=== PATIENT | male | born 1950 | race Caucasian/White ===

== ENCOUNTER → 2017-01-11 | Outpatient (CLI) | payer BC ==
[~2017-01-11] MED LIST: ATOR10TA88 PO; CHOL100040; CLC100 PO; DSY/150 PO; DSY50 PO; OXYC-57 PO; PSYL58.636; WARF2TAB PO; ZNTT/150 PO
== END | disposition home or self-care (01) ==
LOC: C.RDSM 14:44
PROVIDERS: ATTEND Physical Medicine & Rehabilitation Sports Medicine
DX: Z96.652 Presence of left artificial knee joint (principal)

== ENCOUNTER 2017-03-10 08:09 | Inpatient (IN) | payer BC, OTHER ==
[2017-02-08 11:02] VITALS: BMI 29.0
--- NOTE | 2017-02-08 11:44 | PAT Medication Instructions ---
Service Date Feb 08, 2017. Current Home Medication List Atorvastatin (Lipitor), 10 MG PO QAM Cholecalciferol (Vitamin D-1000), QAM Psyllium (Metamucil Fiber), Unknown Dose QAM Ranitidine (Zantac), 150 MG PO QAM Trazodone HCl (Trazodone HCl), 1 TAB PO HS Medication Instructions For Your Scheduled Surgery - Hold the following medications the morning of surgery: Psyllium (Metamucil Fiber), Unknown Dose QAM Cholecalciferol (Vitamin D-1000), QAM - Take the following medications the morning of surgery with a sip of water: Ranitidine (Zantac), 150 MG PO QAM Atorvastatin (Lipitor), 10 MG PO QAM - Take the following medications as scheduled the night before surgery: Trazodone HCl (Trazodone HCl), 1 TAB PO HS If you have any questions please call us at [phone] or [phone] ( [place]) or [phone]
--- NOTE | 2017-02-08 12:13 | DIAGNOSTIC IMAGING REPORT ---
CHEST 2 VIEWS ROUTINE CLINICAL HISTORY: Preoperative chest COMPARISON STUDY: 11/09/2014 FINDINGS: The cardiac and mediastinal contours are normal. There is no evidence of focal pulmonary consolidation. There is no evidence of failure. No pleural effusions are visualized.[ IMPRESSION: No active disease in the chest. Electronically signed by: Laz Low M.D. 02/08/2017 12:11 PM Dictated Date/Time: 02/08/2017 12:11 PM
[2017-02-08 12:26] LABS: BASO % 0.1 %; BASO ABS # 0.01 K/uL (0-0.2); COMPLETE YES; EOS % 1.4 %; HEMATOCRIT 43.4 % (42-52); IG% 0.1 %; LYMPH % 22.9 %; LYMPH ABS # 1.76 K/uL (1.2-3.4); MEAN CELL VOLUME 92.9 fL (80-100); MEAN CORPUSCULAR HGB CONC 33.4 g/dl (32-36); MEAN PLATELET VOLUME 10.3 fL (7.4-10.4); NEUT % 68.5 %; PLATELET COUNT 194 K/uL (130-400); RED BLOOD COUNT 4.67 M/uL (4.7-6.1); WHITE BLOOD COUNT 7.67 K/uL (4.8-10.8)
[2017-02-08 12:39] LABS: URINE APPEARANCE CLEAR (CLEAR); URINE BILIRUBIN NEG (NEG); URINE COLOR DK YELLOW; URINE NITRITE NEG (NEG); URINE SPECIFIC GRAVITY 1.032 (1.000-1.030); UROBILINOGEN NEG (NEG)
[2017-02-08 12:46] LABS: PROTHROMBIN TIME (PATIENT) 10.4 SECONDS (9.0-12.0)
[2017-02-08 12:53] LABS: MANUAL MICROSCOPIC REQUIRED? NO; REVIEW REQ? NO
[2017-02-08 13:47] LABS: BUN/CREATININE RATIO 14.5 (10-20); CREATININE 1.3 mg/dl (0.60-1.40); POTASSIUM 4.2 mmol/L (3.5-5.1)
[2017-02-08 14:02] LABS: CALCIUM 9.4 mg/dl (8.5-10.1)
--- NOTE | 2017-02-08 17:28 | HISTORY & PHYSICAL EXAMINATION ---
DATE OF ADMISSION: 03/10/2017 CHIEF COMPLAINT: Right knee pain. HISTORY OF PRESENT ILLNESS: This 66-year-old white male presents to the office with complaints of right knee pain that has been ongoing for several years. It has become worse over the last 6 months. Pain is affecting his ADLs. He denies any swelling. Pain is worse with weightbearing. He ambulates with an antalgic gait. He has tried activity modification and physical therapy as well as oral anti-inflammatories without lasting relief. X-rays have been obtained. He elects to proceed with right total knee arthroplasty in hopes of alleviating his pain. PAST MEDICAL HISTORY: Significant for anxiety, bipolar disorder, gout, elevated lipids, and osteoarthritis. PAST SURGICAL HISTORY: Knee arthroscopy and rotator cuff repair in 2005 and left knee TKA on 12/05/2014. ALLERGIES: NKDA. CURRENT MEDICATIONS: Mobic 15 mg p.o. daily, atorvastatin unknown mg at bedtime, vitamin D daily, risperidone 2 mg p.o. daily, and trazodone 50 mg p.o. t.i.d. SOCIAL HISTORY: The patient is retired. . Tobacco use of a can every 2 weeks. Occasional ETOH use. No drug use. FAMILY HISTORY: Noncontributory. REVIEW OF SYSTEMS: Significant for above stated conditions, otherwise unremarkable. PHYSICAL EXAMINATION: GENERAL: Well-developed and well-nourished elderly white male in no acute distress. Sitting on a chair. Alert and oriented. SKIN: Warm and dry with good turgor. No rashes or lesions. No ecchymosis or erythema. HEENT: Normocephalic and atraumatic. Eyes PERRLA, EOMI. Nares patent bilaterally without turbinate enlargement. Oropharynx without erythema or exudate. No lesions noted. Uvula midline. Oral mucosa moist. Fair dentition. Dental caps are noted. He does have a difficult airway to visualize. HEART: RRR. No MGR. LUNGS: Clear to auscultation bilaterally. No crackles, rhonchi or wheezing. Good air movement. ABDOMEN: Bowel sounds present x4, soft and nontender. No organomegaly. No masses. MUSCULOSKELETAL: Right knee evaluation reveals no intra-articular effusion. He does have discomfort with palpation over the medial joint line. Stable collateral ligaments. No pain with palpation over the patellar tendon or patella. No defect in the quadriceps tendon. Varus alignment. He lacks approximately 5 degrees of terminal extension. Flexion to greater than 100 degrees. Strength is 5/5 with good quad tone. NEUROLOGIC: Cranial nerves II through XII are intact. Gross sensation is intact across the right leg by soft touch. Peripheral pulses are 2+. DATA: Radiographic imaging previously obtained shows end-stage DJD of the right knee. There is medial compartment joint space collapse with bone on bone. Periarticular osteophytes and subchondral sclerosis were also present. IMPRESSION: Right knee degenerative joint disease. PLAN: Informed written consent was obtained to proceed with right knee total knee arthroplasty. Postoperative prescriptions for Percocet and Coumadin will be provided at discharge from the hospital. Anticipate discharge to home with outpatient PT at our facility. He already has a walker. Preoperative lab work, EKG, and chest x-ray have been ordered. Medical clearance has been requested from Dr. Monet.
[~2017-03-10] VITALS: Ht 172.7 cm; Wt 86.3 kg
[2017-03-10] VITALS (9 sets, daily range): BP systolic 97–131; BP diastolic 61–88; PULSE 60–110; TEMP 34.8–36.9; O2SAT 92–100; Ht 172.7 cm; Wt 86.3 kg
[~2017-03-10 08:09] MED LIST changes: +ATOR10TA82 PO; -ATOR10TA88 PO; +ATROPINE SULFATE 0.1 MG/ML 5ML SYR IV PRN; +CEFAZOLIN 2000 MG/60 ML D5W 60 ML IV SCH; -CLC100 PO; -DSY50 PO; +EpHEDrine SULFATE INJ 50 MG/ML AMP IV PRN; +FENTANYL CITRATE INJ 50 MCG/1 ML 2 ML VIAL IV PRN; +LACTATED RINGER'S 1000ML 1,000 ML IV SCH; +LACTATED RINGER'S 1000ML IV SCH; +ONDANSETRON INJ 2 MG/ML 2 ML VIAL IV PRN; -OXYC-57 PO; +ROPIVACAINE 5MG/ML 30 ML 150 MG, BUPIVACAINE/EPINEPHR 0.5% MPF 30 ML, KETOROLAC TROMETH... INFIL SCH; +TRANEXAMIC ACID INJ 1,000 MG in SODIUM CHLORIDE 0.9% 100ML 100 ML IV SCH; -WARF2TAB PO
--- NOTE | 2017-03-10 08:27 | History & Physical Bridge Note ---
H&P Re-Evaluation Bridge Note: I have examined the patient, reviewed the History & Physical and in the interval since the performance of the History & Physical I have noted the following changes of clinical significance: No changes noted
[2017-03-10] MEDS ORDERED: BUPIVACAINE 0.5 % 5 MG/1 ML PF 10ML VIAL ONE (08:50)
[2017-03-10] MEDS ORDERED: BUPIVACAINE 0.25% 30 ML VIAL ONE (08:50)
[2017-03-10] MEDS ORDERED: MIDAZOLAM HCL 1 MG/ML 2ML VIAL ONE (09:21)
[2017-03-10] MEDS ORDERED: FENTANYL CITRATE INJ 50 MCG/1 ML 2 ML VIAL ONE (09:21)
[2017-03-10] MEDS ORDERED: ORTHO JOINT ANESTHETIC ONE (10:35)
[2017-03-10] MEDS ORDERED: POVIDONE-IODINE OP SOLN 30 ML BTL ONE (10:35)
[2017-03-10] MEDS ORDERED: DEXAMETHASONE SOD INJ 4 MG/ML VIAL ONE (11:12)
[2017-03-10] MEDS ORDERED: PROPOFOL IV EMULSION 10 MG/ML 20 ML VIAL IV ONE (11:12)
[2017-03-10] MEDS ORDERED: LIDOCAINE HCL 2% 2 ML VIAL (20MG/ML) ONE (11:12)
[2017-03-10] MEDS ORDERED: EpHEDrine SULFATE 50MG/5ML SYR ONE (11:12)
[2017-03-10] MEDS ORDERED: ONDANSETRON INJ 2 MG/ML 2 ML VIAL ONE (11:12)
--- NOTE | 2017-03-10 12:18 | [facility] Post Operative Brief Note ---
Immediate Operative Summary Operative Date March 10, 2017. Pre-Operative Diagnosis Right Knee Degenerative Joint Disease Post-Operative Diagnosis Right Knee Degenerative Joint Disease Procedure(s) Performed Right Total Knee Arthroplasty Surgeon Dr. Pastor Social Insurance Analyst Surgeon(s) Dr. Florian Galloway (Fellow) /STEPHANY Patel Estimated Blood Loss 100 ML Findings severe medial djd/contracture Fluids (cc crystalloids) 1500cc Specimens A. Right Knee Bone and Tissue Drains none Anesthesia spinal/lma Complication(s) None Disposition Recovery Room / PACU
[2017-03-10] MEDS ORDERED: ALUMINUM/MAGNESIUM/SIMETH (MAALOX MAX) 30 ML UDC PO PRN (12:30)
[2017-03-10] MEDS ORDERED: ACETAMINOPHEN IV 100 ML IV PRN (12:30)
[2017-03-10] MEDS ORDERED: LORAZEPAM 0.5 MG TAB SL PRN (12:30)
[2017-03-10] MEDS ORDERED: ACETAMINOPHEN 325 MG TAB PO PRN (12:30)
[2017-03-10] MEDS ORDERED: OXYCODONE HCL IR 5 MG TAB (IMMEDIATE RELEASE) PO PRN (12:30)
[2017-03-10] MEDS ORDERED: ONDANSETRON INJ 2 MG/ML 2 ML VIAL IV PRN (12:30)
[2017-03-10] MEDS ORDERED: HYDROmorphone INJ 1 MG/ML SYR IV PRN (12:30)
[2017-03-10] MEDS ORDERED: METOCLOPRAMIDE HCL INJ 5 MG/ML 2 ML VIAL IV PRN (12:30)
[2017-03-10] MEDS ORDERED: DiphenhydrAMINE HCL 50 MG/ML VIAL IV PRN (12:30)
[2017-03-10] MEDS ORDERED: BISACODYL 10 MG SUPP PR PRN (12:30)
[2017-03-10] MEDS ORDERED: MAGNESIUM HYDROXIDE SUSP 30 ML UDC PO PRN (12:30)
[2017-03-10] MEDS ORDERED: TAMSULOSIN HCL 0.4 MG CAP PO PRN (12:30)
--- NOTE | 2017-03-10 12:48 | OPERATIVE REPORT ---
DATE OF OPERATION: 03/10/2017 PREOPERATIVE DIAGNOSIS: Osteoarthritis with varus and flexion deformity of his right knee. POSTOPERATIVE DIAGNOSIS: Same. OPERATION PERFORMED: Cemented right total knee replacement. SURGEON: Dr. Pastor. AERONAUTICAL DRAFTER: Dr. Florian Woody. SECOND AERONAUTICAL DRAFTER: Drew Tristan PA-C. SUMMARY OF IMPLANTS: Size 4 right femur posterior cruciate substituting size 4 rotating tibial platform tray, size 4 x10 mm insert posterior cruciate stabilized and 41 mm patella. Two bags of Palacos G cement. ESTIMATED BLOOD LOSS: 100 mL. CRYSTALLOID: 1500 mL. PERIOPERATIVE SITUATION: Medically cleared male with intractable knee pain has flexion and varus deformity, end-stage osteoarthritis with medial compartment narrowing, varus thrust and lateral subluxation of the tibia. OPERATION AND FINDINGS: PROCEDURE: The patient was properly identified, site verified, consent verified, 2 grams of Ancef confirmed as being given. Right lower extremity was prepped and draped in usual routine fashion. Tourniquet inflated to 300 mmHg after exsanguination of the limb with a rubber Esmarch bandage for a total of roughly 53 minutes. Midline exposure utilized. Parapatellar arthrotomy performed. Appropriate soft tissue releases and debridement carried out. Distal femur resected 14 mm. Proximal tibia resected 4 mm. The extension gap was excellent. Femur was sized to a 4, 4 cutting block applied and the anterior and posterior condylar and chamfer cuts made. The flexion gap was slightly tight medially. Posterior capsular release medially allowed that to be balanced well. The posterior capsule was injected with the Orthomix. The box cut was then made and the size 4 trial fit well. The tibia was broached and reamed to a size 4 and a 10 mm spacer allowed full maximum stability in all degrees of flexion and extension. The patella tracked well. The patella was sized to a 41 and was resected leaving 15 mm. The seating holes were made. The trial implant seated and the patella tracked well. All trial implants were then removed. The wound irrigated with Betadine Pulsavac and then Orthomix injected then irrigated one final time and then the permanent cemented into position. After 12 minutes of cement curing, the tourniquet was deflated additional 2 minutes. Minor bleeding controlled with electrocautery. The knee flexed. Minor cement removal medially. Wound irrigated with Betadine Pulsavac, permanent spacer seated. The knee reduced and closed with #1 Ethibond, #1 Vicryl, 2-0 Vicryl and stainless steel clips. Appropriate soft tissue dressing applied and the patient transferred to recovery room in satisfactory condition having tolerated the procedure well. The patient had a spinal with LMA due to incomplete spinal anesthesia. Again estimated blood loss 100 mL. Deep venous thrombosis prophylaxis with Coumadin. Procedure as noted above. I attest to the content of the Intraoperative Record and any orders documented therein. Any exceptio ns are noted below.
--- NOTE | 2017-03-10 13:02 | Anesthesiology Progress Note ---
Anesthesia Post Op Note Date & Time March 10, 2017 at 13:03 Vital Signs Pain Intensity: 0 Vital Signs Past 12 Hours Date Time Temp Pulse Resp B/P Pulse Ox O2 Delivery O2 Flow Rate FiO2 03/10/17 12:55 68 18 128/77 98 Nasal Cannula 2 03/10/17 12:45 67 18 122/86 98 Mask 6 03/10/17 12:35 78 18 119/81 98 Mask 6 03/10/17 12:27 36.0 73 18 114/73 98 Mask 10 03/10/17 08:44 36.6 60 20 131/88 95 Room Air Notes Mental Status: alert / awake / arousable, participated in evaluation Pt Amnestic to Procedure: Yes Nausea / Vomiting: adequately controlled Pain: adequately controlled Airway Patency, RR, SpO2: stable & adequate BP & HR: stable & adequate Hydration State: stable & adequate Neuraxial Anesthesia: was administered, sensory block is resolving Anesthetic Complications: no major complications apparent
--- NOTE | 2017-03-10 13:28 | DIAGNOSTIC IMAGING REPORT ---
RIGHT KNEE 2 VIEWS History: Right total knee arthroplasty. Degenerative arthritis. Postop. FINDINGS: The patient is status post a right total knee arthroplasty. The hardware is intact. No fracture or dislocation. Skin lokesh are in place. IMPRESSION: Right total knee arthroplasty. No evidence for hardware complication. Electronically signed by: Saul Leger M.D. 03/10/2017 1:27 PM Dictated Date/Time: 03/10/2017 1:27 PM
--- NOTE | 2017-03-10 13:40 | OPERATIVE REPORT ---
DATE OF OPERATION: 03/10/2017 PREOPERATIVE DIAGNOSIS: Right knee end-stage degenerative joint disease. POSTOPERATIVE DIAGNOSIS: Right knee same. PROCEDURE: Right knee total knee arthroplasty using DePuy implants. SURGEON: Dr. Pastor. MOLDING PROCESS TECHNICIAN: Dr. Amado. SECOND MOLDING PROCESS TECHNICIAN: Drew Tristan PA-C. HISTORY OF PRESENT ILLNESS: This 66-year-old white male presented to the office with complaints of right knee pain that had been ongoing for several years. The patient had tried conservative care measures without success. He underwent a previous left total knee arthroplasty and did very well with that. He elected to proceed with the same on the right. Preoperative x-rays were obtained. OPERATION: The patient was administered a spinal anesthetic and then taken to the operating room where he was given sedation. He was prepped and draped in the usual sterile fashion. Please see Dr. Pastor's operative report for specifics of the procedure. I was present for the entire case from initial patient positioning through final wound closure. Assistance was provided in patient positioning, tissue retraction, hemostasis, trial implant placement, final implant placement, and final wound closure. The patient was taken to the recovery room in satisfactory condition. I attest to the content of the Intraoperative Record and any orders documented therein. Any exceptio ns are noted below.
--- NOTE | 2017-03-10 13:45 | PROGRESS NOTE ---
DATE: 03/10/2017 Postop check status post right total knee replacement. At this point in time the patient is doing well. Denies chest pain, shortness breath, fever, chills, nausea, vomiting, headache. Vital signs are stable. He is afebrile. Neurovascular check is returning from his spinal, but is not completely back to normal yet. Wound dressing clean, dry and intact. Postop x-rays look excellent. ASSESSMENT: Doing well. Continue with care pathway. Follow up in the morning with dressing change. Deep venous thrombosis prophylaxis per Coumadin.
[2017-03-10] MEDS ORDERED: D5W AND 1/2NSS + 20MEQ KCL 1,000 ML IV SCH (14:00)
[2017-03-10] MEDS ORDERED: WARFARIN SOD 5 MG TAB PO SCH (16:00)
[2017-03-10] MEDS: KETOROLAC TROMETHAMINE 15 MG/ML VIAL IV. SCH ×2 (16:19→21:47)
[2017-03-10] MEDS ORDERED: TRANEXAMIC ACID INJ 1,000 MG in SODIUM CHLORIDE 0.9% 100ML 100 ML IV SCH (18:00)
[2017-03-10] MEDS: FERROUS GLUCONATE 324 MG TAB PO SCH (18:03)
[2017-03-10] MEDS: CEFAZOLIN IV 2,000 MG in DEXTROSE 5% 50ML 50 ML IV SCH (18:34)
[2017-03-10] MEDS ORDERED: TRAZODONE HCL 50 MG TAB PO SCH (21:00)
[2017-03-10] MEDS: DOCUSATE SODIUM 100 MG CAP PO SCH (21:47)
[2017-03-11] MEDS: KETOROLAC TROMETHAMINE 15 MG/ML VIAL IV. SCH ×2 (03:51→09:59)
[2017-03-11] MEDS: CEFAZOLIN IV 2,000 MG in DEXTROSE 5% 50ML 50 ML IV SCH (03:51)
[2017-03-11 04:00] VITALS: BP 106/65; PULSE 87; TEMP 36.8; O2SAT 94
[2017-03-11 06:32] LABS: HEMATOCRIT 35.3 % (42-52); MEAN CELL VOLUME 92.2 fL (80-100); MEAN CORPUSCULAR HEMOGLOBIN 30.5 pg (25-34); MEAN CORPUSCULAR HGB CONC 33.1 g/dl (32-36); MEAN PLATELET VOLUME 10.1 fL (7.4-10.4); PLATELET COUNT 189 K/uL (130-400); RED BLOOD COUNT 3.83 M/uL (4.7-6.1); WHITE BLOOD COUNT 15.39 K/uL (4.8-10.8)
[2017-03-11 06:51] LABS: PROTHROMBIN TIME (PATIENT) 10.2 SECONDS (9.0-12.0)
--- NOTE | 2017-03-11 07:00 | PROGRESS NOTE ---
DATE: 03/11/2017 Postop day #1 status post right total knee replacement. The patient is doing well. He denies chest pain, shortness of breath, fever, chills, nausea, vomiting or headache. Vital signs are stable. He is afebrile. Neurovascular check; femoral sciatic nerve is normal. LABORATORY WORK: His hematocrit is stable. INR is pending. Electrolytes are pending. ASSESSMENT: He is doing well. Pain is well managed. We will discharge today after a.m. PT/OT. Coumadin per nomogram today. Discharge on 4 mg daily if INR less than 1.4. If greater than 1.4, discharge on 2 mg daily. MTDD
[2017-03-11 07:09] LABS: BUN/CREATININE RATIO 11.3 (10-20); CALCIUM 8.2 mg/dl (8.5-10.1); CREATININE 1.4 mg/dl (0.60-1.40); POTASSIUM 3.9 mmol/L (3.5-5.1)
--- NOTE | 2017-03-11 07:24 | DISCHARGE SUMMARY ---
CHIEF COMPLAINT: Right knee pain. HISTORY OF PRESENT ILLNESS: A 66-year-old male, admitted for elective right total knee replacement. Hospital course has been uneventful. He feels well. He is able to lift his leg. He is ambulating well. He denies nausea, vomiting, chest pain, shortness of breath, fever, chills or headache. PAST MEDICAL HISTORY: Remarkable for anxiety, bipolar disorder, gout, elevated lipids and osteoarthritis. PAST SURGICAL HISTORY: Remarkable for knee arthroscopies, rotator cuff surgery and left total knee replacement. ALLERGIES: None. MEDICATIONS: Include; Mobic, atorvastatin risperidone and trazodone. He will discontinue the Mobic and add p.r.n. Percocet and will take Coumadin to keep INR 1.8-2.2. SOCIAL HISTORY: Reveals that he is retired, , p.r.n. use of smokeless tobacco, alcohol occasional. No drug use. REVIEW OF SYSTEMS: Noncontributory. ASSESSMENT: Doing well status post right total knee replacement. Plan is for discharge today after a.m. Physical therapy, occupational therapy and social service assessment. Follow up in the office in 2 weeks for staple removal. Start outpatient physical therapy on Wednesday. Discharge on Coumadin 4 mg daily if INR is less than 1.4 or equal and if it is greater than at 2 mg daily. Check INR on Wednesday. MTDD
[2017-03-11] MEDS ORDERED: DEXAMETHASONE INJ 10 MG in SYRINGE 0 ML IV SCH (07:30)
[2017-03-11] MEDS: DOCUSATE SODIUM 100 MG CAP PO SCH (07:31)
[2017-03-11 08:00] VITALS: BP_SYST 130; BP_DIAS 83; BP_DIAS 84; PULSE 86; TEMP 36.6; O2SAT 98
--- NOTE | 2017-03-11 08:33 | Orthopedic Progress Note ---
Orthopedic Progress Note Date of Service March 11, 2017. Subjective Post OP Day: 1 Reports: feeling well, pain controlled w PO medications, Denies: SOB, calf pain , chest pain, complaints, light headedness, nausea / vomiting, using METAL SOLDERER Objective calves soft nontender, N/V intact, capillary refill less than 2 sec., dressing C /D/I, incision C/D/I, A&O x3, toes mobile, CMS intact Date Time Temp Pulse Resp B/P Pulse Ox O2 Delivery O2 Flow Rate FiO2 03/11/17 08:00 36.6 86 16 130/ 98 Room Air 03/11/17 04:00 36.8 87 16 106/65 94 Room Air 03/11/17 00:19 Room Air 03/10/17 22:50 36.9 94 18 97/61 96 Room Air 03/10/17 20:00 36.6 110 18 107/65 97 Room Air 03/10/17 16:40 34.8 89 18 118/69 92 Room Air 03/10/17 15:46 Room Air 03/10/17 15:40 34.8 80 18 116/75 95 Room Air 03/10/17 14:53 73 19 129/82 99 Room Air 03/10/17 14:10 67 19 129/80 98 Nasal Cannula 2.0 03/10/17 14:08 100 Nasal Cannula 2.0 03/10/17 14:03 36.4 64 16 114/74 100 Nasal Cannula 2.0 03/10/17 14:01 100 Nasal Cannula 2.0 03/10/17 13:25 60 18 124/78 99 Nasal Cannula 2 03/10/17 13:15 65 18 123/84 98 Nasal Cannula 2 03/10/17 13:05 36.1 61 18 121/79 98 Nasal Cannula 2 03/10/17 12:55 68 18 128/77 98 Nasal Cannula 2 03/10/17 12:45 67 18 122/86 98 Mask 6 03/10/17 12:35 78 18 119/81 98 Mask 6 03/10/17 12:27 36.0 73 18 114/73 98 Mask 10 03/10/17 08:44 36.6 60 20 131/88 95 Room Air Laboratory Results 24 Hours: Test 03/11/17 06:10 Hematocrit 35.3 % Hemoglobin 11.7 g/dL Prothromb Time International Ratio 1.0 Prothrombin Time 10.2 SECONDS Assessment & Plan Assessment: Day 1 s/p Right TKA Plan: WBAT on operative limb with use of immobilizer and walker for 1st 48 hrs post op Cont pain meds for pain control Ice with Ez wrap PT/OT starting today PO Coumadin per nomagram and TEDS for DVT prophylaxis. Possible discharge to home today with outpatient therapy Dressing changed, wound appears well. Will provide Rx for pain meds and coumadin. Discharge Planning Discharge Planning: home with oppt Pain Management: Percocet DVT Prophylaxis: TEDs, Coumadin Therapy: Physical Therapy, Occupational Therapy
[2017-03-11] MEDS ORDERED: WARF2TAB PO (08:37)
[2017-03-11] MEDS ORDERED: OXYC-57 PO (08:37)
--- NOTE | 2017-03-11 08:41 | Discharge Instructions ---
Discharge Instructions Date of Service March 11, 2017. Admission Reason for Admission: Right Knee Degenerative Joint Disease Discharge Discharge Diagnosis / Problem: Right knee DJD Discharge Goals Goal(s): Decrease discomfort, Improve function, Increase independence Activity Recommendations Activity Limitations: as noted below Lifting Limitations: none Exercise/Sports Limitations: until after follow-up appointment May Resume Sexual Activity: when tolerated Shower/Bathe: tomorrow, keep incision dry Driving or Machine Use: Will discuss at post op f/u in 2 wks. Weightbearing Status: Right weightbearing (as tolerated with use of walker ( immobilizer for 1st 48 hrs post op) . Instructions / Follow-Up Instructions / Follow-Up New Medicine: * You will likely be taking one or more of these medications: 1. Percocet - Take, as directed, when you need it, every four to six hours to control your pain. 2. Iron Sulfate - Take three times each day for the month after surgery to help you replace the blood lost during surgery. 3. Coumadin - Thins your blood to lessen the chance of forming a blood clot. The dose of this is different for each person and is based on your blood tests that are done twice a week. * The most common side effects of pain medicine and iron are nausea and constipation. If nausea or constipation is too much of a problem or if you have any questions about your new medicines or doses, call [facility] at . We will try to help you manage these issues. VERY IMPORTANT TO READ AND REVIEW" Blood Clots and Blood Thinning Medicine: * You are given Coumadin during the immediate post-operative period to lessen the risk of blood clots forming in your legs and/or lungs. Coumadin is usually given for six weeks after surgery. * The prescription is for 2 mg tablets. At discharge, you should understand your dose and take it all at the same time every day, preferably after dinner. * You need to get your blood checked 1 - 2 times per week for six weeks or as directed. * If your dose needs to change, we will call you. Do not take your medication on the day of the blood test until we call you. Pain: * The immediate post-operative period after knee replacement surgery is often quite painful. * You are given a prescription for pain medicine. You should take it, as directed, when you need it, especially before physical therapy and before going to bed. Pain that interferes with sleep is very common and can last several months. * You will likely need pain medicine for the first four to six weeks. It will not stop all of the pain. The pain will lessen and as you feel better, you may change to milder pain medicine such as Tylenol. * The most common side effects of pain medicine are nausea and constipation, so don't take more than you need. Physical Therapy: * You will have physical therapy two or three times each week for four to six weeks after your surgery in order to regain your knee range of motion and to retrain your knee to work properly. * It is just as important to make sure you are getting your knee perfectly straight as it is to regain your knee bend. * Taking a pain pill an hour before therapy can help you have a more productive and comfortable therapy session if needed. Home Exercise: * You were shown a series of exercises (heel props, heel slides, etc.) in the hospital. Do these exercises three to four times each day including the exercises you were shown in physical therapy. Walking: * Get up and walk several times each day. For the first four weeks, try not to stand or walk for more than one hour at a time. If you do stand or walk for more than one hour, you will not hurt anything, but your knee and leg will likely swell. * As you feel comfortable, you may change from the walker or crutches to a cane and then to independent walking. SELF CARE INSTRUCTIONS AFTER TOTAL KNEE REPLACEMENT A. You may need to continue a physical therapy program after discharge from the hospital. There are several options available to you. Your doctor will assist you in selecting the best one for you. 1. An out-patient facility 2 to 3 times a week for therapy or home therapy. 2. Continue working on all exercises taught to you in the hospital. Your goals should be to increase bending of your knee to 90 degrees and beyond and to fully straighten your knee. B. You may progress at your own pace from walking with a walker or crutches to a cane; then to no assistive devices. C. Make walking a part of your daily routine. Be up as much as comfortable with rest periods throughout the day. Rest with leg elevation is very important. Use the ice wrap frequently for the first 3-4 weeks. D. There are no restrictions on activities. You may ride in a car, shop, participate in cocoa bean roaster and all social activities. E. Wear the long elastic stockings (KIRSTEN hose) 20 hours a day for six weeks after surgery. They can be removed several times a day for laundering and for a shower. F. Do not place a pillow behind your knee when resting. A pillow at your ankle is okay. VERY IMPORTANT TO READ AND REVIEW A. Take Coumadin, Aspirin or Lovenox (blood thinning medications) as directed by your doctor. If on Coumadin, have a pro-time (blood test) drawn according to your doctor's instructions. This will tell the doctor how well the Coumadin is thinning your blood. 1. YOU WILL BE GIVEN AN ORDER AT DISCHARGE FOR PT/INR (BLOOD WORK). PLEASE HAVE THIS DONE INSTRUCTED. PLEASE CALL OUR OFFICE AFTER YOUR BLOODWORK IS COMPLETE SO WE CAN TRACK YOUR RESULTS. IF YOU ARE GOING TO OUTPATIENT PHYSICAL THERAPY, YOU WILL NEED TO GO TO OUTPATIENT TESTING TO HAVE IT DRAWN. B. There are a few signs you need to watch for after you are home. Call [facility] if you notice any of the followin. Increased severe knee pain. Some pain is expected especially when you exercise. 2. Increased swelling in your leg or knee; pain or swelling of the calf muscle in either lower leg. 3. Any fluid drainage from the incision. 4. Shortness of breath or chest pain. C. Please call [facility] at if you have any concerns or questions about your operation or recovery. The doctor or his nurse will return your call promptly. D. You must take antibiotics before dental work, bladder, bowel or other surgery. Call the office to obtain a prescription at least 2 days prior to your appointment. * CALL IF INCREASED PAIN, REDNESS, DRAINAGE OR FEVER GREATER THAT 101. * Sutures should be removed 12-14 days after surgery unless you are on chronic steriods, then it will be 14-18 days after surgery. Call your doctor if: * Temperature above 101 degrees F. * Pain not relieved by pain medicine ordered. * Increased drainage or redness from incision. * Notify your doctor with any questions or concerns. Current Hospital Diet Patient's current hospital diet: AHA Diet (Heart Healthy) Discharge Diet Recommended Diet: Regular Diet Procedures Procedures Performed: Right Total Knee Arthroplasty Pending Studies Studies pending at discharge: no Medical Emergencies . Who to Call and When: Medical Emergencies: If at any time you feel your situation is an emergency, please call 911 immediately. . Non-Emergent Contact Non-Emergency issues call your: Primary Care Provider, Surgeon Call Non-Emergent contact if: temperature is above 101.5, your pain is not controlled, wound has increased drainage, wound has increased redness, wound has increased pain, you have any medication questions . "Provider Documentation" section prepared by Shilo Wu. . VTE Core Measure Inpt VTE Proph given/why not?: Warfarin (Coumadin), Angel Cunningham, [facility] [place] Drug Monitoring Program Search Results: no issues identified
[2017-03-11] MEDS: FERROUS GLUCONATE 324 MG TAB PO SCH ×2 (08:49→11:30)
[2017-03-11 08:56] VITALS: O2SAT 98
[2017-03-11] MEDS ORDERED: PANTOprazole SOD 40 MG TAB PO SCH (09:00)
[2017-03-11] MEDS ORDERED: MULTIVITAMIN TAB PO SCH (09:00)
[2017-03-11] MEDS ORDERED: ATORVASTATIN 10 MG TAB PO SCH (09:00)
[2017-03-11] MEDS ORDERED: WARFARIN SOD 5 MG TAB PO ONE (11:00)
[2017-03-11 11:46] VITALS: BP 124/80; PULSE 85; TEMP 36.2; TEMP 36.6; O2SAT 98
== END 2017-03-11 12:43 | disposition home or self-care (01) | DRG 470 ==
LOC: ENRESERVTM → ENRESERVDT → C.ACU 08:09 → C.3E 08:30
PROVIDERS: ADMIT Physical Medicine & Rehabilitation Sports Medicine; ATTEND Physical Medicine & Rehabilitation Sports Medicine
PROC: 0SRC0J9 Replacement of Right Knee Joint with Synthetic Substitute, Cemented, Open Approach (ICD-10-PCS; principal; 2017-03-10 10:40)
DX: M17.11 Unilateral primary osteoarthritis, right knee (principal); K21.9 Gastro-esophageal reflux disease without esophagitis; F41.9 Anxiety disorder, unspecified; E78.5 Hyperlipidemia, unspecified; F31.9 Bipolar disorder, unspecified; N18.3 Chronic kidney disease, stage 3 (moderate); F17.210 Nicotine dependence, cigarettes, uncomplicated; M21.161 Varus deformity, not elsewhere classified, right knee; M21.261 Flexion deformity, right knee; F17.290 Nicotine dependence, other tobacco product, uncomplicated; M10.9 Gout, unspecified; Z96.651 Presence of right artificial knee joint; Z79.899 Other long term (current) drug therapy; Z79.1 Long term (current) use of non-steroidal anti-inflammatories (NSAID)

== ENCOUNTER → 2017-05-03 | Outpatient (CLI) | payer BC ==
[~2017-05-03] MED LIST changes: -ATOR10TA82 PO; +ATOR10TA88 PO; -ATROPINE SULFATE 0.1 MG/ML 5ML SYR IV PRN; -CEFAZOLIN 2000 MG/60 ML D5W 60 ML IV SCH; -EpHEDrine SULFATE INJ 50 MG/ML AMP IV PRN; -FENTANYL CITRATE INJ 50 MCG/1 ML 2 ML VIAL IV PRN; -LACTATED RINGER'S 1000ML 1,000 ML IV SCH; -LACTATED RINGER'S 1000ML IV SCH; -ONDANSETRON INJ 2 MG/ML 2 ML VIAL IV PRN; +OXYC-57 PO; -ROPIVACAINE 5MG/ML 30 ML 150 MG, BUPIVACAINE/EPINEPHR 0.5% MPF 30 ML, KETOROLAC TROMETH... INFIL SCH; -TRANEXAMIC ACID INJ 1,000 MG in SODIUM CHLORIDE 0.9% 100ML 100 ML IV SCH; +WARF2TAB PO
== END | disposition home or self-care (01) ==
LOC: C.RDSM 12:11
PROVIDERS: ATTEND Physical Medicine & Rehabilitation Sports Medicine
DX: Z96.652 Presence of left artificial knee joint (principal)

== ENCOUNTER → 2017-08-30 | Outpatient (CLI) | payer BC ==
[~2017-08-30] MED LIST changes: +ATOR10TA82 PO; -ATOR10TA88 PO
== END | disposition home or self-care (01) ==
LOC: C.RDSM 15:43
PROVIDERS: ATTEND Physical Medicine & Rehabilitation Sports Medicine
DX: Z09 Encounter for follow-up examination after completed treatment for conditions other than malignant neoplasm (principal)

== ENCOUNTER 2023-12-11 10:33 | Inpatient (IN) ==
--- NOTE | 2023-12-11 12:00 | Emergency Department Note ---
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 Anterior osteophytes are seen throughout. The odontoid process and lateral masses are intact. The atlantoaxial articulation is preserved noting productive degenerative change. The spinous processes appear intact. There is moderate to advanced multilevel cervical spondylosis. Uncovertebral and facet arthropathy contribute to neural foraminal narrowing at several levels. Intervertebral discs: There is moderate to severe disc space narrowing at C4-C5, C5-C6, C6-C7, and C7-T1. Central canal: Posterior disc osteophyte complexes are seen at all levels between C3-C4 and C6-C7. This likely contributes to multilevel acquired compromise of the central canal. Soft tissues: The prevertebral and paraspinous soft tissues are within normal limits. There is atherosclerotic calcification of the carotid bulbs. Calvarium: The visualized calvarium at the skull base appears intact. Brain parenchyma: Partially visualized brain parenchyma at the skull base is within normal limits. Sinuses and mastoids: The visualized paranasal sinuses are clear. The mastoid air cells are well pneumatized. Cerumen is noted in the left external auditory canal. Lung apices: Clear as visualized. IMPRESSION: 1. There is no evidence of fracture or subluxation involving the cervical spine. 2. Osteopenia and spondylotic change as above. ACT 112: Negative or not required by law. Electronically signed by: Nikolay Tejeda M.D. 12/11/2023 12:[address] 12/11/23 11:50 CT SCAN OF THE BRAIN WITHOUT IV CONTRAST CLINICAL HISTORY: Fall. COMPARISON STUDY: CT of the brain dated 05/01/2023. TECHNIQUE: Unenhanced axial CT scan of the brain is performed from the vertex to the skull base. A dose lowering technique was utilized adhering to the principles of ALARA. The skull base was scanned twice due to motion artifact. FINDINGS: Brain parenchyma: There is age-related involutional change noting moderate to advanced subcortical and periventricular microangiopathic disease. There is no hemorrhage, mass effect, or evidence of acute territorial ischemia by CT criteria. Colbert-white matter differentiation is preserved. No extra-axial fluid collection is seen. Ventricles, sulci, cisterns: Prominent secondary to involutional change. Cavum septum pellucidum is incidentally noted. Intracranial vasculature: There is atherosclerotic calcification of the cavernous carotid arteries. Calvarium: The skeletal structures are osteopenic. No depressed calvarial fracture is seen. Soft tissues: There is a right frontal scalp contusion. Sinuses and mastoids: The visualized paranasal sinuses are clear. The mastoid air cells are well pneumatized. Cerumen is seen in the left external auditory canal. Orbits: The bony orbits are grossly intact. There are bilateral ocular lens implants. IMPRESSION: There is no hemorrhage, mass effect, or evidence of acute territorial ischemia by CT criteria. ACT 112: Negative or not required by law. Electronically signed by: Nikolay Tejeda M.D. 12/11/2023 12:26 PM Pelvis X-Ray 12/11/23 11:52 SINGLE VIEW PELVIS CLINICAL HISTORY: Fall. FINDINGS: An AP, portable, supine pelvic radiograph is obtained. No prior studies are available for comparison at the time of dictation. The skeletal structures are osteopenic. There is no radiographic evidence of acute fracture involving the hips or bony pelvis. Mild arthritic change and joint space narrowing is seen in the hips. There is mild degenerative sclerosis of the sacroiliac joints. Lumbosacral spondylosis is partially imaged. The overlying soft tissues are normal in appearance. Phleboliths and vascular calcifications are noted in the pelvis. IMPRESSION: No acute bony abnormality is identified. Electronically signed by: Nikolay Tejeda M.D. 12/11/2023 1:40 PM Discharge Plan Visit Data Chief Complaint: Altered Mental Status ED Provider: Julio Farmer Discharge Problem: Rhabdomyolysis, Dementia, COVID-19, Fall from standing, Superficial burn of scalp, Scalp abrasion Forms Stand Alone Forms: Anyone Home Prescriptions Prescriptions: No Action memantine 10 mg tablet 10 mg PO BID donepezil 10 mg tablet 10 mg PO QAM trazodone 150 mg tablet 150 mg PO HS multivitamin Tablet 1 tab PO QAM cholecalciferol (vitamin D3) [Vitamin D3] 25 mcg (1,000 unit) Tablet 2,000 mcg PO QAM atorvastatin 40 mg tablet 40 mg PO QAM Referrals Referrals: PCP,NO [Physician] - Discharge Problem: Rhabdomyolysis Qualifiers: Rhabdomyolysis type: traumatic Encounter type: initial encounter Qualified Code(s): T79.6XXA - Traumatic ischemia of muscle, initial encounter Dementia Qualifiers: Dementia type: Alzheimer's Alzheimer's disease onset: unspecified onset D ementia severity: unspecified severity Dementia behavioral or psychological symptom: without behavioral, psychotic, or mood disturbance or anxiety Qualified Code(s): G30.9 - Alzheimer's disease, unspecified Fall from standing Qualifiers: Encounter type: initial encounter Qualified Code(s): W19.XXXA - Unspecified fall, initial encounter Superficial burn of scalp Qualifiers: Encounter type: initial encounter Qualified Code(s): T20.15XA - Burn of first degree of scalp [any part], initial encounter Scalp abrasion Qualifiers: Encounter type: initial encounter Qualified Code(s): S00.01XA - Abrasion of scalp, initial encounter
[2023-12-11 12:26] LABS: Basophils # (auto) 0.04 K/uL (0.00-0.20); Basophils % (auto) 0.3 %; Eosinophils # (auto) 0.01 K/uL (0.00-0.50); Eosinophils % (auto) 0.1 %; Hematocrit (blood only) 44.8 % (42.0-52.0); Hemoglobin 15.1 g/dl (14.0-18.0); Immature Granulocytes # (auto) 0.05 K/uL (0.01-0.20); Immature Granulocytes % (auto) 0.4 %; Lymphocytes # (auto) 0.81 K/uL (1.20-3.40); Lymphocytes % (auto) 6.7 %; Mean Corpuscular Hemoglobin 30.6 pg (25.0-34.0); Mean Corpuscular Hgb Conc 33.7 g/dL (32.0-36.0); Mean Corpuscular Volume 90.9 fL (80.0-100.0); Mean Platelet Volume 10.4 fL (9.4-12.4); Monocytes # (auto) 0.99 K/uL (0.11-0.59); Monocytes % (auto) 8.2 %; Neutrophils # (auto) 10.17 K/uL (1.40-6.50); Neutrophils % (auto) 84.3 %; Platelet Count 163 K/uL (130-400); RDW Coefficient of Variation 12.7 % (11.5-14.5); RDW Standard Deviation 41.8 fL (36.4-46.3); Red Blood Count 4.93 M/uL (4.70-6.10); White Blood Count 12.07 K/ul (4.8-10.8)
--- NOTE | 2023-12-11 12:29 | CT Scan Report ---
CT SCAN OF THE BRAIN WITHOUT IV CONTRAST CLINICAL HISTORY: Fall. COMPARISON STUDY: CT of the brain dated 05/01/2023. TECHNIQUE: Unenhanced axial CT scan of the brain is performed from the vertex to the skull base. A do se lowering technique was utilized adhering to the principles of ALARA. The skull base was scanned tw ice due to motion artifact. FINDINGS: Brain parenchyma: There is age-related involutional change noting moderate to advanced subcortical an d periventricular microangiopathic disease. There is no hemorrhage, mass effect, or evidence of acute territorial ischemia by CT criteria. Colbert-white matter differentiation is preserved. No extra-axial fluid collection is seen. Ventricles, sulci, cisterns: Prominent secondary to involutional change. Cavum septum pellucidum is i ncidentally noted. Intracranial vasculature: There is atherosclerotic calcification of the cavernous carotid arteries. Calvarium: The skeletal structures are osteopenic. No depressed calvarial fracture is seen. Soft tissues: There is a right frontal scalp contusion. Sinuses and mastoids: The visualized paranasal sinuses are clear. The mastoid air cells are well pneu matized. Cerumen is seen in the left external auditory canal. Orbits: The bony orbits are grossly intact. There are bilateral ocular lens implants. IMPRESSION: There is no hemorrhage, mass effect, or evidence of acute territorial ischemia by CT zurdo woodruff. ACT 112: Negative or not required by law. Electronically signed by: Nikolay Tejeda M.D. 12/11/2023 12:26 PM
--- NOTE | 2023-12-11 12:33 | CT Scan Report ---
CT SCAN OF THE CERVICAL SPINE CLINICAL HISTORY: Fall. COMPARISON STUDY: No priors. TECHNIQUE: CT scan of the cervical spine is performed from the skull base to the upper thoracic spine . Images are reviewed in the axial, sagittal, and coronal planes. IV contrast was not administered fo r this examination. A dose lowering technique was utilized adhering to the principles of ALARA. CT DOSE: 1538.68 mGy.cm FINDINGS: Skeletal structures: The skeletal structures are osteopenic. There is no evidence of fracture or subl uxation involving the cervical spine. Vertebral body height is maintained. There is minimal anteroli sthesis at C5-C6. Alignment is otherwise preserved. There is straightening of the cervical lordosis. Anterior osteophytes are seen throughout. The odontoid process and lateral masses are intact. The watson antoaxial articulation is preserved noting productive degenerative change. The spinous processes appe ar intact. There is moderate to advanced multilevel cervical spondylosis. Uncovertebral and facet art hropathy contribute to neural foraminal narrowing at several levels. Intervertebral discs: There is moderate to severe disc space narrowing at C4-C5, C5-C6, C6-C7, and C7 -T1. Central canal: Posterior disc osteophyte complexes are seen at all levels between C3-C4 and C6-C7. Th is likely contributes to multilevel acquired compromise of the central canal. Soft tissues: The prevertebral and paraspinous soft tissues are within normal limits. There is athero sclerotic calcification of the carotid bulbs. Calvarium: The visualized calvarium at the skull base appears intact. Brain parenchyma: Partially visualized brain parenchyma at the skull base is within normal limits. Sinuses and mastoids: The visualized paranasal sinuses are clear. The mastoid air cells are well pneu matized. Cerumen is noted in the left external auditory canal. Lung apices: Clear as visualized. IMPRESSION: 1. There is no evidence of fracture or subluxation involving the cervical spine. 2. Osteopenia and spondylotic change as above. ACT 112: Negative or not required by law. Electronically signed by: Nikolay Tejeda M.D. 12/11/2023 12:31 PM
[2023-12-11 12:37] LABS: BUN Creatinine Ratio 14.2 (10-20); Calcium 9.7 mg/dl (8.6-10.3); Creatinine Clr Calc Pharmacy 54.9 ml/min; Est GFR (African American) 68.1 ml/min; Est GFR (Non-African American) 58.8 ml/min; Potassium 4.3 mmol/L (3.5-5.1)
[2023-12-11] MEDS: SODIUM CHLORIDE 0.9% 1,000 ML IV ONE (12:41)
[2023-12-11 12:43] LABS: Troponin I High Sensitivity 29.5 pg/ml (0-20)
[2023-12-11 12:57] LABS: Albumin Globulin Ratio 1.3 (0.9-2); Albumin Level 4.1 gm/dl (3.4-5.0); Bilirubin,Total 0.9 mg/dl (0.2-1.0); Globulin 3.1 gm/dl (2.5-4.0); Magnesium 2.1 mg/dl (1.7-2.4); Phosphorus 2.9 mg/dl (2.5-4.9); Total Protein 7.2 gm/dl (6.0-8.3)
[2023-12-11 13:08] LABS: Adenovirus PCR Not Detected (NotDetected); Bordetella parapertussis PCR Not Detected (NotDetected); Bordetella pertussis PCR Not Detected (NotDetected); Chlamydia pneumoniae PCR Not Detected (NotDetected); Coronavirus 229E PCR Not Detected (NotDetected); Coronavirus CoV-2 (COVID19)PCR DETECTED (NotDetected); Coronavirus HKU1 PCR Not Detected (NotDetected); Coronavirus NL63 PCR Not Detected (NotDetected); Coronavirus OC43PCR Not Detected (NotDetected); Human Metapneumovirus PCR Not Detected (NotDetected); Influenza A PCR Not Detected (NotDetected); Influenza B PCR Not Detected (NotDetected); Mycoplasma pneumoniae PCR Not Detected (NotDetected); Parainfluenza Virus 1 PCR Not Detected (NotDetected); Parainfluenza Virus 2 PCR Not Detected (NotDetected); Parainfluenza Virus 3 PCR Not Detected (NotDetected); Parainfluenza Virus 4 PCR Not Detected (NotDetected); Respiratory Syncytial VirusPCR Not Detected (NotDetected); Rhinovirus/Enterovirus PCR Not Detected (NotDetected)
--- NOTE | 2023-12-11 13:37 | XRay Report ---
SINGLE VIEW CHEST CLINICAL HISTORY: Change in mental status. FINDINGS: An AP, portable, upright chest radiograph is compared to study dated 06/26/2023. The examinat ion is degraded by portable technique and patient rotation. The heart is enlarged. The pulmonary vasc ulature is noncongested. Chronic interstitial thickening is similar to previous. There is bibasilar s carring/atelectasis. No airspace consolidation or large pleural effusion is identified. No pneumothor ax is seen. The skeletal structures are osteopenic. The bony thorax is grossly intact. Arthritic haynes ge is noted in the shoulders. IMPRESSION: Cardiomegaly with no active disease in the chest. ACT 112: Negative or not required by law. Electronically signed by: Nikolay Tejeda M.D. 12/11/2023 1:35 PM
--- NOTE | 2023-12-11 13:41 | XRay Report ---
SINGLE VIEW PELVIS CLINICAL HISTORY: Fall. FINDINGS: An AP, portable, supine pelvic radiograph is obtained. No prior studies are available for c omparison at the time of dictation. The skeletal structures are osteopenic. There is no radiographic evidence of acute fracture involving the hips or bony pelvis. Mild arthritic change and joint space n arrowing is seen in the hips. There is mild degenerative sclerosis of the sacroiliac joints. Lumbosac ral spondylosis is partially imaged. The overlying soft tissues are normal in appearance. Phleboliths and vascular calcifications are noted in the pelvis. IMPRESSION: No acute bony abnormality is identified. Electronically signed by: Nikolay Tejeda M.D. 12/11/2023 1:40 PM
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
[2023-12-11 16:30] LABS: Appearance Urine Clear (Clear); Bacteria Urine Automated Negative (Negative); Bilirubin Urine Negative (Negative); Blood Urine 1+ (Negative); Color Urine Yellow; Glucose Urine UA Negative (Negative); Ketones Urine Negative (Negative); Leukocyte Esterase Urine Negative (Negative); Nitrite Urine Negative (Negative); Protein Urine 1+ (Negative); RBC Urine Automated 0-4 /hpf (0-4); Specific Gravity Urine 1.019 (1.000-1.030); Urobilinogen Urine Negative (Negative); pH Urine 7.5 (4.5-7.5)
--- OUTSIDE RECORDS SUMMARY | 2023-12-11 18:17 | External Medical Summary | Summary of Care ---
Author Name Unknown Organization [facility] Address [address] [facility] [address] Phone [phone] Care Team Providers Care Utilities Service Investigator Name Role Phone Julio César Best Primary Care Provider Reason for Visit * Reason Comments eRx-Medication Refill Encounter Details Date Type Department Care Team (Late st Contact Info) Description 10/23/2023 Refill [facility] Practice [facility] [address] [facility] [place] [address] Jason Ni DO [address] [place] [address] Dyslipidemia, goal to be determined Allergies Active Allergy Reactions Criticality Noted Date Comments Simvastatin 06/18/1998 Elevated CPK documented as of this encounter (statuses as of 10/25/2023) Medications Medication Sig Dispensed Refills Start Date End Date Status VITAMIN D3 1000 UNITS PO TABS 2 tabs daily 0 Active Apoaequorin 20 MG Oral Capsule Take by mouth daily. 0 Active Vitamin C 100 MG Oral Tablet Take 1 Tablet by mouth in the morning. 0 Active QC Multi-Sammy 50 & Over Oral Tablet Take by mouth . 0 Act max Ammonium Lactate 12 % External CreamIndications:Int rinsic atopic dermatitis Apply topically to affected area 2 times a day. To affected area. 385 g 11 10/15/2022 Active Additional Information Patient not taking.Informant: Spouse, Reported on 05/26/2023 Sildenafil Citrate 100 MG Oral TabletIndications:Im potence of organic origin take 1 tablet by mouth 1 TO 4 HOURS BEFORE INTERCOURSE NO MORE THAN 1 DOSE IN 24 HOURS 10 Tablet 5 05/13/2023 Active Memantine HCl 10 MG Oral Tablet (Namenda)Indications :Major neurocognitive disorder (HCC) Take 1 Tablet by mouth 2 times a day with morning and evening meals. 60 Tablet 5 05/26/2023 Active Donepezil HCl 10 MG Oral Tablet (Aricept)Indications :Dementia without behavioral disturbance (HCC) take 1 tablet by mouth IN THE MORNING with THE LARGEST MEAL OF THE DAY 90 Tablet 3 06/23/2023 Active Azithromycin 250 MG Oral Tablet (Zithromax Z-Artur) Take two tablets by mouth on first day, then 1 tablet daily until gone 6 Tablet 0 06/30/2023 Active Additional Information Patient not taking.Reported on 07/13/2023 traZODone HCl 150 MG Oral Tablet (Desyrel)Indications :Insomnia take 1 tablet by mouth at bedtime 90 Tablet 1 07/06/2023 Active Atorvastatin Calcium 40 MG Oral Tablet (Lipitor)Indications :Dyslipidemia, goal LDL below 70 Take 1 Tablet by mouth in the morning. 90 Tablet 3 08/27/2023 Active Dicyclomine HCl 10 MG Oral Capsule (Bentyl)Indications: Irritable bowel syndrome without diarrhea take 1 capsule by mouth four times a day (BEFORE FOOD and at bedtime) for abdominal pain 120 Capsule 0 09/14/2023 Active Meloxicam 7.5 MG Oral TabletIndications:Ar thritis of both knees,Encounter for long-term (current) use of medications Take 1 Tablet by mouth in the morning. for pain.. 90 Tablet 3 09/15/2023 Active documented as of this encounter (statuses as of 10/25/2023) Active Problems Problem Noted Date Diagnosed Date Trigger middle finger of right hand 08/18/2023 Current mild episode of jeffrey r depressive disorder without prior episode 06/19/2022 Pain in both feet 02/14/2021 Primary osteoarthritis of both hands 02/14/2021 Dementia without behavioral disturbance 03/26/20 20 Overview: ICD-10 update of inactive term high grade intraepithelial n eoplasia prostate biopsy 11/06 specimens 01/21/2010 DYSLIPIDEMIA, GOAL TO BE DETERMINED 09/24/2009 Overview: Per Lipid Taxonomy. ADVANCE DIRECTIVE INFORMATION 05/27/2006 Overview: Information given to patient. Esophageal reflux 01/30/2002 Other atopic dermatitis 02/23/2000 Overview: ICD-10 update of inactive term Major depressive disorder Overview: ICD-10 update of inactive term documented as of this encounter (statuses as of 10/25/2023) Resolved Problems Problem Noted Date Diagnosed Date Resolved Date Kidney disease, chronic, sta ge III (GFR 30-59 ml/min) 12/11/2013 10/15/2022 Overview: Per CKD protocol #1 Chest pain 09/25/2003 12/29/2011 Corns and callosities 09/16/19992011 Mixed dyslipidemia 08/21/1997 9 Overview: Per Lipid Taxonomy. documented as of this encounter (statuses as of 10/25/2023) Immunizations Name Administration Dates Next Due COVID-19 mRNA, LNP-s, No Pre serve, 2-Dose Series (Moderna) 12/13/2020,11/15/2020 COVID-19, MRNA-LNP, 23-24, P F, 30 MCG/0.3 mL, 12 YRS AND ABOVE, IM (PFIZER-Comirnat) 07/30/2023 Pneumococcal Conjugate Vacc, 13 Valent (Prevnar) 04/02/2019,04/23/2015,11/30/2014,09/03 Pneumococcal Polysaccharide PPV23 (Pneumovax) 09/08/2017 RSV Vac., Bivalent, Perfusio n F, Pf,0.5 Ml (Abrysvo) 08/04/2023 Season Influenza, Quad, PF, Adjuvanted, 65+ Yrs, IM (FLUAD) 07/05/2020 Seasonal Influenza Virus Vac cine, Unspecified Formulation 07/15/2021,07/05/2020,07/24/2019,07/11,06/24/2017,05/29/2016,08/31/2013 ,09/27/2012,08/12/2005,08/26/2004,07/19,08/17/2002,09/26/2001 Seasonal Influenza, PF, 6 M & above, IM , (FluLaval or Fluzone) 07/11/2018 Seasonal Influenza, Quadriva lent Hd (Fluzone Hd) 07/30/2023,06/19/2022 Seasonal Influenza, Quadriva lent, No Preserve, IM 06/24/2017,07/23/2015 Seasonal Influenza, Split, I IV3, With Preserve, Inj 10/01/2014,08/31/2013,09/27/2012 Seasonal Influenza, Trivalen t, Adjuvanted, 65+ yrs 07/24/2019 TDAP (age 10 and older)(Boostrix) 07/24/2021 TDAP (age 11 and older)(Adacel) 10/29/2009 Varicella Zoster Vaccine (Adult) 12/29/2011 Zoster Vaccine Recombinant (Shingrix) ,09/26/2020,03/31/2019,09/28 documented as of this encounter Social History Tobacco Use Types Packs/Day Years Used Date Smoking Tobacco: Former Smokeless Tobacco: Current Chew Comments:one can lasts 3-4 d ay Alcohol Use Standard Drinks/Week Comments Yes 0 (1 standard drink = 0.6 oz pur e alcohol) daily , 2-3 beers daily PHQ-2 Answer Date Recorded PHQ Adult Total Score 0 07/21/2022 Hunger Vital Sign Answer Date Recorded Within the past 12 months, y ou worried that your food would run out before you got the money to buy more. Never true 07/21/20 22 Within the past 12 months, t he food you bought just didn't last and you didn't have money to get more. Never true 07/21/2022 Sex and Gender Information Value Date Recorded Sex Assigned at Male 09/26/2020 12:05 PM EST Gender Identity Male 09/26/2020 12:05 PM EST Sexual Orientation Straight 09/26/2020 12 :05 PM EST Job Start Date Occupation Industry Not on file Not on file Not on file documented as of this encounter Miscellaneous Notes * Telephone Encounter - Nafisa Betts, [facility] - 10/25/2023 2:43 PM ESTRefused Prescriptions: Disp Refills Atorvastatin Calcium 10 MG Oral Tablet (Li*90 Tab*1 Sig: take 1tablet by mouth once dailyRefused By: NAFISA BETTS for Refusal: Course of treatment completeReason for Refusal Comment: 40 mg dose documented in this encounter Plan of Treatment Upcoming Encounters Date Type Department Care Team (Late st Contact Info) Description 12/03/2023 9:00 AM EST Office Visit [facility] [address] [place] [address] Brennan Bee MD [address] [place] [address] 01/11/2024 10:00 AM EDT Office Visit [facility] [address] [facility] [place] [address] Kim Iglesias PA-C [address] [facility] [place] [address] 03/30/2024 8:20 AM EDT Office Visit [facility] [address] [place] [address] Julio César Best DO [address] [place] [address] Health Maintenance Due Date Last Done Comments Depression Screening 07/21/2023 07/21/2022 Lipid Panel 08/26/2028 08/26/2023, 07/0 03/2023, 09/29/2021, Additional history exists COLONOSCOPY-EVERY 5 YRS AGES 18-100 10/21/2028 10/21/2023, 10/21/2023, 06/24/2018, Additional history exists DTaP,Tdap,and Td Vaccines (3 - Td or Tdap) 07/24/2031 07/24/2021, 10/29/2009 AAA Screening Completed 09/20/2017 Pneumococcal Vaccine: 65+ Years Completed 04/02/2019, 09/08/2017, 04/23/2015, Additional history exists Zoster Vaccines Completed 12/30/2020, 09/17, 03/31/2019, Additional history exists Albumin/Creatinine Ratio Discontinued 07/21/2022 COVID-19 Vaccine Completed 07/30/2023, , 11/15/2020 Influenza Vaccine (FLU shot) Completed 07/30/2023, 06/19/2022, 07/15/2021, Additional history exists GARDASIL-HPV IMMUNIZATION SERIES Aged Out No longer eligible based on patient's age to complete this topic Hepatitis B Aged Out No longer eligi ble based on patient's age to complete this topic MENINGOCOCCAL (MENACTRA/MENVEO) Aged Out No longer eligible based on patient's age to complete this topic documented as of this encounter Medical Devices Not on filedocumented as of this encounter Visit Diagnoses Diagnosis Dyslipidemia, goal to be determined Other and unspecified hyperlipidemia documented in this encounter Care Teams Utilities Service Investigator Relationship Specialty Start Date End Date Julio César Best DO [address] [place] [address] PCP - General Family Medicine 02/23/20 documented as of this encounter
--- OUTSIDE RECORDS SUMMARY | 2023-12-11 18:17 | External Medical Summary | Summary of Care ---
Author Name Unknown Organization [facility] Address [address] [place] [address] Phone [phone] Care Team Providers Care Vocal Performer Name Role Phone Julio César Best Primary Care Provider Reason for Visit * Reason Comments Follow Up Right middle finger Encounter Details Date Type Department Care Team (Late st Contact Info) Description 12/03/2023 9:00 AM EST Office Visit Orthopaedics [facility] [address] [place] [address] Brennan Bee MD [address] [place] [address] Trigger middle finger of right hand* Allergies Active Allergy Reactions Criticality Noted Date Comments Simvastatin 06/18/1998 Elevated CPK documented as of this encounter (statuses as of 12/03/2023) Medications Medication Sig Dispensed Refills Start Date [...] evening meals. 60 Tablet 5 05/26/2023 Active Azithromycin 250 MG Oral Tablet (Zithromax [...] for pain.. 90 Tablet 3 09/15/2023 Active Donepezil HCl 10 MG Oral Tablet (Aricept)Indications :Dementia without behavioral disturbance (HCC) take 1 tablet by mouth IN THE MORNING with THE LARGEST MEAL OF THE DAY 90 Tablet 1 11/03/2023 Active Metamucil Free & Natural 43 % Oral Powder (Psyllium) Take by mouth. 0 Act max documented as of this encounter (statuses as of 12/03/2023) Active Problems Problem Noted Date Diagnosed Date [...] as of this encounter (statuses as of 12/03/2023) Resolved Problems Problem Noted Date Diagnosed Date Resolved Date Kidney disease, chronic, sta ge III (GFR 30-59 ml/min) 12/11/2013 10/15/2022 Overview: Per CKD protocol #1 Chest pain 09/25/2003 12/29/2011 Corns and callosities 09/16/19992011 Mixed dyslipidemia 08/21/1997 9 Overview: Per Lipid Taxonomy. documented as of this encounter (statuses as of 12/03/2023) Immunizations Name Administration Dates Next Due COVID-19 mRNA, LNP-s, No Pre serve, 2-Dose Series (Moderna) 12/13/2020,11/15/2020 COVID-19, MRNA-LNP, 23-24, P F, 30 MCG/0.3 mL, 12 YRS AND ABOVE, IM (PFIZER-Comirnaty) 07/30/2023 Pneumococcal Conjugate Vacc, 13 Valent (Prevnar) [...] on file documented as of this encounter Progress Notes * Brennan Bee MD - 12/03/2023 9:04 AM EST He is seen today for follow-up regarding a trigger finger of his right middle finger. I have injected it twice. The last time he was in, he did not quite fully extend the PIP joint of the right middle finger. He has not having that problem anymore. Does not report any locking. 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 VITAMIN D3 1000 UNITS PO TABS 2 tabs daily Apoaequorin 20 MG Oral Capsule Take by mouth daily. Vitamin C 100 MG Oral Tablet Take 1 Tablet by mouth in the morning. QC Multi-Sammy 50 & Over Oral Tablet Take by mouth . Ammonium Lactate 12 % External Cream Apply topically to affected area 2 times a day. To affected area. (Patient not taking: Reported on 05/26/2023) 385 g 11 Sildenafil Citrate 100 MG Oral Tablet take 1 tablet by mouth 1 TO 4 HOURS BEFORE INTERCOURSE NO MORE THAN 1 DOSE IN 24 HOURS 10 Tablet 5 Memantine HCl 10 MG Oral Tablet (Namenda) Take 1 Tablet by mouth 2 times a day with morning and evening meals. 60 Tablet 5 Azithromycin 250 MG Oral Tablet (Zithromax Z-Artur) Take two tablets by mouth on first day, then 1 tablet daily until gone (Patient not taking: Reported on 07/13/2023) 6 Tablet 0 traZODone HCl 150 MG Oral Tablet (Desyrel) take 1 tablet by mouth at bedtime 90 Tablet 1 Abrysvo 120 MCG/0.5ML Intramuscular Solution Reconstituted (RSV Pre-Fusion F A&B Vac Rcmb) INJECT INTRAMUSCULARY DIRECTED 1 Each 0 Atorvastatin Calcium 40 MG Oral Tablet (Lipitor) Take 1 Tablet by mouth in the morning. 90 Tablet 3 Dicyclomine HCl 10 MG Oral Capsule (Bentyl) take 1 capsule by mouth four times a day (BEFORE FOOD and at bedtime) for abdominal pain 120 Capsule 0 Meloxicam 7.5 MG Oral Tablet Take 1 Tablet by mouth in the morning. for pain.. 90 Tablet 3 Donepezil HCl 10 MG Oral Tablet (Aricept) take 1 tablet by mouth IN THE MORNING with THE LARGEST MEAL OF THE DAY 90 Tablet 1 No current facility-administered medications for this visit. 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 There does not appear to be any locking or any loss of full extension of the right middle finger. ASSESSMENT: Doing well. PLAN: Activities are unrestricted. Follow-up will be on a p.r.n. basis. Brennan Bee MD documented in this encounter Nursing Notes * Shayna Cristobal LPN - 12/03/2023 8:57 AM EST 2 months follow up right middle trigger finger injection 09/29/23. Shayna kirk LPN documented in this encounter Plan of Treatment Upcoming Encounters Date Type Department Care Team (Late st Contact Info) Description 01/11/2024 10:00 AM EDT Office Visit [facility]rology [facility] [place] [address] [place] [address] Kim Iglesias PA-C [address] [place] [address] 03/30/2024 8:20 AM EDT Office Visit Family Practice [facility] [address] [place] [address] Julio César Best DO [address] [place] [address] Health Maintenance Due Date Last Done Comments Cologuard 1993 Fecal Occult Blood Test 07/01/2003 07/01/20 02, 06/19/2001, 04/10/2000 Sigmoidoscopy 05/31/2005 05/31/2000 Depression Screening 07/21/2023 07/21/2022 Lipid Panel 08/26/2028 08/26/2023, 03/2023, 09/29/2021, Additional history exists DTaP,Tdap,and Td Vaccines (3 - Td or Tdap) 07/24/2031 07/24/2021, 10/29/2009 Colonoscopy 10/21/2033 10/21/2023, 01/2024, 06/24/2018, Additional history exists Colorectal Cancer Screening 10/21/2033 AAA Screening Completed 09/20/2017 Pneumococcal Vaccine: 65+ Years Completed 04/02/2019, 09/08/2017, 04/23/2015, Additional history exists Zoster Vaccines Completed 12/30/2020, 09/17, 03/31/2019, Additional history exists Albumin/Creatinine Ratio Discontinued 07/21/2022 COVID-19 Vaccine Completed 07/30/2023, , 11/15/2020 Influenza Vaccine (FLU shot) Completed 07/30/2023, 06/19/2022, 07/15/2021, Additional history exists COLONOSCOPY-EVERY 5 YRS AGES 18-100 Discontinued 10/21/2023, 10/21/2023, 06/24/2018, Additional history exists GARDASIL-HPV IMMUNIZATION SERIES Aged [...] as of this encounter Visit Diagnoses Diagnosis Trigger middle finger of right hand- Primary Trigger finger (acquired) documented in this encounter Care Teams Vocal Performer Relationship Specialty Start Date End Date Julio César Best DO [address] [place] [address] PCP - General Family Medicine 02/23/20 documented as of this encounter
--- OUTSIDE RECORDS SUMMARY | 2023-12-11 18:17 | External Medical Summary | Summary of Care ---
Author Name Unknown Organization [facility] Address [address] [facility] [place] [address] Phone [phone] Care Team Providers Care Wire Mill Operator Name Role Phone Julio César Best Primary Care Provider Reason for Visit * Reason Onset Date Comments Medication Refill 11/02/2023 Encounter Details Date Type Department Care Team (Late st Contact Info) Description 11/02/2023 Refill Neurology [facility] [place] [address] [place] [address] Mariela Watson PA-C [address] [facility] [place] [address] Dementia without behavioral disturbance (HCC) Allergies Active Allergy Reactions Criticality Noted Date Comments Simvastatin 06/18/1998 Elevated CPK documented as of this encounter (statuses as of 11/03/2023) Medications Medication Sig Dispensed Refills Start Date [...] Act max Ammonium Lactate 12 % External CreamIndications:In trinsic atopic dermatitis Apply topically to affected area 2 times a day. To affected area. 385 g 11 10/15/2022 Active Additional Information Patient not taking.Informant: Spouse, Reported on 05/26/2023 Sildenafil Citrate 100 MG Oral TabletIndications:I mpotence of organic origin take 1 tablet by mouth 1 TO 4 HOURS BEFORE INTERCOURSE NO MORE THAN 1 DOSE IN 24 HOURS 10 Tablet 5 05/13/2023 Active Memantine HCl 10 MG Oral Tablet (Namenda)Indication s:Major neurocognitive disorder (HCC) Take 1 Tablet by mouth 2 times a day with morning and evening meals. 60 Tablet 5 05/26/2023 Active Azithromycin 250 MG Oral Tablet (Zithromax Z-Artur) Take two tablets by mouth on first day, then 1 tablet daily until gone 6 Tablet 0 06/30/2023 Active Additional Information Patient not taking.Reported on 07/13/2023 traZODone HCl 150 MG Oral Tablet (Desyrel)Indication s:Insomnia take 1 tablet by mouth at bedtime 90 Tablet 1 07/06/2023 Active Atorvastatin Calcium 40 MG Oral Tablet (Lipitor)Indication s:Dyslipidemia, goal LDL below 70 Take 1 Tablet by mouth in the morning. 90 Tablet 3 08/27/2023 Active Dicyclomine HCl 10 MG Oral Capsule (Bentyl)Indications :Irritable bowel syndrome without diarrhea take 1 capsule by mouth four times a day (BEFORE FOOD and at bedtime) for abdominal pain 120 Capsule 0 09/14/2023 Active Meloxicam 7.5 MG Oral TabletIndications:A rthritis of both knees,Encounter for long-term (current) use of medications Take 1 Tablet by mouth in the morning. for pain.. 90 Tablet 3 09/15/2023 Active Donepezil HCl 10 MG Oral Tablet (Aricept)Indication s:Dementia without behavioral disturbance (HCC) take 1 tablet by mouth IN THE MORNING with THE LARGEST MEAL OF THE DAY 90 Tablet 1 11/03/2023 Active Donepezil HCl 10 MG Oral Tablet (Aricept)Indication s:Dementia without behavioral disturbance (HCC) take 1 tablet by mouth IN THE MORNING with THE LARGEST MEAL OF THE DAY 90 Tablet 3 06/23/2023 11/02/19 24 Discontinu ed(Refill) documented as of this encounter (statuses as of 11/03/2023) Active Problems Problem Noted Date Diagnosed Date [...] as of this encounter (statuses as of 11/03/2023) Resolved Problems Problem Noted Date Diagnosed Date Resolved Date Kidney disease, chronic, sta ge III (GFR 30-59 ml/min) 12/11/2013 10/15/2022 Overview: Per CKD protocol #1 Chest pain 09/25/2003 12/29/2011 Corns and callosities 09/16/19992011 Mixed dyslipidemia 08/21/1997 9 Overview: Per Lipid Taxonomy. documented as of this encounter (statuses as of 11/03/2023) Immunizations Name Administration Dates Next Due COVID-19 [...] encounter Miscellaneous Notes * Telephone Encounter - Kayden Alejandro RPh - 11/03/2023 8:20 AM ESTSigned Prescriptions: Disp Refills Donepezil HCl 10 MG Oral Tablet (Aricept) 90 Tab*1 Sig: take 1 tablet by mouth IN THE MORNING with THE LARGEST MEAL OF THE DAYAuthorizing Provider: MARIELA WATSON User: KAYDEN ALEJANDRO * Telephone Encounter - Shira Gore a p mechanic - 11/02/2023 5:29 PM EST Pt has 2 left. Patient is up to date for office visits. Pending Prescriptions: Disp Refills Donepezil HCl 10 MG Oral Tablet (Aricept) 90 Tab*3 Sig: take 1 tablet by mouth IN THE MORNING with THE LARGEST MEAL OF THE DAY Last Visit: 03/03/2023 (in office), Visit date not found (telemedicine) Next Visit: 01/11/2024 If no future appointments scheduled, and last appointment is greater than a year ago, please schedule patient for a follow-up appointment Last date the medication was ordered: 06/23 [facility]acy: [id number] Is this request for a controlled substance?No it is not controlled. Urine Drug Screen:No results found for this or any previous visit. Patient Phone Numbers Labs: Lab Results Component Value Date/Time CREAT 1.3 (H) 08/26/2023 08:38 AM CREAT 1.20 07/24/2021 12:00 AM CREAT 1.3 (H) 09/15/2019 07:42 AM POTASSIUM 4.5 08/26/2023 08:38 AM POTASSIUM 3.9 07/24/2021 12:00 AM POTASSIUM 4.5 09/15/2019 07:42 AM TSH 0.97 04/22/2023 08:13 AM TSH 1.02 09/18/2019 08:34 AM LDLCALC 137 (H) 08/26/2023 08:38 AM LDLCALC 105 12/02/2017 09:57 AM LDLDIRECT 89 05/05/2019 07:20 AM ALT 33 08/26/2023 08:38 AM ALT 24 09/15/2019 07:42 AM HGBA1C 5.7 04/23/2015 09:12 AM documented in this encounter Plan of Treatment Upcoming Encounters Date Type Department Care Team (Late st Contact Info) Description 12/03/2023 9:00 AM EST Office Visit Orthopaedics [facility] [address] [place] [address] Brennan Bee MD [address] [place] [address] 01/11/2024 10:00 AM EDT Office Visit Neurology [facility] [address] [facility] [place] [address] Mariela Watson PA-C [address] [facility] [place] [address] 03/30/2024 8:20 AM EDT Office Visit Family Practice [facility] [address] [address] Julio César Best DO [address] [place] [address] Health Maintenance Due Date Last Done Comments Cologuard 1993 Fecal Occult Blood Test 07/01/2003 07/01/20 02, 06/19/2001, 04/10/2000 Sigmoidoscopy 05/31/2005 05/31/2000 Depression Screening 07/21/2023 07/21/2022 Lipid Panel 08/26/2028 08/26/2023, 070 03/2023, 09/29/2021, Additional history exists DTaP,Tdap,and Td [...] as of this encounter Visit Diagnoses Diagnosis Dementia without behavioral disturbance (HCC) Dementia, unspecified, without behavioral disturbance documented in this encounter Care Teams Wire Mill Operator Relationship Specialty Start Date End Date Julio César Best DO [address] [place] [address] PCP - General Family Medicine 02/23/20 documented as of this encounter
--- OUTSIDE RECORDS SUMMARY | 2023-12-11 18:17 | External Medical Summary | Summary of Care ---
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 Name Role Phone Julio César Best DO Primary Care Provider Reason for Visit * Reason Onset Date Comments Other 10/01/2023 Encounter Details Date Type Department Care Team (Late st Contact Info) Description 10/01/2023 Telephone Family Practice [facility] [address] [place] [address] Julio César Best DO [address] [place] [address] Other Allergies Active Allergy Reactions Criticality Noted Date Comments Simvastatin 06/18/1998 Elevated CPK documented as of this encounter (statuses as of 10/01/2023) Medications Medication Sig Dispensed Refills Start Date [...] as of this encounter (statuses as of 10/01/2023) Active Problems Problem Noted Date Diagnosed Date [...] as of this encounter (statuses as of 10/01/2023) Resolved Problems Problem Noted Date Diagnosed Date Resolved Date Kidney disease, chronic, sta ge III (GFR 30-59 ml/min) 12/11/2013 10/15/2022 Overview: Per CKD protocol #1 Chest pain 09/25/2003 12/29/2011 Corns and callosities 09/16/19992011 Mixed dyslipidemia 08/21/1997 9 Overview: Per Lipid Taxonomy. documented as of this encounter (statuses as of 10/01/2023) Immunizations Name Administration Dates Next Due COVID-19 [...] encounter Miscellaneous Notes * Telephone Encounter - Whitney Andrews CPhT - 10/01/2023 10:11 AM EST Pt calling in to speak to the office as she states pt had a Certaliag message, but I do not see anything. Thank you, Whitney Andrews Cooler Room Worker [facility] ([facility]) 10/01/2023, 10:11 AM documented in this encounter Plan of Treatment Upcoming Encounters Date Type Department Care Team (Latest Contact Info) Description 10/21/2023 9:30 AM EST Hospital Encounter ENDO [facility], Endoscopy Room [facility] [address] [place] [phone] Renee Trevizo MD [address] [place] [address] 10/21/2023 9:30 AM EST - 10/21/2023 10:00 AM EST Surgery ENDO [facility], Endoscopy Room [facility] [address] [place] [phone] Renee Trevizo MD [address] [place] [address] COLONOSCOPY FLEXIBLE PROXIMAL DIAGNOSTIC 10/22/2023 10:40 AM EST Office Visit Neurology [facility] [address] [facility] [place] [address] Adela Smith CRNP [address] [place] [address] 12/03/2023 9:00 AM EST Office Visit Orthopaedics [facility] [address] [place] [address] Brennan Bee MD [address] [place] [address] 01/11/2024 10:00 AM EDT Office Visit Neurology [facility] [address] [facility] [place] [address] Kim Iglesias PA-C [address] [place] [address] 03/30/2024 8:20 AM EDT Office Visit Family Practice [facility] [address] [place] [address] Julio César Best, [address] [place] [address] Scheduled Procedures Name Priority Associated Diagnoses Date/Ti me COLONOSCOPY FLEXIBLE PROXIMAL DIAGNOSTIC Recall History of colon polyps Special screening for malignant neoplasms, colon 10/21/2023 9:30 AM EST Health Maintenance Due Date Last Done Comments COLONOSCOPY-EVERY 5 YRS AGES 18-100 06/24/2023 06/24/2018, 06/24/2018, 04/24/2013, Additional history exists Depression Screening 07/21/2023 07/21/2022 Lipid Panel 08/26/2028 08/26/2023, 07/0 03/2023, 09/29/2021, Additional history exists DTaP,Tdap,and Td [...] Not on filedocumented as of this encounter Care Teams Shellfish Processing Laborer Relationship Specialty Start Date End Date Julio César Best DO [address] [place] [address] PCP - General Family Medicine 02/23/20 documented as of this encounter
--- OUTSIDE RECORDS SUMMARY | 2023-12-11 18:17 | External Medical Summary | Summary of Care ---
Author Name Unknown Organization [facility] Address [address] [facility] [address] Phone [phone] Care Team Providers Care Licensed Customs Broker Name Role Phone Julio César Best Primary Care Provider Reason for Visit * Reason Comments Follow Up Trigger middle finge r right hand last injection 08/18/2023 Encounter Details Date Type Department Care Team (Late st Contact Info) Description 09/29/2023 1:30 PM EST Office Visit Orthopaedics [facility] [address] [place] [phone] Brennan Bee MD [address] [place] [address] Trigger middle finger of right hand* Allergies Active Allergy Reactions Criticality Noted Date Comments Simvastatin 06/18/1998 Elevated CPK documented as of this encounter (statuses as of 09/29/2023) Medications Medication Sig Dispensed Refills Start Date [...] for pain.. 90 Tablet 3 09/15/2023 Active Hospital, Clinic, or Other Facility Administered Medication Ordered Dose Route Frequency Start Date End Date Status Triamcinolone Acetonide (Kenalog) 40 MG/ML inj 40 mgIndications:Trigger middle finger of right hand 40 mg IX ONCE 09/29/2023 09/29/20 Ended documented as of this encounter (statuses as of 09/29/2023) Active Problems Problem Noted Date Diagnosed Date [...] as of this encounter (statuses as of 09/29/2023) Resolved Problems Problem Noted Date Diagnosed Date Resolved Date Kidney disease, chronic, sta ge III (GFR 30-59 ml/min) 12/11/2013 10/15/2022 Overview: Per CKD protocol #1 Chest pain 09/25/2003 12/29/2011 Corns and callosities 09/16/19992011 Mixed dyslipidemia 08/21/1997 9 Overview: Per Lipid Taxonomy. documented as of this encounter (statuses as of 09/29/2023) Immunizations Name Administration Dates Next Due COVID-19 mRNA, LNP-s, No Pre serve, 2-Dose Series (Moderna) 12/13/2020,11/15/2020 COVID-19, MRNA-LNP, 23-24, P F, 30 MCG/0.3 mL, 12 YRS AND ABOVE, IM (PFIZER-Comirnaty) 07/30/2023 PPD 10/15/1998 Pneumococcal Conjugate Vacc, 13 Valent (Prevnar) 04/02/2019,04/23/2015,11/30/2014,09/03 [...] Influenza, Split, I IV3, With Preserve, Inj 10/01/2014,08/31/2013,09/27/2012,08/12,08/26/2004,08/15/2003,08/17/2002 ,09/26/2001 Seasonal Influenza, Trivalen t, Adjuvanted, 65+ yrs [...] Progress Notes * Brennan Bee MD - 09/29/2023 1:43 PM EST He is seen for follow-up regarding a trigger finger of his right middle finger. I had given him a steroid injection about 6 weeks ago. The finger is no longer locking but it does not come out fully straight and that bothers him a little bit. Patient Active Problem List Diagnosis Code Major [...] Current Outpatient Medications Medication Sig Dispense Refill VITAMIN D3 1000 UNITS PO TABS 2 [...] morning and evening meals. 60 Tablet 5 Donepezil HCl 10 MG Oral Tablet (Aricept) take 1 tablet by mouth IN THE MORNING with THE LARGEST MEAL OF THE DAY 90 Tablet 3 Azithromycin 250 MG Oral Tablet (Zithromax Z-Artur) [...] the morning. for pain.. 90 Tablet 3 No current facility-administered medications for this visit. [...] User Vaping/E-Cigarette Substances Vaping/E-Cigarette Devices PHYSICAL EXAM: There is still mild tenderness over the A1 ramirez of the right middle finger. I do not demonstrate locking. He lacks about 20 of extension of the PIP joint. Flexion is full. Skin is intact. Sensation is intact. There is good capillary refill. ASSESSMENT: Trigger finger right middle finger. PLAN: I discussed options with the patient and his . With their permission, and at their request, I reinjected the flexor sheath of the right middle finger with 40 mg of Kenalog. This was done asfollows: A written consent was obtained. An appropriate time-out was performed. Alcohol prep was used. 1 mL containing 40 mg of Kenalog and a small amount of 1% lidocaine was injected into the flexor sheath. I could palpate the sheath to inflate during the course of the injection. A light dressing was applied. There were no complications. Follow-up will be in 2 months. Brennan Bee MD documented in this encounter Nursing Notes * Sruthi Wheeler LPN - 09/29/2023 1:25 PM EST Chief Complaint Patient presents with Follow Up Trigger middle finger right hand last injection 08/18/2023 Food Processing Chemist Documentation Provider requested corporate associate attorney. Name of corporate associate attorney: Sruthi Wheeler LPN documented in this encounter Plan of Treatment Upcoming Encounters Date Type Department Care Team (Latest Contact Info) Description 10/21/2023 9:30 AM EST Hospital Encounter ENDO [facility], Endoscopy Room [facility] [address] [place] [phone] Renee Trevizo MD [address] [place] [address] 10/21/2023 9:30 AM EST - 10/21/2023 10:00 AM EST Surgery ENDO [facility], Endoscopy Room [facility] [address] [place] [phone] Renee Trevizo MD [address] [place] [address] COLONOSCOPY FLEXIBLE PROXIMAL DIAGNOSTIC 10/22/2023 10:40 AM EST Office Visit Neurology [facility] [address] [facility] [place] [address] Adela Smith CRNP [address] [place] [address] 12/03/2023 9:00 AM EST Office Visit Orthopaedics [facility] [address] [place] [address] Brennan Bee MD [address] [place] [address] 01/11/2024 10:00 AM EDT Office Visit Neurology [facility] [address] [facility] [place] [address] Kim Iglesias PA-C [address] [place] [address] 03/30/2024 8:20 AM EDT Office Visit Family [facility] [address] [place] [address] Julio César Best, [address] [place] [address] Scheduled Procedures Name Priority Associated Diagnoses Date/Ti [...] of right hand- Primary Trigger finger (acquired) History of colon polyps Personal history of colonic polyps Special screening for malignant neoplasms, colon documented in this encounter Administered Medications Inactive Administered Medications - up to 3 most recent administrations Medication Order MAR Action Action Date Dose Rate Site Triamcinolone Acetonide (Kenalog) 40 MG/ML inj 40 mg 40 mg, Intra-Articular, ONCE, On Wed09/29/23 at 1430, For 1 dose Given 09/29/2023 1:56 PM EST 40 mg Hand Right documented in this encounter Care Teams Licensed Customs Broker Relationship Specialty Start Date End Date Julio César Best DO [address] [place] [address] PCP - General Family Medicine 02/23/20 documented as of this encounter
--- OUTSIDE RECORDS SUMMARY | 2023-12-11 18:17 | External Medical Summary | Summary of Care ---
Author Name Unknown Organization [facility] Address [address] [place] [address] Phone [phone] Care Team Providers Care Optometric Aide Name Role Phone Julio César Best Primary Care Provider Reason for Visit * Auth/Cert Specialty Diagnoses / Procedures Referred By Chilango parrish Referred To Contact Diagnoses History of colon polyps Special screening for malignant neoplasms, colon History of colon polyps [Z86.010] Special screening for malignant neoplasms, colon [Z12.11] Procedures COLONOSCOPY, DIAGNOSTIC (RECTUM) COLONOSCOPY FLEXIBLE PROXIMAL DIAGNOSTIC Referral ID Status Reason Start Date Expiration Date Visits Re quested Visits Authorized [id number] Encounter Details Date Type Department Care Team (Latest Contact Info) Description 10/21/2023 8:42 AM EST - 10/21/2023 11:00 AM [facility] Hospital Encounter ENDO [facility], Endoscopy Room [facility] [address] [place] [phone] Renee Trevizo MD [address] [place] [address] Colonoscopy Discharge Disposition: Home - Self Care Allergies Active Allergy Reactions Criticality Noted Date Comments Simvastatin 06/18/1998 Elevated CPK documented as of this encounter (statuses as of 10/21/2023) Medications Medication Sig Dispensed Refills Start Date [...] Act max Ammonium Lactate 12 % External CreamIndications:Intr insic atopic dermatitis Apply topically to affected area 2 times a day. To affected area. 385 g 11 10/15/2022 Active Additional Information Patient not taking.Informant: Spouse, Reported on 05/26/2023 Sildenafil Citrate 100 MG Oral TabletIndications:Imp otence of organic origin take 1 tablet by mouth 1 TO 4 HOURS BEFORE INTERCOURSE NO MORE THAN 1 DOSE IN 24 HOURS 10 Tablet 5 05/13/2023 Active Memantine HCl 10 MG Oral Tablet (Namenda)Indications: Major neurocognitive disorder (HCC) Take 1 Tablet by mouth 2 times a day with morning and evening meals. 60 Tablet 5 05/26/2023 Active Donepezil HCl 10 MG Oral Tablet (Aricept)Indications: Dementia without behavioral disturbance (HCC) take 1 tablet by mouth IN THE MORNING with THE LARGEST MEAL OF THE DAY 90 Tablet 3 06/23/2023 Active traZODone HCl 150 MG Oral Tablet (Desyrel)Indications: Insomnia take 1 tablet by mouth at bedtime 90 Tablet 1 07/06/2023 Active Atorvastatin Calcium 40 MG Oral Tablet (Lipitor)Indications: Dyslipidemia, goal LDL below 70 Take 1 Tablet by mouth in the morning. 90 Tablet 3 08/27/2023 Active Meloxicam 7.5 MG Oral TabletIndications:Art hritis of both knees,Encounter for long-term (current) use of medications Take 1 Tablet by mouth in the morning. for pain.. 90 Tablet 3 09/15/2023 Active documented as of this encounter (statuses as of 10/21/2023) Active Problems Problem Noted Date Diagnosed Date [...] as of this encounter (statuses as of 10/21/2023) Resolved Problems Problem Noted Date Diagnosed Date Resolved Date Kidney disease, chronic, sta ge III (GFR 30-59 ml/min) 12/11/2013 10/15/2022 Overview: Per CKD protocol #1 Chest pain 09/25/2003 12/29/2011 Corns and callosities 09/16/19992011 Mixed dyslipidemia 08/21/1997 9 Overview: Per Lipid Taxonomy. documented as of this encounter (statuses as of 10/21/2023) Immunizations Name Administration Dates Next Due COVID-19 [...] on file documented as of this encounter Last Filed Vital Signs Vital Sign Reading Time Taken Comments Blood Pressure 119/77 10/21/2023 10:34 AM EST Pulse 60 10/21/2023 10:34 AM EST Temperature 36.3 C (97.3 F) 10/21/2023 10:[address] Respiratory Rate 16 10/21/2023 10:34 AM EST Oxygen Saturation 99% 10/21/2023 10:34 AM EST Inhaled Oxygen Concentration - - Weight 83.9 kg (185 lb) 10/21/2023 9:03 AM EST Height 170.2 cm (5' 7") 10/21/2023 9:03 AM EST Body Mass Index 28.98 10/21/2023 9:03 AM EST documented in this encounter H&P Notes * Renee Trevizo MD - 10/21/2023 9:44 AM EST Endoscopy Pre-Procedure Assessment Name: Lakeisha De Leon Date: 10/21/2023 Time: 9:44 AM Procedure(s): Colonoscopy; with Indication(s) of colon polyp surveillance Endoscopy Pre-Procedure Assessment: Prior to the procedure, the patient is identified. The patient's history, medications and allergieshave been reviewed. The patient is competent. The risks and benefits of the proposed procedure and the planned sedation have been discussed with the patient. All questions have been answered and informed consent for the procedure has been obtained. Prior to Admission medications Medication Sig Last Dose Discont. Meloxicam 7.5 MG Oral Tablet Take 1 Tablet by mouth in the morning. for pain.. 10/20/2023 Atorvastatin Calcium 40 MG Oral Tablet (Lipitor) Take 1 Tablet by mouth in the morning. 10/20/2023 traZODone HCl 150 MG Oral Tablet (Desyrel) take 1 tablet by mouth at bedtime 10/20/2023 Donepezil HCl 10 MG Oral Tablet (Aricept) take 1 tablet by mouth IN THE MORNING with THE LARGEST MEAL OF THE DAY 10/20/2023 Memantine HCl 10 MG Oral Tablet (Namenda) Take 1 Tablet by mouth 2 times a day with morning and evening meals. 10/20/2023 Sildenafil Citrate 100 MG Oral Tablet take 1 tablet by mouth 1 TO 4 HOURS BEFORE INTERCOURSE NO MORE THAN 1 DOSE IN 24 HOURS Unknown QC Multi-Sammy 50 & Over Oral Tablet Take by mouth . 10/20/2023 Vitamin C 100 MG Oral Tablet Take 1 Tablet by mouth in the morning. 10/20/2023 Apoaequorin 20 MG Oral Capsule Take by mouth daily. 10/08/2023 VITAMIN D3 1000 UNITS PO TABS 2 tabs daily 10/20/2023 Dicyclomine HCl 10 MG Oral Capsule (Bentyl) take 1 capsule by mouth four times a day (BEFORE FOOD and at bedtime) for abdominal pain Over 30 Days Abrysvo 120 MCG/0.5ML Intramuscular Solution Reconstituted (RSV Pre-Fusion F A&B Vac Rcmb) INJECT INTRAMUSCULARY DIRECTED Over 30 Days Azithromycin 250 MG Oral Tablet (Zithromax Z-Artur) Take two tablets by mouth on first day, then 1 tablet daily until gone Patient not taking: Reported on 07/13/2023 Not Taking Ammonium Lactate 12 % External Cream Apply topically to affected area 2 times a day. To affected area. Patient not taking: Reported on 05/26/2023 Not Taking Review of patient's allergies indicates: Allergen Reactions Simvastatin Elevated CPK BP 120/80 | Pulse 62 | Temp 36.6 C (97.8 F) (Tympanic) | Resp 16 | Ht 1.702 m (5' 7") | Wt 83.9kg (185 lb) | SpO2 98% | BMI 28.98 kg/m | BSA 1.99 m Physical Exam: Mental Status Examination: alert and oriented. Airway Examination: normal oropharyngeal airway and neck mobility. Respiratory Examination: clear to auscultation. CV Examination: normal. ASA Grade: III - A patient with severe systemic disease. Abdomen: negative This patient has undergone a preprocedural evaluation. A determination has been made to proceed with the planned procedure under [facility] procedural guidelines and the [facility] Non-Emergent, Elective Medical Services and Treatment Recommendations (published on 01-23-20). The community and hospital prevalence of COVID-19 has been discussed as well as this patient's specific risks associated with SARS-CoV-19 infection. Based upon the clinical acuity and patient-specific care considerations, this procedure is deemed a Tier II - Intermediate acuity treatment or service with either progression or the threat of progressive disease related to the delay in treatment. Not providing the service has the potential for increasing morbidity or mortality. After reviewing the risks and benefits, the patient is deemed in satisfactory condition to undergo the procedure. The anesthesia plan is to use general anesthesia. Renee Trevizo MD 10/21/2023 documented in this encounter Procedure Notes * Julio César Best DO - 10/21/2023 9:55 AM ESTAssociated Order(s): COLONOSCOPY [facility] Patient Name: Lakeisha De Leon Procedure Date: 10/21/2023 9:55 AM Date of : 1950 Admit Type: Outpatient Note Status: Finalized Date of : 1950 Admit Type: Outpatient Age: 72 Room: Endo 3 Gender: Male Note Status: Finalized Procedure: Colonoscopy Indications: High risk colon cancer surveillance: Personal history of colonic polyps, Last colonoscopy: June 2018 Providers: Renee Trevizo MD (Doctor) Referring MD: Julio César Best (Referring MD) Medicines: See the Anesthesia note for documentation of the administered medications Complications: No immediate complications. Procedure: Pre-Anesthesia Assessment: - ASA Grade Assessment: II - A patient with mild systemic disease. - Prior to the procedure, a History and Physical was performed, and patient medication allergies have been reviewed. The patient's tolerance of previous anesthesia has been reviewed. - Respiratory Examination: clear to auscultation. - CV Examination: normal. - The risks and benefits of the procedure and the sedation options and risks were discussed with the patient. All questions were answered and informed consent was obtained. - Patient identification and proposed procedure were verified prior to the procedure by the physician, the nurse and the mold yard supervisor. The procedure was verified in the pre-procedure area in the procedure room. - The medication list for this patient has been reviewed prior to the procedure and has been determined that the patient may proceed with the planned study. Any medication changes made as a result of the findings of this procedure have been discussed with the patient and/or statement services representative at the time of discharge from the facility. After I obtained informed consent, the scope was passed under direct vision. All instruments were visually inspected immediately before and after removal from the patient to ensure they are fully intact. Throughout the procedure, the patient's blood pressure, pulse, and oxygen saturations were monitored continuously. The [id number] Colonoscope ([id number]) was introduced through the anus and advanced to the terminal ileum. The colonoscopy was performed without difficulty. The patient tolerated the procedure well. The quality of the bowel preparation was good. Findings & Specimens: The perianal and digital rectal examinations were normal. Diverticula were found in the entire colon. Two sessile polyps were found in the sigmoid colon and transverse colon. The polyps were 3 to 5 mm in size. These polyps were removed with a cold snare. Resection and retrieval were complete. Internal hemorrhoids seen on retroflexion. The exam was otherwise without abnormality. Impression: - Diverticulosis in the entire examined colon. - Two 3 to 5 mm polyps in the sigmoid colon and in the transverse colon, removed with a cold snare. Resected and retrieved. - The examination was otherwise normal. Recommendation: - Discharge patient to home. Renee Trevizo MD 10/21/2023 10:22:10 AM This report has been signed electronically. documented in this encounter Nursing Notes * Carla Jacobsen RN - 10/21/2023 10:56 AM EST Patient is alert, pain free, passing flatus and tolerating po fluids prior to discharge. Patient has been visited by Dr. Trevizo. Patient has received and demonstrates understanding of discharge instructions. Patient ambulated to private auto accompanied by endo staff. * Carla Jacobsen RN - 10/21/2023 10:25 AM EST Patient transferred to post endo s/p colonoscopy. Patient arousable Respirations are even and unlabored on room air. . Abdomen soft and non distended. Vital signs stable. * Keshia Hamilton RN - 10/21/2023 10:18 AM EST See anesthesia record for medication administered during procedure. Keshia Hamilton RN Specimen(s) and location(s) verified with physician post procedure 10:18 AM Keshia Hamilton RN * Jodi Lafleur RN - 10/21/2023 8:57 AM EST The following pt discharge instructions reviewed with pt prior to prodedure: No driving today. No alcohol today. No signing of legal documents. Rest as much as possible today and can return to normal activities tomorrow. No operating any heavy equipment today. Diet as tolerated. Pt verbalized understanding. Pt's Myriam accompanied him to pre-op area and assisted with questions and answers of assessmentcheck lists and medication hx. documented in this encounter Plan of Treatment Upcoming Encounters Date Type Department Care Team (Late st Contact Info) Description 12/03/2023 9:00 AM EST Office Visit Orthopaedics [facility] [address] [place] [address] Brennan Bee MD [address] [facility] [place] [address] 01/11/2024 10:00 AM EDT Office Visit [facility]rology [facility] [address] [facility] [place] [address] Kim Iglesias PA-C [address] [facility] [place] [address] 03/30/2024 8:20 AM EDT Office Visit Family Practice [facility] [address] [place] [phone] Julio César Best DO [address] [place] [address] Pending Results Name Type Priority Associated Diagnoses Date /Time SURGICAL PATHOLOGY Pathology Routine History of colon polyps Special screening for malignant neoplasms, colon 10/21/2023 10:18 AM EST Scheduled Orders Name Type Priority Associated Diagnoses Orde r Schedule SURGICAL PATHOLOGY Pathology Routine History of colon polyps Special screening for malignant neoplasms, colon Release Upon Ordering for 1 Occurrences starting 10/21/2023, 1 completed Scheduled Procedures Name Priority Associated Diagnoses Date/Ti me COLONOSCOPY FLEXIBLE PROXIMAL DIAGNOSTIC Recall History of colon polyps Special screening for malignant neoplasms, colon 10/21/2023 9:56 AM EST Health Maintenance Due Date Last Done Comments Depression Screening 07/21/2023 07/21/2022 Lipid Panel 08/26/2028 08/26/2023, 07/0 03/2023, 09/29/2021, Additional history exists COLONOSCOPY-EVERY 5 YRS AGES 18-100 10/21/2028 10/21/2023, 06/24/2018, 06/24/2018, Additional history exists DTaP,Tdap,and Td Vaccines [...] Not on filedocumented as of this encounter Procedures Procedure Name Priority Date/Time Associated Diagnosis Comments COLONOSCOPY 10/21/2023 9:55 AM EST documented in this encounter Results * COLONOSCOPY (10/21/2023 9:55 AM EST) 10/21/2023 9:55 AM EST Narrative Procedure Note Julio César Best DO - 10/21/2023 9:55 AM EST [facility] Patient Name: Lakeisha De Leon Procedure Date: 10/21/2023 9:55 AM Date of : 1950 Admit Type: Outpatient Note Status:Finalized Date of : 1950 Admit Type: Outpatient Age: 72 Room: Endo 3 Gender: Male Note Status: Finalized Procedure: Colonoscopy Indications: High risk colon cancer surveillance: Personalhistory of colonic polyps, Last colonoscopy: June 2018 Providers: Renee Trevizo MD (Doctor) Referring MD: Julio César Best (Referring MD) Medicines: See the Anesthesia note for documentation of theadministered medications Complications: No immediate complications. Procedure: Pre-Anesthesia Assessment: - ASA Grade Assessment: II - A patient with mildsystemic disease. - Prior to the procedure, a History and Physicalwas performed, and patient medication allergies have been reviewed. Thepatient's tolerance of previous anesthesia has been reviewed. - Respiratory Examination: clear to auscultation. - CV Examination: normal. - The risks and benefits of the procedure and thesedation options and risks were discussed with the patient. All questions wereanswered and informed consent was obtained. - Patient identification and proposed procedurewere verified prior to the procedure by the physician, the nurse and the mold yard supervisor.The procedure was verified in the pre-procedure area in the procedure room. - The medication list for this patient has beenreviewed prior to the procedure and has been determined that the patient may proceedwith the planned study. Any medication changes made as a result of the findingsof this procedure have been discussed with the patient and/or statement services representative atthe time of discharge from the facility. After I obtained informed consent, the scope waspassed under direct vision. All instruments were visually inspected immediatelybefore and after removal from the patient to ensure they are fully intact. Throughout the procedure, the patient's bloodpressure, pulse, and oxygen saturations were monitored continuously. The [id number] ([id number]) was introduced through the anus and advanced to the terminalileum. The colonoscopy was performed without difficulty. The patient tolerated theprocedure well. The quality of the bowel preparation was good. Findings & Specimens: The perianal and digital rectal examinations were normal. Diverticula were found in the entire colon. Two sessile polyps were found in the sigmoid colon and transversecolon. The polyps were 3 to 5 mm in size. These polyps were removed with a cold snare. Resection andretrieval were complete. Internal hemorrhoids seen on retroflexion. The exam was otherwise without abnormality. Impression: - Diverticulosis in the entire examined colon. - Two 3 to 5 mm polyps in the sigmoid colon and inthe transverse colon, removed with a cold snare. Resected and retrieved. - The examination was otherwise normal. Recommendation: - Discharge patient to home. Renee Trevizo MD 10/21/2023 10:22:10 AM This report has been signed electronically. Julio César Best DO [facility] documented in this encounter Visit Diagnoses Diagnosis History of colon polyps Personal history of colonic polyps Special screening for malignant neoplasms, colon documented in this encounter Administered Medications Inactive Administered Medications - up to 3 most recent administrations Medication Order MAR Action Action Date Dose Rate Site isolyte-S pH 7.4 infusion Intravenous, at 100 mL/hr, Plasma-LYTE 148, isolyte-S, and isolyte-S pH 7.4 are considered equivalent - including for MAR barcode scanning., CONTINUOUS, Starting on Katerin 10/21/23 at 0930, Until Katerin 10/21/23 at 1503, Pre-Op Continue from Pre-Op 10/21/2023 9:56 AM EST 100 mL/hr Start Infusion 10/21/2023 9:09 AM EST 100 mL/hr documented in this encounter Active and Recently Administered Medications Times are shown in EST. Continuous Medication Order 10/19/2023 10/20/2023 10/21/2023 isolyte-S pH 7.4 infusion Intravenous, at 100 mL/hr, Plasma-LYTE 148, isolyte-S, and isolyte-S pH 7.4 are considered equivalent - including for MAR barcode scanning., CONTINUOUS, Starting on Katerin 10/21/23 at 0930, Until Katerin 10/21/23 at 1503, Pre-Op 0909 (Start Infusion - Provider: Jodi Lafleur RN)0956 (Continue from Pre-Op - Provider: Luke Matta CRNA)1016 (Stopped - Provider: Luke Matta CRNA) documented in this encounter Care Teams Optometric Aide Relationship Specialty Start Date End Date Julio César Best DO [address] [place] [address] PCP - General Family Medicine 02/23/20 documented as of this encounter
--- OUTSIDE RECORDS SUMMARY | 2023-12-11 18:17 | External Medical Summary | Summary of Care ---
Author Name Unknown Organization [facility] Address [address] [place] [address] Phone [phone] Care Team Providers Care Radiology Equipment Servicer Name Role Phone Julio César Best Primary Care Provider Reason for Visit * Reason Onset Date Comments Appointment Canceled 10/19/2023 Encounter Details Date Type Department Care Team (Late st Contact Info) Description 10/19/2023 Telephone Neurology, [place] [address] [place] [address] Adela Smith CRNP [address] [place] [address] Appointment Canceled Allergies Active Allergy Reactions Criticality Noted Date Comments Simvastatin 06/18/1998 Elevated CPK documented as of this encounter (statuses as of 10/19/2023) Medications Medication Sig Dispensed Refills Start Date [...] as of this encounter (statuses as of 10/19/2023) Active Problems Problem Noted Date Diagnosed Date [...] as of this encounter (statuses as of 10/19/2023) Resolved Problems Problem Noted Date Diagnosed Date Resolved Date Kidney disease, chronic, sta ge III (GFR 30-59 ml/min) 12/11/2013 10/15/2022 Overview: Per CKD protocol #1 Chest pain 09/25/2003 12/29/2011 Corns and callosities 09/16/19992011 Mixed dyslipidemia 08/21/1997 9 Overview: Per Lipid Taxonomy. documented as of this encounter (statuses as of 10/19/2023) Immunizations Name Administration Dates Next Due COVID-19 [...] encounter Miscellaneous Notes * Telephone Encounter - Linda Patel, MED ASSIST - 10/19/2023 1:10 PM EST Called patient to reschedule Neurology appointment on 10/22/2023 due to provider being unavailable. Patient spouse answered the phone and said his appointment on 10/22/2023 is not needed. Patient`s appointment is canceled. documented in this encounter Plan of Treatment Upcoming Encounters Date Type Department Care Team (Latest Contact Info) Description 10/21/2023 9:30 AM EST Hospital Encounter [facility]O [facility], Endoscopy Room [facility] [address] [place] [phone] Renee Trevizo MD [address] [place] [address] 10/21/2023 9:30 AM EST - 10/21/2023 10:00 AM EST Surgery ENDO [facility], Endoscopy Room [facility] [address] [place] [phone] Renee Trevizo MD [address] [place] [address] COLONOSCOPY FLEXIBLE PROXIMAL DIAGNOSTIC 12/03/2023 9:00 AM EST Office Visit Orthopaedics [facility] [address] [place] [address] Brennan Bee MD [address] [place] [address] 01/11/2024 10:00 AM EDT Office Visit Neu[facility] [address] [facility] [address] Kim Iglesias PA-C [address] [facility] [address] 03/30/2024 8:20 AM EDT Office Visit Family Practice [facility] [address] [place] [address] Julio César Best, [address] [place] [address] Scheduled Procedures Name Priority Associated Diagnoses Date/Ti [...] filedocumented as of this encounter Care Teams Radiology Equipment Servicer Relationship Specialty Start Date End Date Julio César Best DO [address] [place] [address] PCP - General Family Medicine 02/23/20 documented as of this encounter
--- OUTSIDE RECORDS SUMMARY | 2023-12-11 18:17 | External Medical Summary | Summary of Care ---
Author Name Unknown Organization [facility] Address [address] [place] [address] Phone [phone] Care Team Providers Care Grounds Foreman Name Role Phone Julio César Best Primary Care Provider Reason for Visit * Reason Onset Date Comments Other 10/19/2023 Encounter Details Date Type Department Care Team (Late st Contact Info) Description 10/19/2023 Telephone Gastroenterology, [facility] [address] [place] [address] Services, Scheduling [address] [place] [address] Other Allergies Active Allergy Reactions Criticality Noted [...] hands 02/14/2021 Dementia without behavioral disturbance 03/26/20 Overview: ICD-10 update of inactive term high [...] Corns and callosities 09/16/19992011 Mixed dyslipidemia 08/21/1997 Overview: Per Lipid Taxonomy. documented as of [...] encounter Miscellaneous Notes * Telephone Encounter - Minerva Caicedo OSA - 10/19/2023 4:31 PM EST Called and made aware of time. * Telephone Encounter - Khadijah Rene OSA - 10/19/2023 8:53 AM EST Patient calling regarding procedure. Request research computing specialist appointment due to patient having dementia. Please contact with information today 10/19/2023 documented in this encounter Plan of Treatment Upcoming Encounters Date Type Department Care Team (Latest Contact Info) Description 10/21/2023 9:30 AM EST Hospital Encounter ENDO [facility], Endoscopy Room [facility] [address] [place] [phone] Renee Trevizo MD [address] [place] [address] 10/21/2023 9:30 AM EST - 10/21/2023 10:00 AM EST Surgery ENDO [facility], Endoscopy Room [facility] [address] [place] [phone] Renee Trevizo MD [address] [place] [address] COLONOSCOPY FLEXIBLE PROXIMAL DIAGNOSTIC 12/03/2023 9:00 AM EST Office Visit Orthopaedics [facility] [address] [place] [address] Brennan Bee MD [address] [place] [address] 01/11/2024 10:00 AM EDT Office Visit Neurology [facility] [place] [address] Kim Iglesias PA-C [address] [facility] [place] [address] 03/30/2024 8:20 AM EDT Office Visit Family [facility] [address] [place] [address] Julio César Best DO [address] [place] [address] Scheduled Procedures Name Priority Associated Diagnoses Date/Ti me COLONOSCOPY FLEXIBLE PROXIMAL DIAGNOSTIC Recall History of colon polyps Special screening for malignant neoplasms, colon 10/21/2023 9:30 AM EST Health Maintenance Due Date Last Done Comments COLONOSCOPY-EVERY 5 YRS AGES 18-100 06/24/2023 06/24/2018, 06/24/2018, 04/24/2013, Additional history exists Depression Screening 07/21/2023 07/21/2022 Lipid Panel 08/26/2028 08/26/2023, 0703/2023, 09/29/2021, Additional history exists DTaP,Tdap,and Td Vaccines [...] filedocumented as of this encounter Care Teams Grounds Foreman Relationship Specialty Start Date End Date Julio César Best DO [address] [place] [address] PCP - General Family Medicine 02/23/20 documented as of this encounter
--- OUTSIDE RECORDS SUMMARY | 2023-12-11 18:17 | External Medical Summary | Summary of Care ---
Author Name Unknown Organization [facility] Address [address] [place] [address] Phone [phone] Care Team Providers Care Media Sales Representative Name Role Phone Julio César Best Primary Care Provider Reason for Visit * Reason Onset Date Comments Other 10/19/2023 Encounter Details Date Type Department Care Team (Late st Contact Info) Description 10/19/2023 Telephone Gastroenterology, [facility] [address] [place] [address] Services, Scheduling [address] [place] [address] Other Allergies Active Allergy Reactions Criticality Noted [...] encounter Miscellaneous Notes * Telephone Encounter - Khadijah Rene I, MERCEDES - 10/19/2023 8:53 AM EST Patient calling regarding procedure. Request kettle operator head appointment due to patient having dementia. Please contact with information today 10/19/2023 documented in this encounter Plan of Treatment Upcoming Encounters Date Type Department Care Team (Latest Contact Info) Description 10/21/2023 9:30 AM EST Hospital Encounter ENDO [facility], Endoscopy Room [facility] [address] [place] [phone] Renee Trevizo MD [address] [place] [address] 10/21/2023 9:30 AM EST - 10/21/2023 10:00 AM EST Surgery ENDO [facility], Endoscopy Room [facility] [address] [place] [phone] Renee Trevizo MD [address] [place] [address] COLONOSCOPY FLEXIBLE PROXIMAL DIAGNOSTIC 10/22/2023 10:40 AM EST Office Visit Neurology [facility] [address] [place] [address] Adela Smith CRNP [address] [place] [address] 12/03/2023 9:00 AM EST Office Visit Orthopaedics [facility] [address] [place] [address] Brennan Bee MD [address] [place] [address] 01/11/2024 10:00 AM EDT Office Visit Neurology [facility] [place] [address] [place] [address] Kim Iglesias PA-C [address] [place] [address] 03/30/2024 8:20 AM EDT Office Visit Family Practice [facility] [address] [place] [address] Julio César Best DO [address] [place] [address] Scheduled Procedures Name Priority Associated Diagnoses Date/Ti [...] filedocumented as of this encounter Care Teams Media Sales Representative Relationship Specialty Start Date End Date Julio César Best DO [address] [place] [address] PCP - General Family Medicine 02/23/20 documented as of this encounter
--- OUTSIDE RECORDS SUMMARY | 2023-12-11 18:17 | External Medical Summary | Summary of Care ---
Author Name Unknown Organization [facility] Address [address] [facility] [address] Phone [phone] Care Team Providers Care Water Maintenance Supervisor Name Role Phone Julio César Best Primary Care Provider Reason for Visit * Reason Comments Follow Up Trigger middle finge r right hand last injection 08/18/2023 Encounter Details Date Type Department Care Team (Late st Contact Info) Description 09/29/2023 1:30 PM EST Office Visit Orthopaedics [facility] [address] [place] [address] Brennan Bee MD [address] [place] [address] Trigger middle finger of right hand* Allergies [...] middle finger right hand last injection 08/18/2023 Embedded Developer Documentation Provider requested convention worker. Name of convention worker: Sruthi Wheeler LPN documented in this encounter Plan of Treatment Upcoming Encounters Date Type Department Care Team (Latest Contact Info) Description 10/21/2023 9:30 AM EST Hospital Encounter ENDO [facility], Endoscopy Room [facility] [address] [place] [phone] Renee Trevizo MD [address] [place] [address] 10/21/2023 9:30 AM EST - 10/21/2023 10:00 AM EST Surgery ENDO [facility], Endoscopy Room [facility] [address] [place] [phone] Renee Trevizo MD [address] [place] [address] COLONOSCOPY FLEXIBLE PROXIMAL DIAGNOSTIC 10/22/2023 10:40 AM EST Office Visit Neurology [facility] [place] [address] Adela Smith CRNP [address] [place] [address] 12/03/2023 9:00 AM EST Office Visit Orthopaedics [facility] [address] [place] [address] Brennan Bee MD [address] [place] [address] 01/11/2024 10:00 AM EDT Office Visit Neurology [facility] [address] [facility] [place] [address] Kim Iglesias PA-C 200 [facility] [place] [address] 03/30/2024 8:20 AM EDT Office Visit Family [facility] [address] [place] [address] Julio César Best, [address] [place] [address] Scheduled Procedures Name Priority Associated Diagnoses Date/Ti [...] Right documented in this encounter Care Teams Water Maintenance Supervisor Relationship Specialty Start Date End Date Julio César Best DO [address] [place] [address] PCP - General Family Medicine 02/23/20 documented as of this encounter
--- OUTSIDE RECORDS SUMMARY | 2023-12-11 18:18 | External Medical Summary | Summary of Care ---
Author Name Unknown Organization [facility] Address [address] [facility] [address] Phone [phone] Care Team Providers Care Cable Operator Name Role Phone Julio César Best Primary Care Provider Reason for Visit * Reason Onset Date Comments Test Results 08/27/2023 Encounter Details Date Type Department Care Team (Late st Contact Info) Description 08/27/2023 Telephone Family Practice [facility] [place] [address] [place] [address] Jason Ni DO [address] [place] [address] Test Results Allergies Active Allergy Reactions Criticality Noted Date Comments Simvastatin 06/18/1998 Elevated CPK documented as of this encounter (statuses as of 08/27/2023) Medications Medication Sig Dispensed Refills Start Date [...] at bedtime 90 Tablet 1 07/06/2023 Active Dicyclomine HCl 10 MG Oral Capsule (Bentyl)Indications :Irritable bowel syndrome without diarrhea take 1 capsule by mouth four times a day (BEFORE FOOD and at bedtime) for abdominal pain 120 Capsule 0 08/18/2023 Active Atorvastatin Calcium 40 MG Oral Tablet (Lipitor)Indication s:Dyslipidemia, goal LDL below 70 Take 1 Tablet by mouth in the morning. 90 Tablet 3 08/27/2023 Active Atorvastatin Calcium 20 MG Oral Tablet (Lipitor)Indication s:Dyslipidemia, goal LDL below 70 Take 1 Tablet by mouth in the morning. 30 Tablet 5 05/26/2023 08/27/20 23 Discontinu ed(Medicat ion/Dose Changed) documented as of this encounter (statuses as of 08/27/2023) Active Problems Problem Noted Date Diagnosed Date [...] as of this encounter (statuses as of 08/27/2023) Resolved Problems Problem Noted Date Diagnosed Date Resolved Date Kidney disease, chronic, sta ge III (GFR 30-59 ml/min) 12/11/2013 10/15/2022 Overview: Per CKD protocol #1 Chest pain 09/25/2003 12/29/2011 Corns and callosities 09/16/19992011 Mixed dyslipidemia 08/21/1997 9 Overview: Per Lipid Taxonomy. documented as of this encounter (statuses as of 08/27/2023) Immunizations Name Administration Dates Next Due COVID-19 mRNA, LNP-s, No Pre serve, 2-Dose Series (Moderna) 12/13/2020,11/15/2020 COVID-19, MRNA-LNP, 23-24, P F, 30 MCG/0.3 mL, 12 YRS AND ABOVE, IM (PFIZER-Comirnaty) 07/30/2023 Pneumococcal Conjugate Vacc, 13 Valent (Prevnar) 04/02/2019,04/23/2015,11/30/2014,09/03 Pneumococcal Polysaccharide PPV23 (Pneumovax) 09/08/2017 RSV Vac., Bivalent, Perfusio n F, Pf,0.5 Ml (Abrysvo) 08/04/2023 SEASONAL INFLUENZA, PF, 6 M & Above, IM , (FLULAVAL or FLUZONE) 07/11/2018 Season Influenza, Quad, PF, Adjuvanted, 65+ Yrs, IM (FLUAD) 07/05/2020 Seasonal Influenza Virus Vac cine, Unspecified Formulation 07/15/2021,07/05/2020,07/24/2019,07/11,06/24/2017,05/29/2016,08/31/2013 ,09/27/2012,08/12/2005,08/26/2004,07/19,08/17/2002,09/26/2001 Seasonal Influenza, Quadriva lent Hd (Fluzone Hd) [...] encounter Miscellaneous Notes * Telephone Encounter - Jason Ni DO - 08/27/2023 4:19 PM EST Lab studies shows elevated cholesterol with increased cardiac risk. Lab shows chronic kidney disease stage 3 stable compared to prior study. Remainder of lab studies were normal Advise increase atorvastatin to 40 mg once daily and repeat lab studies in 3 months for lipid panel, BMP and hepatic function panel. documented in this encounter Plan of Treatment Upcoming Encounters Date Type Department Care Team (Latest Contact Info) Description 09/15/2023 4:20 PM EST Telemedicine Neurology, [facility] [place] [place] [address] [place] [address] [place] [address] Wali Puckett MD [address] [facility] [place] [id number] 09/29/2023 1:30 PM EST Office Visit Orthopaedics [facility] [address] [place] [address] Brennan Bee MD [address] [place] [address] 10/21/2023 9:30 AM EST Hospital Encounter ENDO [facility], Endoscopy Room [facility] [address] [place] [phone] Renee Trevizo MD [address] [place] [address] 10/21/2023 9:30 AM EST - 10/21/2023 10:00 AM EST Surgery ENDO [facility], Endoscopy Room [facility] [address] [place] [phone] Renee Trevizo MD [address] [place] [address] COLONOSCOPY FLEXIBLE PROXIMAL DIAGNOSTIC 01/11/2024 10:00 AM EDT Office Visit Neurology [facility] [address] [place] [address] Kim Iglesias PA-C [address] [place] [address] 03/30/2024 8:20 AM EDT Office Visit Family [facility] [address] [place] [address] Julio César Best, [address] [place] [address] Scheduled Orders Name Type Priority Associated Diagnoses Orde r Schedule BASIC METABOLIC PANEL Lab Routine Dyslipidemia, goal LDL below 70 Expected: 11/27/2023 (Approximate), Expires: 08/26/2024 LIPID PANEL WITH DIRECT LDL IF TG IS HIGH Lab Routine Dyslipidemia, goal LDL below 70 Expected: 11/27/2023, Expires: 08/27/2024 HEPATIC FUNCTION PANEL Lab Routine Dyslipidemia, goal LDL below 70 Expected: 11/27/2023 (Approximate), Expires: 08/26/2024 Scheduled Procedures Name Priority Associated Diagnoses Date/Ti [...] this encounter Visit Diagnoses Diagnosis Dyslipidemia, goal LDL below 70 Other and unspecified hyperlipidemia History of colon polyps Personal history of colonic polyps Special screening for malignant neoplasms, colon documented in this encounter Care Teams Cable Operator Relationship Specialty Start Date End Date Julio César Best DO [address] [place] [address] PCP - General Family Medicine 02/23/20 documented as of this encounter
--- OUTSIDE RECORDS SUMMARY | 2023-12-11 18:18 | External Medical Summary | Summary of Care ---
Author Name Unknown Organization [facility] Address [address] [place] [address] Phone [phone] Care Team Providers Care Central Office Mechanic Name Role Phone Ashely Best DO Primary Care Provider Reason for Visit * Reason Comments eRx-Medication Refill Encounter Details Date Type Department Care Team (Late st Contact Info) Description 09/14/2023 Refill Family Practice [facility] [address] [place] [address] Ashely Best DO [address] [place] [address] Irritable bowel syndrome without diarrhea Allergies Active Allergy Reactions Criticality Noted Date Comments Simvastatin 06/18/1998 Elevated CPK documented as of this encounter (statuses as of 09/14/2023) Medications Medication Sig Dispensed Refills Start Date [...] day. To affected area. 385 g 11 2 Active Additional Information Patient not taking.Informant: Spouse, Reported on 05/26/2023 Sildenafil Citrate 100 MG Oral TabletIndications:I mpotence of organic origin take 1 tablet by mouth 1 TO 4 HOURS BEFORE INTERCOURSE NO MORE THAN 1 DOSE IN 24 HOURS 10 Tablet 5 3 Active Memantine HCl 10 MG Oral Tablet (Namenda)Indication s:Major neurocognitive disorder (HCC) Take 1 Tablet by mouth 2 times a day with morning and evening meals. 60 Tablet 5 3 Active Donepezil HCl 10 MG Oral Tablet (Aricept)Indication s:Dementia without behavioral disturbance (HCC) take 1 tablet by mouth IN THE MORNING with THE LARGEST MEAL OF THE DAY 90 Tablet 3 3 Active Azithromycin 250 MG Oral Tablet (Zithromax Z-Artur) Take two tablets by mouth on first day, then 1 tablet daily until gone 6 Tablet 0 3 Active Additional Information Patient not taking.Reported on 07/13/2023 traZODone HCl 150 MG Oral Tablet (Desyrel)Indication s:Insomnia take 1 tablet by mouth at bedtime 90 Tablet 1 3 Active Atorvastatin Calcium 40 MG Oral Tablet (Lipitor)Indication s:Dyslipidemia, goal LDL below 70 Take 1 Tablet by mouth in the morning. 90 Tablet 3 3 Active Dicyclomine HCl 10 MG Oral Capsule (Bentyl)Indications :Irritable bowel syndrome without diarrhea take 1 capsule by mouth four times a day (BEFORE FOOD and at bedtime) for abdominal pain 120 Capsule 0 3 Active Dicyclomine HCl 10 MG Oral Capsule (Bentyl)Indications :Irritable bowel syndrome without diarrhea take 1 capsule by mouth four times a day (BEFORE FOOD and at bedtime) for abdominal pain 120 Capsule 0 3 09/14/20 23 Discontinued documented as of this encounter (statuses as of 09/14/2023) Active Problems Problem Noted Date Diagnosed Date [...] as of this encounter (statuses as of 09/14/2023) Resolved Problems Problem Noted Date Diagnosed Date Resolved Date Kidney disease, chronic, sta ge III (GFR 30-59 ml/min) 12/11/2013 10/15/2022 Overview: Per CKD protocol #1 Chest pain 09/25/2003 12/29/2011 Corns and callosities 09/16/19992011 Mixed dyslipidemia 08/21/1997 9 Overview: Per Lipid Taxonomy. documented as of this encounter (statuses as of 09/14/2023) Immunizations Name Administration Dates Next Due COVID-19 [...] encounter Miscellaneous Notes * Telephone Encounter - Ashely Best DO - 09/14/2023 2:10 PM EST Signed Prescriptions: Disp Refills Dicyclomine HCl 10 MG Oral Capsule (Bentyl)120 Ca*0 Sig: take 1 capsule by mouth four times a day (BEFORE FOOD and at bedtime) for abdominal pain Authorizing Provider: ASHELY BEST * Telephone Encounter - Coty Meraz LPN - 09/14/2023 1:46 PM ESTPending Prescriptions: Disp Refills Dicyclomine HCl 10 MG Oral Capsule [Pharma*120 Ca*0 Sig: take 1 capsule by mouth four times a day (BEFORE FOOD and at bedtime) for abdominal pain * Telephone Encounter - Teja Capps - 09/14/2023 1:34 PM ESTPending Prescriptions: Disp Refills Dicyclomine HCl 10 MG Oral Capsule [Pharma*120 Ca*0 Sig: take 1 capsule by mouth four times a day (BEFORE FOOD and at bedtime) for abdominal pain documented in this encounter Plan of Treatment Upcoming Encounters Date Type Department Care Team (Latest Contact Info) Description 09/29/2023 1:30 PM EST Office Visit Orthopaedics [facility] [address] [place] [address] Brennan Bee MD [address] [place] [address] 10/21/2023 9:30 AM EST Hospital Encounter ENDO [facility], Endoscopy Room [facility] [address] [place] [phone] Renee Trevizo MD [address] [place] [address] 10/21/2023 9:30 AM EST - 10/21/2023 10:00 AM EST Surgery ENDO [facility], Endoscopy Room [facility] [address] [place] [phone] Renee Trevizo MD [address] [place] [address] COLONOSCOPY FLEXIBLE PROXIMAL DIAGNOSTIC 10/22/2023 10:40 AM EST Office Visit Neurology [facility] [address] [place] [address] Adela Smith CRNP [address] [place] [address] 01/11/2024 10:00 AM EDT Office Visit Neurology [facility] [address] [place] [address] Kim Iglesias PA-C [address] [place] [address] 03/30/2024 8:20 AM EDT Office Visit Family Practice [facility] [address] [place] [address] Ashely Best DO [address] [place] [address] Scheduled Procedures Name Priority Associated Diagnoses Date/Ti [...] as of this encounter Visit Diagnoses Diagnosis Irritable bowel syndrome without diarrhea Irritable bowel syndrome History of colon polyps Personal history of colonic polyps Special screening for malignant neoplasms, colon documented in this encounter Care Teams Central Office Mechanic Relationship Specialty Start Date End Date Ashely Best DO [address] [place] [address] PCP - General Family Medicine 02/23/20 documented as of this encounter
--- OUTSIDE RECORDS SUMMARY | 2023-12-11 18:18 | External Medical Summary ---
Author Name Unknown Address Unknown Organization [facility] [address] [place] [address] Laboratory Report Ordering Provider Test Date Status JAMAL HOUSE 08/26/2023 08:38:13 Final Observation Date Value Abnormality Reference (Units ) Status BUN 08/26/2023 08:38:13 16 6-20 (mg/dL) Final Creatinine 08/26/2023 08:38:13 1.3 Above high normal 0.6-1.2 (mg/dL) Final Glomerular filtration rate/1.73 sq M.predicted [Volume Rate/Area] in Serum, Plasma or Blood by Creatinine-based formula (CKD-EPI) 08/26/2023 08:38:13 57 Below low normal >=60 (mL/min) Final eGFR is calculated based on the CKD-EPI 2020 equation SODIUM 08/26/2023 08:38:13 141 135-146 (m mol/L) Final Potassium 08/26/2023 08:38:13 4.5 3.5-5.1 (m mol/L) Final Cl 08/26/2023 08:38:13 105 98-107 (mm ol/L) Final CO2 08/26/2023 08:38:13 26 22-32 (mmo l/L) Final Anion gap 08/26/2023 08:38:13 10 7-15 (mmol /L) Final Glucose 08/26/2023 08:38:13 94 70-120 (mg /dL) Final Calcium 08/26/2023 08:38:13 9.8 8.4-10.2 ( mg/dL) Final Performing Location [facility] [place] [address]
--- OUTSIDE RECORDS SUMMARY | 2023-12-11 18:18 | External Medical Summary | Summary of Care ---
Author Name Unknown Organization [facility] Address [address] [facility] [address] Phone [phone] Care Team Providers Care R Developer Name Role Phone Julio César Best DO Primary Care Provider Reason for Visit * Reason Onset Date Comments Medication Refill 09/15/2023 Encounter Details Date Type Department Care Team (Late st Contact Info) Description 09/15/2023 Telephone Family Practice [facility] [address] [place] [address] Julio César Best DO [address] [place] [address] Medication Refill Allergies Active Allergy Reactions Criticality Noted Date Comments Simvastatin 06/18/1998 Elevated CPK documented as of this encounter (statuses as of 09/15/2023) Medications Medication Sig Dispensed Refills Start Date [...] abdominal pain 120 Capsule 0 09/14/2023 Active documented as of this encounter (statuses as of 09/15/2023) Active Problems Problem Noted Date Diagnosed Date [...] as of this encounter (statuses as of 09/15/2023) Resolved Problems Problem Noted Date Diagnosed Date Resolved Date Kidney disease, chronic, sta ge III (GFR 30-59 ml/min) 12/11/2013 10/15/2022 Overview: Per CKD protocol #1 Chest pain 09/25/2003 12/29/2011 Corns and callosities 09/16/19992011 Mixed dyslipidemia 08/21/1997 Overview: Per Lipid Taxonomy. documented as of this encounter (statuses as of 09/15/2023) Immunizations Name Administration Dates Next Due COVID-19 [...] encounter Miscellaneous Notes * Telephone Encounter - Emily Jovel, sewer pipe layer helper - 09/15/2023 10:24 AM EST Patient requesting refills for Meloxicam 15 MG Tablet . Upon chart review, medication is listed as discontinued, with discontinuation reason as "NONE". Please advise if you wish to continue this therapy for the patient. Requesting high priority as pt is without medication. Thank you, Emily Jovel Sausage Grinder I [facility] 09/15/2023,10:24 AM documented in this encounter Plan of Treatment Upcoming Encounters Date Type Department Care Team (Latest Contact Info) Description 09/29/2023 1:30 PM EST Office Visit Orthopaedics [facility] [address] [place] [address] Brennan Bee MD [address] [place] [address] 10/21/2023 9:30 AM EST Hospital Encounter ENDO [facility], Endoscopy Room [facility] [address] [place] [phone] Renee Trevizo MD [address] [place] [address] 10/21/2023 9:30 AM EST - 10/21/2023 10:00 AM EST Surgery ENDO [facility], Endoscopy Room [facility] [address] [place] [phone] Renee Trevizo MD [address] [place] [address] COLONOSCOPY FLEXIBLE PROXIMAL DIAGNOSTIC 10/22/2023 10:40 AM EST Office Visit Neurology [facility] [address] [facility] [place] [address] Adela Smith CRNP [address] [place] [address] 01/11/2024 10:00 AM EDT Office Visit Neurology [facility] [address] [facility] [place] [address] Kim Iglesias PA-C [address] [facility] [place] [address] 03/30/2024 8:20 AM EDT Office Visit Family [facility] [address] [place] [address] Julio César Best DO [address] [place] [address] Scheduled Procedures Name Priority Associated Diagnoses Date/Ti [...] filedocumented as of this encounter Care Teams R Developer Relationship Specialty Start Date End Date Julio César Best DO [address] [place] [address] PCP - General Family Medicine 02/23/20 documented as of this encounter
--- OUTSIDE RECORDS SUMMARY | 2023-12-11 18:18 | External Medical Summary | Summary of Care ---
Author Name Unknown Organization [facility] Address [address] [place] [address] Phone [phone] Care Team Providers Care Press Tender Short Goods Name Role Phone Julio César Best Primary Care Provider Reason for Visit * Reason Onset Date Comments FYI 09/07/2023 Encounter Details Date Type Department Care Team (Late st Contact Info) Description 09/07/2023 Telephone Neurology [facility] [address] [facility] [address] Services, Scheduling [address] [place] [address] FYI Allergies Active Allergy Reactions Criticality Noted Date Comments Simvastatin 06/18/1998 Elevated CPK documented as of this encounter (statuses as of 09/07/2023) Medications Medication Sig Dispensed Refills Start Date [...] the morning. 90 Tablet 3 08/27/2023 Active documented as of this encounter (statuses as of 09/07/2023) Active Problems Problem Noted Date Diagnosed Date [...] as of this encounter (statuses as of 09/07/2023) Resolved Problems Problem Noted Date Diagnosed Date Resolved Date Kidney disease, chronic, sta ge III (GFR 30-59 ml/min) 12/11/2013 10/15/2022 Overview: Per CKD protocol #1 Chest pain 09/25/2003 12/29/2011 Corns and callosities 09/16/19992011 Mixed dyslipidemia 08/21/1997 9 Overview: Per Lipid Taxonomy. documented as of this encounter (statuses as of 09/07/2023) Immunizations Name Administration Dates Next Due COVID-19 [...] encounter Miscellaneous Notes * Telephone Encounter - Peggy Pinedo OSA - 09/07/2023 11:24 AM EST Can you please schedule pt as a tele-neurology? They can use the tablet on the cart here. * Telephone Encounter - Sonia Darling OSA - 09/07/2023 11:10 AM EST Asya, Pts appt in Sep with Dr Puckett they were going to use you ipad in the office. documented in this encounter Plan of Treatment Upcoming Encounters Date Type Department Care Team (Latest Contact Info) Description 09/29/2023 1:30 PM EST Office Visit Orthopaedics [facility] [address] [place] [address] Brennan Bee MD [address] [place] [address] 10/13/2023 10:00 AM EST Telemedicine Neurology, [place] [facility] [address] [place] [address] [place] [address] Wali Puckett MD [address] [place] [address] 10/21/2023 9:30 AM EST Hospital Encounter ENDO [facility], Endoscopy Room [facility] [address] [place] [phone] Renee Trevizo MD [address] [place] [address] 10/21/2023 9:30 AM EST - 10/21/2023 10:00 AM EST Surgery ENDO [facility], Endoscopy Room [facility] [address] [place] [phone] Renee Trevizo MD [address] [place] [address] COLONOSCOPY FLEXIBLE PROXIMAL DIAGNOSTIC 01/11/2024 10:00 AM EDT Office Visit Neurology [facility] Jazzy Lansing [address] [place] [address] Kim Iglesias PA-C [address] [place] [address] 03/30/2024 8:20 AM EDT Office Visit Family Practice [facility] [address] [place] [address] Julio César Best DO [address] [place] [address] Scheduled Procedures Name Priority Associated Diagnoses Date/Ti [...] filedocumented as of this encounter Care Teams Press Tender Short Goods Relationship Specialty Start Date End Date Julio César Best DO [address] [place] [address] PCP - General Family Medicine 02/23/20 documented as of this encounter
--- OUTSIDE RECORDS SUMMARY | 2023-12-11 18:18 | External Medical Summary | Summary of Care ---
Author Name Unknown Organization [facility] Address [address] [place] [address] Phone [phone] Care Team Providers Care Assembler Seat Name Role Phone Julio César Best Primary Care Provider Reason for Visit * Reason Comments Follow Up finger Encounter Details Date Type Department Care Team (Late st Contact Info) Description 08/18/2023 10:00 AM EDT Office Visit Orthopaedics [facility] [address] [place] [address] Brennan Bee MD [address] [place] [address] Trigger middle finger of right hand* Allergies Active Allergy Reactions Criticality Noted Date Comments Simvastatin 06/18/1998 Elevated CPK documented as of this encounter (statuses as of 08/18/2023) Medications Medication Sig Dispensed Refills Start Date [...] evening meals. 60 Tablet 5 05/26/2023 Active Atorvastatin Calcium 20 MG Oral Tablet (Lipitor)Indications :Dyslipidemia, goal LDL below 70 Take 1 Tablet by mouth in the morning. 30 Tablet 5 05/26/2023 Active Donepezil HCl 10 [...] bedtime) for abdominal pain 120 Capsule 0 07/20/2023 Active Hospital, Clinic, or Other Facility Administered Medication Ordered Dose Route Frequency Start Date End Date Status Triamcinolone Acetonide (Kenalog) 40 MG/ML inj 40 mgIndications:Trigger middle finger of right hand 40 mg INTRABURSAL ONCE 08/18/2023 08/18/2023 Active documented as of this encounter (statuses as of 08/18/2023) Active Problems Problem Noted Date Diagnosed Date [...] as of this encounter (statuses as of 08/18/2023) Resolved Problems Problem Noted Date Diagnosed Date Resolved Date Kidney disease, chronic, sta ge III (GFR 30-59 ml/min) 12/11/2013 10/15/2022 Overview: Per CKD protocol #1 Chest pain 09/25/2003 12/29/2011 Corns and callosities 09/16/19992011 Mixed dyslipidemia 08/21/1997 9 Overview: Per Lipid Taxonomy. documented as of this encounter (statuses as of 08/18/2023) Immunizations Name Administration Dates Next Due COVID-19 [...] Progress Notes * Brennan Bee MD - 08/18/2023 10:11 AM EDT He presents today for steroid injection into his right middle finger trigger finger. His dental abscess has resolved. Patient Active Problem List Diagnosis Code Major [...] morning and evening meals. 60 Tablet 5 Atorvastatin Calcium 20 MG Oral Tablet (Lipitor) Take 1 Tablet by mouth in the morning. 30 Tablet 5 Donepezil HCl 10 MG Oral [...] by mouth at bedtime 90 Tablet 1 Dicyclomine HCl 10 MG Oral Capsule (Bentyl) take 1 capsule by mouth four times a day (BEFORE FOOD and at bedtime) for abdominal pain 120 Capsule 0 Abrysvo 120 MCG/0.5ML Intramuscular Solution Reconstituted (RSV Pre-Fusion F A&B Vac Rcmb) INJECT INTRAMUSCULARY DIRECTED 1 Each 0 No current facility-administered medications for this visit. [...] Substances Vaping/E-Cigarette Devices PHYSICAL EXAM: There is point tenderness over the A1 ramirez of the right middle finger and there isfrank locking. ASSESSMENT: Trigger finger right middle finger PLAN: The flexor sheath of the right middle finger was injected as follows: A written consent was obtained. An appropriate time-out was performed. Alcohol prep was used. 1 mL containing 40 mg of Kenalog and a small amount of 1% lidocaine was injected percutaneously into the flexor sheath of the right middle finger at the level of the A1 ramirez. I could palpate the sheath to inflate during the course of the injection. A light dressing was applied. There were no complications. Brennan Bee MD documented in this encounter Nursing Notes * Lilliam Toro LPN - 08/18/2023 10:01 AM EDT Pt presents for 2 week follow up R middle trigger finger documented in this encounter Plan of Treatment Upcoming Encounters Date Type Department Care Team (Latest Contact Info) Description 09/15/2023 4:20 PM EST Telemedicine Neurology, [place] [facility] [address] [place] [address] [place] [address] Wali [facility]uckett MD [address] [facility] [id number] 10/21/2023 9:30 AM EST Hospital Encounter ENDO [facility], Endoscopy Room [facility] [address] [facility] [place] [phone] Renee Trevizo MD [address] [place] [address] 10/21/2023 9:30 AM EST - 10/21/2023 10:00 AM EST Surgery ENDO [facility], Endoscopy Room [facility] [address] [place] [phone] Renee Trevizo MD [address] [place] [address] COLONOSCOPY FLEXIBLE PROXIMAL DIAGNOSTIC 01/11/2024 10:00 AM EDT Office Visit Neurology [facility] [address] [place] [address] Kim Iglesias PA-C [address] [place] [address] 03/30/2024 8:20 AM EDT Office Visit Family Practice [facility] [address] [place] [address] Julio César Best DO [address] [place] [address] Scheduled Procedures Name Priority Associated Diagnoses Date/Ti me COLONOSCOPY FLEXIBLE PROXIMAL DIAGNOSTIC Recall History of colon polyps Special screening for malignant neoplasms, colon 10/21/2023 9:30 AM EST Health Maintenance Due Date Last Done Comments COLONOSCOPY-EVERY 5 YRS AGES 18-100 06/24/2023 06/24/2018, 06/24/2018, 04/24/2013, Additional history exists Depression Screening 07/21/2023 07/21/2022 Lipid Panel 04/22/2028 04/22/2023, 09/17, 05/05/2019, Additional history exists DTaP,Tdap,and Td Vaccines (3 [...] colon documented in this encounter Care Teams Assembler Seat Relationship Specialty Start Date End Date Julio César Best DO [address] [facility] [place] [address] PCP - General Family Medicine 02/23/20 documented as of this encounter
--- OUTSIDE RECORDS SUMMARY | 2023-12-11 18:18 | External Medical Summary | Summary of Care ---
Author Name Unknown Organization [facility] Address [address] [facility] [address] Phone [phone] Care Team Providers Care Lean Manufacturing Leader Name Role Phone Julio César Best DO Primary Care Provider Reason for Visit * Reason Onset Date Comments Medication Refill 09/15/2023 Encounter Details Date Type Department Care Team (Late st Contact Info) Description 09/15/[address] [facility] [address] [place] [address] Julio César Best DO [address] [place] [address] Arthritis of both knees; Encounter for long-term (current) use of medications Allergies Active Allergy Reactions Criticality Noted Date [...] as of this encounter Miscellaneous Notes * Addendum Note - Alpa Bar, PIERRE - 09/15/2023 11:48 AM ESTAddended by: ALPA BAR on: 09/15/2023 11:48 AM Modules accepted: Orders * Telephone Encounter - Alpa Bar LPN - 09/15/2023 11:46 AM EST Pending Prescriptions: Disp Refills Meloxicam 7.5 MG Oral Tablet 90 Tab*3 Sig: Take 1 Tablet by mouth in the morning. for pain.. Last Visit: 05/26/2023 (in office), 03/26/2020 (telemedicine) Next Visit: 03/30/2024 Last date the medication was ordered: Ok to refill? Med was discontinued. Labs: Lab Results Component Value Date/Time CREATININE - [facility] 1.3 (H) 08/26/2023 08:38 AM CREATININE - [facility] 1.3 (H) 09/15/2019 07:42 AM CREATININE, RANDOM URINE - [facility] 156 07/21/2022 04:23 PM CREATININE-OUTSIDE LAB 1.20 07/24/2021 12:00 AM Lab Results Component Value Date/Time POTASSIUM - [facility] 4.5 08/26/2023 08:38 AM POTASSIUM - [facility] 4.5 09/15/2019 07:42 AM POTASSIUM-OUTSIDE LAB 3.9 07/24/2021 12:00 AM Lab Results Component Value Date/Time TSH - [facility] 0.97 04/22/2023 08:13 AM TSH - [facility] 1.02 09/18/2019 08:34 AM Lab Results Component Value Date/Time LDL CHOLESTEROL (CALCULATED) - [facility] 137 (H) 08/26/2023 08:38 AM LDL CHOLESTEROL (CALCULATED) - [facility] 114 04/22/2023 08:13 AM LDL CHOLESTEROL (CALCULATED) - [facility] 105 12/02/2017 09:57 AM LDL CHOLESTEROL (CALCULATED) - [facility] 99 10/14/2015 08:55 AM LDL CHOLESTEROL (DIRECT MEASURE) - [facility] 89 05/05/2019 07:20 AM LDL CHOLESTEROL (DIRECT MEASURE) - [facility] NOT APPLICABLE 12/02/2017 09:57 AM LDL CHOLESTEROL (DIRECT MEASURE) - [facility] 112 11/30/2016 03:48 PM Lab Results Component Value Date/Time ALT - [facility] 33 08/26/2023 08:38 AM ALT - [facility] 24 09/15/2019 07:42 AM Hemoglobin AIC Results: Lab Results Component Value Date/Time HEMOGLOBIN A1C - [facility] 5.7 04/23/2015 09:12 AM * Telephone Encounter - Emily Jovel pull through hooker - 09/15/2023 10:24 AM EST Patient requesting refills for Meloxicam 15 MG Tablet . Upon chart review, medication is listed as discontinued, with discontinuation reason as "NONE". Please advise if you wish to continue this therapy for the patient. Requesting high priority as pt is without medication. Thank you, Emily Jovel Electrocardiograph Repairer I [facility] (formerly [facility]pharm[facility]) 09/15/2023,10:24 AM documented in this encounter Plan of Treatment Upcoming Encounters Date Type Department Care Team (Latest Contact Info) Description 09/29/2023 1:30 PM EST Office Visit Orthopaedics [facility] [address] [place] [address] Brennan Bee MD [address] [place] [address] 10/21/2023 9:30 AM EST Hospital Encounter ENDO [facility], Endoscopy Room [facility] [address] [place] [phone] Renee Trevizo MD [address] [place] [address] 10/21/2023 9:30 AM EST - 10/21/2023 10:00 AM EST Surgery ENDO [facility], Endoscopy Room [facility] [address] [place] [phone] Renee Trevizo MD [address] [place] [address] COLONOSCOPY FLEXIBLE PROXIMAL DIAGNOSTIC 10/22/2023 10:40 AM EST Office Visit Neurology [facility] [address] [place] [address] Adela Smith, WEIGHT SHIFTER [address] [place] [address] 01/11/2024 10:00 AM EDT Office Visit Neurology [facility] [address] [place] [address] Kim Iglesias PA-C [address] [place] [address] 03/30/2024 8:20 AM EDT Office Visit Family [facility] [address] [place] [address] Julio César Best DO [address] [place] [address] Scheduled Procedures Name Priority Associated Diagnoses Date/Ti [...] as of this encounter Visit Diagnoses Diagnosis Arthritis of both knees Unspecified arthropathy, lower leg Encounter for long-term (current) use of medications Encounter for long-term (current) use of other medications History of colon polyps Personal history of colonic polyps Special screening for malignant neoplasms, colon documented in this encounter Care Teams Lean Manufacturing Leader Relationship Specialty Start Date End Date Julio César Best DO [address] [place] [address] PCP - General Family Medicine 02/23/20 documented as of this encounter
--- OUTSIDE RECORDS SUMMARY | 2023-12-11 18:18 | External Medical Summary | Summary of Care ---
Author Name Unknown Organization [facility] Address [address] [place] [address] Phone [phone] Care Team Providers Care Retirement Officer Name Role Phone Julio César Best Primary Care Provider Reason for Visit * Reason Comments Follow Up finger Encounter Details Date Type Department Care Team (Late st Contact Info) Description 08/18/2023 10:00 AM EDT Office Visit Orthopaedics [facility] [address] [place] [address] Brennan Bee MD [address] [place] [address] Trigger middle finger of right hand* Allergies [...] hand 40 mg INTRABURSAL ONCE 08/18/2023 08/18/2023 Ended documented as of this encounter (statuses [...] Description 09/15/2023 4:20 PM EST Telemedicine Neurology, [place] [facility] [address] [place] [address] [place] [address] Wali Puckett MD [address] [place] [address] 09/29/2023 1:30 PM EST Office Visit Orthopaedics [facility] [address] [place] [address] Brennan Bee MD [address] [place] [address] 10/21/2023 9:30 AM EST Hospital Encounter ENDO [facility], Endoscopy Room [facility] [address] [place] [phone] Renee Trevizo MD [address] [place] [address] 10/21/2023 9:30 AM EST - 10/21/2023 10:00 AM EST Surgery ENDO [facility], Endoscopy Room [facility] [address] [place] [phone] Renee Trevizo MD [address] [place] [address] COLONOSCOPY FLEXIBLE PROXIMAL DIAGNOSTIC 01/11/2024 10:00 AM EDT Office Visit Neurology [facility] [address] [facility] [place] [address] Kim Iglesias PA-C [address] [facility] [place] [address] 03/30/2024 8:20 AM EDT Office Visit Family Practice [facility] [address] [place] [address] Julio César Best DO [address] [place] [address] Scheduled Procedures Name Priority Associated Diagnoses Date/Ti [...] 40 MG/ML inj 40 mg 40 mg, Intrabursal, ONCE, On Wed08/18/23 at 1100, For 1 dose Given 08/18/2023 10:48 AM EDT 40 mg Hand Right documented in this encounter Care Teams Retirement Officer Relationship Specialty Start Date End Date Julio César Best DO [address] [place] [address] PCP - General Family Medicine 02/23/20 documented as of this encounter
--- OUTSIDE RECORDS SUMMARY | 2023-12-11 18:18 | External Medical Summary ---
Author Name Unknown Address Unknown Organization [id number]:[facility] [address] [facility] [place] [address] Laboratory Report Ordering Provider Test Date Status JAMAL HOUSE 08/26/2023 08:38:13 Final Observation Date Value Abnormality Reference (Units ) Status Triglyceride 08/26/2023 08:38:13 97 <=174 ( mg/dL) Final Triglyceride Reference Range s (mg/dL):
<150 Acceptable
150-174 Borderline high
175-499 High
>=500 Very high Cholesterol 08/26/2023 08:38:13 231 Above high normal <200 (mg/dL) Final Total Cholesterol Reference Ranges (mg/dL):
<200 Desirable
200-239 Borderline high
>=240 High HDL 08/26/2023 08:38:13 75 >39 (mg/dL ) Final HDL Cholesterol Reference Ra nges (mg/dL):
>=60 High (Desirable)
<50 Low (Undesirable) For Females
<40 Low (Undesirable) For Males NON-HDL CHOLESTEROL 08/26/2023 08:38:13 156 <=159 (mg/dL) Final Non-HDL Cholesterol Referenc e Range (mg/dL):
<100 Target level for high risk ASCVD patient
<130 Optimal for general population
130-159 Near optimal for general population
160-189 Borderline High
190-219 High
>=220 Very High LDL, (calculated) 08/26/2023 08:38:13 137 Above high n ormal <=129 (mg/dL) Final LDL Cholesterol Reference Ra nges (mg/dL):
<70 Target level for high risk ASCVD patient
<100 Optimal for general population
100-129 Near optimal for general population
130-159 Borderline high
160-189 High
>=190 Very high Performing Location [facility] - [address] [facility] [address]
--- OUTSIDE RECORDS SUMMARY | 2023-12-11 18:18 | External Medical Summary ---
Author Name Unknown Address Unknown Organization K0G:[facility] - [address] [place] [address] Laboratory Report Ordering Provider Test Date Status JAMAL HOUSE 08/26/2023 08:38:13 Final Observation Date Value Abnormality Reference (Units ) Status Albumin 08/26/2023 08:38:13 4.3 3.8-5.0 (g/dL) Final AST (Aspartate aminotransferase) 08/26/2023 08:38:13 38 10-50 (U/L) Final Alk Phos 08/26/2023 08:38:13 75 35-130 (U/L) Final ALT (Alanine aminotransferase) 08/26/2023 08:38:13 33 10-50 (U/L) Final Bilirubin, Total 08/26/2023 08:38:13 0.6 <=1.2 (mg/dL) Final Bilirubin, Direct 08/26/2023 08:38:13 <0.2 0.0-0.3 (mg/dL) Final Protein 08/26/2023 08:38:13 6.6 6.0-8.3 (g/dL) Final Performing Location [facility] - [address] [place] [address]
--- OUTSIDE RECORDS SUMMARY | 2023-12-11 18:18 | External Medical Summary | Summary of Care ---
Author Name Unknown Organization [facility] Address [address] [place] [address] Phone [phone] Care Team Providers Care Optics Technical Officer Name Role Phone Julio César Best DO Primary Care Provider Reason for Visit * Reason Onset Date Comments Advice 09/01/2023 [facility] is waiting for PT re cert documents to be signed and returned. Call if there are questions [phone] [facility] They have been faxed 2 x's already Encounter Details Date Type Department Care Team (Late st Contact Info) Description 09/01/[address] [facility] [address] [facility] [place] [address] Julio César Best DO [address] [facility] [place] [address] Advice ([facility] is waiting for PT re... Allergies Active Allergy Reactions Criticality Noted Date Comments Simvastatin 06/18/1998 Elevated CPK documented as of this encounter (statuses as of 09/03/2023) Medications Medication Sig Dispensed Refills Start Date [...] as of this encounter (statuses as of 09/03/2023) Active Problems Problem Noted Date Diagnosed Date Trigger middle finger of right hand 08/18/2023 Current mild episode of jeffrey r depressive disorder without prior episode 06/19/2022 Pain in both feet 02/14/2021 Primary osteoarthritis of both hands 02/14/2021 Dementia without behavioral disturbance 03/26/20 20 Overview: ICD-10 update of inactive term 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 ADVANCE DIRECTIVE INFORMATION 05/27/2006 Overview: Information given to patient. Esophageal reflux 01/30/2002 Other atopic dermatitis 02/23/2000 Overview: ICD-10 update of inactive term Major depressive disorder Overview: ICD-10 update of inactive term documented as of this encounter (statuses as of 09/03/2023) Resolved Problems Problem Noted Date Diagnosed Date Resolved Date Kidney disease, chronic, sta ge III (GFR 30-59 ml/min) 12/11/2013 10/15/2022 Overview: Per CKD protocol #1 Chest pain 09/25/2003 12/29/2011 Corns and callosities 09/16/1999[address] Mixed dyslipidemia 08/21/1997 9 Overview: Per Lipid Taxonomy. documented as of this encounter (statuses as of 09/03/2023) Immunizations Name Administration Dates Next Due COVID-19 [...] encounter Miscellaneous Notes * Telephone Encounter - Gwen Olivia LPN - 09/03/2023 11:34 AM EST Called [facility] to state that this form (to my knowledge was faxed yesterday). No answer asked them to return call to clinic. Please confirm if they have received this or not, and if not to have them fax it to [phone] [facility] on it. Thx * Telephone Encounter - Julio César Best DO - 09/02/2023 1:02 PM EST Everything on my desk has been signed * Telephone Encounter - Khadijah Helm LPN - 09/01/2023 4:29 PM EST Do you have these?? * Telephone Encounter - Mariana Piña OSA - 09/01/2023 1:03 PM EST [facility] is waiting for PT re cert documents to be signed and returned. Call if there are questions [phone] [facility] They have been faxed 2 x's already documented in this encounter Plan of Treatment Upcoming Encounters Date Type Department Care Team (Latest Contact Info) Description 09/15/2023 4:20 PM EST Telemedicine Neurology, [place] [facility] [address] [place] [address] [place] [address] Wali Puckett MD [address] [facility] [place] [address] 09/29/2023 1:30 PM EST Office Visit Orthopaedics [facility] 132 [place] [address] Brennan Bee MD [address] [place] [address] 10/21/2023 9:30 AM EST Hospital Encounter ENDO [facility], Endoscopy Room [facility] [address] [place] [phone] Renee Trevizo MD [address] [place] [address] 10/21/2023 9:30 AM EST - 10/21/2023 10:00 AM EST Surgery ENDO [facility], Endoscopy Room [facility] [address] [place] [phone] Renee Trevizo MD [address] [place] [address] COLONOSCOPY FLEXIBLE PROXIMAL DIAGNOSTIC 01/11/2024 10:00 AM EDT Office Visit Neurology [facility] [address] [facility] [place] [address] Kim Iglesias PA-C [address] [facility] [place] [address] 03/30/2024 8:20 AM EDT Office Visit Family Practice [facility] [address] [place] [address] Julio César Best DO [address] [place] [address] Scheduled Procedures Name Priority Associated Diagnoses Date/Ti [...] filedocumented as of this encounter Care Teams Optics Technical Officer Relationship Specialty Start Date End Date Julio César Best DO [address] [place] [address] PCP - General Family Medicine 02/23/20 documented as of this encounter
--- OUTSIDE RECORDS SUMMARY | 2023-12-11 18:18 | External Medical Summary | Summary of Care ---
Author Name Unknown Organization [facility] Address [address] [place] [address] Phone [phone] Care Team Providers Care Wool Hat Forming Machine Tender Name Role Phone Ashely Best DO Primary Care Provider Reason for Visit * Reason Comments eRx-Medication Refill Encounter Details Date Type Department Care Team (Late st Contact Info) Description 08/17/2023 Refill Family Practice [facility] [address] [place] [address] Ashely Best DO [address] [place] [address] Irritable bowel syndrome without diarrhea Allergies Active [...] evening meals. 60 Tablet 5 3 Active Atorvastatin Calcium 20 MG Oral Tablet (Lipitor)Indication s:Dyslipidemia, goal LDL below 70 Take 1 Tablet by mouth in the morning. 30 Tablet 5 3 Active Donepezil HCl 10 [...] at bedtime 90 Tablet 1 3 Active Dicyclomine HCl 10 MG Oral [...] for abdominal pain 120 Capsule 0 3 08/18/20 23 Discontinued documented as of this encounter [...] Telephone Encounter - Ashely Best DO - 08/18/2023 12:48 PM EDT Signed Prescriptions: Disp Refills Dicyclomine HCl 10 MG Oral Capsule (Bentyl)120 Ca*0 Sig: take 1 capsule by mouth four times a day (BEFORE FOOD and at bedtime) for abdominal pain Authorizing Provider: ASHELY BEST * Telephone Encounter - Mercy Balderas LPN - 08/18/2023 12:20 PM EDTPending Prescriptions: Disp Refills Dicyclomine HCl 10 MG Oral Capsule [Pharma*120 Ca*0 Sig: take 1 capsule by mouth four times a day (BEFORE FOOD and at bedtime) for abdominal pain * Telephone Encounter - Jeanie Portillo CPhT - 08/18/2023 11:49 AM EDT Routing to PCP Thank you, Jeanie Portillo CPhT II 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 Administrator [facility] (Former[facility]) 08/18/2023, 11:49 AM * Telephone Encounter - Teja Capps - 08/17/2023 2:59 PM EDTPending Prescriptions: Disp Refills Dicyclomine HCl 10 MG Oral Capsule [Pharma*120 Ca*0 Sig: take 1capsule by mouth four times a day (BEFORE FOOD and at bedtime) for abdominal pain documented in this encounter Plan of Treatment Upcoming Encounters Date Type Department Care Team (Latest Contact Info) Description 09/15/2023 4:20 PM EST Telemedicine Neurology, [place] [facility] [address] [place] [address] [place] [address] Wali Puckett MD [address] [facility] [place], [place] [id number] 09/29/2023 1:30 PM EST Office Visit Orthopaedics [facility] [address] [place] [address] Brennan Bee MD [address] [place] [address] 10/21/2023 9:30 AM EST Hospital Encounter ENDO [facility], Endoscopy Room [facility] [address] [place] [phone] Renee Trevizo MD [address] [place] [address] 10/21/2023 9:30 AM EST - 10/21/2023 10:00 AM EST Surgery ENDO [facility], Endoscopy Room [facility] [address] [place] [phone] Renee Trevizo MD [address] [place] [address] COLONOSCOPY FLEXIBLE PROXIMAL DIAGNOSTIC 01/11/2024 10:00 AM EDT Office Visit Neurology [facility] [address] [place] [address] Kim Iglesias PA-C 200 [facility] [place], [place] [address] 03/30/2024 8:20 AM EDT Office Visit Family [facility] [address] [place] [address] Ashely Best, [address] [place] [address] Scheduled Procedures Name Priority Associated Diagnoses Date/Ti [...] colon documented in this encounter Care Teams Wool Hat Forming Machine Tender Relationship Specialty Start Date End Date Ashely Best DO [address] [place] [address] PCP - General Family Medicine 02/23/20 documented as of this encounter
--- OUTSIDE RECORDS SUMMARY | 2023-12-11 18:18 | External Medical Summary | Summary of Care ---
Author Name Unknown Organization [facility] Address [address] [place] [address] Phone [phone] Care Team Providers Care Marketing Operations Assistant Name Role Phone Julio César Best Primary Care Provider Encounter Details Date Type Department Care Team (Late st Contact Info) Description 08/13/2023 Patient Reported Data Patient Survey Ortho [facility] Allergies Active Allergy Reactions Criticality Noted Date Comments Simvastatin 06/18/1998 Elevated CPK documented as of this encounter (statuses as of 08/13/2023) Medications Medication Sig Dispensed Refills Start Date [...] abdominal pain 120 Capsule 0 07/20/2023 Active documented as of this encounter (statuses as of 08/13/2023) Active Problems Problem Noted Date Diagnosed Date Current mild episode of jeffrey r depressive [...] as of this encounter (statuses as of 08/13/2023) Resolved Problems Problem Noted Date Diagnosed Date Resolved Date Kidney disease, chronic, sta ge III (GFR 30-59 ml/min) 12/11/2013 10/15/2022 Overview: Per CKD protocol #1 Chest pain 09/25/2003 12/29/2011 Corns and callosities 09/16/1999[address] Mixed dyslipidemia 08/21/1997 9 Overview: Per Lipid Taxonomy. documented as of this encounter (statuses as of 08/13/2023) Immunizations Name Administration Dates Next Due COVID-19 [...] on file documented as of this encounter Plan of Treatment Upcoming Encounters Date Type Department Care Team (Latest Contact Info) Description 08/18/2023 10:00 AM EDT Office Visit Orthopaedics [facility] [address] [place] [address] Brennan Bee MD [address] [place] [address] 09/15/2023 4:20 PM EST Telemedicine Neurology, [place] [facility] [address] [place] [address] [place] [address] Wali Puckett MD [address] [place] [address] 10/21/2023 9:30 AM EST Hospital Encounter ENDO [facility], Endoscopy Room [facility] [address] [place] [phone] Renee Trevizo MD [address] [place] [address] 10/21/2023 9:30 AM EST - 10/21/2023 10:00 AM EST Surgery ENDO [facility], Endoscopy Room [facility] [address] [place] [phone] Renee Trevizo MD [address] [place] [address] COLONOSCOPY FLEXIBLE PROXIMAL DIAGNOSTIC 01/11/2024 10:00 AM EDT Office Visit Neurology [facility] 200 [facility] [place] [address] Kim Iglesias PA-C 200 [facility] [place] [address] 03/30/2024 8:20 AM EDT Office Visit Family Practice [facility] [address] [place] [address] Julio César Best DO [address] [place] [address] Scheduled Procedures Name Priority Associated Diagnoses Date/Ti [...] filedocumented as of this encounter Care Teams Marketing Operations Assistant Relationship Specialty Start Date End Date Julio César Best DO [address] [place] [address] PCP - General Family Medicine 02/23/20 documented as of this encounter
--- OUTSIDE RECORDS SUMMARY | 2023-12-11 18:18 | External Medical Summary ---
Author Name Unknown Address Unknown Organization K01:[facility] [place] [address] [place] [address] Laboratory Report Ordering Provider Test Date Status KARY FULLER 08/26/2023 08:38:13 Final Observation Date Value Abnormality Reference (Units ) Status MYCODE SPECIMEN-SST 08/26/2023 08:38:13 Freezing of extracted DNA, whole blood and/or serum. Final Performing Location [facility] [place] [address] [place] [address]
--- OUTSIDE RECORDS SUMMARY | 2023-12-11 18:18 | External Medical Summary | Summary of Care ---
Author Name Unknown Organization [facility] Address [address] [facility] [place] [address] Phone [phone] Care Team Providers Care Orchard Hand Name Role Phone Julio César Best Primary Care Provider Reason for Visit * Reason Onset Date Comments Test Results 08/27/2023 Encounter Details Date Type Department Care Team (Late st Contact Info) Description 08/27/2023 Telephone Family Practice [facility] [address] [place] [address] Jason Ni DO [address] [place] [address] Test Results Allergies Active Allergy Reactions Criticality Noted Date Comments Simvastatin 06/18/1998 Elevated CPK documented as of this encounter (statuses as of 09/01/2023) Medications Medication Sig Dispensed Refills Start Date [...] as of this encounter (statuses as of 09/01/2023) Active Problems Problem Noted Date Diagnosed Date [...] as of this encounter (statuses as of 09/01/2023) Resolved Problems Problem Noted Date Diagnosed Date Resolved Date Kidney disease, chronic, sta ge III (GFR 30-59 ml/min) 12/11/2013 10/15/2022 Overview: Per CKD protocol #1 Chest pain 09/25/2003 12/29/2011 Corns and callosities 09/16/19992011 Mixed dyslipidemia 08/21/1997 9 Overview: Per Lipid Taxonomy. documented as of this encounter (statuses as of 09/01/2023) Immunizations Name Administration Dates Next Due COVID-19 [...] Miscellaneous Notes * Telephone Encounter - Khadijah Helm LPN - 09/01/2023 7:27 AM EST Lab letter done and mailed. * Telephone Encounter - Jason Ni DO [...] Description 09/15/2023 4:20 PM EST Telemedicine Neurology, [place] [facility] [address] [place] [address] [place] [address] Wali Puckett MD [address] [place] [address] 09/29/2023 1:30 PM EST Office Visit Orthopaedics [facility] [address] [place] [address] Brennan Bee MD [address] [place] [address] 10/21/2023 9:30 AM EST Hospital Encounter ENDO [facility], Endoscopy Room [facility] [address] [place] [phone] Renee Trevizo MD [address] [place] [address] 10/21/2023 9:30 AM EST - 10/21/2023 10:00 AM EST Surgery ENDO [facility], Endoscopy Room [facility] [address] [place] [address] Renee Trevizo MD [address] [place] [address] COLONOSCOPY FLEXIBLE PROXIMAL DIAGNOSTIC 01/11/2024 10:00 AM EDT Office Visit Neurology [facility] [place] [address] Kim Iglesias PA-C [address] [facility] [place] [address] 03/30/2024 8:20 AM EDT Office Visit Family Practice [facility] [address] [place] [address] Julio César Best DO [address] [place] [address] Scheduled Orders Name Type Priority Associated Diagnoses [...] colon documented in this encounter Care Teams Orchard Hand Relationship Specialty Start Date End Date Julio César Best DO [address] [place] [address] PCP - General Family Medicine 02/23/20 documented as of this encounter
--- OUTSIDE RECORDS SUMMARY | 2023-12-11 18:18 | External Medical Summary | Summary of Care ---
Author Name Unknown Organization [facility] Address [address] [place] [address] Phone [phone] Care Team Providers Care Hide Dyer Name Role Phone Julio César Best Primary Care Provider Reason for Visit * Reason Comments Outpatient Testing Encounter Details Date Type Department Care Team (Late st Contact Info) Description 08/26/2023 8:00 AM EST Laboratory Laboratory, [facility] 132 [facility] [place] [phone] [facility] 132 [place] [address] Dyslipidemia, goal LDL below 70; [employer] Other*[id number] Allergies Active Allergy Reactions Criticality Noted Date Comments Simvastatin 06/18/1998 Elevated CPK documented as of this encounter (statuses as of 08/26/2023) Medications Medication Sig Dispensed Refills Start Date [...] abdominal pain 120 Capsule 0 08/18/2023 Active documented as of this encounter (statuses as of 08/26/2023) Active Problems Problem Noted Date Diagnosed Date [...] as of this encounter (statuses as of 08/26/2023) Resolved Problems Problem Noted Date Diagnosed Date Resolved Date Kidney disease, chronic, sta ge III (GFR 30-59 ml/min) 12/11/2013 10/15/2022 Overview: Per CKD protocol #1 Chest pain 09/25/2003 12/29/2011 Corns and callosities 09/16/19992011 Mixed dyslipidemia 08/21/1997 Overview: Per Lipid Taxonomy. documented as of this encounter (statuses as of 08/26/2023) Immunizations Name Administration Dates Next Due COVID-19 [...] Description 09/15/2023 4:20 PM EST Telemedicine Neurology, [place] [facility] [address] [place] [address] [place] [address] [facility]uckett MD [address] [facility] [place] [address] 09/29/2023 1:30 PM EST Office Visit Orthopaedics [facility] [address] [place] [address] Brennan Bee MD [address] [place] [address] 10/21/2023 9:30 AM EST Hospital Encounter ENDO [facility], Endoscopy Room [facility] [address] [place] [phone] Renee Trevizo MD [address] [place] [address] 10/21/2023 9:30 AM EST - 10/21/2023 10:00 AM EST Surgery ENDO [facility], Endoscopy Room [facility] [address] [place] [phone] Renee Trevizo MD [address] [place] [address] COLONOSCOPY FLEXIBLE PROXIMAL DIAGNOSTIC 01/11/2024 10:00 AM EDT Office Visit Neurology [facility] [place] [address] Kim Iglesias PA-C [facility] [place] [address] 03/30/2024 8:20 AM EDT Office Visit Family Practice [facility] [address] [place] [address] Julio César Best DO [address] [place] [address] Pending Results Name Type Priority Associated Diagnoses Date /Time LIPID PANEL WITH DIRECT LDL IF TG IS HIGH Lab Routine Dyslipidemia, goal LDL below 70 08/26/2023 8:38 AM EST BASIC METABOLIC PANEL Lab Routine Dyslipidemia, goal LDL below 70 08/26/2023 8:38 AM EST HEPATIC FUNCTION PANEL Lab Routine Dyslipidemia, goal LDL below 70 08/26/2023 8:38 AM EST MYCODE SUBSEQUENT ADULT Lab Routine [employer] Other*[id number] 08/26/2023 8:38 AM EST MYCODE SST1 Lab Routine [employer] Other*[id number] 08/26/2023 8:38 AM EST MYCODE SST2 Lab Routine [employer] Other*[id number] 08/26/2023 8:38 AM EST Scheduled Procedures Name Priority Associated Diagnoses Date/Ti [...] LDL below 70 Other and unspecified hyperlipidemia [employer] Other*[id number] History of colon polyps Personal history of colonic polyps Special screening for malignant neoplasms, colon documented in this encounter Care Teams Hide Dyer Relationship Specialty Start Date End Date Julio César Best DO [address] [place] [address] PCP - General Family Medicine 02/23/20 documented as of this encounter
--- OUTSIDE RECORDS SUMMARY | 2023-12-11 18:19 | External Medical Summary | Summary of Care ---
Author Name Unknown Organization [facility] Address [address] [facility] [address] Phone [phone] Care Team Providers Care Brush Polisher Name Role Phone Julio César Best Primary Care Provider Reason for Visit * Reason Onset Date Comments Medication Administration 07/30/2023 Flu an d/or Pneumo Inj Immunizations Flu/Covid Encounter Details Date Type Department Care Team Description 07/30/2023 Immunization Ancillary [address] [place] [address] [place], Covid19 Vaccine [address] [place] [address] Need for prophylactic vaccination and inoculation against influenza*; Need for COVID-19 vaccine Allergies Active Allergy Reactions Severity Noted Date Comments Simvastatin 06/18/1998 Elevated CPK documented as of this encounter (statuses as of 07/30/2023) Medications Medication Sig Dispensed Refills Start Date [...] as of this encounter (statuses as of 07/30/2023) Active Problems Problem Noted Date Current mild episode of major depressive disorder without prior episode 06/19/2022 Pain in both feet 02/14/2021 Primary osteoarthritis of both hands Dementia without behavioral disturbance 03/26/2020 Overview: ICD-10 update of inactive term 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 ADVANCE DIRECTIVE INFORMATION 05/27/2006 Overview: Information given to patient. Esophageal reflux 01/30/2002 Other atopic dermatitis 02/23/2000 Overview: ICD-10 update of inactive term Major depressive disorder Overview: ICD-10 update of inactive term documented as of this encounter (statuses as of 07/30/2023) Resolved Problems Problem Noted Date Resolved Date Kidney disease, chronic, stage III (GFR 30-59 ml /min) 12/11/2013 10/15/2022 Overview: Per CKD protocol #1 Chest pain 09/25/2003 12/29/2011 Corns and callosities 09/16/1999 12/29/2011 Mixed dyslipidemia 08/21/1997 09/24/2009 Overview: Per Lipid Taxonomy. documented as of this encounter (statuses as of 07/30/2023) Immunizations Name Administration Dates Next Due COVID-19 mRNA, LNP-s, No Pre serve, 2-Dose Series (Moderna) 12/13/2020,11/15/2020 COVID-19, MRNA-LNP, 23-24, P F, 30 MCG/0.3 mL, 12 YRS AND ABOVE, IM (PFIZER-Comirnaty) 07/30/2023 Pneumococcal Conjugate Vacc, 13 Valent (Prevnar) 04/02/2019,04/23/2015,11/30/2014,09/03 Pneumococcal Polysaccharide PPV23 (Pneumovax) 09/08/2017 SEASONAL INFLUENZA, PF, 6 M & Above, [...] e alcohol) daily , 2-3 beers daily Food Insecurity Answer Date Recorded Within the past 12 months, y ou worried that your food would run out before you got money to buy more. Never true 07/21/2022 Within the past 12 months, t he food you bought just didn't last and you didn't have money to get more. Never true 07/21/2022 Sex Assigned at Date Recorded Male 09/26/2020 12:05 PM EST Job Start Date Occupation Industry Not on file Not on file Not on file documented as of this encounter Last Filed Vital Signs Vital Sign Reading Time Taken Comments Blood Pressure - - Pulse - - Temperature 35.9 C (96.6 F) 07/30/2023 11:27 AM E DT Respiratory Rate - - Oxygen Saturation - - Inhaled Oxygen Concentration - - Weight - - Height - - Body Mass Index - - documented in this encounter Progress Notes * Tiffany Calle CMA - 07/30/2023 11:17 AM EDT PRE - ADMINISTRATION DOCUMENTATION Are you experiencing any cold symptoms or fever? No Have you had Guillain-Grant Syndrome (an illness that causes paralysis) within the last 6 weeks? No Have you had the flu shot in the past? YES Have you ever had a reaction to the flu shot? No Tiffany Calle CMA, 07/30/2023 11:17 AM Immunization Administration Documentation Time Out Procedure Performed: Yes Patient Identified (Ask Name/Date of ): Yes Does the patient have a fever greater than 101 degrees today? No Patient allergic to latex? No VFC Stock: No Immunization(s) verified: Yes, Immunization Name: Flu, VIS Sheet(s) given: Yes Verified Side and Site: Yes Verified Shot(s) with Parent(s)/Patient: Yes documented in this encounter Nursing Notes * Tiffany Calle CMA - 07/30/2023 11:22 AM EDT Patient is here for flu vaccine and covid vaccine. Patient has not had covid in the past 10 days and is due for their booster today. documented in this encounter Plan of Treatment Upcoming Encounters Date Type Specialty Care Team Description 08/04/2023 Office Visit Orthopedics Brennan Bee MD [address] [place] [address] 09/15/2023 Telemedicine Neurology Wali Puckett MD [address] [place] [address] 10/21/2023 Hospital Encounter Endoscopy Renee Trevizo MD [address] [place] [address] 10/21/2023 Surgery Endoscopy Renee Trevizo MD [address] [place] [address] COLONOSCOPY FLEXIBLE PROXIMAL DIAGNOSTIC 01/11/2024 Office Visit Neurology Kim Iglesias PA-C [address] [place] [address] Scheduled Procedures Name Priority Associated Diagnoses Date/Ti [...] as of this encounter Visit Diagnoses Diagnosis Need for prophylactic vaccination and inoculation against influenza- Primary Need for COVID-19 vaccine History of colon polyps Personal history of colonic polyps Special screening for malignant neoplasms, colon documented in this encounter Care Teams Brush Polisher Relationship Specialty Start Date End Date Julio César Best DO [address] [place] [address] PCP - General Family Medicine 02/23/20 documented as of this encounter
--- OUTSIDE RECORDS SUMMARY | 2023-12-11 18:19 | External Medical Summary | Summary of Care ---
Author Name Unknown Organization [facility] Address [address] [place] [address] Phone [phone] Care Team Providers Care Network Systems Analyst Name Role Phone Julio César Best Primary Care Provider Reason for Visit * Reason Comments NEW PATIENT R middle finger * Evaluate & Treat - Unlimited Visits (Within 10 days (routine)) - Authorized Specialty Diagnoses / Procedures Referred By Chilango parrish Referred To Contact Orthopaedic Surgery / Orthopedics Diagnoses Trigger middle finger of right hand Jason Ni DO [address] [place] [address] Referral ID Status Reason Start Date Expiration Date Visits Requested Visits Authorized [id number] Authorized Specialty Services Required 05/26/2023 05/26/[phone] Encounter Details Date Type Department Care Team Description 08/04/2023 Office Visit Orthopaedics [facility] [address] [place] [address] Brennan Bee MD [address] [place] [address] Trigger middle finger of right hand* Allergies Active Allergy Reactions Severity Noted Date Comments Simvastatin 06/18/1998 Elevated CPK documented as of this encounter (statuses as of 08/04/2023) Medications Medication Sig Dispensed Refills Start Date [...] as of this encounter (statuses as of 08/04/2023) Active Problems Problem Noted Date Current mild [...] as of this encounter (statuses as of 08/04/2023) Resolved Problems Problem Noted Date Resolved Date Kidney disease, chronic, stage III (GFR 30-59 ml /min) 12/11/2013 10/15/2022 Overview: Per CKD protocol #1 Chest pain 09/25/2003 12/29/2011 Corns and callosities 09/16/1999 12/29/2011 Mixed dyslipidemia 08/21/1997 09/24/2009 Overview: Per Lipid Taxonomy. documented as of this encounter (statuses as of 08/04/2023) Immunizations Name Administration Dates Next Due COVID-19 [...] on file documented as of this encounter H&P Notes * Brennan Bee MD - 08/04/2023 12:58 PM EDT HISTORY & PHYSICAL EXAMINATION - Hand Surgery Name: Lakeisha De Leon Date: 08/04/2023 Time: 12:58 PM Date and Time Patient was Seen: 08/04/2023 at 12:58 PM PRESENTING PROBLEM: Locking of the right middle finger HPI: The patient is a 72-year-old [id number] man who is seen today at the recommendation of Dr.Dominick Ni for hand surgery consultation regarding locking of his right middle finger. This has been going on for several months. The patient is a poor historian because of his dementia. He is accompanied by his who gave most of the history. 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 Depressive disorder, not elsewhere classified Depression Head injury, unspecified Mining Accident, Hospitalized Patient Active Problem List Diagnosis Code Major [...] depressive disorder without prior episode (HCC) F32.0 PAST SURGICAL HISTORY: Past Surgical History: Procedure Laterality Date COLONOSCOPY THRU STOMA, W/BIOPSY benign inflamation bu Kondylis, recc yearly hemocults and q 5yr flex sig COLONOSCOPY W/ LESION REMOVAL, SNARE 02/26/2010 done diverticulosis, one 8mm adenomatous polyp COLONOSCOPY, DIAGNOSTIC (RECTUM) 04/24/2013 COLONOSCOPY FLEXIBLE PROXIMAL DIAGNOSTIC performed by Marco A Mortensen MD at ENDOSCOPY [facility] COLONOSCOPY, DIAGNOSTIC (RECTUM) 06/24/2018 diverticulosis, repeat 5 yrs/COLONOSCOPY FLEXIBLE PROXIMAL DIAGNOSTIC performed by Renee Trevizo MD at ENDOSCOPY [facility] EGD, FLEXIBLE, DIAGNOSTIC 09/30/2018 duodenal ulcer, + H pylori infection/ESOPHAGOGASTRODUODENOSCOPY (EGD), FLEXIBLE, TRANSORAL, DIAGNOSTIC performed by Ralph Bruce MD at ENDOSCOPY [facility] KNEE ARTHROSCOPY/MENISCECTOMY 1998 ps sports med REMOVE CATARACT, INSERT LENS PROSTH 08/18/07 REPAIR RUPTURED ROTATOR CUFF, CHRON 07/18/06 FAMILY HISTORY: Family History Problem Relation Age of Onset Heart Disorder Father NH age 66 Endocrine Disorder Sister chol SOCIAL HISTORY: Social History Tobacco Use Smoking status: Former Smokeless tobacco: Current Types: Chew Tobacco comments: one can lasts 3-4 day Vaping Use Vaping Use: Never used Substance Use Topics Alcohol use: Yes Comment: daily , 2-3 beers daily Drug use: No MARITAL STATUS: CURRENT MEDICATIONS: Current Outpatient Medications Medication Sig Dispense Refill [...] bedtime) for abdominal pain 120 Capsule 0 No current facility-administered medications for this visit. ALLERGIES: Simvastatin ROS: Negative for GI, , Cardiac, Respioratory and Neurologic complains. Remainder of systems negative. PHYSICAL EXAMINATION: General: Well developed, well nourished. Neuro: Awake, alert, and oriented. Heart & Lungs OK Extremities: There are obvious arthritic changes in the interphalangeal joints of multiple fingers.There is point tenderness over the A1 ramirez of the right middle finger. There is soft clicking. Hedoes not demonstrate conchita locking. Skin is intact. Sensation is intact. There is good capillary refill. IMPRESSION: Trigger finger right middle finger. PLAN: I gave the patient and his a handout regarding the condition. We discussed different options. He just started antibiotics day for a dental abscess so I am a little leery of giving him a steroid injection. I recommended follow-up in 2 weeks for the injection after the abscess hopefully respondsto the antibiotics. Thank you for the kindness of this referral. Patient Active Problem List Diagnosis Code Major [...] depressive disorder without prior episode (HCC) F32.0 Brennan Bee MD documented in this encounter Nursing Notes * ANAMARIA Zavala - 08/04/2023 12:45 PM EDT Pt presents today for R middle finger ANAMARIA Zavala documented in this encounter Plan of Treatment Upcoming Encounters Date Type Specialty Care Team Description 08/18/2023 Office Visit Orthopedics Brennan Bee MD [address] [place] [address] 09/15/2023 Telemedicine Neurology Wali Puckett MD [address] [place] [address] 10/21/2023 Hospital Encounter Endoscopy Renee Trevizo MD [address] [place] [address] 10/21/2023 Surgery Endoscopy Renee Trevizo MD [address] [place] [address] COLONOSCOPY FLEXIBLE PROXIMAL DIAGNOSTIC 01/11/2024 Office Visit Neurology Kmi Iglesias PA-C [address] [facility] [place] [address] 03/30/2024 Office Visit Family Medicine Julio César Best, [address] [place] [address] Scheduled Procedures Name Priority Associated Diagnoses Date/Ti me COLONOSCOPY FLEXIBLE PROXIMAL DIAGNOSTIC Recall History of colon polyps Special screening for malignant neoplasms, colon 10/21/2023 9:30 AM EST Scheduled Referrals Name Type Priority Associated Diagnoses Order Schedule ORTHOPAEDICS REFERRAL OP Referral Within 10 days (routine) Trigger middle finger of right hand Ordered: 05/26/2023 Health Maintenance Due Date Last Done Comments [...] colon documented in this encounter Care Teams Network Systems Analyst Relationship Specialty Start Date End Date Julio César Best DO [address] [place] [address] PCP - General Family Medicine 02/23/20 documented as of this encounter
--- OUTSIDE RECORDS SUMMARY | 2023-12-11 18:19 | External Medical Summary | Summary of Care ---
Author Name Unknown Organization [facility] Address [address] [place] [address] Phone [phone] Care Team Providers Care Meat Cutting Block Repairer Name Role Phone Julio César Best Primary [...] 08/18/2023 10:00 AM EDT Office Visit Orthopaedics [facility] [address] [place] [address] Brennan Bee MD [address] [place] [address] 09/15/2023 4:20 PM EST Telemedicine Neurology, [place] [facility] [address] [place] [address] [place] [address] Wali Puckett MD [address] [place] [address] 10/21/2023 9:30 AM EST Hospital Encounter ENDO [facility], Endoscopy Room [facility] [address] [place] [phone] Renee Trevizo MD [address] [place] [address] 10/21/2023 9:30 AM EST - 10/21/2023 10:00 AM EST Surgery ENDO [facility], Endoscopy Room [facility] [address] [place] [phone] Renee Trevizo MD [address] [place] [address] COLONOSCOPY FLEXIBLE PROXIMAL DIAGNOSTIC 01/11/2024 10:00 AM EDT Office Visit Neurology [facility] [place] [address] Kim Iglesias PA-C [address] [facility] [place] [address] 03/30/2024 8:20 AM EDT Office Visit Family Practice [facility] [address] [place] [address] Julio César Best DO [address] [place] [address] Scheduled Procedures Name Priority Associated Diagnoses Date/Ti [...] filedocumented as of this encounter Care Teams Meat Cutting Block Repairer Relationship Specialty Start Date End Date Julio César Best DO [address] [place] [address] PCP - General Family Medicine 02/23/20 documented as of this encounter
--- OUTSIDE RECORDS SUMMARY | 2023-12-11 18:19 | External Medical Summary | Summary of Care ---
Author Name Unknown Organization [facility] Address [address] [place] [address] Phone [phone] Care Team Providers Care Seafood Fisherman Name Role Phone Julio César Best Primary [...] 08/18/2023 10:00 AM EDT Office Visit Orthopaedics [facility] [address] [place] [address] Brennan Bee MD [address] [place] [address] 09/15/2023 4:20 PM EST Telemedicine Neurology, [place] [facility] [address] [place] [address] [place] [address] Wali Puckett MD [address] [place] [address] 10/21/2023 9:30 AM EST Hospital Encounter ENDO OSS, Endoscopy Room [facility] [address] [place] [phone] Renee Trevizo MD [address] [place] [address] 10/21/2023 9:30 AM EST - 10/21/2023 10:00 AM EST Surgery ENDO [facility], Endoscopy Room [facility] [address] [place] [phone] Renee Trevizo MD [address] [place] [address] COLONOSCOPY FLEXIBLE PROXIMAL DIAGNOSTIC 01/11/2024 10:00 AM EDT Office Visit Neurology [facility] 200 [facility] [place] [address] Kim Iglesias PA-C 200 [facility] [place] [address] 03/30/2024 8:20 AM EDT Office Visit Family Practice [facility] [address] [place] [address] Julio César Best DO [address] [place] [address] Scheduled Procedures Name Priority Associated Diagnoses Date/Ti [...] filedocumented as of this encounter Care Teams Seafood Fisherman Relationship Specialty Start Date End Date Julio César Best DO [address] [place] [address] PCP - General Family Medicine 02/23/20 documented as of this encounter
--- OUTSIDE RECORDS SUMMARY | 2023-12-11 18:19 | External Medical Summary | Summary of Care ---
Author Name Unknown Organization [facility] Address [address] [facility] [address] Phone [phone] Care Team Providers Care Bowl Sander Name Role Phone Julio César Best DO Primary Care Provider Reason for Visit * Reason Onset Date Comments FYI 08/09/2023 Encounter Details Date Type Department Care Team (Late st Contact Info) Description 08/09/2023 Telephone Family Practice [facility] [address] [place] [address] Julio César Best DO [address] [place] [address] FYI Allergies Active Allergy Reactions Criticality Noted Date Comments Simvastatin 06/18/1998 Elevated CPK documented as of this encounter (statuses as of 08/09/2023) Medications Medication Sig Dispensed Refills Start Date [...] as of this encounter (statuses as of 08/09/2023) Active Problems Problem Noted Date Diagnosed Date [...] as of this encounter (statuses as of 08/09/2023) Resolved Problems Problem Noted Date Diagnosed Date Resolved Date Kidney disease, chronic, sta ge III (GFR 30-59 ml/min) 12/11/2013 10/15/2022 Overview: Per CKD protocol #1 Chest pain 09/25/2003 12/29/2011 Corns and callosities 09/16/1999[address] Mixed dyslipidemia 08/21/1997 Overview: Per Lipid Taxonomy. documented as of this encounter (statuses as of 08/09/2023) Immunizations Name Administration Dates Next Due COVID-19 [...] e alcohol) daily , 2-3 beers daily Sex and Gender Information Value Date Recorded Sex Assigned at Male 09/26/2020 12:05 PM EST Gender Identity Male 09/26/2020 12:05 PM EST Sexual Orientation Straight 09/26/2020 12 :05 PM EST Job Start Date Occupation Industry Not on file Not on file Not on file documented as of this encounter Miscellaneous Notes * Telephone Encounter - MERCEDES Quiñones - 08/09/2023 11:38 AM EDT Requesting fax number documented in this encounter Plan of Treatment Upcoming Encounters Date Type Department Care Team (Latest Contact Info) Description 08/18/2023 10:00 AM EDT Office Visit Orthopaedics [facility] [address] [place] [address] Brennan Bee MD [address] [place] [address] 09/15/2023 4:20 PM EST Telemedicine Neurology, [facility] [address] [place] [address] [place] [address] Wali Puckett MD [address] [facility] [place] [address] 10/21/2023 9:30 AM EST Hospital Encounter ENDO [facility], Endoscopy Room [facility] [address] [place] [phone] Renee Trevizo MD [address] [place] [address] 10/21/2023 9:30 AM EST - 10/21/2023 10:00 AM EST Surgery ENDO [facility], Endoscopy Room [facility] [address] [place] [phone] Renee Trevizo MD [address] [place] [address] COLONOSCOPY FLEXIBLE PROXIMAL DIAGNOSTIC 01/11/2024 10:00 AM EDT Office Visit Neurology [facility] [address] [place] [address] Kim Iglesias PA-C [address] [place] [address] 03/30/2024 8:20 AM EDT Office Visit Family Practice [facility] [address] [place] [address] Julio César Best DO [address] [place] [address] Scheduled Procedures Name Priority Associated Diagnoses Date/Ti [...] filedocumented as of this encounter Care Teams Bowl Sander Relationship Specialty Start Date End Date Julio César Best DO [address] [place] [address] PCP - General Family Medicine 02/23/20 documented as of this encounter
--- OUTSIDE RECORDS SUMMARY | 2023-12-11 18:19 | External Medical Summary | Summary of Care ---
Author Name Unknown Organization [facility] Address [address] [place] [address] Phone [phone] Care Team Providers Care Hard Rock Miner Name Role Phone Julio César Best Primary [...] 08/18/2023 10:00 AM EDT Office Visit Orthopaedics [facility] [address] [place] [address] Brennan Bee MD [address] [place] [address] 09/15/2023 4:20 PM EST Telemedicine Neurology, [place] [facility] [address] [place] [address] [place] [address] Wali Puckett MD [address] [place] [address] 10/21/2023 9:30 AM EST Hospital Encounter ENDO OSS, Endoscopy Room [facility] [address] [place] [phone] Renee Trevizo MD [address] [place] [address] 10/21/2023 9:30 AM EST - 10/21/2023 10:00 AM EST Surgery ENDO [facility], Endoscopy Room [facility] [address] [place] [phone] Renee Trevizo MD [address] [place] [address] COLONOSCOPY FLEXIBLE PROXIMAL DIAGNOSTIC 01/11/2024 10:00 AM EDT Office Visit Neurology [facility] 200 [facility] [place] [address] Kim Iglesias PA-C 200 [facility] [place] [address] 03/30/2024 8:20 AM EDT Office Visit Family Practice [facility] [address] [place] [address] Julio César Best DO [address] [place] [address] Scheduled Procedures Name Priority Associated Diagnoses Date/Ti [...] filedocumented as of this encounter Care Teams Hard Rock Miner Relationship Specialty Start Date End Date Julio César Best DO [address] [place] [address] PCP - General Family Medicine 02/23/20 documented as of this encounter
--- OUTSIDE RECORDS SUMMARY | 2023-12-11 18:19 | External Medical Summary | Summary of Care ---
Author Name Unknown Organization [facility] Address [address] [place] [address] Phone [phone] Care Team Providers Care Dry Cell Assembly Machine Tender Name Role Phone Julio César Best Primary [...] 08/18/2023 10:00 AM EDT Office Visit Orthopaedics [facility] [address] [place] [address] Brennan Bee MD [address] [place] [address] 09/15/2023 4:20 PM EST Telemedicine Neurology, [place] [facility] [address] [place] [address] [place] [address] Wali Puckett MD [address] [place] [address] 10/21/2023 9:30 AM EST Hospital Encounter ENDO OSS, Endoscopy Room [facility] [address] [place] [phone] Renee Trevizo MD [address] [place] [address] 10/21/2023 9:30 AM EST - 10/21/2023 10:00 AM EST Surgery ENDO [facility], Endoscopy Room [facility] [address] [place] [phone] Renee Trevizo MD [address] [place] [address] COLONOSCOPY FLEXIBLE PROXIMAL DIAGNOSTIC 01/11/2024 10:00 AM EDT Office Visit Neurology [facility] [place] [address] Kim Iglseias PA-C [facility] [place] [address] 03/30/2024 8:20 AM EDT Office Visit Family Practice [facility] [address] [place] [address] Julio César Best DO [address] [place] [address] Scheduled Procedures Name Priority Associated Diagnoses Date/Ti [...] filedocumented as of this encounter Care Teams Dry Cell Assembly Machine Tender Relationship Specialty Start Date End Date Julio César Best DO [address] [place] [address] PCP - General Family Medicine 02/23/20 documented as of this encounter
--- OUTSIDE RECORDS SUMMARY | 2023-12-11 18:20 | External Medical Summary | Summary of Care ---
Author Name Unknown Organization [facility] Address [address] [place] [address] Phone [phone] Care Team Providers Care Patch Sander Name Role Phone Julio César Best Primary Care Provider Reason for Visit * Reason Comments eRx-Medication Refill Encounter Details Date Type Department Care Team Description 07/03/2023 Refill Neurology [facility] [place] [facility] [address] [place] [address] Jt Gamble MD [address] [place] [address] Insomnia Allergies Active Allergy Reactions Severity Noted Date Comments Simvastatin 06/18/1998 Elevated CPK documented as of this encounter (statuses as of 07/06/2023) Medications Medication Sig Dispensed Refills Start Date [...] the morning. 30 Tablet 5 3 Active Dicyclomine HCl 10 MG Oral Capsule (Bentyl)Indications :Irritable bowel syndrome without diarrhea take 1 capsule by mouth four times a day BEFORE FOOD and at bedtime for abdominal pain 120 Capsule 0 3 Active Donepezil HCl 10 MG Oral Tablet (Aricept)Indication s:Dementia without behavioral disturbance (HCC) take 1 tablet by mouth IN THE MORNING with THE LARGEST MEAL OF THE DAY 90 Tablet 3 3 Active Azithromycin 250 MG Oral Tablet (Zithromax Z-Artur) Take two tablets by mouth on first day, then 1 tablet daily until gone 6 Tablet 0 3 Active traZODone HCl 150 MG Oral Tablet (Desyrel)Indication s:Insomnia take 1 tablet by mouth at bedtime 90 Tablet 1 3 Active traZODone HCl 150 MG Oral Tablet (Desyrel)Indication s:Insomnia take 1 tablet by mouth at bedtime 90 Tablet 1 3 07/06/20 23 Discontinued documented as of this encounter (statuses as of 07/06/2023) Active Problems Problem Noted Date Current mild [...] as of this encounter (statuses as of 07/06/2023) Resolved Problems Problem Noted Date Resolved Date Kidney disease, chronic, stage III (GFR 30-59 ml /min) 12/11/2013 10/15/2022 Overview: Per CKD protocol #1 Chest pain 09/25/2003 12/29/2011 Corns and callosities 09/16/1999 12/29/2011 Mixed dyslipidemia 08/21/1997 09/24/2009 Overview: Per Lipid Taxonomy. documented as of this encounter (statuses as of 07/06/2023) Immunizations Name Administration Dates Next Due COVID-19 mRNA, LNP-s, No Pre serve, 2-Dose Series (Moderna) 12/13/2020,11/15/2020 Pneumococcal Conjugate Vacc, 13 Valent (Prevnar) 04/02/2019,04/23/2015,11/30/2014,09/03 Pneumococcal Polysaccharide PPV23 (Pneumovax) 09/08/2017 Season Influenza, Quad, PF, Adjuvanted, 65+ Yrs, IM (FLUAD) 07/05/2020 Seasonal Influenza Virus Vac cine, Unspecified Formulation 07/15/2021,07/05/2020,07/24/2019,07/11,06/24/2017,05/29/2016,08/31/2013 ,09/27/2012,08/12/2005,08/26/2004,07/19,08/17/2002,09/26/2001 Seasonal Influenza, PF, 6 mo ns & Above, IM , (Flulaval) 07/11/2018 Seasonal Influenza, Quadriva lent Hd (Fluzone Hd) 06/19/2022 Seasonal Influenza, Quadriva lent, No Preserve, IM [...] encounter Miscellaneous Notes * Telephone Encounter - Brianda Story RPh - 07/06/2023 1:05 PM EDTSigned Prescriptions: Disp Refills traZODone HCl 150 MG Oral Tablet (Desyrel) 90 Tab*1 Sig: take 1 tablet by mouth at bedtimeAuthorizing Provider: JT GAMBLE User: BRIANDA STORY----- documented in this encounter Plan of Treatment Upcoming Encounters Date Type Specialty Care Team Description 07/13/2023 Office Visit Neurology Kim Iglesias PA-C [address] [place] [address], [place] [address] 08/04/2023 Office Visit Orthopedics Brennan Bee MD [address] [place] [address] 09/15/2023 Telemedicine Neurology Wali Puckett MD [address] [place] [address] 10/21/2023 Hospital Encounter Endoscopy Renee Trevizo MD [address] [place] [address] 10/21/2023 Surgery Endoscopy Renee Trevizo MD [address] [place] [address] COLONOSCOPY FLEXIBLE PROXIMAL DIAGNOSTIC Scheduled Procedures Name Priority Associated Diagnoses Date/Ti me COLONOSCOPY FLEXIBLE PROXIMAL DIAGNOSTIC Recall History of colon polyps Special screening for malignant neoplasms, colon 10/21/2023 9:30 AM EST Health Maintenance Due Date Last Done Comments COVID-19 Vaccine (3 - Moderna series) 02/07/2021 12/13/2020, 11/15/2020 Influenza Vaccine (FLU shot) (#1) 2023 06/19/2022, 07/15/2021, 07/05/2020, Additional history exists COLONOSCOPY-EVERY 5 YRS AGES 18-100 06/24/2023 06/24/2018, [...] Additional history exists Albumin/Creatinine Ratio Discontinued 07/21/2022 GARDASIL-HPV IMMUNIZATION SERIES Aged Out No longer [...] as of this encounter Visit Diagnoses Diagnosis Insomnia Insomnia, unspecified History of colon polyps Personal history of colonic polyps Special screening for malignant neoplasms, colon documented in this encounter Care Teams Patch Sander Relationship Specialty Start Date End Date Julio César Best DO [address] [place] [address] PCP - General Family Medicine 02/23/20 documented as of this encounter
--- OUTSIDE RECORDS SUMMARY | 2023-12-11 18:20 | External Medical Summary | Summary of Care ---
Author Name Unknown Organization [facility] Address [address] [place] [address] Phone [phone] Care Team Providers Care Optical Advisor Name Role Phone Julio César Best DO Primary Care Provider Encounter Details Date Type Department Care Team Description 07/02/2023 Patient Reported Data Patient Survey Ortho [facility] Allergies Active Allergy Reactions Severity Noted Date Comments Simvastatin 06/18/1998 Elevated CPK documented as of this encounter (statuses as of 07/02/2023) Medications Medication Sig Dispensed Refills Start Date [...] Patient not taking.Informant: Spouse, Reported on 05/26/2023 traZODone HCl 150 MG Oral Tablet (Desyrel)Indications :Insomnia take 1 tablet by mouth at bedtime 90 Tablet 1 01/09/2023 Active Sildenafil Citrate 100 MG Oral TabletIndications:Im potence [...] the morning. 30 Tablet 5 05/26/2023 Active Dicyclomine HCl 10 MG Oral Capsule (Bentyl)Indications: Irritable bowel syndrome without diarrhea take 1 capsule by mouth four times a day BEFORE FOOD and at bedtime for abdominal pain 120 Capsule 0 06/22/2023 Active Donepezil HCl 10 MG Oral Tablet (Aricept)Indications :Dementia without behavioral disturbance (HCC) take 1 tablet by mouth IN THE MORNING with THE LARGEST MEAL OF THE DAY 90 Tablet 3 06/23/2023 Active Azithromycin 250 MG Oral Tablet (Zithromax Z-Artur) Take two tablets by mouth on first day, then 1 tablet daily until gone 6 Tablet 0 06/30/2023 Active documented as of this encounter (statuses as of 07/02/2023) Active Problems Problem Noted Date Current mild [...] as of this encounter (statuses as of 07/02/2023) Resolved Problems Problem Noted Date Resolved Date Kidney disease, chronic, stage III (GFR 30-59 ml /min) 12/11/2013 10/15/2022 Overview: Per CKD protocol #1 Chest pain 09/25/2003 12/29/2011 Corns and callosities 09/16/1999 12/29/2011 Mixed dyslipidemia 08/21/1997 09/24/2009 Overview: Per Lipid Taxonomy. documented as of this encounter (statuses as of 07/02/2023) Immunizations Name Administration Dates Next Due COVID-19 [...] 07/13/2023 Office Visit Neurology Kim Iglesias PA-C [address] [place] [address] 08/04/2023 Office Visit Orthopedics Brennan Bee MD [address] [place] [address] 09/15/2023 Telemedicine Neurology Wali Puckett MD [address] [place], [place] [phone] 10/21/2023 Hospital Encounter Endoscopy Renee Trevizo MD [address] [place] [address] 10/21/2023 Surgery Endoscopy Renee Trevizo MD [address] [place] [address] COLONOSCOPY FLEXIBLE PROXIMAL DIAGNOSTIC Scheduled Procedures Name [...] filedocumented as of this encounter Care Teams Optical Advisor Relationship Specialty Start Date End Date Julio César Best DO [address] [place] [address] PCP - General Family Medicine 02/23/20 documented as of this encounter
--- OUTSIDE RECORDS SUMMARY | 2023-12-11 18:20 | External Medical Summary | Summary of Care ---
Author Name Unknown Organization [facility] Address [address] [facility] [place] [address] Phone [phone] Care Team Providers Care Adjunct Faculty Mathematics Department Name Role Phone Ashely Best DO Primary Care Provider Reason for Visit * Reason Comments eRx-Medication Refill Encounter Details Date Type Department Care Team Description 07/19/2023 Refill Family Practice [facility] [address] [place] [address] Ashely Best DO [address] [place] [address] Irritable bowel syndrome without diarrhea Allergies Active Allergy Reactions Severity Noted Date Comments Simvastatin 06/18/1998 Elevated CPK documented as of this encounter (statuses as of 07/20/2023) Medications Medication Sig Dispensed Refills Start Date [...] for abdominal pain 120 Capsule 0 3 07/20/20 23 Discontinued documented as of this encounter (statuses as of 07/20/2023) Active Problems Problem Noted Date Current mild [...] as of this encounter (statuses as of 07/20/2023) Resolved Problems Problem Noted Date Resolved Date Kidney disease, chronic, stage III (GFR 30-59 ml /min) 12/11/2013 10/15/2022 Overview: Per CKD protocol #1 Chest pain 09/25/2003 12/29/2011 Corns and callosities 09/16/1999 12/29/2011 Mixed dyslipidemia 08/21/1997 09/24/2009 Overview: Per Lipid Taxonomy. documented as of this encounter (statuses as of 07/20/2023) Immunizations Name Administration Dates Next Due COVID-19 [...] Telephone Encounter - Ashely Best DO - 07/20/2023 12:52 PM EDT Signed Prescriptions: Disp Refills Dicyclomine HCl 10 MG Oral Capsule (Bentyl)120 Ca*0 Sig: take 1 capsule by mouth four times a day (BEFORE FOOD and at bedtime) for abdominal pain Authorizing Provider: ASHELY BEST * Telephone Encounter - Teresa Sanders [facility] - 07/20/2023 11:29 AM EDT Pending Prescriptions: Disp Refills Dicyclomine HCl 10 MG Oral Capsule (Bentyl)120 Ca*0 Sig: take 1 capsule by mouth four times a day (BEFORE FOOD and at bedtime) for abdominal pain * Telephone Encounter - Teresa Sanders [facility] - 07/20/2023 11:29 AM EDT [facility] is currently not authorized to approve refills for the pended medication(s) per refill protocol. Please approve if appropriate. Did you pend patient's preferred pharmacy and medication before forwarding?yes Pharmacy: [id number] Pending Prescriptions: Disp Refills Dicyclomine HCl 10 MG Oral Capsule (Benty*120 Ca*0 Sig: take 1 capsule by mouth four times a day (BEFORE FOOD and at bedtime) for abdominal pain Last Visit: 05/26/2023 (in office), 03/26/2020 (telemedicine) Next Visit: Visit date not found If no future appointments scheduled, and last appointment is greater than a year ago, please schedule patient for a follow-up appointment Last date the medication was ordered: 06/22/23 Is this request for a controlled substance?No Urine Drug Screen:No results found for this or any previous visit. Patient Phone Numbers Labs: Lab Results Component Value Date/Time CREAT 1.3 (H) 04/22/2023 08:13 AM CREAT 1.20 07/24/2021 12:00 AM CREAT 1.3 (H) 09/15/2019 07:42 AM POTASSIUM 4.3 04/22/2023 08:13 AM POTASSIUM 3.9 07/24/2021 12:00 AM POTASSIUM 4.5 09/15/2019 07:42 AM TSH 0.97 04/22/2023 08:13 AM TSH 1.02 09/18/2019 08:34 AM LDLCALC 114 04/22/2023 08:13 AM LDLCALC 105 12/02/2017 09:57 AM LDLDIRECT 89 05/05/2019 07:20 AM ALT 29 04/22/2023 08:13 AM ALT 24 09/15/2019 07:42 AM HGBA1C 5.7 04/23/2015 09:12 AM Thank you, Teresa Sanders, PharmD Clinical Pharmacist [facility] ([facility] (formerly Telepharmacy) 07/20/23 11:29 AM [phone] documented in this encounter Plan of Treatment Upcoming Encounters Date Type Specialty Care Team Description 08/04/2023 Office Visit Orthopedics Brennan Bee MD [address] [place] [address] 09/15/2023 Telemedicine Neurology Wali Puckett MD [address] [place] [address] 10/21/2023 Hospital Encounter Endoscopy Renee Trevizo MD [address] [place] [address] 10/21/2023 Surgery Endoscopy Renee Trevizo MD [address] [place] [address] COLONOSCOPY FLEXIBLE PROXIMAL DIAGNOSTIC 01/11/2024 Office Visit Neurology Kim Iglesias PA-C [address] [facility] [place] [address] Scheduled Procedures Name Priority Associated Diagnoses Date/Ti me COLONOSCOPY FLEXIBLE PROXIMAL DIAGNOSTIC Recall History of colon polyps Special screening for malignant neoplasms, colon 10/21/2023 9:30 AM EST Health Maintenance Due Date Last Done Comments COVID-19 Vaccine (3 - 2022-24 season) 2023 12/13/2020, 11/15/2020 Influenza Vaccine (FLU shot) (#1) [...] colon documented in this encounter Care Teams Adjunct Faculty Mathematics Department Relationship Specialty Start Date End Date Ashely Best, [address] [place] [address] PCP - General Family Medicine 02/23/20 documented as of this encounter
--- OUTSIDE RECORDS SUMMARY | 2023-12-11 18:20 | External Medical Summary | Summary of Care ---
Author Name Unknown Organization [facility] Address [address] [place] [address] Phone [phone] Care Team Providers Care Pet Care Assistant Name Role Phone Julio César Best DO [...] Visit Neurology Kim Iglesias PA-C [address] [place] [address] 08/04/2023 Office Visit Orthopedics Brennan Bee MD [address] [place] [address] 09/15/2023 Telemedicine Neurology Wali Puckett MD [address] [place], [place] [phone] 10/21/2023 Hospital Encounter Endoscopy Renee Tervizo MD [address] [place] [address] 10/21/2023 Surgery Endoscopy Renee Trevizo MD [address] [place] [address] COLONOSCOPY FLEXIBLE PROXIMAL DIAGNOSTIC Scheduled Procedures Name [...] filedocumented as of this encounter Care Teams Pet Care Assistant Relationship Specialty Start Date End Date Julio César Best DO [address] [place] [address] PCP - General Family Medicine 02/23/20 documented as of this encounter
--- OUTSIDE RECORDS SUMMARY | 2023-12-11 18:20 | External Medical Summary | Summary of Care ---
Author Name Unknown Organization [facility] Address [address] [place] [address] Phone [phone] Care Team Providers Care Coil Maker Name Role Phone Julio César Best DO [...] Visit Neurology Kim Iglesias PA-C [address] [place] [address] 08/04/2023 Office Visit Orthopedics Brennan Bee MD [address] [place] [address] 09/15/2023 Telemedicine Neurology Wali Puckett MD [address] [place], [place] [phone] 10/21/2023 Hospital Encounter Endoscopy Renee Trevizo MD [address] [place] [address] 10/21/2023 Surgery Endoscopy Renee Trevizo MD [address] [place] [address] COLONOSCOPY FLEXIBLE PROXIMAL DIAGNOSTIC Scheduled Procedures Name [...] filedocumented as of this encounter Care Teams Coil Maker Relationship Specialty Start Date End Date Julio César Best DO [address] [place] [address] PCP - General Family Medicine 02/23/20 documented as of this encounter
--- OUTSIDE RECORDS SUMMARY | 2023-12-11 18:20 | External Medical Summary | Summary of Care ---
Author Name Unknown Organization [facility] Address [address] [place] [address] Phone [phone] Care Team Providers Care Account Underwriter Name Role Phone Julio César Best DO [...] Visit Neurology Kim Iglesias PA-C [address] [place] [address] 08/04/2023 Office Visit Orthopedics Brennan Bee MD [address] [place] [address] 09/15/2023 Telemedicine Neurology Wali Puckett MD [address] [place], [place] [phone] 10/21/2023 Hospital Encounter Endoscopy Renee Trevizo MD [address] [place] [address] 10/21/2023 Surgery Endoscopy Renee Trevizo MD [address] [place] [address] COLONOSCOPY FLEXIBLE PROXIMAL DIAGNOSTIC Scheduled Procedures Name [...] filedocumented as of this encounter Care Teams Account Underwriter Relationship Specialty Start Date End Date Julio César Best DO [address] [place] [address] PCP - General Family Medicine 02/23/20 documented as of this encounter
--- OUTSIDE RECORDS SUMMARY | 2023-12-11 18:20 | External Medical Summary | Summary of Care ---
Author Name Unknown Organization [facility] Address [address] [place] [address] Phone [phone] Care Team Providers Care Revenue Settlements Administrator Name Role Phone Julio César Best Primary Care Provider Reason for Visit * Reason Comments eRx-Medication Refill Encounter Details Date Type Department Care Team Description 06/20/2023 Refill Neurology, [place] [facility] [address] [place] [address] [place] [address] Wali Delgadillo MD [address] [place] [address] Dementia without behavioral disturbance (HCC) Allergies Active Allergy Reactions Severity Noted Date Comments Simvastatin 06/18/1998 Elevated CPK documented as of this encounter (statuses as of 06/23/2023) Medications Medication Sig Dispensed Refills Start Date [...] 05/26/2023 traZODone HCl 150 MG Oral Tablet (Desyrel)Indication s:Insomnia take 1 tablet by mouth at bedtime 90 Tablet 1 3 Active Sildenafil Citrate 100 MG Oral TabletIndications:I mpotence [...] THE DAY 90 Tablet 3 3 Active Donepezil HCl 10 MG Oral Tablet (Aricept)Indication s:Dementia without behavioral disturbance (HCC) take 1 tablet by mouth IN THE MORNING with THE LARGEST MEAL OF THE DAY 90 Tablet 1 3 06/23/20 23 Discontinued Dicyclomine HCl 10 MG Oral Capsule (Bentyl)Indications :Irritable bowel syndrome without diarrhea Take 1 Capsule by mouth 4 times a day before meals and at bedtime. For abdominal pain 120 Capsule 0 3 06/22/20 23 Discontinued documented as of this encounter (statuses as of 06/23/2023) Active Problems Problem Noted Date Current mild [...] as of this encounter (statuses as of 06/23/2023) Resolved Problems Problem Noted Date Resolved Date Kidney disease, chronic, stage III (GFR 30-59 ml /min) 12/11/2013 10/15/2022 Overview: Per CKD protocol #1 Chest pain 09/25/2003 12/29/2011 Corns and callosities 09/16/1999 12/29/2011 Mixed dyslipidemia 08/21/1997 09/24/2009 Overview: Per Lipid Taxonomy. documented as of this encounter (statuses as of 06/23/2023) Immunizations Name Administration Dates Next Due COVID-19 [...] encounter Miscellaneous Notes * Telephone Encounter - Kelley Boyd [facility] - 06/23/2023 11:58 AM EDTSigned Prescriptions: Disp Refills Donepezil HCl 10 MG Oral Tablet (Aricept) 90 Tab*3 Sig: take 1 tablet by mouth IN THE MORNING with THE LARGEST MEAL OF THE DAYAuthorizing Provider: WALI DELGADILLO User: KELLEY BOYD * Telephone Encounter - Teja hernandez [facility] - 06/20/2023 4:15 PM EDT documented in this encounter Plan of Treatment Upcoming Encounters Date Type Specialty Care Team Description 07/13/2023 Office Visit Neurology Kim Iglesias PA-C [address] [place] [address] 08/04/2023 Office Visit Orthopedics Brennan Bee MD [address] [place] [address] 09/15/2023 Telemedicine Neurology Wali Delgadillo MD [address] [place] [address] 10/21/2023 Hospital Encounter Endoscopy Renee Trevizo MD [address] [place] [address] 10/21/2023 Surgery Endoscopy Renee Trevizo MD [address] [place] [address] COLONOSCOPY FLEXIBLE PROXIMAL DIAGNOSTIC Scheduled Procedures Name [...] 06/24/2018, 06/24/2018, 04/24/2013, Additional history exists Depression Screening, Annual for Pts 12 and Over 07/21/2023 07/21/2022 Lipid Panel 04/22/2028 04/22/2023, 12/12/2020, 05/05/2019, Additional history exists DTaP,Tdap,and Td Vaccines [...] disturbance (HCC) Dementia, unspecified, without behavioral disturbance History of colon polyps Personal history of colonic polyps Special screening for malignant neoplasms, colon documented in this encounter Care Teams Revenue Settlements Administrator Relationship Specialty Start Date End Date Julio César Best DO [address] [place] [address] PCP - General Family Medicine 02/23/20 documented as of this encounter
--- OUTSIDE RECORDS SUMMARY | 2023-12-11 18:20 | External Medical Summary | Summary of Care ---
Author Name Unknown Organization [facility] Address [address] [place] [address] Phone [phone] Care Team Providers Care Resource Director Name Role Phone Julio César Best DO Primary Care Provider Reason for Visit * Reason Onset Date Comments Advice 06/29/2023 Encounter Details Date Type Department Care Team Description 06/29/2023 Telephone Family Practice [facility] [address] [place] [address] Julio César Best DO [address] [place] [address] Advice Allergies Active Allergy Reactions Severity Noted Date Comments Simvastatin 06/18/1998 Elevated CPK documented as of this encounter (statuses as of 06/30/2023) Medications Medication Sig Dispensed Refills Start Date [...] as of this encounter (statuses as of 06/30/2023) Active Problems Problem Noted Date Current mild [...] as of this encounter (statuses as of 06/30/2023) Resolved Problems Problem Noted Date Resolved Date Kidney disease, chronic, stage III (GFR 30-59 ml /min) 12/11/2013 10/15/2022 Overview: Per CKD protocol #1 Chest pain 09/25/2003 12/29/2011 Corns and callosities 09/16/1999 12/29/2011 Mixed dyslipidemia 08/21/1997 09/24/2009 Overview: Per Lipid Taxonomy. documented as of this encounter (statuses as of 06/30/2023) Immunizations Name Administration Dates Next Due COVID-19 [...] encounter Miscellaneous Notes * Telephone Encounter - Trish Medeiros LPN - 06/30/2023 3:37 PM EDT Patient aware and verbalized understanding * Telephone Encounter - Chilo Franco MD - 06/30/2023 3:22 PM EDT Reivewed 's chart--had zpak sent 2d ago. I sent Zpak now for cough/possible bronchitis. If worsening SOB etc should have f/u OV or urgent care /ER * Telephone Encounter - Trish Medeiros LPN - 06/30/2023 3:10 PM EDT Script was called in for pt's , but nothing for pt Called and spoke with pt's , she thought message was regarding pt. Asking for this to be high priority Was seen at ER over the weekend * Telephone Encounter - Trish Medeiros LPN - 06/30/2023 3:09 PM EDT Call Details Cold/Asthma/Allergy COLD/ASTHMA/ALLERGY Yes Cold Symptoms Chest congestion,Headache,Sinus pressure,Chills,Nasal Congestion How long have had your symptoms? 7 days Patient's Action(s) What have you done or taken for this problem? Cough RX Additional Comment(s) Additional Comments: is sick at home and was given an RX Was in the ER as well On and off fevers Pt does have dementia Patient Request Patient Requesting: Medication Prescribed * Telephone Encounter - MERCEDES Wang - 06/30/2023 8:28 AM EDT Patient's called because Khadijah called yesterday and said the RX was called in but the pharmacy does not have it. is asking to have this expedited so she can pick it up this morning. Please call when script has been sent in. * Telephone Encounter - MERCEDES Aguirre - 06/29/2023 11:34 AM EDT See call details documented in this encounter Plan of Treatment Upcoming Encounters Date Type Specialty Care Team Description 07/13/2023 Office Visit Neurology Kim Iglesias PA-C [address] [facility] [place] [address] 08/04/2023 Office Visit Orthopedics Brennan Bee MD [address] [place] [address] 09/15/2023 Telemedicine Neurology [facility]ett MD [address] [facility] [address] 10/21/2023 Hospital Encounter Endoscopy Renee Trevizo MD [address] [place] [address] 10/21/2023 Surgery Endoscopy Renee Trevizo MD [address] [place] [address] COLONOSCOPY FLEXIBLE PROXIMAL DIAGNOSTIC Scheduled Procedures Name [...] filedocumented as of this encounter Care Teams Resource Director Relationship Specialty Start Date End Date Julio César Best, [address] [place] [address] PCP - General Family Medicine 02/23/20 documented as of this encounter
--- OUTSIDE RECORDS SUMMARY | 2023-12-11 18:20 | External Medical Summary | Summary of Care ---
Author Name Unknown Organization [facility] Address [address] [facility] [address] Phone [phone] Care Team Providers Care Associate Consulting Engineer Name Role Phone Julio César Best Primary Care Provider Reason for Visit * Reason Comments eRx-Medication Refill Encounter Details Date Type Department Care Team Description 06/20/[address] [facility] [address] [place] [address] Jason Ni DO [address] [place] [address] Irritable bowel syndrome without diarrhea Allergies Active Allergy Reactions Severity Noted Date Comments Simvastatin 06/18/1998 Elevated CPK documented as of this encounter (statuses as of 06/22/2023) Medications Medication Sig Dispensed Refills Start Date [...] Patient not taking.Informant: Spouse, Reported on 05/26/2023 Donepezil HCl 10 MG Oral Tablet (Aricept)Indication s:Dementia without behavioral disturbance (HCC) take 1 tablet by mouth IN THE MORNING with THE LARGEST MEAL OF THE DAY 90 Tablet 1 3 Active traZODone HCl [...] as of this encounter (statuses as of 06/22/2023) Active Problems Problem Noted Date Current mild [...] as of this encounter (statuses as of 06/22/2023) Resolved Problems Problem Noted Date Resolved Date Kidney disease, chronic, stage III (GFR 30-59 ml /min) 12/11/2013 10/15/2022 Overview: Per CKD protocol #1 Chest pain 09/25/2003 12/29/2011 Corns and callosities 09/16/1999 12/29/2011 Mixed dyslipidemia 08/21/1997 09/24/2009 Overview: Per Lipid Taxonomy. documented as of this encounter (statuses as of 06/22/2023) Immunizations Name Administration Dates Next Due COVID-19 [...] Telephone Encounter - Jason Ni DO - 06/22/2023 10:39 AM EDTSigned Prescriptions: Disp Refills Dicyclomine HCl 10 MG Oral Capsule (Bentyl)120 Ca*0 Sig: take 1 capsule by mouth four times a day BEFORE FOOD and at bedtime for abdominal pain Authorizing Provider: JASON NI * Telephone Encounter - Dayana Wills LPN - 06/22/2023 9:04 AM EDTPending Prescriptions: Disp Refills Dicyclomine HCl 10 MG Oral Capsule [Pharma*120 Ca*0 Sig: take 1 capsule by mouth four times a day BEFORE FOOD and at bedtime for abdominal pain * Telephone Encounter - Dayana Wills LPN - 06/22/2023 9:03 AM EDT Did you pend patient's preferred pharmacy and medication before forwarding?yes [facility]acy: [id number] Pending Prescriptions: Disp Refills Dicyclomine HCl 10 MG Oral Capsule (Benty*120 Ca*0 Sig: take 1 capsule by mouth four times a day BEFORE FOOD and at bedtime for abdominal pain Last Visit: 05/26/2023 (in office), 03/26/2020 (telemedicine) Next Visit: Visit date not found If no future appointments scheduled, and last appointment is greater than a year ago, please schedule patient for a follow-up appointment Last date the medication was ordered: 05/26/23 Is this request for a controlled substance?No [...] 07:42 AM HGBA1C 5.7 04/23/2015 09:12 AM * Telephone Encounter - Teja Capps - 06/20/2023 1:22 PM EDTPending Prescriptions: Disp Refills Dicyclomine HCl 10 MG Oral Capsule [Pharma*120 Ca*0 Sig: take 1capsule by mouth four times a day BEFORE FOOD and at bedtime for abdominal pain documented in this encounter Plan of Treatment Upcoming Encounters Date Type Specialty Care Team Description 07/13/2023 Office Visit Neurology Kim Iglesias PA-C [address] [place] [address] 08/04/2023 Office Visit Orthopedics Brennan Bee MD [address] [facility] [place] [address] 09/15/2023 Telemedicine Neurology Wali Puckett MD [address] [place] [address] 10/21/2023 Hospital Encounter Endoscopy Renee Trevizo MD [address] [place] [address] 10/21/2023 Surgery Endoscopy Renee Trevizo MD [address] [place] [address] COLONOSCOPY FLEXIBLE PROXIMAL DIAGNOSTIC Scheduled Procedures Name [...] Over 07/21/2023 07/21/2022 Lipid Panel 04/22/2028 04/22/2023, 09/17, [...] colon documented in this encounter Care Teams Associate Consulting Engineer Relationship Specialty Start Date End Date Julio César Best DO [address] [place] [address] PCP - General Family Medicine 02/23/20 documented as of this encounter
--- OUTSIDE RECORDS SUMMARY | 2023-12-11 18:20 | External Medical Summary | Summary of Care ---
Author Name Unknown Organization [facility] Address [address] [place] [address] Phone [phone] Care Team Providers Care District Fire Management Officer Name Role Phone Julio César Best [...] Visit Neurology Kim Iglesias PA-C [address] [place] [address] 08/04/2023 Office Visit Orthopedics Brennan Bee MD [address] [place] [address] 09/15/2023 Telemedicine Neurology Wali Puckett MD [address] [place], [place] [phone] 10/21/2023 Hospital Encounter Endoscopy Renee Trevizo MD [address] [place] [address] 10/21/2023 Surgery Endoscopy Renee Trevizo MD [address] [place] [address] COLONOSCOPY FLEXIBLE PROXIMAL DIAGNOSTIC Scheduled Procedures Name [...] filedocumented as of this encounter Care Teams District Fire Management Officer Relationship Specialty Start Date End Date Julio César Best DO [address] [place] [address] PCP - General Family Medicine 02/23/20 documented as of this encounter
--- OUTSIDE RECORDS SUMMARY | 2023-12-11 18:20 | External Medical Summary | Summary of Care ---
Author Name Unknown Organization [facility] Address [address] [place] [address] Phone [phone] Care Team Providers Care Disc Ruler Operator Name Role Phone Julio César Best DO [...] Visit Neurology Kim Iglesias PA-C [address] [place] [address] 08/04/2023 Office Visit Orthopedics Brennan Bee MD [address] [place] [address] 09/15/2023 Telemedicine Neurology Wali Puckett MD [address] [place], [place] [id number] 10/21/2023 Hospital Encounter Endoscopy Renee Trevizo MD [address] [place] [address] 10/21/2023 Surgery Endoscopy Renee Trevizo MD [address] [place] [address] COLONOSCOPY FLEXIBLE PROXIMAL DIAGNOSTIC Scheduled Procedures Name [...] filedocumented as of this encounter Care Teams Disc Ruler Operator Relationship Specialty Start Date End Date Julio César Best DO [address] [place] [address] PCP - General Family Medicine 02/23/20 documented as of this encounter
--- OUTSIDE RECORDS SUMMARY | 2023-12-11 18:20 | External Medical Summary | Summary of Care ---
Author Name Unknown Organization [facility] Address [address] [place] [address] Phone [phone] Care Team Providers Care Manager Risk Management Name Role Phone Julio César Best DO [...] Visit Neurology Kim Iglesias PA-C [address] [place] [address] 08/04/2023 Office Visit Orthopedics Brennan Bee MD [address] [place] [address] 09/15/2023 Telemedicine Neurology Wali Puckett MD [address] [place], [place] [id number] 10/21/2023 Hospital Encounter Endoscopy Renee Trevizo MD [address] [place] [address] 10/21/2023 Surgery Endoscopy Renee Trevizo MD [address] [place] [address] COLONOSCOPY FLEXIBLE PROXIMAL DIAGNOSTIC Scheduled Procedures Name [...] filedocumented as of this encounter Care Teams Manager Risk Management Relationship Specialty Start Date End Date Julio César Best DO [address] [place] [address] PCP - General Family Medicine 02/23/20 documented as of this encounter
--- OUTSIDE RECORDS SUMMARY | 2023-12-11 18:20 | External Medical Summary | Summary of Care ---
Author Name Unknown Organization [facility] Address [address] [place] [address] Phone [phone] Care Team Providers Care Tool Pusher Name Role Phone Julio César Best Primary Care Provider Reason for Visit * Reason Comments Return Neuro Memory Loss Encounter Details Date Type Department Care Team Description 07/13/2023 Office Visit Neurology [facility] [place] [address] [place] [address] Kim Iglesias PA-C [address] [facility] [place] [address] Dementia without behavioral disturbance (HCC)*; AD (Alzheimer's disease) (HCC) Allergies Active Allergy Reactions Severity Noted Date Comments Simvastatin 06/18/1998 Elevated CPK documented as of this encounter (statuses as of 07/13/2023) Medications Medication Sig Dispensed Refills Start Date [...] at bedtime 90 Tablet 1 07/06/2023 Active documented as of this encounter (statuses as of 07/13/2023) Active Problems Problem Noted Date Current mild [...] as of this encounter (statuses as of 07/13/2023) Resolved Problems Problem Noted Date Resolved Date Kidney disease, chronic, stage III (GFR 30-59 ml /min) 12/11/2013 10/15/2022 Overview: Per CKD protocol #1 Chest pain 09/25/2003 12/29/2011 Corns and callosities 09/16/1999 12/29/2011 Mixed dyslipidemia 08/21/1997 09/24/2009 Overview: Per Lipid Taxonomy. documented as of this encounter (statuses as of 07/13/2023) Immunizations Name Administration Dates Next Due COVID-19 [...] Sign Reading Time Taken Comments Blood Pressure 110/60 07/13/2023 10:49 AM EDT Pulse 72 07/13/2023 10:49 AM EDT Temperature 36.6 C (97.8 F) 07/13/2023 1 0:49 AM EDT Respiratory Rate 16 07/13/2023 10:4 9 AM EDT Oxygen Saturation - - Inhaled Oxygen Concentration - - Weight 89.3 kg (196 lb 14.4 oz) 023 10:49 AM EDT Height - - Body Mass Index 31.64 05/26/2023 9:07 AM EDT documented in this encounter Progress Notes * Kim Iglesias PA-C - 07/13/2023 10:48 AM EDT HISTORY & PHYSICAL EXAMINATION - NEUROLOGY Name: Lakeisha De Leon Date: 07/13/2023 Time: 10:48 AM Referring Provider: Julio César Best, * Chief Complaint: Chief Complaint Patient presents with Return Neuro Memory Loss This is a 72 year old right handed gentleman returns today for follow up for dementia. HPI & Source of HPI The patient and spouse was the historian, and she is reliable. He has been seen in the past by Dr Alves for cognitive impairment which is now a dementia diagnosis likely due to Alzheimer's and is on a combination of Aricept low-dose Namenda. He was seen in the office after an ED visit 05/30/22 for right facial tingling of about a week's duration and left facial drooping. He had a noncontrast MRI some blood work all which was unremarkable and was started on steroids at the suggestion of the neurologist on-call who thought it may be a Reid's palsy. He was complaining about the episodic tingling of the right 2nd division of trigeminal. The tingling comes episodically is not particularly painful and none of this has been associated with any recent infectious illnesses tick bites. Serologic testing for Lyme disease in the hospital was negative. He is still driving but very local to his home. There is no night terrors but now he is having somehallucinations but this is rare. He is no longer working at the [employer] doing [employer] work. His is having issues with helping him with ADL because she has a bad back and he needs full assistance at this point. Denies CP, SOB, abdominal pain, one sided weakness, numbness tingling, several falls going upstairs or bending over before he is fulling out of the chair. I have reviewed the patient's medications and allergies, past medical, surgical, social and family history, updating these as appropriate. See Histories section of the electronic medical record for adisplay of this information. Patient Active Problem List Diagnosis Code Major [...] depressive disorder without prior episode (HCC) F32.0 Family History Problem Relation Age of Onset Heart Disorder Father MD age 66 Endocrine Disorder Sister chol Medications: Are you taking your medications? yes Current Outpatient Medications Medication Sig Dispense Refill [...] mouth in the morning. 30 Tablet 5 Dicyclomine HCl 10 MG Oral Capsule (Bentyl) take 1 capsule by mouth four times a day BEFORE FOOD and at bedtime for abdominal pain 120 Capsule 0 Donepezil HCl 10 MG Oral Tablet (Aricept) [...] by mouth at bedtime 90 Tablet 1 No current facility-administered medications for this visit. Review of patient's allergies indicates: Allergen Reactions Simvastatin Elevated CPK Review of Systems: A total number of 10 systems were reviewed pertinent negative and positives not addressed in HPI are listed in the following review. Physical Exam: Constitutional: BP 110/60 | Pulse 72 | Temp 36.6 C (97.8 F) (Tympanic) | Resp 16 | Wt 89.3 kg (196 lb 14.4 oz) | BMI 31.64 kg/m | BSA 2.04 m , appearance over nourished and healthy Ears, Nose, Mouth and Throat: skin normal, eyes normal Cardiovascular: normal S-1 and S-2 and regular rate and rhythm Respiratory: clear to auscultation (CTA) and no rales, ronchi or wheeze Skin: normal and intact Eyes: extraocular muscles intact (EOMI) and normal eye blink frequency NEUROLOGIC EXAMINATION: Mental status: Alert and interactive Oriented to person Speech has difficulty expressing himself Cranial Nerves Normal findings for Cranial Nerves II - XII Coordination: on [id number] bilateral reaching tremor Gait/Stance: Posture normal. Gait follow 3 step command, very stiff walking, are swing decreased but present on both R and L. Motor: Negative for abnormal muscle bulk and abnormal muscle tone. Strength: Normal - 5/5 all extremities LABORATORY: Recent labs reviewed Review of prior Studies: No recent imaging available. Impression: Lakeisha De Leon is a 72 year old gentleman with a history of dementia. His neurologic examination today reveals no new focal deficit. The history and examination are suggestive of diagnosis/problem list. Testing and Referrals ordered: none ICD-10-CM 1. Dementia without behavioral disturbance (HCC) F03.90 2. AD (Alzheimer's disease) (HCC) G30.9 F02.80 Return in 6 months or sooner if needed Watch for hallucinations - may need to stop aricept Continue Aricept 10 mg (1 tab) with largest meal Continue Namada 10 mg (1 tab) twice daily Keep has physically and mentally active as possible Will send a letter for aid help with ADLs which he is completely dependent Watch driving would severely limit and then stop PCP for medical management Call with questions concerns. Medical Decision Making (determined by lowest of 2 of 3 elements): The medical decision making element of the number and complexity of problems addressed included at least 1 or more chronic illnesses with exacerbation, progression, or side effects of treatment (level 4). The medical decision making element of risk of complications, morbidity, and mortality of patient management is moderate (level 4) due to prescription drug management (moderate risk). The medical decision making element of the amount and complexity of data reviewed and analyzed included an independent interpretation of a test (level 4 at least). When 2 of 3 reach level 4, then this element is considered extensive (level 5). I personally spent a total of 30 minutes. This time was for a new office or established visit and was on the same calendar day. Education / Consultation - Topics covered as I spent 20 minutes, which is greater than 50% of this visit, counseling the patient on: Diagnostic Results Prognosis Importance of compliance with chosen treatment options Risk factor reductions Patient and family education Consulted with physician: Markel Panda DO was available for direct supervision. Copy of note sent to PCP and Referring Provider. Total time of visit: 30 minutes. Kim Iglesias PA-C Neurology [facility] [address] [facility] [place] [address] 07/13/2023 10:48 AM documented in this encounter Nursing Notes * Leyla Ma MED ASSIST - 07/13/2023 10:47 AM EDT Chief Complaint Patient presents with Return Neuro Memory Loss documented in this encounter Plan of Treatment Upcoming Encounters Date Type Specialty Care Team Description 08/04/2023 Office Visit Orthopedics Brennan Bee MD [address] [place] [address] 09/15[facility]20[facility] [address] [place] [address] 10/21/2023 Hospital Encounter Endoscopy Renee Trevizo MD [address] [place] [address] 10/21/2023 Surgery Endoscopy Renee Trevizo MD [address] [place] [address] COLONOSCOPY FLEXIBLE PROXIMAL DIAGNOSTIC 01/11/2024 Office Visit Neurology Kim Iglesias PA-C [address] [facility] [place] [address] Scheduled Procedures Name Priority Associated Diagnoses Date/Ti [...] Visit Diagnoses Diagnosis Dementia without behavioral disturbance (HCC)- Primary Dementia, unspecified, without behavioral disturbance AD (Alzheimer's disease) (HCC) Alzheimer's disease History of colon polyps Personal history of colonic polyps Special screening for malignant neoplasms, colon documented in this encounter Care Teams Tool Pusher Relationship Specialty Start Date End Date Julio César Best DO [address] [place] [address] PCP - General Family Medicine 02/23/20 documented as of this encounter"
[2023-12-11] MEDS ORDERED: ONDANSETRON INJ 2 MG/ML 2 ML VIAL IV PRN (22:00)
[2023-12-11] MEDS ORDERED: MAGNESIUM HYDROXIDE SUSP 30 ML UDC PO PRN (22:00)
[2023-12-11] MEDS ORDERED: ACETAMINOPHEN 325 MG TAB PO PRN ×2 (22:00)
[2023-12-11] MEDS ORDERED: ALUMINUM/MAGNESIUM SUSP 30 ML UDC PO PRN (22:00)
[2023-12-11] MEDS ORDERED: POLYETHYLENE (MIRALAX) 17 GM PACK PO PRN (22:00)
[2023-12-11] MEDS: guaiFENesin 200 MG TAB PO SCH (22:39)
[2023-12-11] MEDS: traZODone HCL 50 MG TAB PO SCH (22:39)
[2023-12-11] MEDS: MEMANTINE HCL 10 MG TAB PO SCH (22:39)
[2023-12-11] MEDS: ACETAMINOPHEN 325 MG TAB PO STA (22:45)
[2023-12-11] MEDS: SODIUM CHLORIDE 0.9% 1,000 ML IV SCH (22:46)
[2023-12-12 05:40] LABS: Basophils # (auto) 0.02 K/uL (0.00-0.20); Basophils % (auto) 0.3 %; Eosinophils # (auto) 0.02 K/uL (0.00-0.50); Eosinophils % (auto) 0.3 %; Hematocrit (blood only) 42.2 % (42.0-52.0); Hemoglobin 14.4 g/dl (14.0-18.0); Immature Granulocytes # (auto) 0.03 K/uL (0.01-0.20); Immature Granulocytes % (auto) 0.5 %; Lymphocytes # (auto) 0.93 K/uL (1.20-3.40); Mean Corpuscular Hemoglobin 30.7 pg (25.0-34.0); Mean Corpuscular Hgb Conc 34.1 g/dL (32.0-36.0); Mean Platelet Volume 10.9 fL (9.4-12.4); Monocytes # (auto) 0.83 K/uL (0.11-0.59); Monocytes % (auto) 13.4 %; Neutrophils # (auto) 4.38 K/uL (1.40-6.50); Neutrophils % (auto) 70.5 %; Platelet Count 157 K/uL (130-400); RDW Standard Deviation 43.1 fL (36.4-46.3); Red Blood Count 4.69 M/uL (4.70-6.10); White Blood Count 6.21 K/ul (4.8-10.8)
[2023-12-12 06:07] LABS: BUN Creatinine Ratio 12.8 (10-20); Calcium 9.1 mg/dl (8.6-10.3); Creatinine Clr Calc Pharmacy 63.1 ml/min; Est GFR (African American) 76.5 ml/min; Potassium 3.9 mmol/L (3.5-5.1)
[2023-12-12 06:08] LABS: Albumin Globulin Ratio 1.5 (0.9-2); Albumin Level 3.7 gm/dl (3.4-5.0); Globulin 2.5 gm/dl (2.5-4.0); Total Protein 6.2 gm/dl (6.0-8.3)
--- NOTE | 2023-12-12 08:03 | XRay Report ---
RIGHT FOREARM 2 VIEWS HISTORY: swelling, hx fall COMPARISON: None. FINDINGS: There is no fracture or dislocation. Proximal soft tissue swelling. Vascular calcifications are noted. No elbow effusion. No radiopaque foreign bodies. IMPRESSION: No fractures. ACT 112: Negative or not required by law. Electronically signed by: Saul Leger M.D. 12/12/2023 8:01 AM
[2023-12-12] MEDS ORDERED: LEVALBUTEROL HCL 0.63 MG/3 ML NEB NEB PRN (08:57)
[2023-12-12] MEDS: MULTIVITAMIN TAB PO SCH (09:03)
[2023-12-12] MEDS: CHOLECALCIFEROL 25 MCG (1000 UNITS) TAB PO SCH (09:03)
[2023-12-12] MEDS: HEPARIN SOD 5,000 UNIT/0.5 ML VIAL SQ SCH (09:03)
[2023-12-12] MEDS: DONEPEZIL HCL 10 MG TAB PO SCH (09:03)
[2023-12-12] MEDS: DOXYCYCLINE HYCLATE 100 MG CAP PO SCH (10:30)
--- NOTE | 2023-12-12 13:22 | Electrocardiogram Report ---
Test Reason : Blood Pressure : / mmHG Vent. Rate : 089 BPM Atrial Rate : 089 BPM P-R Int : 222 ms QRS Dur : 088 ms QT Int : 340 ms P-R-T Axes : 067 026 031 degrees QTc Int : 413 ms Sinus rhythm with 1st degree A-V block RSR' or QR pattern in V1 suggests right ventricular conduction delay Otherwise Normal ECG When compared with ECG of 26-JUN-2023 23:34, No significant change was found Confirmed by Marco A Marcum ([id number]) on 12/12/2023 1:22:38 PM Referred By: REFERRED SELF Confirmed By:Marco A Marcum
--- NOTE | 2023-12-12 13:36 | Hospitalist Progress Note ---
Date of Service December 12, 2023 Assessment & Plan (1) Fall from standing: Plan: 73 yo male with PMH of dementia, dyslipidemia was brought to the ED after sustaining a fall. Fall Likely due to deconditioning/generalized weakness from GRACIEID Rhabdo --CT head:There is no hemorrhage, mass effect, or evidence of acute territorial ischemia by CT criteria. --Neck CT:There is no evidence of fracture or subluxation involving the cervical spine. Osteopenia and spondylotic change --Pelvic X ray:No acute bony abnormality is identified. --Right Fore arm X ray:No fractures. Fall precautions PT OT as able Traumatic rhabdomyolysis CPK 4747 Normal renal function Continue IV fluids Hold statin for now Monitor CPK COVID 19 Infection Viral bronchitis secondary to above --CXR:Cardiomegaly with no active disease in the chest. Saturating well on room air Conservative management Check procalcitonin Empirically on doxycycline Antitussives as needed Pulmonary hygiene Dyslipidemia Hold statin for now as above Dementia continue Donepezil and memantine reorient frequently to minimize delirium Vitamin D deficiency Continue vitamin D supplements DVT Px: Heparin SQ Code status Conditional code ( No invasive airway technique) Disposition PT OT prior to discharge Admission and Anticipated Discharge Date Admission Date: December 11, 2023 Subjective Patient is seen and examined at bedside Poor historian secondary to dementia Denies any chest pain, dyspnea, dizziness, nausea, vomiting, abdominal pain Cough noted as per staff Updated patient's over the phone Saturating well on room air Review of Systems Review of Systems: All systems reviewed & are unremarkable except as noted in Subjective Physical Exam Physical Exam: Physical Exam: Vitals signs as noted above General Appearance:obese, no apparent distress Head: normocephalic, Atraumatic Eyes: normal inspection, EOMI Neck: supple, Trachea midline Respiratory/Chest: Decreased breath sounds, CTA, No accessory muscle use Cardiovascular: S1, S2, No murmur Abdomen/GI:Soft, Non tender, Bowel sounds present Extremities/Musculoskeletal:normal inspection, no edema Neurologic/Psych:AAOX1, grossly no focal neurological deficits, +Dementia Skin: normal color, warm, + right forehead, right leg abrasion Results & Data Results & Data Vital Signs (Past 12 Hours) Vital Signs Temp Pulse Pulse Resp BP Pulse Ox O2 Del Method 12/12/23 11:35 36.8 C 73 16 145/86 H 94 Room Air 12/12/23 10:01 81 12/12/23 07:49 37.0 C 87 18 132/83 93 Room Air Laboratory Results Short CBC 12/12/23 Range/Units 04:33 WBC 6.21 (4.8-10.8) K/ul Hgb 14.4 (14.0-18.0) g/dl Hct 42.2 (42.0-52.0) % Plt Count 157 (130-400) K/uL BMP 12/12/23 04:33 Sodium 136 Potassium 3.9 Chloride 105 Carbon Dioxide 26 BUN 14 Creatinine 1.09 Glucose 95 Calcium 9.1 Cardiac Enzymes 12/12/23 Range/Units 04:33 Total Creatine Kinase 4747 H (30-223) U/L Liver Function 12/12/23 Range/Units 04:33 Total Bilirubin 1.0 (0.2-1.0) mg/dl AST 142 H (13-39) U/L ALT 52 (7-52) U/L Alkaline Phosphatase 63 (34-104) U/L Albumin 3.7 (3.4-5.0) gm/dl Urine 12/11/23 Range/Units 16:05 Urine Color Yellow Urine Appearance Clear (Clear) Urine pH 7.5 (4.5-7.5) Ur Specific [place] 1.019 (1.000-1.030) Urine Protein 1+ H (Negative) Urine Glucose (UA) Negative (Negative) (1) Fall from standing Encounter type: initial encounter Qualified Code(s): W19.XXXA - Unspecified fall, initial encounter
[2023-12-12] MEDS: OLANZapine 10 MG/2.1 ML SDV IM PRN (14:25)
[2023-12-12] MEDS ORDERED: Nursing to Pharmacy Communication SCH (22:45)
[2023-12-13 07:29] LABS: Hematocrit (blood only) 42.9 % (42.0-52.0); Hemoglobin 14.3 g/dl (14.0-18.0); Mean Corpuscular Hemoglobin 30.5 pg (25.0-34.0); Mean Corpuscular Hgb Conc 33.3 g/dL (32.0-36.0); Mean Corpuscular Volume 91.5 fL (80.0-100.0); Mean Platelet Volume 10.2 fL (9.4-12.4); Platelet Count 150 K/uL (130-400); RDW Coefficient of Variation 12.7 % (11.5-14.5); RDW Standard Deviation 42.3 fL (36.4-46.3); Red Blood Count 4.69 M/uL (4.70-6.10); White Blood Count 5.04 K/ul (4.8-10.8)
[2023-12-13 07:55] LABS: BUN Creatinine Ratio 11.4 (10-20); Calcium 8.9 mg/dl (8.6-10.3); Est GFR (African American) 80.1 ml/min; Est GFR (Non-African American) 69.1 ml/min; Potassium 3.7 mmol/L (3.5-5.1)
[2023-12-13] MEDS: guaiFENesin/DEXTROM SYRUP 100MG/10MG 5ML UDC PO PRN (08:49)
--- NOTE | 2023-12-13 20:53 | Hospitalist Progress Note ---
Date of Service December 13, 2023 Assessment & Plan (1) Fall from standing: Plan: 73 yo male with PMH of dementia, dyslipidemia was brought to the ED after sustaining a fall. Fall Likely due to deconditioning/generalized weakness from COVID, Rhabdo --CT head:There is no hemorrhage, mass effect, or evidence of acute territorial ischemia by CT criteria. --Neck CT:There is no evidence of fracture or subluxation involving the cervical spine. Osteopenia and spondylotic change --Pelvic X ray:No acute bony abnormality is identified. --Right Fore arm X ray:No fractures. Fall precautions PT OT eval Patient's prefers to be discharged home as able (not interested in rehab due to history of dementia) Traumatic rhabdomyolysis CPK 4747>>2509 Normal renal function Continue IV fluids Hold statin for now Monitor CPK COVID 19 Infection Viral bronchitis secondary to above --CXR:Cardiomegaly with no active disease in the chest. Saturating well on room air Conservative management Normal procalcitonin Empirically on doxycycline Antitussives as needed Pulmonary hygiene Added loratadine Dyslipidemia Hold statin for now as above Dementia continue Donepezil and memantine reorient frequently to minimize delirium Vitamin D deficiency Continue vitamin D supplements DVT Px: Heparin SQ Code status Conditional code ( No invasive airway technique) Disposition Home as able Admission and Anticipated Discharge Date Admission Date: December 11, 2023 Subjective Patient is seen and examined at bedside Poor historian secondary to dementia Sitting in chair comfortably during my encounter Offers no new complaints today Discussed with patient's at bedside Noted rhinitis No significant cough today Denies any chest pain, dyspnea, dizziness, nausea, vomiting, abdominal pain Review of Systems Review of Systems: All systems reviewed & are unremarkable except as noted in Subjective Physical Exam Physical Exam: Physical Exam: Vitals signs as noted above General Appearance:obese, no apparent distress Head: normocephalic, Atraumatic Eyes: normal inspection, EOMI Neck: supple, Trachea midline Respiratory/Chest: Decreased breath sounds, CTA, No accessory muscle use Cardiovascular: S1, S2, No murmur Abdomen/GI:Soft, Non tender, Bowel sounds present Extremities/Musculoskeletal:normal inspection, no edema Neurologic/Psych:AAOX1, grossly no focal neurological deficits, +Dementia Skin: normal color, warm, + right forehead, right leg abrasion Results & Data Results & Data Vital Signs (Past 12 Hours) Vital Signs Temp Pulse Pulse Resp BP Pulse Ox O2 Del Method 12/13/23 19:19 36.7 C 77 18 115/74 93 Room Air 12/13/23 15:36 36.9 C 81 18 110/69 93 Room Air 12/13/23 14:00 84 12/13/23 10:50 36.4 C L 80 18 104/70 93 Room Air Laboratory Results Short CBC 12/13/23 Range/Units 07:01 WBC 5.04 (4.8-10.8) K/ul Hgb 14.3 (14.0-18.0) g/dl Hct 42.9 (42.0-52.0) % Plt Count 150 (130-400) K/uL BMP 12/13/23 07:01 Sodium 138 Potassium 3.7 Chloride 105 Carbon Dioxide 26 BUN 12 Creatinine 1.05 Glucose 83 Calcium 8.9 Cardiac Enzymes 12/13/23 Range/Units 07:01 Total Creatine Kinase 2509 H (30-223) U/L (1) Fall from standing Encounter type: initial encounter Qualified Code(s): W19.XXXA - Unspecified fall, initial encounter
[2023-12-13] MEDS: LORATADINE 10 MG TAB PO SCH (22:44)
[2023-12-14 04:11] LABS: BUN Creatinine Ratio 12.9 (10-20); Calcium 8.5 mg/dl (8.6-10.3); Creatinine Clr Calc Pharmacy 58.8 ml/min; Est GFR (Non-African American) 61.3 ml/min; Hematocrit (blood only) 40.9 % (42.0-52.0); Hemoglobin 13.6 g/dl (14.0-18.0); Mean Corpuscular Hemoglobin 30.5 pg (25.0-34.0); Mean Corpuscular Hgb Conc 33.3 g/dL (32.0-36.0); Mean Corpuscular Volume 91.7 fL (80.0-100.0); Mean Platelet Volume 10.3 fL (9.4-12.4); Platelet Count 164 K/uL (130-400); Potassium 3.8 mmol/L (3.5-5.1); RDW Coefficient of Variation 12.7 % (11.5-14.5); RDW Standard Deviation 42.9 fL (36.4-46.3); Red Blood Count 4.46 M/uL (4.70-6.10); White Blood Count 4.84 K/ul (4.8-10.8)
--- NOTE | 2023-12-14 13:32 | Hospitalist Progress Note ---
Date of Service December 14, 2023 Assessment & Plan (1) Fall from standing: Plan: 73 yo male with PMH of dementia, dyslipidemia was brought to the ED after sustaining a fall. Fall Likely due to deconditioning/generalized weakness from COVID, Rhabdo --CT head:There is no hemorrhage, mass effect, or evidence of acute territorial ischemia by CT criteria. --Neck CT:There is no evidence of fracture or subluxation involving the cervical spine. Osteopenia and spondylotic change --Pelvic X ray:No acute bony abnormality is identified. --Right Fore arm X ray:No fractures. Fall precautions PT OT eval Patient's prefers to be discharged home as able (not interested in rehab due to history of dementia) Plan to discharge home today Traumatic rhabdomyolysis CPK 4747>>2509>1399 Normal renal function Received IV fluids Hold statin for now Monitor CPK COVID 19 Infection Viral bronchitis secondary to above --CXR:Cardiomegaly with no active disease in the chest. Saturating well on room air Conservative management Normal procalcitonin Empirically on doxycycline Antitussives as needed Pulmonary hygiene Added loratadine Dyslipidemia Hold statin for now as above Dementia continue Donepezil and memantine reorient frequently to minimize delirium Vitamin D deficiency Continue vitamin D supplements DVT Px: Heparin SQ Code status Conditional code ( No invasive airway technique) Disposition Home with Admission and Anticipated Discharge Date Admission Date: December 11, 2023 Subjective Patient is seen and examined at bedside Poor historian secondary to dementia States feeling a lot better today No new complaints Cough much improved Denies any chest pain, dyspnea, dizziness, nausea, vomiting, abdominal pain Saturating well on room air Review of Systems Review of Systems: All systems reviewed & are unremarkable except as noted in Subjective Physical Exam Physical Exam: Physical Exam: Vitals signs as noted above General Appearance:obese, no apparent distress Head: normocephalic, Atraumatic Eyes: normal inspection, EOMI Neck: supple, Trachea midline Respiratory/Chest: Decreased breath sounds, CTA, No accessory muscle use Cardiovascular: S1, S2, No murmur Abdomen/GI:Soft, Non tender, Bowel sounds present Extremities/Musculoskeletal:normal inspection, no edema Neurologic/Psych:AAOX1, grossly no focal neurological deficits, +Dementia Skin: normal color, warm, + right forehead, right leg abrasion Results & Data Results & Data Vital Signs (Past 12 Hours) Vital Signs Temp Pulse Pulse Resp BP BP Pulse Ox 12/14/23 12:01 36.3 C L 72 18 104/63 116/81 94 12/14/23 11:40 36.3 C L 72 18 116/81 94 12/14/23 08:01 36.9 C 87 18 116/77 93 12/14/23 08:00 12/14/23 06:59 68 12/14/23 02:55 36.9 C 76 16 118/64 97 O2 Del Method 12/14/23 12:01 12/14/23 11:40 Room Air 12/14/23 08:01 Room Air 12/14/23 08:00 Room Air 12/14/23 06:59 12/14/23 02:55 Room Air Laboratory Results Short CBC 12/14/23 Range/Units 03:20 WBC 4.84 (4.8-10.8) K/ul Hgb 13.6 L (14.0-18.0) g/dl Hct 40.9 L (42.0-52.0) % Plt Count 164 (130-400) K/uL BMP 12/14/23 03:20 Sodium 139 Potassium 3.8 Chloride 108 H Carbon Dioxide 25 BUN 15 Creatinine 1.16 Glucose 87 Calcium 8.5 L Cardiac Enzymes 12/14/23 Range/Units 03:20 Total Creatine Kinase 1399 H (30-223) U/L (1) Fall from standing Encounter type: initial encounter Qualified Code(s): W19.XXXA - Unspecified f all, initial encounter
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
== END 2023-12-14 14:30 | disposition home health service (06) | DRG 564 ==
LOC: ED 10:33 → SUATTDRO 15:16 → 2W 15:16

== ENCOUNTER 2024-01-31 15:11 | Inpatient (IN) ==
--- NOTE | 2024-01-31 15:31 | ED Triage Note ---
Date of Service January 31, 2024 Provider in Triage Author: Nimisha Buck History of Present Illness This patient was briefly evaluated while in triage. An abbreviated physical exam was performed. This patient is a 73-year-old Male who presents to the ED for evaluation of weakness and bilateral leg pain for 2-3 days. Has been extremely fatigued, only able to walk a few steps without needing to sit down. Has had a cough for a week, coughing up clear phlegm. Had a fall about a week ago during a walk. No fevers. No chest pain or SOB. Left facial drooping is chronic per pt and . Physical Exam CONSTITUTIONAL: No acute distress. Well appearing. HEENT: PERRL. Left sided facial droop. RESPIRATORY: Clear to auscultation bilaterally. Equal expansion bilaterally. CARDIOVASCULAR: Regular rate and rhythm. GASTROINTESTINAL: Soft, nontender. NEUROLOGIC: Alert and oriented X 4 with normal affect. Ambulates unsteadily with a cane Initial orders for labs and / or imaging were placed and patient was placed in the waiting area until a bed is available. Please see further documentation for the full ED course. MDM / Impression Impression Impression: Generalized weakness
[2024-01-31 16:36] LABS: Appearance Urine Clear (Clear); Bilirubin Urine Negative (Negative); Blood Urine Negative (Negative); Color Urine Yellow; Glucose Urine UA Negative (Negative); Ketones Urine Negative (Negative); Leukocyte Esterase Urine Negative (Negative); Nitrite Urine Negative (Negative); Protein Urine Negative (Negative); Specific Gravity Urine 1.021 (1.000-1.030); Urobilinogen Urine Negative (Negative)
[2024-01-31 16:36] LABS: Basophils # (auto) 0.02 K/uL (0.00-0.20); Basophils % (auto) 0.3 %; Eosinophils # (auto) 0.13 K/uL (0.00-0.50); Eosinophils % (auto) 1.8 %; Hematocrit (blood only) 40.7 % (42.0-52.0); Hemoglobin 13.7 g/dl (14.0-18.0); Immature Granulocytes # (auto) 0.02 K/uL (0.01-0.20); Immature Granulocytes % (auto) 0.3 %; Lymphocytes # (auto) 1.77 K/uL (1.20-3.40); Lymphocytes % (auto) 24.1 %; Mean Corpuscular Hemoglobin 30.7 pg (25.0-34.0); Mean Corpuscular Hgb Conc 33.7 g/dL (32.0-36.0); Mean Corpuscular Volume 91.3 fL (80.0-100.0); Mean Platelet Volume 10.5 fL (9.4-12.4); Monocytes # (auto) 0.58 K/uL (0.11-0.59); Monocytes % (auto) 7.9 %; Neutrophils # (auto) 4.83 K/uL (1.40-6.50); Neutrophils % (auto) 65.6 %; Platelet Count 195 K/uL (130-400); RDW Coefficient of Variation 12.5 % (11.5-14.5); RDW Standard Deviation 41.1 fL (36.4-46.3); Red Blood Count 4.46 M/uL (4.70-6.10); White Blood Count 7.35 K/ul (4.8-10.8)
--- NOTE | 2024-01-31 16:50 | Electrocardiogram Report ---
Test Reason : Blood Pressure : / mmHG Vent. Rate : 071 BPM Atrial Rate : 071 BPM P-R Int : 190 ms QRS Dur : 092 ms QT Int : 376 ms P-R-T Axes : 170 030 041 degrees QTc Int : 408 ms Ectopic atrial rhythm Abnormal ECG When compared with ECG of 11-DEC-2023 10:41, Ectopic atrial rhythm has replaced Sinus rhythm Confirmed by Parish Briones ([id number]) on 01/31/2024 4:50:35 PM Referred By: Confirmed By:Herrera Briones
--- NOTE | 2024-01-31 16:51 | CT Scan Report ---
CT OF THE HEAD WITHOUT CONTRAST CLINICAL HISTORY: weakness, falls COMPARISON STUDY: MRI of the brain May 30, 2022. Head CT December 11, 2023. CT DOSE: 625.8 mGy.cm TECHNIQUE: Helical axial images of the head were obtained without IV contrast. Automated exposure con trol was utilized for the study. A dose lowering technique was utilized adhering to the principles o f ALARA. FINDINGS: No acute intracranial hemorrhage, midline shift or mass effect is present. The ventricular system is stable. White matter hypodensities are unchanged and favor small vessel disease. The basal cisterns are patent. No extra-axial collections are present. There are no findings to suggest acute d ural sinus thrombosis or acute territorial infarct. No significant calvarial abnormalities are presen t. Visualized portions of the sinuses and mastoid air cells are clear. IMPRESSION: 1. No acute intracranial findings. No change in appearance of the brain. 2. No calvarial fractures. ACT 112: Negative or not required by law. Electronically signed by: Chip Howell M.D. 01/31/2024 4:49 PM
[2024-01-31 16:56] LABS: Albumin Globulin Ratio 1.5 (0.9-2); BUN Creatinine Ratio 17.4 (10-20); Bilirubin,Total 0.4 mg/dl (0.2-1.0); Calcium 9.6 mg/dl (8.6-10.3); Creatinine Clr Calc Pharmacy 56.6 ml/min; Est GFR (African American) 67.5 ml/min; Est GFR (Non-African American) 58.2 ml/min; Globulin 2.7 gm/dl (2.5-4.0); Magnesium 2.1 mg/dl (1.7-2.4); Potassium 4.1 mmol/L (3.5-5.1); Total Protein 6.7 gm/dl (6.0-8.3)
[2024-01-31 17:02] LABS: Troponin I High Sensitivity 8.7 pg/ml (0-20)
--- NOTE | 2024-01-31 17:07 | Emergency Department Note ---
Impression & Plan Generalized weakness, Pulmonary embolism, FERRER (dyspnea on exertion) ED Provider Note ED Provider Note NAME: RIMMA GRACE AGE:73 SEX: Male : 1950 ARRIVES VIA: Private vehicle INFORMANT: Patient, ED PROVIDER(s): Lauren Shaw DO CHIEF COMPLAINT: Weakness HPI: This is a 73-year-old male who presents with at bedside due to concern for increased weakness. Patient does have a history of dementia and provides most of the history. She states in the last 2 to 3 days he has had markedly increased weakness and fatigue. She brought him in so as to avoid a fall. She states he had a similar episode prior approximately 2 months ago where he was admitted, as he had gotten so weak he had a fall at that time. No recent known sick contacts or change in medication. Patient does typically use a cane. She states he can go several steps and then asked to sit down because he feels so weak he is concerned he may fall. Patient admits to feeling more winded and out of breath with any ambulatory attempt additionally. He denies any chest pain, abdominal pain, neck or back pain, headaches. He does admit and confirms to a recent cough although she states it is only intermittently productive of a clear sputum. No other overt URI symptoms, no fevers or chills. No recent change in urine or stools. PAST MEDICAL HISTORY:See Below PAST SURGICAL HISTORY:See Below FAMILY HISTORY:See Below SOCIAL HISTORY:See Below HOME MEDICATIONS:See Below ALLERGIES:See Below VITALS:See Below PHYSICAL EXAMINATION: GENERAL: alert, well appearing, well nourished, no distress, non-toxic EYE EXAM: normal conjunctiva, PERRL and EOM's grossly intact OROPHARYNX: no exudate, no erythema, lips, buccal mucosa, and tongue normal and mucous membranes are moist NECK: supple, no nuchal rigidity, no adenopathy, non-tender LUNGS: Clear to auscultation. Normal chest wall mechanics, no w/r/r HEART: no murmurs, S1 normal and S2 normal ABDOMEN: abdomen soft, non-tender, normo-active bowel sounds, no masses, no rebound or guarding. BACK: Back is symmetrical on inspection and there is no deformity, no midline tenderness, no CVA tenderness. SKIN: no rashes, petechiae, orbruising UPPER EXTREMITIES: upper extremities are grossly normal. FROM, nml pulses b/l. LOWER EXTREMITIES: Trace b/l pitting edema. FROM, nml pulses b/l. NEURO EXAM: Normal sensorium, cranial nerves II-XII grossly intact, normal speech, no facial droop,nogross weakness of arms, no gross weakness of legs. Gross sensation intact. No ataxia. Vital Signs: reviewed and remarkable Differential Diagnosis: dehydration, stroke, anemia, hypoglycemia, hyponatremia, hypernatremia, urinary tract infection, pneumonia, bronchitis, sepsis, gastroenteritis, additional abdominal pathology, metabolic abnormalities, as well as others were considered MEDICAL DECISION MAKING: This is a 73-year-old male presents emergency department with due to concern for increased weakness and dyspnea with exertion. Patient afebrile vital signs stable here. Labs drawn and sent, IV established, EKG and chest ray performed bedside interpreted by me and patient monitored on telemetry. Patient sent for CT head additionally which was reassuring. Ambulatory pulse ox without any significant hypoxia. Patient is able to use his cane and per appears more steady than he has been at home. Patient did have a fall last week although denies any concern for injury as does . Patient's initial labs reassuring and chest x-ray unremarkable. After additional discussion at bedside, we opted to perform additional CT imaging which revealed PE. No prior history of DVT or PE according to . Due to chronic appearance is stated by radiology, it is unclear if this is contributing to his more acute symptoms. Case discussed with on-call [facility] hospitalist team. We did discuss anticoagulation and they would like to evaluate the patient at bedside first prior to initiating anticoagulation. and patient updated on all results, verbalized understanding, were in agreement with the plan. Consultation(s): 2021: Discussed with outside reading radiologist. States PE appears more chronic. 2050: Discussed with Dr. Leo, [facility]ist team, for additional evaluation and management. ER Treatment Provided: See below Diagnostics Interpreted By Me: -ECG: Regular rhythm at 71, normal axis, normal intervals, no acute ST/T wave changes, inverted P waves noted inferiorly -Cardiac Monitoring: An order was placed for continuous cardiac monitoring. The monitor shows a rate of 58 with sinsu bradycardia rhythm. -Laboratory studies: As stated above and show below. -Imaging studies: X-ray Chest: A single view study of the chest was reviewed and was negative for cardiomegaly, focal infiltrate, effusion, pulmonary edema, or wide mediastinum. Triage Nursing Note Reviewed Prior/Outside Records Reviewed -prior discharge summary reviewed from November 2023 Past Med/Surg History Medical History History of gout Osteoarthritis GERD (gastroesophageal reflux disease) diet controlled Depression Alzheimers disease Surgical History History of left knee replacement History of right knee joint replacement History of shoulder surgery Rt History of colonoscopy Hx of colonoscopy Family History Other No family history of adverse response to anesthesia Social History Smoking Status: Never smoker Second Hand Exposure: No; Do You Dip or Chew Tobacco: Yes (1 can every 3 days); Hx Alcohol Use: Yes Alcohol type: beer Hx Substance Use: No Preferred Language: Swedish Communication Ability: Effective Mine Administrator Supervisor Required: No Beliefs That Will Affect Care: None Current Living Situation: Spouse Other Information That Helps Us Care for You: No Feels Safe at Home: Yes Safety Concerns: Feels Safe At This Time Assistive Devices: Cane Allergies Allergies Allergy/AdvReac Type Severity Reaction Status Date / Time simvastatin AdvReac Intermediate elevated Verified 01/31/24 17:39 CPK per records Home Meds Home Medications Medication Instructions Recorded Confirmed cholecalciferol (vitamin D3) 25 2,000 mcg PO QAM 07/24/21 01/31/24 mcg (1,000 unit) tablet (Vitamin D3) donepezil 10 mg tablet 10 mg PO QAM 07/24/21 01/31/24 multivitamin 1 tab PO QAM 07/24/21 01/31/24 trazodone 150 mg tablet 150 mg PO HS 07/24/21 01/31/24 memantine 10 mg tablet 10 mg PO BID 06/26/23 01/31/24 atorvastatin 40 mg tablet 40 mg PO QAM 12/11/23 01/31/24 Results & Data (ED) Vital Signs Vital Signs - 24 hr 01/31/24 15:29 01/31/24 16:58 01/31/24 17:05 Temperature 36.6 C Temperature Source Temporal Artery Scan Pulse Rate 78 63 Pulse Rate [Apical] 65 Pulse Rhythm [Apical] Regular Pulse Strength [Apical] Normal Respiratory Rate 18 19 Respiratory Effort / Characteristics Non-Labored Spontaneous Non-Labored Spontaneous Respiratory Depth Normal Normal Respiratory Pattern Regular Regular Blood Pressure 121/78 Blood Pressure [Left Arm] 148/90 H Blood Pressure Mean 92 Blood Pressure Mean [Left Arm] 109 Blood Pressure Position Sitting Pulse Oximetry 94 95 Oxygen Delivery Method Room Air Room Air Sepsis Recent Fever Within 48 Hours No Sepsis New/Unexplained Change in Mental Status N/A Sepsis Action Taken by Nursing No Action Required 01/31/24 19:00 01/31/24 20:34 01/31/24 20:50 Temperature 36.8 C Temperature Source Oral Pulse Rate 66 Pulse Rate [Apical] 74 60 Pulse Rhythm [Apical] Regular Pulse Strength [Apical] Normal Normal Respiratory Rate 17 18 Respiratory Effort / Characteristics Non-Labored Spontaneous Non-Labored Spontaneous Respiratory Depth Normal Normal Respiratory Pattern Regular Regular Blood Pressure Blood Pressure [Left Arm] 161/104 H 131/83 Blood Pressure Mean Blood Pressure Mean [Left Arm] 123 99 Blood Pressure Position Pulse Oximetry 96 94 Oxygen Delivery Method Room Air Room Air Sepsis Recent Fever Within 48 Hours Sepsis New/Unexplained Change in Mental Status Sepsis Action Taken by Nursing Laboratory Data 01/31/24 16:08 01/31/24 16:08 Lab Results 01/31/24 01/31/24 01/31/24 Range/Units 16:05 16:08 16:19 WBC 7.35 (4.8-10.8) K/ul RBC 4.46 L (4.70-6.10) M/uL Hgb 13.7 L (14.0-18.0) g/dl Hct 40.7 L (42.0-52.0) % MCV 91.3 (80.0-100.0) fL MCH 30.7 (25.0-34.0) pg MCHC 33.7 (32.0-36.0) g/dL RDW Std Deviation 41.1 (36.4-46.3) fL RDW Coeff of Osmel 12.5 (11.5-14.5) % Plt Count 195 (130-400) K/uL MPV 10.5 (9.4-12.4) fL Immature Gran % (Auto) 0.3 % Neut % (Auto) 65.6 % Lymph % (Auto) 24.1 % [place] % (Auto) 7.9 % Eos % (Auto) 1.8 % Baso % (Auto) 0.3 % Neut # (Auto) 4.83 (1.40-6.50) K/uL Lymph # (Auto) 1.77 (1.20-3.40) K/uL [place] # (Auto) 0.58 (0.11-0.59) K/uL Eos # (Auto) 0.13 (0.00-0.50) K/uL Baso # (Auto) 0.02 (0.00-0.20) K/uL Immature Gran # (Auto) 0.02 (0.01-0.20) K/uL Sodium 139 (136-145) mmol/L Potassium 4.1 (3.5-5.1) mmol/L Chloride 108 H (98-107) mmol/L Carbon Dioxide 24 (21-32) mmol/L Anion Gap 7 (3-11) BUN 21 (6-23) mg/dl Creatinine 1.21 (0.6-1.4) mg/dl Est Cr Clr Drug Dosing 56.6 ml/min Est GFR ( Amer) 67.5 ml/min Est GFR (Non-Af Amer) 58.2 ml/min BUN/Creatinine Ratio 17.4 (10-20) Glucose 87 (70-99(Fasting)) mg/dl Calcium 9.6 (8.6-10.3) mg/dl Magnesium 2.1 (1.7-2.4) mg/dl Total Bilirubin 0.4 (0.2-1.0) mg/dl AST 29 (13-39) U/L ALT 25 (7-52) U/L Alkaline Phosphatase 68 (34-104) U/L Troponin I High Sens 8.7 (0-20) pg/ml B-Natriuretic Peptide 45 (0-100) pg/ml Total Protein 6.7 (6.0-8.3) gm/dl Albumin 4.0 (3.4-5.0) gm/dl Globulin 2.7 (2.5-4.0) gm/dl Albumin/Globulin Ratio 1.5 (0.9-2) TSH 0.833 (0.300-4.500) uIu/ml Urine Color Yellow Urine Appearance Clear (Clear) Urine pH 5.0 (4.5-7.5) Ur Specific [place] 1.021 (1.000-1.030) Urine Protein Negative (Negative) Urine Glucose (UA) Negative (Negative) Urine Ketones Negative (Negative) Urine Blood Negative (Negative) Urine Nitrite Negative (Negative) Urine Bilirubin Negative (Negative) Urine Urobilinogen Negative (Negative) Ur Leukocyte Esterase Negative (Negative) Adenovirus (PCR) Not Detected (NotDetected) B. pertussis DNA (PCR) Not Detected (NotDetected) B.parapertussis DNA PCR Not Detected (NotDetected) C. pneumoniae DNA (PCR) Not Detected (NotDetected) Coronavirus OC43 (PCR) Not Detected (NotDetected) Coronavirus HKU1 (PCR) Not Detected (NotDetected) Coronavirus 229E (PCR) Not Detected (NotDetected) SARS-CoV-2 (PCR) Not Detected (NotDetected) Coronavirus NL63 (PCR) Not Detected (NotDetected) Human Metapneumovir PCR Not Detected (NotDetected) Influenza Type A (PCR) Not Detected (NotDetected) Influenza Type B (PCR) Not Detected (NotDetected) M. pneumoniae (PCR) Not Detected (NotDetected) Parainfluenza 1 (PCR) Not Detected (NotDetected) Parainfluenza 2 (PCR) Not Detected (NotDetected) Parainfluenza 3 (PCR) Not Detected (NotDetected) Parainfluenza 4 (PCR) Not Detected (NotDetected) RSV (PCR) Not Detected (NotDetected) Entero/Rhino (PCR) Not Detected (NotDetected) Administered Medications Discontinued Medications Ioversol (Optiray 320 125ml) 118 ml IV ONCE ONE Stop: 01/31/24 19:39 Last Admin: 01/31/24 19:39 Dose: 118 ml Documented By: AW Imaging Data Radiologist's Impression: Chest X-Ray 01/31/24 15:33 SINGLE VIEW CHEST CLINICAL HISTORY: Generalized weakness. FINDINGS: An AP, portable, upright chest radiograph is compared to study dated 12/11/2023. The heart is enlarged. There is pulmonary vascular congestion. Atelectasis is seen at the lung bases. No airspace consolidation or large pleural effusion is identified. No pneumothorax is seen. The skeletal structures are osteopenic. The bony thorax is grossly intact. Calcific tendinopathy is noted in the right s[place]. IMPRESSION: Cardiomegaly with pulmonary vascular congestion. ACT 112: Negative or not required by law. Electronically signed by: Nikolay Tejeda M.D. 01/31/2024 5:[address] 01/31/24 15:34 CT OF THE HEAD WITHOUT CONTRAST CLINICAL HISTORY: weakness, falls COMPARISON STUDY: MRI of the brain May 30, 2022. Head CT December 11, 2023. CT DOSE: 625.8 mGy.cm TECHNIQUE: Helical axial images of the head were obtained without IV contrast. Automated exposure control was utilized for the study. A dose lowering technique was utilized adhering to the principles of ALARA. FINDINGS: No acute intracranial hemorrhage, midline shift or mass effect is present. The ventricular system is stable. White matter hypodensities are unchanged and favor small vessel disease. The basal cisterns are patent. No extra-axial collections are present. There are no findings to suggest acute dural sinus thrombosis or acute territorial infarct. No significant calvarial abnormalities are present. Visualized portions of the sinuses and mastoid air cells are clear. IMPRESSION: 1. No acute intracranial findings. No change in appearance of the brain. 2. No calvarial fractures. ACT 112: Negative or not required by law. Electronically signed by: Chip Howell M.D. 01/31/2024 4:49 PM Chest CTA 01/31/24 19:26 CR Exam(s): CTA CHEST IV Amt: 118ml of optiray 320 Discussed with Drew Tristan PA-C on 01/30 20:08 (-04:00)EXAM: CT Angiography Chest With Intravenous Contrast CLINICAL HISTORY: Reason for exam: PE. TECHNIQUE: Axial computed tomographic angiography images of the chest with intravenous contrast. CTDI is 41.82 mGy and DLP is 967.01 mGy-cm. Automated exposure control was utilized for the study. A dose lowering technique was utilized adhering to the principles of ALARA. MIP reconstructed images were created and reviewed. 118 ML Optiray 320 given IV. Motion artifact particularly at the thoracic inlet limits evaluation. COMPARISON: None. FINDINGS: Pulmonary arteries: Subsegmental, nonocclusive right lower lobe pulmonary embolism, mild burden. No other/occlusive pulmonary embolism. Aorta: No dissection or aneurysm. Lungs: Generally clear, Limited by breathing motion artifact. No consolidation. Pleural space: No significant effusion. No pneumothorax. Heart: Moderate cardiomegaly. No significant pericardial effusion. No evidence of elevated right heart pressures. Bones/joints: No acute fracture. Soft tissues: Small hiatal hernia, and a partially included 5.3 cm right upper pole renal cyst. Lymph nodes: No enlarged lymph nodes. IMPRESSION: 1. Mild burden, subsegmental, nonocclusive right lower lobe pulmonary embolism. 2. No right heart strain. 3. Lungs are generally clear, though breathing motion artifact limits detail. 4. Incidental hiatal hernia and right upper pole renal cyst. Communications: 01/31/24 20:17 Verify Receipt VR turned into CD - discused results with Dr. Shaw on 01/30 20:17 (-04:00) Electronically signed by: Hoa Rock M.D. 01/31/24 20:08 PM Discharge Plan Visit Data Chief Complaint: Weakness Stated Complaint: WEAKNESS, LEG PAIN, COUGHING, DEMENTIA ED Provider: Lauren Shaw Discharge Problem: Generalized weakness, Pulmonary embolism, FERRER (dyspnea on exertion) Patient Disposition: Admitted As Inpatient Discharge Instructions Interventions: ED Discharge Assessment Last Done: 01/31/24 23:19
[2024-01-31 17:10] LABS: Thyroid Stimulating Hormone 0.833 uIu/ml (0.300-4.500)
--- NOTE | 2024-01-31 17:17 | XRay Report ---
SINGLE VIEW CHEST CLINICAL HISTORY: Generalized weakness. FINDINGS: An AP, portable, upright chest radiograph is compared to study dated 12/11/2023. The heart i s enlarged. There is pulmonary vascular congestion. Atelectasis is seen at the lung bases. No airspac e consolidation or large pleural effusion is identified. No pneumothorax is seen. The skeletal struct ures are osteopenic. The bony thorax is grossly intact. Calcific tendinopathy is noted in the right s [place]. IMPRESSION: Cardiomegaly with pulmonary vascular congestion. ACT 112: Negative or not required by law. Electronically signed by: Nikolay Tejeda M.D. 01/31/2024 5:16 PM
[2024-01-31 17:32] LABS: Adenovirus PCR Not Detected (NotDetected); Bordetella parapertussis PCR Not Detected (NotDetected); Bordetella pertussis PCR Not Detected (NotDetected); Chlamydia pneumoniae PCR Not Detected (NotDetected); Coronavirus 229E PCR Not Detected (NotDetected); Coronavirus CoV-2 (COVID19)PCR Not Detected (NotDetected); Coronavirus HKU1 PCR Not Detected (NotDetected); Coronavirus NL63 PCR Not Detected (NotDetected); Coronavirus OC43PCR Not Detected (NotDetected); Human Metapneumovirus PCR Not Detected (NotDetected); Influenza A PCR Not Detected (NotDetected); Influenza B PCR Not Detected (NotDetected); Mycoplasma pneumoniae PCR Not Detected (NotDetected); Parainfluenza Virus 1 PCR Not Detected (NotDetected); Parainfluenza Virus 2 PCR Not Detected (NotDetected); Parainfluenza Virus 3 PCR Not Detected (NotDetected); Parainfluenza Virus 4 PCR Not Detected (NotDetected); Respiratory Syncytial VirusPCR Not Detected (NotDetected); Rhinovirus/Enterovirus PCR Not Detected (NotDetected)
[2024-01-31] MEDS: OPTIRAY 320 125ml IV ONE (19:39)
--- NOTE | 2024-01-31 20:09 | CT Scan Report ---
Exam(s): CTA CHEST IV Amt: 118ml of optiray 320 Discussed with Drew Tristan PA-C on 01/30 20:08 (-04:00)EXAM: CT Angiography Chest With Intravenous Contrast CLINICAL HISTORY: Reason for exam: PE. TECHNIQUE: Axial computed tomographic angiography images of the chest with intravenous contrast. CTDI is 41.82 mGy and DLP is 967.01 mGy-cm. Automated exposure control was utilized for the study. A dose lowering technique was utilized adhering to the principles of ALARA. MIP reconstructed images were created and reviewed. 118 ML Optiray 320 given IV. Motion artifact particularly at the thoracic inlet limits evaluation. COMPARISON: None. FINDINGS: Pulmonary arteries: Subsegmental, nonocclusive right lower lobe pulmonary embolism, mild burden. No other/occlusive pulmonary embolism. Aorta: No dissection or aneurysm. Lungs: Generally clear, Limited by breathing motion artifact. No consolidation. Pleural space: No significant effusion. No pneumothorax. Heart: Moderate cardiomegaly. No significant pericardial effusion. No evidence of elevated right heart pressures. Bones/joints: No acute fracture. Soft tissues: Small hiatal hernia, and a partially included 5.3 cm right upper pole renal cyst. Lymph nodes: No enlarged lymph nodes. IMPRESSION: 1. Mild burden, subsegmental, nonocclusive right lower lobe pulmonary embolism. 2. No right heart strain. 3. Lungs are generally clear, though breathing motion artifact limits detail. 4. Incidental hiatal hernia and right upper pole renal cyst. Communications: 01/31/24 20:17 Verify Receipt VR turned into CD - discused results with Dr. Shaw on 01/30 20:17 (-04:00) Electronically signed by: Hoa Rock M.D. 01/31/24 20:08 PM
--- NOTE | 2024-01-31 22:41 | History & Physical Report ---
Date of Service January 31, 2024 Assessment & Plan (1) Pulmonary embolism: Plan: 73-year-old male with past medical history significant for GERD, pain in both feet, osteoarthritis, dementia without behavioral disturbance, depression, high- grade intraepithelial neoplasia prostate biopsy / lives at home with his ambulate with a cane was brought in because of weakness and imaging studies shows PE. As per patient currently walking few steps has to sit down due to weakness and also complaining of pain in the legs. And also has some shortness of breath. Has some cough. Denies any fevers. No chest pains. No belly pain. Appetite is okay. Denies any headache. Patient is alert and awake and oriented to name only. Recognizes his . No nausea/ vomiting. No diarrhea as per . Micturating okay. Patient was admitted to [facility] in November 2023 with fall, traumatic rhabdomyolysis and COVID infection and weakness and he did okay and discharged home with home health. Pulmonary embolism on CT scan Saturating okay on room air Hemodynamics okay Acute versus chronic Starting IV heparin Will follow Dopplers and echo Can consider pulmonary consult Weakness PT OT Dementia Patient is pleasant Continue donezepil and memantine Will monitor for delirium DVT prophylaxis On IV heparin Disposition Med/telemetry Full code if chance of recovery as per my discussion with the History of Present Illness Chief Complaint: Weakness Primary Care Provider: Julio César Best DO 73-year-old male with past medical history significant for GERD, pain in both feet, osteoarthritis, dementia without behavioral disturbance, depression, high- grade intraepithelial neoplasia prostate biopsy 11/06 lives at home with his ambulate with a cane was brought in because of weakness and imaging studies shows PE. As per patient currently walking few steps has to sit down due to weakness and also complaining of pain in the legs. And also has some shortness of breath. Has some cough. Denies any fevers. No chest pains. No belly pain. Appetite is okay. Denies any headache. Patient is alert and awake and oriented to name only. Recognizes his . No nausea/ vomiting. No diarrhea as per . Micturating okay. Patient was admitted to [facility] in November 2023 with fall, traumatic rhabdomyolysis and COVID infection and weakness and he did okay and discharged home with home health Past medical's. As mentioned above Past surgical history. Colonoscopy. EGD. Knee arthroscopy. Cataracts. Repair of ruptured rotator cuff. Social history. . No smoking. Alcohol 2-3 beers daily as per epic. No drug use. Family history. Father [place] at age 66. Sister had high cholesterol. Allergies Allergy/AdvReac Type Severity Reaction Status Date / Time simvastatin AdvReac Intermediate elevated Verified 01/31/24 17:39 CPK per records Home Medications Medication Instructions Recorded Confirmed Type cholecalciferol (vitamin D3) 25 2,000 mcg PO QAM 07/24/21 01/31/24 History mcg (1,000 unit) tablet (Vitamin D3) donepezil 10 mg tablet 10 mg PO QAM 07/24/21 01/31/24 History multivitamin 1 tab PO QAM 07/24/21 01/31/24 History trazodone 150 mg tablet 150 mg PO HS 07/24/21 01/31/24 History memantine 10 mg tablet 10 mg PO BID 06/26/23 01/31/24 History atorvastatin 40 mg tablet 40 mg PO QAM 12/11/23 01/31/24 History Past Med/Surg History Medical History History of gout Osteoarthritis GERD (gastroesophageal reflux disease) diet controlled Depression Alzheimers disease Surgical History History of left knee replacement History of right knee joint replacement History of shoulder surgery Rt History of colonoscopy Hx of colonoscopy Family History Other No family history of adverse response to anesthesia Social History Smoking Status: Never smoker Second Hand Exposure: No; Do You Dip or Chew Tobacco: Yes (1 can every 3 days); Hx Alcohol Use: Yes Alcohol type: beer Hx Substance Use: No Preferred Language: Turkish Communication Ability: Effective Commercial Relationship Manager Required: No Beliefs That Will Affect Care: None Current Living Situation: Spouse Other Information That Helps Us Care for You: No Feels Safe at Home: Yes Safety Concerns: Feels Safe At This Time Assistive Devices: Cane Review of Systems Review of Systems: All systems reviewed & are unremarkable except as noted in HPI & below Physical Exam Physical Exam: General- Not in distress Head- atraumatic Eyes- EOMI ENT- oropharynx clear Neck- supple, no JVD. Lungs- clear to auscultation no wheezing or crackles. Heart- regular rhythm; no murmur, no gallop. Abdomen- normal bowel sounds, soft, nontender, no distension. Extremities- no pretibial edema, no erythema seen. Neuro- alert, oriented x 1 EOMI, no facial palsy; no dysarthria;obeys simple commands, moves extremities. Skin- warm & dry Results & Data Results & Data Vital Signs (Past 12 Hours) Vital Signs Temp Pulse Pulse Resp BP BP Pulse Ox 01/31/24 22:25 62 18 124/84 96 01/31/24 20:50 66 01/31/24 20:34 36.8 C 60 18 131/83 94 01/31/24 19:00 74 17 161/104 H 96 01/31/24 17:05 63 01/31/24 16:58 65 19 148/90 H 95 01/31/24 15:29 36.6 C 78 18 121/78 94 O2 Del Method 01/31/24 22:25 Room Air 01/31/24 20:50 01/31/24 20:34 Room Air 01/31/24 19:00 Room Air 01/31/24 17:05 01/31/24 16:58 Room Air 01/31/24 15:29 Room Air Diagnostic Findings Laboratory Results WBC 7.35 K/ul (4.8-10.8) 01/31/24 16:08 RBC 4.46 M/uL (4.70-6.10) L 01/31/24 16:08 Hgb 13.7 g/dl (14.0-18.0) L 01/31/24 16:08 Hct 40.7 % (42.0-52.0) L 01/31/24 16:08 MCV 91.3 fL (80.0-100.0) 01/31/24 16:08 MCH 30.7 pg (25.0-34.0) 01/31/24 16:08 MCHC 33.7 g/dL (32.0-36.0) 01/31/24 16:08 RDW Std Deviation 41.1 fL (36.4-46.3) 01/31/24 16:08 RDW Coeff of Osmel 12.5 % (11.5-14.5) 01/31/24 16:08 Plt Count 195 K/uL (130-400) 01/31/24 16:08 MPV 10.5 fL (9.4-12.4) 01/31/24 16:08 Immature Gran % (Auto) 0.3 % 01/31/24 16:08 Neut % (Auto) 65.6 % 01/31/24 16:08 Lymph % (Auto) 24.1 % 01/31/24 16:08 Baldwin % (Auto) 7.9 % 01/31/24 16:08 Eos % (Auto) 1.8 % 01/31/24 16:08 Baso % (Auto) 0.3 % 01/31/24 16:08 Neut # (Auto) 4.83 K/uL (1.40-6.50) 01/31/24 16:08 Lymph # (Auto) 1.77 K/uL (1.20-3.40) 01/31/24 16:08 Baldwin # (Auto) 0.58 K/uL (0.11-0.59) 01/31/24 16:08 Eos # (Auto) 0.13 K/uL (0.00-0.50) 01/31/24 16:08 Baso # (Auto) 0.02 K/uL (0.00-0.20) 01/31/24 16:08 Immature Gran # (Auto) 0.02 K/uL (0.01-0.20) 01/31/24 16:08 Sodium 139 mmol/L (136-145) 01/31/24 16:08 Potassium 4.1 mmol/L (3.5-5.1) 01/31/24 16:08 Chloride 108 mmol/L (98-107) H 01/31/24 16:08 Carbon Dioxide 24 mmol/L (21-32) 01/31/24 16:08 Anion Gap 7 (3-11) 01/31/24 16:08 BUN 21 mg/dl (6-23) 01/31/24 16:08 Creatinine 1.21 mg/dl (0.6-1.4) 01/31/24 16:08 Est Cr Clr Drug Dosing 56.6 ml/min 01/31/24 16:08 Est GFR ( Amer) 67.5 ml/min 01/31/24 16:08 Est GFR (Non-Af Amer) 58.2 ml/min 01/31/24 16:08 BUN/Creatinine Ratio 17.4 (10-20) 01/31/24 16:08 Glucose 87 mg/dl (70-99(Fasting)) 01/31/24 16:08 Calcium 9.6 mg/dl (8.6-10.3) 01/31/24 16:08 Magnesium 2.1 mg/dl (1.7-2.4) 01/31/24 16:08 Total Bilirubin 0.4 mg/dl (0.2-1.0) 01/31/24 16:08 AST 29 U/L (13-39) 01/31/24 16:08 ALT 25 U/L (7-52) 01/31/24 16:08 Alkaline Phosphatase 68 U/L (34-104) 01/31/24 16:08 Troponin I High Sens 8.7 pg/ml (0-20) 01/31/24 16:08 B-Natriuretic Peptide 45 pg/ml (0-100) 01/31/24 16:08 Total Protein 6.7 gm/dl (6.0-8.3) 01/31/24 16:08 Albumin 4.0 gm/dl (3.4-5.0) 01/31/24 16:08 Globulin 2.7 gm/dl (2.5-4.0) 01/31/24 16:08 Albumin/Globulin Ratio 1.5 (0.9-2) 01/31/24 16:08 TSH 0.833 uIu/ml (0.300-4.500) 01/31/24 16:08 Urine Color Yellow 01/31/24 16:19 Urine Appearance Clear (Clear) 01/31/24 16:19 Urine pH 5.0 (4.5-7.5) 01/31/24 16:19 Ur Specific Dale 1.021 (1.000-1.030) 01/31/24 16:19 Urine Protein Negative (Negative) 01/31/24 16:19 Urine Glucose (UA) Negative (Negative) 01/31/24 16:19 Urine Ketones Negative (Negative) 01/31/24 16:19 Urine Blood Negative (Negative) 01/31/24 16:19 Urine Nitrite Negative (Negative) 01/31/24 16:19 Urine Bilirubin Negative (Negative) 01/31/24 16:19 Urine Urobilinogen Negative (Negative) 01/31/24 16:19 Ur Leukocyte Esterase Negative (Negative) 01/31/24 16:19 Adenovirus (PCR) Not Detected (NotDetected) 01/31/24 16:05 B. pertussis DNA (PCR) Not Detected (NotDetected) 01/31/24 16:05 B.parapertussis DNA PCR Not Detected (NotDetected) 01/31/24 16:05 C. pneumoniae DNA (PCR) Not Detected (NotDetected) 01/31/24 16:05 Coronavirus OC43 (PCR) Not Detected (NotDetected) 01/31/24 16:05 Coronavirus HKU1 (PCR) Not Detected (NotDetected) 01/31/24 16:05 Coronavirus 229E (PCR) Not Detected (NotDetected) 01/31/24 16:05 SARS-CoV-2 (PCR) Not Detected (NotDetected) 01/31/24 16:05 Coronavirus NL63 (PCR) Not Detected (NotDetected) 01/31/24 16:05 Human Metapneumovir PCR Not Detected (NotDetected) 01/31/24 16:05 Influenza Type A (PCR) Not Detected (NotDetected) 01/31/24 16:05 Influenza Type B (PCR) Not Detected (NotDetected) 01/31/24 16:05 M. pneumoniae (PCR) Not Detected (NotDetected) 01/31/24 16:05 Parainfluenza 1 (PCR) Not Detected (NotDetected) 01/31/24 16:05 Parainfluenza 2 (PCR) Not Detected (NotDetected) 01/31/24 16:05 Parainfluenza 3 (PCR) Not Detected (NotDetected) 01/31/24 16:05 Parainfluenza 4 (PCR) Not Detected (NotDetected) 01/31/24 16:05 RSV (PCR) Not Detected (NotDetected) 01/31/24 16:05 Entero/Rhino (PCR) Not Detected (NotDetected) 01/31/24 16:05 Impressions Chest X-Ray 01/31/24 15:33 SINGLE VIEW CHEST CLINICAL HISTORY: Generalized weakness. FINDINGS: An AP, portable, upright chest radiograph is compared to study dated 12/11/2023. The heart is enlarged. There is pulmonary vascular congestion. Atelectasis is seen at the lung bases. No airspace consolidation or large pleural effusion is identified. No pneumothorax is seen. The skeletal structures are osteopenic. The bony thorax is grossly intact. Calcific tendinopathy is noted in the right s[place]. IMPRESSION: Cardiomegaly with pulmonary vascular congestion. ACT 112: Negative or not required by law. Electronically signed by: Nikolay Tejeda M.D. 01/31/2024 5:[address] 01/31/24 15:34 CT OF THE HEAD WITHOUT CONTRAST CLINICAL HISTORY: weakness, falls COMPARISON STUDY: MRI of the brain May 30, 2022. Head CT December 11, 2023. CT DOSE: 625.8 mGy.cm TECHNIQUE: Helical axial images of the head were obtained without IV contrast. Automated exposure control was utilized for the study. A dose lowering technique was utilized adhering to the principles of ALARA. FINDINGS: No acute intracranial hemorrhage, midline shift or mass effect is present. The ventricular system is stable. White matter hypodensities are unchanged and favor small vessel disease. The basal cisterns are patent. No extra-axial collections are present. There are no findings to suggest acute dural sinus thrombosis or acute territorial infarct. No significant calvarial abnormalities are present. Visualized portions of the sinuses and mastoid air cells are clear. IMPRESSION: 1. No acute intracranial findings. No change in appearance of the brain. 2. No calvarial fractures. ACT 112: Negative or not required by law. Electronically signed by: Chip Howell M.D. 01/31/2024 4:49 PM Chest CTA 01/31/24 19:26 CR Exam(s): CTA CHEST IV Amt: 118ml of optiray 320 Discussed with Drew Tristan PA-C on 01/30 20:08 (-04:00)EXAM: CT Angiography Chest With Intravenous Contrast CLINICAL HISTORY: Reason for exam: PE. TECHNIQUE: Axial computed tomographic angiography images of the chest with intravenous contrast. CTDI is 41.82 mGy and DLP is 967.01 mGy-cm. Automated exposure control was utilized for the study. A dose lowering technique was utilized adhering to the principles of ALARA. MIP reconstructed images were created and reviewed. 118 ML Optiray 320 given IV. Motion artifact particularly at the thoracic inlet limits evaluation. COMPARISON: None. FINDINGS: Pulmonary arteries: Subsegmental, nonocclusive right lower lobe pulmonary embolism, mild burden. No other/occlusive pulmonary embolism. Aorta: No dissection or aneurysm. Lungs: Generally clear, Limited by breathing motion artifact. No consolidation. Pleural space: No significant effusion. No pneumothorax. Heart: Moderate cardiomegaly. No significant pericardial effusion. No evidence of elevated right heart pressures. Bones/joints: No acute fracture. Soft tissues: Small hiatal hernia, and a partially included 5.3 cm right upper pole renal cyst. Lymph nodes: No enlarged lymph nodes. IMPRESSION: 1. Mild burden, subsegmental, nonocclusive right lower lobe pulmonary embolism. 2. No right heart strain. 3. Lungs are generally clear, though breathing motion artifact limits detail. 4. Incidental hiatal hernia and right upper pole renal cyst. Communications: 01/31/24 20:17 Verify Receipt VR turned into CD - discused results with Dr. Shaw on 01/30 20:17 (-04:00) Electronically signed by: Hoa Rock M.D. 01/31/24 20:08 PM ECG Additional Comments: ECG. Ectopic atrial rhythm with rate 71. Code Status & VTE Plan VTE Prophylaxis Plan VTE Prophylaxis will be ordered: Yes
[2024-01-31] MEDS ORDERED: NITROGLYCERIN SL 0.4 MG/TAB TAB SL PRN (23:56)
[2024-01-31] MEDS ORDERED: ACETAMINOPHEN 325 MG TAB PO PRN (23:56)
[2024-01-31] MEDS ORDERED: POLYETHYLENE (MIRALAX) 17 GM PACK PO PRN (23:56)
[2024-02-01 00:40] LABS: Partial Thromboplastin Time 28 Seconds (21-31); Prothrombin Time 11.4 Seconds (9.0-12.0)
[2024-02-01] MEDS: Heparin IV Adult Wt-Based Standard *NO* INITIAL Bolus Protocol IV STA (01:03)
[2024-02-01] MEDS: traZODone HCL 50 MG TAB PO SCH (01:03)
[2024-02-01] MEDS: HEPARIN SODIUM/DEXTROSE 25,000 UNITS/500 ML BAG IV SCH (01:10)
[2024-02-01] MEDS: SODIUM CHLORIDE 0.9% 1,000 ML IV SCH (01:10)
--- OUTSIDE RECORDS SUMMARY | 2024-02-01 03:57 | External Medical Summary ---
Author Name UNSPECIFIED Address Unknown Organization [facility] History of Encounters Reason for Assessment: Discharge from [facility] Inpatient Facility where the patient been admitted: No inpatient facility admission Discharge Disposition: Patient remained in the community (without formal assistive services) Functional Assessment When Dyspneic: With moderate exerti on (e.g., while dressing, using commode or bedpan, walking distances less than 20 feet) Bowel Incontinence Frequency: Very rarel y or never has bowel incontinence Cognitive Functioning: Requires promptin g (cueing, repetition, reminders) only under stressful or unfamiliar conditions. When Confused (Reported or Observed): Du ring the day and evening, but not constantly Cognitive and Behavioral and Psychiatric Symptoms: Impaired decision-making: failure to perform usual ADLs or IADLs, inability to appropriately stop activities, jeopardizes safety through actions Cognitive and Behavioral and Psychiatric Symptoms: Memory deficit: failure to recognize familiar persons/places, inability to recall events of past 24 hours, significant memory loss so that supervision is required Frequency of Behavior Problems: Several times a week Current Ability: Bathing: Able to bathe in shower or tub with the intermittent assistance of another person: (a) for intermittent supervision or encouragement or reminders, OR (b) to get in and out of the shower or tub, OR (c) for washing difficult to reach areas. Current Ability: Ambulation: With the us e of a one-handed device (e.g. cane, single crutch, kathe-walker), able to independently walk on even and uneven surfaces and negotiate stairs with or without railings. Current: Management Of Oral Medications: Able to take medication(s) at the correct times if given reminders by another person at the appropriate times
--- OUTSIDE RECORDS SUMMARY | 2024-02-01 03:57 | External Medical Summary | Summary of Care ---
Author Name Unknown Organization [facility] [address] [address] Phone [phone] Care Team Providers Care Customer Service Leader Name Role Phone Julio César Best DO Primary Care Provider Reason for Visit * Reason Onset Date Comments Advice 01/25/2024 Encounter Details Date Type Department Care Team (Late st Contact Info) Description 01/25/2024 Telephone Family Practice [facility] [address] [place] [address] Julio César Best DO [address] [place] [address] Advice Allergies Active Allergy Reactions Criticality Noted Date Comments Simvastatin 06/18/1998 Elevated CPK documented as of this encounter (statuses as of 01/27/2024) Medications Medication Sig Dispensed Refills Start Date End Date Status VITAMIN D3 1000 UNITS PO TABS 2 tabs daily 0 Active Vitamin C 100 MG Oral [...] Information Patient not taking.Informant: Spouse, Reported on 01/22/2024 Sildenafil Citrate 100 MG Oral TabletIndications:Im potence of organic origin take 1 tablet by mouth 1 TO 4 HOURS BEFORE INTERCOURSE NO MORE THAN 1 DOSE IN 24 HOURS 10 Tablet 5 05/13/2023 Active Atorvastatin Calcium 40 MG Oral Tablet (Lipitor)Indications :Dyslipidemia, goal LDL below 70 Take 1 Tablet by mouth in the morning. 90 Tablet 3 08/27/2023 Active Dicyclomine HCl 10 MG Oral Capsule (Bentyl)Indications: Irritable bowel syndrome without diarrhea take 1 capsule by mouth four times a day (BEFORE FOOD and at bedtime) for abdominal pain 120 Capsule 0 09/14/2023 Active Additional Information Patient not taking.Reported on 01/22/2024 Donepezil HCl 10 MG Oral Tablet (Aricept)Indications :Dementia without behavioral disturbance (HCC) take 1 tablet by mouth IN THE MORNING with THE LARGEST MEAL OF THE DAY 90 Tablet 1 11/03/2023 Active Metamucil Free & Natural 43 % Oral Powder (Psyllium) Take by mouth. 0 Act max Memantine HCl 10 MG Oral Tablet (Namenda)Indications :Major neurocognitive disorder (HCC) take 1 tablet by mouth twice a day WITH MORNING AND EVENING MEALS 60 Tablet 5 12/16/2023 Active Loratadine 10 MG Oral Tablet (Claritin) Take 1 Tablet by mouth daily as needed. 0 12/14/2023 Active traZODone HCl 150 MG Oral Tablet (Desyrel)Indications :Insomnia take 1 tablet by mouth at bedtime 90 Tablet 1 12/23/2023 Active documented as of this encounter (statuses as of 01/27/2024) Active Problems Problem Noted Date Diagnosed Date [...] as of this encounter (statuses as of 01/27/2024) Resolved Problems Problem Noted Date Diagnosed Date Resolved Date Kidney disease, chronic, sta ge III (GFR 30-59 ml/min) 12/11/2013 10/15/2022 Overview: Per CKD protocol #1 Chest pain 09/25/2003 12/29/2011 Corns and callosities 09/16/19992011 Mixed dyslipidemia 08/21/1997 9 Overview: Per Lipid Taxonomy. documented as of this encounter (statuses as of 01/27/2024) Immunizations Name Administration Dates Next Due COVID-19 [...] Types Packs/Day Years Used Date Smoking Tobacco: Never Smokeless Tobacco: Current Chew Comments:one can lasts [...] Telephone Encounter - Khadijah Helm LPN - 01/27/2024 12:06 PM EDT could not find her [employer] card. I tried calling [employer] number: S/w [employer] rep who told me to use CODE [id number] Home Health Aide, per hr. Include this code in letter, pt info, ID # and provider info. All included in letter, redone. Signed by Dr. Best, and faxed to [phone] along with OV notes. Confirmed fax went through. Successful transmission. Called Myriam. Aware that has been done. She will need to follow up with [employer], utilization management and ask for "auths" to check status of authorization. says she will follow up and keep us posted. * Telephone Encounter - Khadijah Helm LPN - 01/27/2024 11:32 AM EDT Called , aware letter done, but we don't have the number to call [employer]. Asked to check her card to see what number I am to call. I'll need to call to get a fax number to send letter. She did not have her card with and will call back with insurance number. Then we call that number and find out where to fax this letter. Letter on Natasha's desk. * Telephone Encounter - Julio César Best DO - 01/27/2024 11:26 AM EDT Letter created, printed * Telephone Encounter - Khadijah Helm LPN - 01/26/2024 4:39 PM EDT S/w , she is having knee surgery and she is pt's photographic intelligence officer. Needs insurance letter that he needs in home care, for assisted daily living. For ADLs, meal prep. Home Health aide [facility] in [place] has aides. [phone] [facility] [phone] In Home Service [phone] [facility] [phone] At [facility] [place] [phone] This was the list of home health agency that have aides. Just needs letter for insurance to say that pt has Alzheimers patient and since she is primary person doing daily care, they need this letter from PCP. [employer] "number on card". No fax number for insurance. Pt cannot dress himself, shower, and needs assistance with feeding sometimes. Cannot cook for self. * Telephone Encounter - Luda Qiu OSA - 01/26/2024 10:20 AM EDT Caller is requesting to speak with a nurse today about patient's PCP filling out form for insurance. Caller was reminded of the turn around timeframe for a call back but stated this was urgent as will be going in for surgery on Wednesday and be unable to care for patient. Please advise. * Telephone Encounter - Magda Gnadara OSA - 01/25/2024 2:26 PM EDT Myriam needs Dr. Best to fill out a form from the patient's insurance in order for the insurance to approve them for assisted daily living. Their Home health care ended last week, and they still need additional help, especially now that Myriam is getting her right knee replaced on 01/30. Please call Myriam back so that they can be assisted on this situation and she can further explain what is needed from Dr. Best documented in this encounter Plan of Treatment Upcoming Encounters Date Type Department Care Team (Late st Contact Info) Description 03/30/2024 8:20 AM EDT Office Visit Family [facility] [address] [place] [address] Julio César Best, [address] [place] [address] 07/19/2024 1:20 PM EDT Office Visit Neurology [facility] [address] [place] [address] Kim Iglesias PA-C [address] [place] [address] 10/26/2024 3:40 PM EST Office Visit Family Practice [facility] [address] [place] [address] Julio César Best, [address] [place] [address] Health Maintenance Due Date Last Done Comments DTaP,Tdap,and Td Vaccines (3 - Td or Tdap) 07/24/2031 07/24/2021, 10/29/2009 Sigmoidoscopy Discontinued 05/31/2000 Fecal Occult Blood Test Discontinued 07/01/20, 06/19/2001, 04/10/2000 Pneumococcal Vaccine: 65+ Years Completed 04/02/2019, 09/08/2017, 04/23/2015, Additional history exists Zoster Vaccines Completed 12/30/2020, 09/17, 03/31/2019, Additional history exists Albumin/Creatinine Ratio Discontinued 07/21/2022 COVID-19 Vaccine Completed 07/30/2023, , 11/15/2020 Influenza Vaccine (FLU shot) Completed 07/30/2023, 06/19/2022, 07/15/2021, Additional history exists COLONOSCOPY-EVERY 5 YRS AGES 18-100 Discontinued 10/21/2023, 10/21/2023, 06/24/2018, Additional history exists Colonoscopy Discontinued 10/21/2023, 01/2024, 06/24/2018, Additional history exists Colorectal Cancer Screening Discontinued Cologuard Discontinued GARDASIL-HPV IMMUNIZATION SERIES Aged Out No longer eligible based on patient's age to complete this topic Hepatitis B Aged Out No longer eligi ble based on patient's age to complete this topic MENINGOCOCCAL (MENACTRA/MENVEO) Aged Out No longer eligible based on patient's age to complete this topic documented as of this encounter Medical Devices Not on filedocumented as of this encounter Care Teams Customer Service Leader Relationship Specialty Start Date End Date Julio César Best DO [address] [place] [address] PCP - General Family Medicine 02/23/20 documented as of this encounter
--- OUTSIDE RECORDS SUMMARY | 2024-02-01 03:57 | External Medical Summary | Summary of Care ---
Author Name Unknown Organization [facility] Address [address] [facility] [place] [address] Phone [phone] Care Team Providers Care Steel Welder Name Role Phone Julio César Best DO Primary Care Provider Reason for Visit * Reason Onset Date Comments Advice 01/25/2024 Encounter Details Date Type Department Care Team (Late st Contact Info) Description 01/25/2024 Telephone Family Practice [facility] [address] [place] [address] Julio César Best DO [address] [place] [address] Advice Allergies Active Allergy Reactions Criticality Noted Date Comments Simvastatin 06/18/1998 Elevated CPK documented as of this encounter (statuses as of 01/28/2024) Medications Medication Sig Dispensed Refills Start Date [...] as of this encounter (statuses as of 01/28/2024) Active Problems Problem Noted Date Diagnosed Date [...] as of this encounter (statuses as of 01/28/2024) Resolved Problems Problem Noted Date Diagnosed Date Resolved Date Kidney disease, chronic, sta ge III (GFR 30-59 ml/min) 12/11/2013 10/15/2022 Overview: Per CKD protocol #1 Chest pain 09/25/2003 12/29/2011 Corns and callosities 09/16/19992011 Mixed dyslipidemia 08/21/1997 9 Overview: Per Lipid Taxonomy. documented as of this encounter (statuses as of 01/28/2024) Immunizations Name Administration Dates Next Due COVID-19 [...] encounter Miscellaneous Notes * Telephone Encounter - Benja Rios, MERCEDES - 01/28/2024 11:56 AM EDT Patient has been notified of the message. Patient has no further questions. * Telephone Encounter - Khadijah Helm LPN - 01/27/2024 12:06 PM EDT could not find her [employer] card. I tried calling Medical management number: S/w [facility] rep who told me to use CODE [id number] Home Health Aide, per hr. Include this code in letter, pt info, ID # and provider info. All included in letter, redone. Signed by Dr. Best, and faxed to [phone] along with OV notes. Confirmed fax went through. Successful transmission. Called Myriam. Aware that has been done. She will need to follow up with [facility] management and ask for "auths" to check status of authorization. says she will follow up and keep us posted. * Telephone Encounter - Khadijah Helm LPN - 01/27/2024 11:32 AM EDT Called , aware letter done, but we don't have the number to call [facility]. 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 Needs insurance letter that he needs in home care, for assisted daily living. For ADLs, meal prep. Home Health aide Family [facility] in [place] has aides. [phone] [facility] [phone] [facility] [phone] [facility] [phone] [facility] [phone] This was the list of home health agency that have aides. Just needs letter for insurance to say that pt has Alzheimers patient and since she is primary person doing daily care, they need this letter from PCP. [employer] "number on card". No fax number for [...] Please advise. * Telephone Encounter - Magda Gandara OSA - 01/25/2024 2:26 PM EDT Myriam [...] Description 03/30/2024 8:20 AM EDT Office Visit [facility] [address] [place] [address] Julio César Best, [address] [place] [address] 07/19/2024 1:20 PM EDT Office Visit Neurology [facility] [address] [facility] [place] [address] Kim Iglesias PA-C [address] [facility] [place] [address] 10/26/2024 3:40 PM EST Office Visit [facility] [address] [place] [address] Julio César Best, [address] [place] [address] Health Maintenance Due Date Last Done Comments [...] filedocumented as of this encounter Care Teams Steel Welder Relationship Specialty Start Date End Date Julio César Best DO [address] [place] [address] PCP - General Family Medicine 02/23/20 documented as of this encounter
--- OUTSIDE RECORDS SUMMARY | 2024-02-01 03:57 | External Medical Summary | Summary of Care ---
Author Name Unknown Organization [facility] Address [address] [place] [address] Phone [phone] Care Team Providers Care Pocket Maker Name Role Phone Julio César Best Primary Care Provider Reason for Visit * Reason Onset Date Comments Advice 01/21/2024 Encounter Details Date Type Department Care Team (Late st Contact Info) Description 01/21/2024 Telephone Neurology [facility] [address] [facility] [place] [address] Services, Scheduling [address] [place] [address] Advice Allergies Active Allergy Reactions Criticality Noted Date Comments Simvastatin 06/18/1998 Elevated CPK documented as of this encounter (statuses as of 01/25/2024) Medications Medication Sig Dispensed Refills Start Date [...] on 01/22/2024 Sildenafil Citrate 100 MG Oral TabletIndications:I mpotence [...] 01/22/2024 Donepezil HCl 10 MG Oral Tablet (Aricept)Indication s:Dementia without behavioral disturbance (HCC) take 1 tablet by mouth IN THE MORNING with THE LARGEST MEAL OF THE DAY 90 Tablet 1 11/03/2023 Active Metamucil Free & Natural 43 % Oral Powder (Psyllium) Take by mouth. 0 Act max Memantine HCl 10 MG Oral Tablet (Namenda)Indication s:Major neurocognitive disorder (HCC) take 1 tablet by mouth twice a day WITH MORNING AND EVENING MEALS 60 Tablet 5 12/16/2023 Active Loratadine 10 MG Oral Tablet (Claritin) Take 1 Tablet by mouth daily as needed. 0 12/14/2023 Active traZODone HCl 150 MG Oral Tablet (Desyrel)Indication s:Insomnia take 1 tablet by mouth at bedtime 90 Tablet 1 12/23/2023 Active Apoaequorin 20 MG Oral Capsule Take by mouth daily. 0 01/22/20 24 Discontinu ed(Medicat ion List Clean Up) documented as of this encounter (statuses as of 01/25/2024) Active Problems Problem Noted Date Diagnosed Date [...] as of this encounter (statuses as of 01/25/2024) Resolved Problems Problem Noted Date Diagnosed Date Resolved Date Kidney disease, chronic, sta ge III (GFR 30-59 ml/min) 12/11/2013 10/15/2022 Overview: Per CKD protocol #1 Chest pain 09/25/2003 12/29/2011 Corns and callosities 09/16/19992011 Mixed dyslipidemia 08/21/1997 9 Overview: Per Lipid Taxonomy. documented as of this encounter (statuses as of 01/25/2024) Immunizations Name Administration Dates Next Due COVID-19 [...] encounter Miscellaneous Notes * Telephone Encounter - Leyla Ma, MED ASSIST - 01/25/2024 1:19 PM EDT Let detailed v/m letting pt/ know that referral should be placed by Dr who is doing pt's knee surgery. * Telephone Encounter - Whitney Vences OSA - 01/25/2024 9:18 AM EDT Pt Mariana calling regarding below please call back as soon as possible at [phone] * Telephone Encounter - Leyla Ma MED ASSIST - 01/24/2024 4:01 PM EDT Who is doing the knee surgery they should be ordering this. KK Sent pt MyG * Telephone Encounter - Leyla Ma MED ASSIST - 01/24/2024 1:13 PM EDT Pt's spouse is requesting referral for home health. Please advise * Telephone Encounter - Jocelynn Paige OSA - 01/24/2024 9:10 AM EDT Patient's , Myriam is returning the call, she can be reached at [phone]. * Telephone Encounter - Vicky Elliott LPN - 01/21/2024 3:55 PM EDT Lmom for pts spouse * Telephone Encounter - Benny Kessler OSA - 01/21/2024 12:12 PM EDT Who is calling (not pt) name: Myriam relationship: Spouse Provider patient is established with: Kim Iglesias What is the concern or issue they are having: Pt's calling requesting a prior auth to be sent into [employer] for home health. She states she has knee surgery coming up on 01/30 and would greatly appreciate if this could be done as soon as possible. How long has the issue been going on: n/a Any additional details to add: no Pts phone number for nurse to call back: [phone] If forms need to be faxed- Please provide fax number: n/a documented in this encounter Plan of Treatment Upcoming Encounters Date Type Department Care Team (Late st Contact Info) Description 03/30/2024 8:20 AM EDT Office Visit [facility] [address] [place] [address] Julio César Best, [address] [place] [address] 07/19/2024 1:20 PM EDT Office Visit Neurology [facility] [address] [facility] [place] [address] Kim Iglesias PA-C [address] [facility] [place] [address] 10/26/2024 3:40 PM EST Office Visit [facility] [address] [place] [address] Julio César Best, [address] [place] [address] Health Maintenance Due Date Last Done Comments DTaP,Tdap,and Td Vaccines (3 - Td or Tdap) 07/24/2031 07/24/2021, 10/29/2009 Sigmoidoscopy Discontinued 05/31/2000 Fecal Occult Blood Test Discontinued 07/01/20 02, 06/19/2001, 04/10/2000 Pneumococcal Vaccine: 65+ Years Completed [...] filedocumented as of this encounter Care Teams Pocket Maker Relationship Specialty Start Date End Date Julio César Best DO [address] [place] [address] PCP - General Family Medicine 02/23/20 documented as of this encounter
--- OUTSIDE RECORDS SUMMARY | 2024-02-01 03:57 | External Medical Summary | Summary of Care ---
Author Name Unknown Organization [facility] Address [address] [place] [address] Phone [phone] Care Team Providers Care Human Resources Training Manager Name Role Phone Julio César Best Primary Care Provider Reason for Visit * Reason Onset Date Comments Advice 01/21/2024 Encounter Details Date Type Department Care Team (Late st Contact Info) Description 01/21/2024 Telephone [facility]rology [facility] [place] [address] Services, Scheduling [address] [place] [address] Advice Allergies Active Allergy Reactions Criticality Noted Date Comments Simvastatin 06/18/1998 Elevated CPK documented as of this encounter (statuses as of 01/24/2024) Medications Medication Sig Dispensed Refills Start Date [...] as of this encounter (statuses as of 01/24/2024) Active Problems Problem Noted Date Diagnosed Date [...] as of this encounter (statuses as of 01/24/2024) Resolved Problems Problem Noted Date Diagnosed Date Resolved Date Kidney disease, chronic, sta ge III (GFR 30-59 ml/min) 12/11/2013 10/15/2022 Overview: Per CKD protocol #1 Chest pain 09/25/2003 12/29/2011 Corns and callosities 09/16/19992011 Mixed dyslipidemia 08/21/1997 Overview: Per Lipid Taxonomy. documented as of this encounter (statuses as of 01/24/2024) Immunizations Name Administration Dates Next Due COVID-19 [...] Encounter - Leyla Ma, MED ASSIST - 01/24/2024 4:01 PM EDT [...] the call, she can be reached at [phone]. * Telephone Encounter - Vicky Elliott LPN - 01/21/2024 3:55 PM EDT Lmom for pts spouse * Telephone Encounter - Benny Kessler OSA - 01/21/2024 12:12 PM EDT Who is calling (not pt) name: Myriam relationship: Spouse Provider patient is established with: Kim Iglesias What is the concern or issue they are having: Pt's calling requesting a prior auth to be sent into [employer] [place] insurance for home health. She states she has knee surgery coming up on 01/30 and would greatly appreciate if this could be done as soon as possible. How long has the issue been going on: n/a Any additional details to add: no Pts phone number for nurse to call back: [phone] If forms need to be faxed- Please provide fax number: n/a documented in this encounter Plan of Treatment Upcoming Encounters Date Type Department Care Team (Late st Contact Info) Description 03/30/2024 8:20 AM EDT Office Visit [address] [place] [address] Julio César Best, DO [address] [place] [address] 07/19/2024 1:20 PM EDT Office Visit [facility] [address] [facility] [place] [address] Kim Iglesias PA-C [address] [facility] [place] [address] 10/26/2024 3:40 PM EST Office Visit [facility] [address] [place] [address] Julio César Best, [address] [place] [address] Health Maintenance Due Date Last Done Comments [...] filedocumented as of this encounter Care Teams Human Resources Training Manager Relationship Specialty Start Date End Date Julio César Best DO [address] [place] [address] PCP - General Family Medicine 02/23/20 documented as of this encounter
--- OUTSIDE RECORDS SUMMARY | 2024-02-01 03:57 | External Medical Summary | Summary of Care ---
Author Name Unknown Organization [facility] Address [address] [place] [address] Phone [phone] Care Team Providers Care Marketing Operations Intern Name Role Phone Julio César Best Primary Care Provider Reason for Visit * Reason Onset Date Comments Advice 01/21/2024 Encounter Details Date Type Department Care Team (Late st Contact Info) Description 01/21/2024 Telephone Neurology [facility] [address] [facility] [place] [address] Services, Scheduling [address] [place] [address] Advice Allergies Active Allergy Reactions Criticality Noted [...] - Leyla Ma, MED ASSIST - 01/24/2024 1:13 PM EDT Pt's spouse is requesting referral for home health. Please advise * Telephone Encounter - Jocelynn Paige OSA - 01/24/2024 9:10 AM EDT Patient's , Myriam is returning the call, she can be reached at [phone]. * Telephone Encounter - Vicky Elliott LPN - 01/21/2024 3:55 PM EDT Lmom for pts spouse * Telephone Encounter - Benny Kessler OSA - 01/21/2024 12:12 PM EDT Who is calling (not pt) name: Myriam relationship: Spouse Provider patient is established with: Kim Iglesias What is the concern or issue they are having: Pt's calling requesting a prior auth to be sent into [employer] for home health. She states she has knee surgery coming up on 01/30 and would greatly appreciate if this could be done as soon as possible. How long has the issue been going on: n/a Any additional details to add: no Pts phone number for nurse to call back: [phone] If forms need to be faxed- Please provide fax number: n/a documented in this encounter Plan of Treatment Upcoming Encounters Date Type Department Care Team (Late st Contact Info) Description 03/30/2024 8:20 AM EDT [facility] [address] [place] [address] Julio César Best DO [address] [place] [address] 07/19/2024 1:20 PM EDT Office Visit Neurology [facility] [address] [facility] [place] [address] Kim Iglesias PA-C [address] [place] [address] 10/26/2024 3:40 PM EST Office Visit Family [facility] [address] [place] [address] Julio César Best, [address] [place] [address] Health Maintenance Due Date Last Done Comments [...] of this encounter Care Teams Marketing Operations Intern Relationship Specialty Start Date End Date Julio César Best DO [address] [place] [address] PCP - General Family Medicine 02/23/20 documented as of this encounter
--- OUTSIDE RECORDS SUMMARY | 2024-02-01 03:57 | External Medical Summary | Summary of Care ---
Author Name Unknown Organization [facility] Address [address] [place] [address] Phone [phone] Care Team Providers Care Geophysical Support Specialist Name Role Phone Julio César Best Primary Care Provider Reason for Visit * Reason Onset Date Comments Advice 01/21/2024 Encounter Details Date Type Department Care Team (Late st Contact Info) Description 01/21/2024 Telephone Neurology [facility] [address] [facility] [place] [address] Services, Scheduling [address] [place] [address] Advice Allergies Active Allergy Reactions Criticality Noted [...] Miscellaneous Notes * Telephone Encounter - Whitney Vences OSA - 01/25/2024 9:18 AM EDT Pt Mariana calling regarding below please call back as soon as possible at [phone] * Telephone Encounter - Leyla Ma MED [...] the call, she can be reached at [phone]. * Telephone Encounter - Vicky Elliott LPN - 01/21/2024 3:55 PM EDT Lmom for pts spouse * Telephone Encounter - Benny Kessler OSA - 01/21/2024 12:12 PM EDT Who is calling (not pt) name: Myriam relationship: Spouse Provider patient is established with: Kim Iglesias What is the concern or issue they are having: Pt's calling requesting a prior auth to be sent into [employer] insurance for home health. She states she has knee surgery coming up on 01/30 and would greatly appreciate if this could be done as soon as possible. How long has the issue been going on: n/a Any additional details to add: no Pts phone number for nurse to call back: [phone] If forms need to be faxed- Please provide fax number: n/a documented in this encounter Plan of Treatment Upcoming Encounters Date Type Department Care Team (Late st Contact Info) Description 03/30/2024 8:20 AM EDT [facility] Visit [facility] [address] [place] [address] Julio César Best, [address] [place] [address] 07/19/2024 1:20 PM EDT Office Visit [facility] [address] [facility] [place] [address] Kim Iglesias PA-C [address] [facility] [place] [address] 10/26/2024 3:40 PM EST [facility] Visit [facility] [address] [place] [address] Julio César Best DO [address] [place] [address] Health Maintenance Due Date Last Done Comments [...] filedocumented as of this encounter Care Teams Geophysical Support Specialist Relationship Specialty Start Date End Date Julio César Best DO [address] [place] [address] PCP - General Family Medicine 02/23/20 documented as of this encounter
--- OUTSIDE RECORDS SUMMARY | 2024-02-01 03:57 | External Medical Summary | Summary of Care ---
Author Name Unknown Organization [facility] Address [address] [place] [address] Phone [phone] Care Team Providers Care Long Term Name Role Phone Julio César Best Primary Care Provider Reason for Visit * Reason Onset Date Comments Advice 01/21/2024 Encounter Details Date Type Department Care Team (Late st Contact Info) Description 01/21/2024 Telephone Neurology [facility] [address] [facility] [place] [place] [address] Services, Scheduling [address] [place] [address] Advice Allergies Active Allergy Reactions Criticality Noted [...] the call, she can be reached at [phone]. * Telephone Encounter - Vicky Elliott LPN - 01/21/2024 3:55 PM EDT Lmom for pts spouse * Telephone Encounter - Benny Kessler OSA - 01/21/2024 12:12 PM EDT Who is calling (not pt) name: Myriam relationship: Spouse Provider patient is established with: Kim Iglesias What is the concern or issue they are having: Pt's calling requesting a prior auth to be sent into [employer] for home health. She states she has knee surgery coming up on 01/30 and would greatly appreciate if this could be done as soon as possible. How long has the issue been going on: n/a Any additional details to add: no Pts phone number for nurse to call back: [phone] If forms need to be faxed- Please provide fax number: n/a documented in this encounter Plan of Treatment Upcoming Encounters Date Type Department Care Team (Late st Contact Info) Description 03/30/2024 8:20 AM EDT Office Visit Family Practice [facility] [address] [place] [address] Julio César Best DO [address] [place] [address] 07/19/2024 1:20 PM EDT Office Visit Neurology [facility] [address] [facility] [place] [address] Kim Iglesias PA-C [address] [facility] [place] [address] 10/26/2024 3:40 PM EST Office Visit Family [facility] [address] [place] [address] Julio César Best, [address] [place] [address] Health Maintenance Due Date Last Done Comments [...] filedocumented as of this encounter Care Teams Long Term Relationship Specialty Start Date End Date Julio César Best DO [address] [place] [address] PCP - General Family Medicine 02/23/20 documented as of this encounter
--- OUTSIDE RECORDS SUMMARY | 2024-02-01 03:58 | External Medical Summary | Summary of Care ---
Author Name Unknown Organization [facility] Address [address] [place] [address] Phone [phone] Care Team Providers Care Bar Attendant Name Role Phone Julio César Best Primary Care Provider Reason for Visit * Reason Onset Date Comments Advice 01/21/2024 Encounter Details Date Type Department Care Team (Late st Contact Info) Description 01/21/2024 Telephone Neurology [facility] 200 [facility] [place] [address] Services, Scheduling [address] [place] [address] Advice Allergies Active Allergy Reactions Criticality Noted [...] the call, she can be reached at [phone]. * Telephone Encounter - Vicky Elliott LPN - 01/21/2024 3:55 PM EDT Lmom for pts spouse * Telephone Encounter - Benny Ksesler OSA - 01/21/2024 12:12 PM EDT Who is calling (not pt) name: Myriam relationship: Spouse Provider patient is established with: Kim Iglesias What is the concern or issue they are having: Pt's calling requesting a prior auth to be sent into [employer] for home health. She states she has knee surgery coming up on 01/30 and would greatly appreciate if this could be done as soon as possible. How long has the issue been going on: n/a Any additional details to add: no Pts phone number for nurse to call back: [phone] If forms need to be faxed- Please provide fax number: n/a documented in this encounter Plan of Treatment Upcoming Encounters Date Type Department Care Team (Late st Contact Info) Description 03/30/2024 8:20 AM EDT Office Visit Family Practice [facility] [address] [place] [address] Julio César Best DO [address] [place] [address] 07/19/2024 1:20 PM EDT Office Visit Neurology [facility] [address] [facility] [place] [address] Kim Iglesias PA-C [address] [facility] [place] [address] 10/26/2024 3:40 PM EST Office Visit Family [facility] [address] [place] [address] Julio César Best, [address] [place] [address] Health Maintenance Due Date Last Done Comments [...] filedocumented as of this encounter Care Teams Bar Attendant Relationship Specialty Start Date End Date Julio César Best DO [address] [place] [address] PCP - General Family Medicine 02/23/20 documented as of this encounter
--- OUTSIDE RECORDS SUMMARY | 2024-02-01 03:58 | External Medical Summary | Summary of Care ---
Author Name Unknown Organization [facility] Address [address] [place] [address] Phone [phone] Care Team Providers Care Electric Power Superintendent Name Role Phone Julio César Best Primary Care Provider Reason for Visit * Reason Comments Ear Pain X 2 days, right ear Cough Productive - white Encounter Details Date Type Department Care Team (Latest Contact Info) Description 01/22/2024 4:00 PM EDT Convenient Care Visit [facility] [address] [place] [address] Enriqueta Reese, IMELDA [address] [facility] [place] [address] [place] [address] Impacted cerumen of left ear* Allergies Active Allergy Reactions Criticality Noted Date Comments Simvastatin 06/18/1998 Elevated CPK documented as of this encounter (statuses as of 01/22/2024) Medications Medication Sig Dispensed Refills Start Date [...] as of this encounter (statuses as of 01/22/2024) Active Problems Problem Noted Date Diagnosed Date [...] as of this encounter (statuses as of 01/22/2024) Resolved Problems Problem Noted Date Diagnosed Date Resolved Date Kidney disease, chronic, sta ge III (GFR 30-59 ml/min) 12/11/2013 10/15/2022 Overview: Per CKD protocol #1 Chest pain 09/25/2003 12/29/2011 Corns and callosities 09/16/19992011 Mixed dyslipidemia 08/21/1997 9 Overview: Per Lipid Taxonomy. documented as of this encounter (statuses as of 01/22/2024) Immunizations Name Administration Dates Next Due COVID-19 [...] Smoking Tobacco: Never Smokeless Tobacco: Current Chew Tobacco Cessation:Ready to Q uit: Not Asked; Counseling Given: Not Answered Comments:one can lasts 3-4 day Alcohol Use Standard Drinks/Week Comments Yes 0 [...] Sign Reading Time Taken Comments Blood Pressure 134/76 01/22/2024 2:38 PM EDT Pulse 77 01/22/2024 2:38 PM EDT Temperature 36.8 C (98.3 F) 01/22/2024 2:38 PM ED T Respiratory Rate 18 01/22/2024 2:38 PM EDT Oxygen Saturation 95% 01/22/2024 2:38 PM EDT Inhaled Oxygen Concentration - - Weight 90.7 kg (199 lb 14.4 oz) 01/22/2024 2:38 PM EDT Height - - Body Mass Index 31.31 10/21/2023 9:03 AM EST documented in this encounter Progress Notes * Enriqueta Reese CRNP - 01/22/2024 3:07 PM EDT Convenient Care Basic Exam Lakeisha De Leon is a 73 year old year old male who presents for evaluation of : left ear pain, has impacted cerumen, will gently irrigate, no other complaints Associated Symptoms: Admits to: no other complaints Denies: no other complaints REVIEW OF SYSTEMS: See HPI for pertinent positives and negatives. Patient denies addtional complaints. 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 Depressive disorder, not elsewhere classified Depression Head injury, unspecified Mining Accident, Hospitalized Past Surgical History: Procedure Laterality Date COLONOSCOPY THRU STOMA, W/BIOPSY 07/2000 benign inflamation bu Kondylis, recc yearly hemocults and q 5yr flex sig COLONOSCOPY W/ LESION REMOVAL, SNARE 02/26/2010 done diverticulosis, one 8mm adenomatous polyp COLONOSCOPY, DIAGNOSTIC (RECTUM) 04/24/2013 COLONOSCOPY FLEXIBLE PROXIMAL DIAGNOSTIC performed by Marco A Mortensen MD at ENDOSCOPY [facility] COLONOSCOPY, DIAGNOSTIC (RECTUM) 06/24/2018 diverticulosis, repeat 5 yrs/COLONOSCOPY FLEXIBLE PROXIMAL DIAGNOSTIC performed by Renee Trevizo MD at ENDOSCOPY [facility] COLONOSCOPY, DIAGNOSTIC (RECTUM) 10/21/2023 diverticulosis/biopsies show adenomatous polyps/COLONOSCOPY FLEXIBLE PROXIMAL DIAGNOSTIC performed by Renee Trevizo MD at ENDOSCOPY [facility] EGD, FLEXIBLE, DIAGNOSTIC 09/30/2018 duodenal ulcer, + H pylori infection/ESOPHAGOGASTRODUODENOSCOPY (EGD), FLEXIBLE, TRANSORAL, DIAGNOSTIC performed by Ralph Bruce MD at ENDOSCOPY [facility] KNEE ARTHROSCOPY/MENISCECTOMY 1998 ps sports med REMOVE CATARACT, INSERT LENS PROSTH 08/18/2007 REPAIR RUPTURED ROTATOR CUFF, CHRON 07/18/2006 Social History Tobacco Use Smoking status: Never Smokeless tobacco: Current Types: Chew Tobacco comments: one can lasts 3-4 day Substance Use Topics Alcohol use: Yes Comment: daily , 2-3 beers daily Vaping/E-Cigarette Use Vaping/E-Cigarette Use Never User Vaping/E-Cigarette Substances Vaping/E-Cigarette Devices Patient Active Problem List Diagnosis Code Major [...] Trigger middle finger of right hand M65.331 Review of patient's allergies indicates: Allergen Reactions Simvastatin Elevated CPK Current Outpatient Medications Medication Sig Dispense Refill VITAMIN D3 1000 UNITS PO TABS 2 tabs daily Vitamin C 100 MG Oral Tablet Take 1 Tablet by mouth in the morning. QC Multi-Sammy 50 & Over Oral Tablet Take by mouth . Sildenafil Citrate 100 MG Oral Tablet take 1 tablet by mouth 1 TO 4 HOURS BEFORE INTERCOURSE NO MORE THAN 1 DOSE IN 24 HOURS 10 Tablet 5 Atorvastatin Calcium 40 MG Oral Tablet (Lipitor) Take 1 Tablet by mouth in the morning. 90 Tablet 3 Donepezil HCl 10 MG Oral Tablet (Aricept) take 1 tablet by mouth IN THE MORNING with THE LARGEST MEAL OF THE DAY 90 Tablet 1 Metamucil Free & Natural 43 % Oral Powder (Psyllium) Take by mouth. Memantine HCl 10 MG Oral Tablet (Namenda) take 1 tablet by mouth twice a day WITH MORNING AND EVENING MEALS 60 Tablet 5 Loratadine 10 MG Oral Tablet (Claritin) Take 1 Tablet by mouth daily as needed. traZODone HCl 150 MG Oral Tablet (Desyrel) take 1 tablet by mouth at bedtime 90 Tablet 1 Ammonium Lactate 12 % External Cream Apply topically to affected area 2 times a day. To affected area. (Patient not taking: Reported on 01/22/2024) 385 g 11 Dicyclomine HCl 10 MG Oral Capsule (Bentyl) take 1 capsule by mouth four times a day (BEFORE FOOD and at bedtime) for abdominal pain (Patient not taking: Reported on 01/22/2024) 120 Capsule 0 No current facility-administered medications for this visit. Nursing Notes and Vital Signs reviewed. PHYSICAL EXAM: VITALS: BP 134/76 | Pulse 77 | Temp 36.8 C (98.3 F) (Tympanic) | Resp 18 | Wt 90.7 kg (199 lb 14.4 oz) | SpO2 95% | BMI 31.31 kg/m | BSA 2.07 m GENERAL: alert, healthy, no distress, well nourished, and well developed HEAD: Normocephalic, No masses, lesions, tenderness or abnormalities EARS: External ears normal, Canals clear, ear wax in the left ear, right ear is clear NOSE: no mucosal erythema, no mucosal edema, no purulent discharge OROPHARYNX: no exudate, no erythema, lips, buccal mucosa, and tongue normal, and mucous membranes are moist NECK: supple, no adenopathy HEART: regular rate & rhythm LUNGS: chest symmetric with normal AP diameter, lungs clear to auscultation NEURO: alert & oriented x 3 with fluent speech, gait normal, dementia SKIN: skin color, texture, turgor are normal, no rashes or significant lesions Assessment: After irrigation, the ear was clear, medium amount of wax removed without any problem Impacted cerumen of left ear (Primary) IMELDA [place] [address] documented in this encounter Nursing Notes * Tiffany Milligan LPN - 01/22/2024 2:39 PM EDT Chief Complaint Patient presents with Ear Pain X 2 days, right ear Cough Productive - white documented in this encounter Plan of Treatment Upcoming Encounters Date Type Department Care Team (Late st Contact Info) Description 03/30/2024 8:20 AM EDT Office Visit [facility] [address] [place] [address] Julio César Best, [address] [place] [address] 07/19/2024 1:20 PM EDT Office Visit Neurology [facility] [address] [facility] [place] [address] Kim Iglesias PA-C [address] [facility] [place] [address] 10/26/2024 3:40 PM EST Office Visit [facility] [address] [place] [address] Julio César Best, [address] [place] [address] Health Maintenance Due Date Last Done Comments Depression Screening 07/21/2023 07/21/2022 DTaP,Tdap,and Td Vaccines (3 - Td or [...] as of this encounter Visit Diagnoses Diagnosis Impacted cerumen of left ear- Primary Impacted cerumen documented in this encounter Care Teams Electric Power Superintendent Relationship Specialty Start Date End Date Julio César Best DO [address] [place] [address] PCP - General Family Medicine 02/23/20 documented as of this encounter"
--- OUTSIDE RECORDS SUMMARY | 2024-02-01 03:58 | External Medical Summary | Summary of Care ---
Author Name Unknown Organization [facility] Address [address] [place] [address] Phone [phone] Care Team Providers Care Manufacturing Inspector Name Role Phone Julio César Best Primary Care Provider Reason for Visit * Reason Comments Ear Pain X 2 days, right ear Cough Productive - white Encounter Details Date Type Department Care Team (Latest Contact Info) Description 01/22/2024 4:00 PM EDT Convenient Care Visit [facility] [address] [place] [address] Enriqueta Reese, IMELDA [address] [facility] [address] [place] [address] Impacted cerumen of left ear* Allergies Active [...] by Marco A Mortensen MD at ENDOSCOPY [facility] COLONOSCOPY, DIAGNOSTIC (RECTUM) 06/24/2018 diverticulosis, repeat 5 yrs/COLONOSCOPY FLEXIBLE PROXIMAL DIAGNOSTIC performed by Renee Trevizo MD at ENDOSCOPY [facility] COLONOSCOPY, DIAGNOSTIC (RECTUM) 10/21/2023 diverticulosis/biopsies show adenomatous polyps/COLONOSCOPY FLEXIBLE PROXIMAL DIAGNOSTIC performed by Renee Trevizo MD at ENDOSCOPY [facility] EGD, FLEXIBLE, DIAGNOSTIC 09/30/2018 duodenal ulcer, + H pylori infection/ESOPHAGOGASTRODUODENOSCOPY (EGD), FLEXIBLE, TRANSORAL, DIAGNOSTIC performed by Ralph Bruce MD at ENDOSCOPY [facility] KNEE ARTHROSCOPY/MENISCECTOMY 1998 ps sports med REMOVE [...] cerumen of left ear (Primary) IMELDA [place] [address] documented in this encounter Nursing Notes * Tiffany Milligan LPN - 01/22/2024 2:39 PM EDT Chief Complaint Patient presents with Ear Pain X 2 days, right ear Cough Productive - white documented in this encounter Plan of Treatment Upcoming Encounters Date Type Department Care Team (Late st Contact Info) Description 03/30/2024 8:20 AM EDT Office Visit [facility] [address] [place] [address] Julio César Best, [address] [place] [address] 07/19/2024 1:20 PM EDT Office Visit Neurology [facility] [address] [facility] [place] [address] Kim Iglesias PA-C [address] [facility] [place] [address] 10/26/2024 3:40 PM EST Office Visit [facility] [address] [place] [address] Julio César Best, [address] [place] [address] Health Maintenance Due Date Last Done Comments [...] cerumen documented in this encounter Care Teams Manufacturing Inspector Relationship Specialty Start Date End Date Julio César Best DO [address] [place] [address] PCP - General Family Medicine 02/23/20 documented as of this encounter"
--- OUTSIDE RECORDS SUMMARY | 2024-02-01 03:58 | External Medical Summary | Summary of Care ---
Author Name Unknown Organization [facility] Address [address] [place] [address] Phone [phone] Care Team Providers Care Car Wash Manager Name Role Phone Julio César Best Primary Care Provider Reason for Visit * Reason Onset Date Comments Ear Pain X 2 days, right ear Cough Productive - whi te Ear Flush 01/22/2024 Encounter Details Date Type Department Care Team (Latest Contact Info) Description 01/22/2024 4:00 PM EDT Convenient Care Visit [facility] [address] [place] [address] Enriqueta Reese CRNP [address] [facility] [address] [place] [address] Impacted cerumen of left ear*; Impacted cerumen, left ear Allergies Active Allergy Reactions Criticality Noted Date [...] documented in this encounter Progress Notes * Nawaf Milligan LPN - 01/22/2024 3:35 PM EDT Ear Irrigation Procedure: Irrigation Solution: Up to 200 ml of solution may be instilled with one Procedure Solution Used: Water 180 ml/ Hydrogen Peroxide 20 ml (Mixed) Ear(s) Irrigated: Left Response: Clear Fluid Returned, Particulate Returned, and Patient Tolerated Well Nawaf Milligan LPN * Enriqueta Reese CRNP - 01/22/2024 3:07 [...] by Marco A Mortensen MD at [facility]OSCOPY [facility] COLONOSCOPY, DIAGNOSTIC (RECTUM) 06/24/2018 diverticulosis, repeat 5 yrs/COLONOSCOPY FLEXIBLE PROXIMAL DIAGNOSTIC performed by Renee Trevizo MD at ENDOSCOPY [facility] COLONOSCOPY, DIAGNOSTIC (RECTUM) 10/21/2023 diverticulosis/biopsies show adenomatous polyps/COLONOSCOPY FLEXIBLE PROXIMAL DIAGNOSTIC performed by Renee Trevizo MD at ENDOSCOPY [facility] EGD, FLEXIBLE, DIAGNOSTIC 09/30/2018 duodenal ulcer, + H pylori infection/ESOPHAGOGASTRODUODENOSCOPY (EGD), FLEXIBLE, TRANSORAL, DIAGNOSTIC performed by Ralph Bruce MD at ENDOSCOPY [facility] KNEE ARTHROSCOPY/MENISCECTOMY 1998 ps sports med REMOVE [...] cerumen of left ear (Primary) IMELDA [place] [facility] [address] [place] [address] documented in this encounter Nursing Notes * Nawaf Milligan LPN - 01/22/2024 2:39 PM EDT Chief Complaint Patient presents with Ear Pain X 2 days, right ear Cough Productive - white documented in this encounter Miscellaneous Notes * Addendum Note - Nawaf Milligan LPN - 01/22/2024 3:36 PM EDTAddended by: NAWAF MILLIGAN on: 01/22/2024 03:36 PM Modules accepted: Orders documented in this encounter Plan of Treatment Upcoming Encounters Date Type Department Care Team (Late st Contact Info) Description 03/30/2024 8:20 AM EDT Office Visit [facility] [address] [place] [address] Julio César Best DO [address] [place] [address] 07/19/2024 1:20 PM EDT Office Visit [facility] [address] [facility] [place] [address] Kim Iglesias PA-C [address] [facility] [place] [address] 10/26/2024 3:40 PM EST Office Visit [facility] [address] [place] [place] [address] Julio César Best, [address] [place] [address] Scheduled Orders Name Type Priority Associated Diagnoses Orde r Schedule REMOVAL IMPACTED CERUMEN IRRIGATION/LAVAGE, UNILAT Procedures Routine Impacted cerumen of left ear Ordered: 01/22/2024 Health Maintenance Due Date Last Done Comments [...] cerumen of left ear- Primary Impacted cerumen Impacted cerumen, left ear documented in this encounter Care Teams Car Wash Manager Relationship Specialty Start Date End Date Julio César Best DO [address] [place] [address] PCP - General Family Medicine 02/23/20 documented as of this encounter"
--- OUTSIDE RECORDS SUMMARY | 2024-02-01 03:58 | External Medical Summary | Summary of Care ---
Author Name Unknown Organization [facility] Address [address] [place] [address] Phone [phone] Care Team Providers Care Space Systems Operations Manager Name Role Phone Julio César Best Primary Care Provider Reason for Visit * Reason Onset Date Comments Advice 01/21/2024 Encounter Details Date Type Department Care Team (Late st Contact Info) Description 01/21/2024 Telephone Neurology [facility] [address] [facility] [place] [address] Services, Scheduling [address] [place] [address] Advice Allergies Active Allergy Reactions Criticality Noted [...] encounter Miscellaneous Notes * Telephone Encounter - Jocelynn Paige OSA - 01/24/2024 9:10 AM EDT Patient's , Myriam is returning the call, she can be reached at [phone]. * Telephone Encounter - Vicky Elliott LPN - 01/21/2024 3:55 PM EDT Lmom for pts spouse * Telephone Encounter - Benny Kessler OSA - 01/21/2024 12:12 PM EDT Who is calling (not pt) name: Myriam relationship: Spouse Provider patient is established with: Kim Iglesias What is the concern or issue they are having: Pt's calling requesting a prior auth to be sent into [facility] for home health. She states she has knee surgery coming up on 01/30 and would greatly appreciate if this could be done as soon as possible. How long has the issue been going on: n/a Any additional details to add: no Pts phone number for nurse to call back: [phone] If forms need to be faxed- Please provide fax number: n/a documented in this encounter Plan of Treatment Upcoming Encounters Date Type Department Care Team (Late st Contact Info) Description 03/30/2024 8:20 AM EDT Office Visit [facility] [address] [place] [address] Julio César Best DO [address] [place] [address] 07/19/2024 1:20 PM EDT Office Visit Neurology [facility] [place] [address] [facility] [place] [address] Kim Iglesias PA-C [address] [facility] [place] [address] 10/26/2024 3:40 PM EST Office Visit Family Practice [facility] [address] [place] [address] Julio César Best DO [address] [place] [address] Health Maintenance Due Date Last Done Comments [...] filedocumented as of this encounter Care Teams Space Systems Operations Manager Relationship Specialty Start Date End Date Julio César Best DO [address] [place] [address] PCP - General Family Medicine 02/23/20 documented as of this encounter
--- OUTSIDE RECORDS SUMMARY | 2024-02-01 03:58 | External Medical Summary | Summary of Care ---
Author Name Unknown Organization [facility] Address [address] [place] [address] Phone [phone] Care Team Providers Care Polisher Brass Name Role Phone Julio César Best Primary Care Provider Reason for Visit * Reason Onset Date Comments Ear Pain X 2 days, right ear Cough Productive - whi te Ear Flush 01/22/2024 Encounter Details Date Type Department Care Team (Latest Contact Info) Description 01/22/2024 4:00 PM EDT Convenient Care Visit [facility] [address] [place] [address] Enriqueta Reese CRNP [address] [facility] [address] [place] [address] Impacted cerumen of left ear*; Impacted cerumen, [...] by Marco A Mortensen MD at ENDOSCOPY [facility] COLONOSCOPY, DIAGNOSTIC (RECTUM) 06/24/2018 diverticulosis, repeat 5 yrs/COLONOSCOPY FLEXIBLE PROXIMAL DIAGNOSTIC performed by Renee Trevizo MD at ENDOSCOPY [facility] COLONOSCOPY, DIAGNOSTIC (RECTUM) 10/21/2023 diverticulosis/biopsies show adenomatous polyps/COLONOSCOPY FLEXIBLE PROXIMAL DIAGNOSTIC performed by Renee Trevizo MD at ENDOSCOPY [facility] EGD, FLEXIBLE, DIAGNOSTIC 09/30/2018 duodenal ulcer, + H pylori infection/ESOPHAGOGASTRODUODENOSCOPY (EGD), FLEXIBLE, TRANSORAL, DIAGNOSTIC performed by Ralph Bruce MD at ENDOSCOPY [facility] KNEE ARTHROSCOPY/MENISCECTOMY 1998 ps sports med [...] cerumen of left ear (Primary) IMELDA Catalan [facility] [address] [facility] [address] documented in this encounter Nursing Notes * [...] Description 03/30/2024 8:20 AM EDT Office Visit [facility] [address] [place] [address] Julio César Best DO [address] [place] [address] 07/19/2024 1:20 PM EDT Office Visit Neu[facility] [address] [facility] [place] [address] Kim Iglesias PA-C [address] [facility] [place] [address] 10/26/2024 3:40 PM EST Office Visit [facility] [address] [place] [address] Julio César Best, [address] [place] [address] Scheduled Orders Name Type Priority Associated Diagnoses [...] ear documented in this encounter Care Teams Polisher Brass Relationship Specialty Start Date End Date Julio César Best DO [address] [place] [address] PCP - General Family Medicine 02/23/20 documented as of this encounter"
--- OUTSIDE RECORDS SUMMARY | 2024-02-01 03:58 | External Medical Summary | Summary of Care ---
Author Name Unknown Organization [facility] Address [address] [place] [address] Phone [phone] Care Team Providers Care Supervisor Special Education Name Role Phone Julio César Best Primary Care Provider Reason for Visit * Reason Onset Date Comments Ear Pain X 2 days, right ear Cough Productive - whi te Ear Flush 01/22/2024 Encounter Details Date Type Department Care Team (Latest Contact Info) Description 01/22/2024 4:00 PM EDT Convenient Care Visit [facility] [address] [place] [address] Enriqueta Reese CRNP [address] [facility] [address] [place] [address] Impacted cerumen of left ear*; Impacted cerumen, [...] by Marco A Mortensen MD at ENDOSCOPY [facility] COLONOSCOPY, DIAGNOSTIC (RECTUM) 06/24/2018 diverticulosis, repeat 5 yrs/COLONOSCOPY FLEXIBLE PROXIMAL DIAGNOSTIC performed by Renee Trevizo MD at ENDOSCOPY [facility] COLONOSCOPY, DIAGNOSTIC (RECTUM) 10/21/2023 diverticulosis/biopsies show adenomatous polyps/COLONOSCOPY FLEXIBLE PROXIMAL DIAGNOSTIC performed by Renee Trevizo MD at ENDOSCOPY [facility] EGD, FLEXIBLE, DIAGNOSTIC 09/30/2018 duodenal ulcer, + H pylori infection/ESOPHAGOGASTRODUODENOSCOPY (EGD), FLEXIBLE, TRANSORAL, DIAGNOSTIC performed by Ralph Bruce MD at ENDOSCOPY [facility] KNEE ARTHROSCOPY/MENISCECTOMY 1998 ps sports med REMOVE [...] cerumen of left ear (Primary) IMELDA Catalan [facility] [address] [facility] [address] documented in this encounter Nursing Notes * [...] Description 03/30/2024 8:20 AM EDT Office Visit [facility] [address] [place] [address] Julio César Best DO [address] [place] [address] 07/19/2024 1:20 PM EDT Office Visit [facility] [address] [facility] [place] [address] Kim Iglesias PA-C 200 [facility] [place] [address] 10/26/2024 3:40 PM EST Office Visit [facility] [address] [place] [address] Julio César Best, [address] [place] [address] Scheduled Orders Name Type Priority Associated Diagnoses [...] ear documented in this encounter Care Teams Supervisor Special Education Relationship Specialty Start Date End Date Julio César Best DO [address] [place] [address] PCP - General Family Medicine 02/23/20 documented as of this encounter"
--- OUTSIDE RECORDS SUMMARY | 2024-02-01 03:58 | External Medical Summary | Summary of Care ---
Author Name Unknown Organization [facility] Address [address] [place] [address] Phone [phone] Care Team Providers Care Semiconductor Technician Name Role Phone Julio César Best Primary Care Provider Reason for Visit * Reason Onset Date Comments Ear Pain X 2 days, right ear Cough Productive - whi te Ear Flush 01/22/2024 Encounter Details Date Type Department Care Team (Latest Contact Info) Description 01/22/2024 4:00 PM EDT Convenient Care Visit [facility] [address] [place] [address] Enriqueta Reese CRNP [address] [facility] [address] [place] [address] Impacted cerumen of left ear*; Impacted cerumen, [...] Marco A Mortensen MD at ENDOSCOPY [facility] COLONOSCOPY, DIAGNOSTIC (RECTUM) 06/24/2018 diverticulosis, repeat 5 yrs/COLONOSCOPY FLEXIBLE PROXIMAL DIAGNOSTIC performed by Renee Trevizo MD at ENDOSCOPY [facility] COLONOSCOPY, DIAGNOSTIC (RECTUM) 10/21/2023 diverticulosis/biopsies show adenomatous polyps/COLONOSCOPY FLEXIBLE PROXIMAL DIAGNOSTIC performed by Renee Trevizo MD at ENDOSCOPY [facility] EGD, FLEXIBLE, DIAGNOSTIC 09/30/2018 duodenal ulcer, + H pylori infection/ESOPHAGOGASTRODUODENOSCOPY (EGD), FLEXIBLE, TRANSORAL, DIAGNOSTIC performed by Ralph Bruce MD at ENDOSCOPY [facility] KNEE ARTHROSCOPY/MENISCECTOMY 1998 ps sports med REMOVE [...] cerumen of left ear (Primary) IMELDA Catalan [facility] [address] [facility] [address] documented in this encounter Nursing Notes * [...] Description 03/30/2024 8:20 AM EDT Office Visit [facility] [address] [place] [address] Julio César Best DO [address] [place] [address] 07/19/2024 1:20 PM EDT Office Visit Neu[facility] [address] [facility] [place] [address] Kim Iglesias PA-C [address] [facility] [place] [address] 10/26/2024 3:40 PM EST Office Visit [facility] [address] [place] [address] Julio César Best, [address] [place] [address] Scheduled Orders Name Type Priority Associated Diagnoses [...] ear documented in this encounter Care Teams Semiconductor Technician Relationship Specialty Start Date End Date Julio César Best DO [address] [place] [address] PCP - General Family Medicine 02/23/20 documented as of this encounter"
--- OUTSIDE RECORDS SUMMARY | 2024-02-01 03:58 | External Medical Summary | Summary of Care ---
Author Name Unknown Organization [facility] Address [address] [place] [address] Phone [phone] Care Team Providers Care Business Information Consultant Name Role Phone Julio César Best Primary Care Provider Reason for Visit * Reason Onset Date Comments Advice 01/21/2024 Encounter Details Date Type Department Care Team (Late st Contact Info) Description 01/21/2024 Telephone Neurology [facility] 200 [facility] [place] [address] Services, Scheduling [address] [place] [address] Advice Allergies Active Allergy Reactions Criticality Noted Date Comments Simvastatin 06/18/1998 Elevated CPK documented as of this encounter (statuses as of 01/21/2024) Medications Medication Sig Dispensed Refills Start Date [...] affected area. 385 g 11 10/15/2022 Active Sildenafil Citrate 100 MG Oral TabletIndications:Im [...] abdominal pain 120 Capsule 0 09/14/2023 Active Donepezil HCl 10 MG Oral Tablet [...] as of this encounter (statuses as of 01/21/2024) Active Problems Problem Noted Date Diagnosed Date [...] as of this encounter (statuses as of 01/21/2024) Resolved Problems Problem Noted Date Diagnosed Date Resolved Date Kidney disease, chronic, sta ge III (GFR 30-59 ml/min) 12/11/2013 10/15/2022 Overview: Per CKD protocol #1 Chest pain 09/25/2003 12/29/2011 Corns and callosities 09/16/19992011 Mixed dyslipidemia 08/21/1997 9 Overview: Per Lipid Taxonomy. documented as of this encounter (statuses as of 01/21/2024) Immunizations Name Administration Dates Next Due COVID-19 [...] encounter Miscellaneous Notes * Telephone Encounter - Vicky Elliott LPN - 01/21/2024 3:55 PM EDT Lmom for pts spouse * Telephone Encounter - Benny Kessler OSA - 01/21/2024 12:12 PM EDT Who is calling (not pt) name: Myriam relationship: Spouse Provider patient is established with: Kim Iglesias What is the concern or issue they are having: Pt's calling requesting a prior auth to be sent into [facility] for home health. She states she has knee surgery coming up on 01/30 and would greatly appreciate if this could be done as soon as possible. How long has the issue been going on: n/a Any additional details to add: no Pts phone number for nurse to call back: [phone] If forms need to be faxed- Please provide fax number: n/a documented in this encounter Plan of Treatment Upcoming Encounters Date Type Department Care Team (Late st Contact Info) Description 03/30/2024 8:20 AM EDT Office Visit [facility] [address] [address] Julio César Best, [address] [place] [address] 07/19/2024 1:20 PM EDT Office Visit Neurology [facility] 200 [facility] [place] [address] Kim Iglesias PA-C [address] [facility] [place] [address] 10/26/2024 3:40 PM EST Office Visit [facility] [address] [place] [address] Julio César Best DO [address] [place] [address] Health Maintenance Due Date Last Done Comments [...] filedocumented as of this encounter Care Teams Business Information Consultant Relationship Specialty Start Date End Date Julio César Best DO [address] [place] [address] PCP - General Family Medicine 02/23/20 documented as of this encounter
--- OUTSIDE RECORDS SUMMARY | 2024-02-01 03:58 | External Medical Summary | Summary of Care ---
Author Name Unknown Organization [facility] Address [address] [place] [address] Phone [phone] Care Team Providers Care Resume Writer Name Role Phone Julio César Best Primary Care Provider Reason for Visit * Reason Onset Date Comments Ear Pain X 2 days, right ear Cough Productive - whi te Ear Flush 01/22/2024 Encounter Details Date Type Department Care Team (Latest Contact Info) Description 01/22/2024 4:00 PM EDT Convenient Care Visit [facility] [address] [place] [address] Enriqueta Reese CRNP [address] [facility] [address] [place] [address] Impacted cerumen of left ear*; Impacted cerumen, [...] by Marco A Mortensen MD at ENDOSCOPY [facility] COLONOSCOPY, DIAGNOSTIC (RECTUM) 06/24/2018 diverticulosis, repeat 5 yrs/COLONOSCOPY FLEXIBLE PROXIMAL DIAGNOSTIC performed by Renee Trevizo MD at ENDOSCOPY [facility] COLONOSCOPY, DIAGNOSTIC (RECTUM) 10/21/2023 diverticulosis/biopsies show adenomatous polyps/COLONOSCOPY FLEXIBLE PROXIMAL DIAGNOSTIC performed by Renee Trevizo MD at ENDOSCOPY [facility] EGD, FLEXIBLE, DIAGNOSTIC 09/30/2018 duodenal ulcer, + H pylori infection/ESOPHAGOGASTRODUODENOSCOPY (EGD), FLEXIBLE, TRANSORAL, DIAGNOSTIC performed by Ralph Bruce MD at ENDOSCOPY [facility] KNEE ARTHROSCOPY/MENISCECTOMY 1998 ps sports med REMOVE [...] (Primary) IMELDA Catalan [facility] [address] [facility] [address] documented in this encounter Nursing Notes * [...] Description 03/30/2024 8:20 AM EDT Office Visit [facility] [address] [place] [address] Julio César Best DO [address] [place] [address] 07/19/2024 1:20 PM EDT Office Visit [facility] [address] [facility] [place] [address] Kim Iglesias PA-C 200 [facility] [place] [address] 10/26/2024 3:40 PM EST Office Visit [facility] [address] [place] [address] Julio César Best, [address] [place] [address] Scheduled Orders Name Type Priority Associated Diagnoses [...] ear documented in this encounter Care Teams Resume Writer Relationship Specialty Start Date End Date Julio César Best DO [address] [place] [address] PCP - General Family Medicine 02/23/20 documented as of this encounter"
--- OUTSIDE RECORDS SUMMARY | 2024-02-01 03:59 | External Medical Summary | Summary of Care ---
Author Name Unknown Organization [facility] Address [address] [place] [address] Phone [phone] Care Team Providers Care Shafting Worker Name Role Phone Julio César Best DO Primary Care Provider Reason for Visit * Reason Onset Date Comments Order Request 12/16/2023 Resend rx for th e beside [id number] additional request for a shower chair Encounter Details Date Type Department Care Team (Late st Contact Info) Description 12/16/2023 Telephone Family Practice [facility] [address] [place] [address] Julio César Best DO [address] [place] [address] Order Request (Resend rx for the beside co... Allergies Active Allergy Reactions Criticality Noted Date Comments Simvastatin 06/18/1998 Elevated CPK documented as of this encounter (statuses as of 12/22/2023) Medications Medication Sig Dispensed Refills Start Date [...] affected area. 385 g 11 2 Active Sildenafil Citrate 100 MG Oral TabletIndications:I mpotence of organic origin take 1 tablet by mouth 1 TO 4 HOURS BEFORE INTERCOURSE NO MORE THAN 1 DOSE IN 24 HOURS 10 Tablet 5 3 Active traZODone HCl 150 MG Oral [...] abdominal pain 120 Capsule 0 3 Active Additional Information Patient not taking.Reported on 12/20/2023 Donepezil HCl 10 MG Oral Tablet (Aricept)Indication s:Dementia without behavioral disturbance (HCC) take 1 tablet by mouth IN THE MORNING with THE LARGEST MEAL OF THE DAY 90 Tablet 1 4 Active Metamucil Free & Natural 43 % Oral Powder (Psyllium) Take by mouth. 0 Act max Memantine HCl 10 MG Oral Tablet (Namenda)Indication s:Major neurocognitive disorder (HCC) take 1 tablet by mouth twice a day WITH MORNING AND EVENING MEALS 60 Tablet 5 4 Active Loratadine 10 MG Oral Tablet (Claritin) Take 1 Tablet by mouth daily as needed. 0 4 Active Meloxicam 7.5 MG Oral TabletIndications:A rthritis of both knees,Encounter for long-term (current) use of medications Take 1 Tablet by mouth in the morning. for pain.. 90 Tablet 3 3 12/20/19 24 Discontinue d(Medicatio n List Clean Up) Doxycycline Hyclate 100 MG Oral Capsule Take 1 Capsule by mouth in the morning and 1 Capsule before bedtime. 0 4 12/18/19 24 documented as of this encounter (statuses as of 12/22/2023) Active Problems Problem Noted Date Diagnosed Date [...] as of this encounter (statuses as of 12/22/2023) Resolved Problems Problem Noted Date Diagnosed Date Resolved Date Kidney disease, chronic, sta ge III (GFR 30-59 ml/min) 12/11/2013 10/15/2022 Overview: Per CKD protocol #1 Chest pain 09/25/2003 12/29/2011 Corns and callosities 09/16/19992011 Mixed dyslipidemia 08/21/1997 9 Overview: Per Lipid Taxonomy. documented as of this encounter (statuses as of 12/22/2023) Immunizations Name Administration Dates Next Due COVID-19 [...] Telephone Encounter - Khadijah Helm LPN - 12/22/2023 1:54 PM EST aware that [facility] will reach out to set up delivery. * Telephone Encounter - Khadijah Helm LPN - 12/22/2023 1:50 PM EST Faxed orders for both bedside commode, and shower chair to [facility] attn lizzie. Also faxed alson OV notes and insurance card info. * Addendum Note - Khadijah Helm LPN - 12/22/2023 1:47 PM ESTAddended by: KHADIJAH HELM on: 12/22/2023 01:47 PM Modules accepted: Orders * Telephone Encounter - Sophia Martinez OSA - 12/22/2023 1:33 PM EST Patient's called. [facility] still does not have the order for the bedside commode. In addition, the patient's home therapists recommend he get a shower chair with a back on it to make showering easier. Patient's is asking for this to go to [facility] as soon as possible. Please call the patient's regarding this. Thank you. * Telephone Encounter - Kath Dick RN - 12/20/2023 8:59 AM EST The DME order is still coming up with me being the provider for some reason. Spoke to Dr Best. He will order this during the [facility] follow up appt today * Telephone Encounter - Julio César Best DO - 12/18/2023 11:18 AM EST Haha no worries! Signed Thank you! * Telephone Encounter - Kath Dick RN - 12/17/2023 10:[address] Best, I have no idea how my name ended up as the provider! I have re-pended the script. Please sign at your convenience and I will refax * Telephone Encounter - Carmen Gonzalez OSA - 12/17/2023 10:26 AM EST Lizzie calling in from [facility]. Script can not be Electronically signed by head of integrated media. Script is needing signed or electronically by the provider with NPI # Asking for it to be faxed to [phone] - Attn: Lizzie * Telephone Encounter - Kath Dick RN - 12/17/2023 8:51 AM EST Order faxed to [facility] * Telephone Encounter - Suellen Barron OSA - 12/16/2023 4:52 PM EST Pts called the RX for the Commode needs to be sent to [facility] Tele: [phone] * Telephone Encounter - Kath Dick RN - 12/16/2023 3:02 PM EST Order printed and faxed to [facility]. * Telephone Encounter - Julio César Best DO - 12/16/2023 2:45 PM EST Happy to help Order signed Thank you Kath! * Telephone Encounter - Kath Dick RN - 12/16/2023 11:16 AM EST Lakeisha Mahoney was in the hospital recently after sustaining a fall at home. He will be seeing you Wednesday for his hospital follow up. Lakeisha's would like to have a beside commode for him so he doesn't have to go so far to the bathroom during the night. Order pended documented in this encounter Plan of Treatment Upcoming Encounters Date Type Department Care Team (Late st Contact Info) Description 01/11/2024 10:00 AM EDT Office Visit Neurology [facility] [address] [place] [address] Kim Iglesias PA-C [address] [place] [address] 03/30/2024 8:20 AM EDT Office Visit Family Practice [facility] [address] [facility] [place] [address] Julio César Best DO [address] [facility] [place] [address] 10/26/2024 3:40 PM EST Office Visit [facility] [address] [place] [address] Julio César Best DO [address] [place] [address] Health Maintenance Due Date Last Done Comments [...] as of this encounter Visit Diagnoses Diagnosis Gait disturbance- Primary Abnormality of gait Dementia without behavioral disturbance (HCC) Dementia, unspecified, without behavioral disturbance documented in this encounter Care Teams Shafting Worker Relationship Specialty Start Date End Date Julio César Best DO [address] [place] [address] PCP - General Family Medicine 02/23/20 documented as of this encounter
--- OUTSIDE RECORDS SUMMARY | 2024-02-01 03:59 | External Medical Summary | Summary of Care ---
Author Name Unknown Organization [facility] Address [address] [facility] [address] Phone [phone] Care Team Providers Care Caustic Operator Name Role Phone Julio César Best Primary Care Provider Reason for Visit * Reason Comments eRx-Medication Refill Encounter Details Date Type Department Care Team (Late st Contact Info) Description 12/23/2023 Refill Neurology [facility] [address] [place] [address] Edison Alves MD [address] [place] [address] Insomnia Allergies Active Allergy Reactions Criticality Noted Date Comments Simvastatin 06/18/1998 Elevated CPK documented as of this encounter (statuses as of 12/23/2023) Medications Medication Sig Dispensed Refills Start Date [...] 24 HOURS 10 Tablet 5 3 Active Atorvastatin Calcium 40 MG Oral [...] mouth daily as needed. 0 4 Active traZODone HCl 150 MG Oral Tablet (Desyrel)Indication s:Insomnia take 1 tablet by mouth at bedtime 90 Tablet 1 4 Active traZODone HCl 150 MG Oral Tablet (Desyrel)Indication s:Insomnia take 1 tablet by mouth at bedtime 90 Tablet 1 3 12/23/19 24 Discontinued documented as of this encounter (statuses as of 12/23/2023) Active Problems Problem Noted Date Diagnosed Date [...] as of this encounter (statuses as of 12/23/2023) Resolved Problems Problem Noted Date Diagnosed Date Resolved Date Kidney disease, chronic, sta ge III (GFR 30-59 ml/min) 12/11/2013 10/15/2022 Overview: Per CKD protocol #1 Chest pain 09/25/2003 12/29/2011 Corns and callosities 09/16/1999[address] Mixed dyslipidemia 08/21/1997 Overview: Per Lipid Taxonomy. documented as of this encounter (statuses as of 12/23/2023) Immunizations Name Administration Dates Next Due COVID-19 [...] encounter Miscellaneous Notes * Telephone Encounter - Amy Raines, [facility] - 12/23/2023 4:28 PM ESTSigned Prescriptions: Disp Refills traZODone HCl 150 MG Oral Tablet (Desyrel) 90 Tab*1 Sig: take 1 tablet by mouth at bedtime Authorizing Provider: MARIELA WATSON Ordering User: AMY RAINES * Telephone Encounter - Teja Capps two - 12/23/2023 3:10 PM ESTPending Prescriptions: Disp Refills traZODone HCl 150 MG Oral Tablet [Pharmacy*90 Tab*1 Sig: take 1 tablet by mouth at bedtime * Telephone Encounter - LizTeja two - 12/23/2023 3:08 PM EST Did you pend patient's preferred pharmacy and medication before forwarding?yes [facility]acy: [id number] Pending Prescriptions: Disp Refills traZODone HCl 150 MG Oral Tablet (Desyrel*90 Tab*1 Sig: take 1 tablet by mouth at bedtime Last Visit: 07/13/2023 (in office), 02/08/2020 (telemedicine) Next Visit: 01/11/2024 If no future appointments scheduled, and last appointment is greater than a year ago, please schedule patient for a follow-up appointment Last date the medication was ordered: 07/06/2023 Is this request for a controlled substance?No Urine Drug Screen:No results found for this or any previous visit. Patient Phone Numbers Labs: Lab Results Component Value Date/Time CREAT 1.3 (H) 12/20/2023 02:53 PM CREAT 1.20 07/24/2021 12:00 AM CREAT 1.3 (H) 09/15/2019 07:42 AM POTASSIUM 4.6 12/20/2023 02:53 PM POTASSIUM 3.9 07/24/2021 12:00 AM POTASSIUM 4.5 09/15/2019 07:42 AM TSH 0.97 04/22/2023 08:13 AM TSH 1.02 09/18/2019 08:34 AM LDLCALC 142 (H) 12/20/2023 02:53 PM LDLCALC 105 12/02/2017 09:57 AM LDLDIRECT 89 05/05/2019 07:20 AM ALT 49 12/20/2023 02:53 PM ALT 24 09/15/2019 07:42 AM HGBA1C 5.7 04/23/2015 09:12 AM documented in this encounter Plan of Treatment Upcoming Encounters Date Type Department Care Team (Late st Contact Info) Description 01/11/2024 10:00 AM EDT Office Visit Neurology [facility] [address] [facility] [place] [address] Mariela Watson PA-C [address] [facility] [place] [address] 03/30/2024 8:20 AM EDT Office Visit [facility] [address] [address] Julio César Best, [address] [place] [address] 10/26/2024 3:40 PM EST Office Visit [facility] [address] [address] Julio César Best, [address] [place] [address] Health Maintenance Due Date Last Done Comments [...] encounter Visit Diagnoses Diagnosis Insomnia Insomnia, unspecified documented in this encounter Care Teams Caustic Operator Relationship Specialty Start Date End Date Julio César Best DO [address] [place] [address] PCP - General Family Medicine 02/23/20 documented as of this encounter
--- OUTSIDE RECORDS SUMMARY | 2024-02-01 03:59 | External Medical Summary | Summary of Care ---
Author Name Unknown Organization [facility] Address [address] [place] [address] Phone [phone] Care Team Providers Care Global Supply Chain Vice President Name Role Phone Julio César Best Primary Care Provider Reason for Visit * Reason Comments Return Neuro * Evaluate & Treat - Unlimited Visits (Within 10 days (routine)) - Closed Specialty Diagnoses / Procedures Referred By Chilango t Referred To Contact Neurology Diagnoses Dementia without behavioral disturbance (HCC) Kim Iglesias PA-C [address] [place] [address] Referral ID Status Reason Start Date Expiration Date V isits Requested Visits Authorized [id number] Closed Specialty Services Required 03/01/[phone] Encounter Details Date Type Department Care Team (Late st Contact Info) Description 01/11/2024 10:00 AM EDT Office Visit [facility] [address] [place] [address] Kim Iglesias PA-C [address] [place] [address] Dementia without behavioral disturbance (HCC)*; AD (Alzheimer's disease) (HCC); Right facial numbness Allergies Active Allergy Reactions Criticality Noted Date Comments Simvastatin 06/18/1998 Elevated CPK documented as of this encounter (statuses as of 01/11/2024) Medications Medication Sig Dispensed Refills Start Date [...] as of this encounter (statuses as of 01/11/2024) Active Problems Problem Noted Date Diagnosed Date [...] as of this encounter (statuses as of 01/11/2024) Resolved Problems Problem Noted Date Diagnosed Date Resolved Date Kidney disease, chronic, sta ge III (GFR 30-59 ml/min) 12/11/2013 10/15/2022 Overview: Per CKD protocol #1 Chest pain 09/25/2003 12/29/2011 Corns and callosities 09/16/19992011 Mixed dyslipidemia 08/21/1997 9 Overview: Per Lipid Taxonomy. documented as of this encounter (statuses as of 01/11/2024) Immunizations Name Administration Dates Next Due COVID-19 [...] Sign Reading Time Taken Comments Blood Pressure 126/78 01/11/2024 10:13 AM EDT Pulse 65 01/11/2024 10:13 AM EDT Temperature 35.8 C (96.5 F) 01/11/2024 10:13 AM E DT Respiratory Rate 18 01/11/2024 10:13 AM EDT Oxygen Saturation 95% 01/11/2024 10:13 AM EDT Inhaled Oxygen Concentration - - Weight 88.6 kg (195 lb 4.8 oz) 01/11/2024 10:13 AM EDT Height - - Body Mass Index 30.59 10/21/2023 9:03 AM EST documented in this encounter Progress Notes * Kim Iglesias PA-C - 01/11/2024 10:08 AM EDT HISTORY & PHYSICAL EXAMINATION - NEUROLOGY Name: Lakeisha De Leon Date: 01/11/2024 Time: 10:08 AM Referring Provider: Kim Iglesias, * Chief Complaint: Chief Complaint Patient presents with Return Neuro This is a 73 year old right handed gentleman returns today [...] in the hospital was negative. He is no longer driving. There is no night terrors but now he is having some hallucinations but this is rare. He is no longer working at the [employer] doing [employer] work. His is having issues with helping him with ADL because she has a bad back and he needs full assistance at this point. He did have an admission to [facility] after a fall and then was diagnosed with covid. He needs helpnow with all ADLs and has tried to get help in the home but it is too expensive. Denies CP, SOB, abdominal pain, one sided weakness, numbness tingling, several falls going upstairs or bending over before he is fulling out of the chair. MME 08/16 I have reviewed the patient's medications and [...] Trigger middle finger of right hand M65.331 Family History Problem Relation Age of Onset Heart Disorder Father [place] age 66 Endocrine Disorder Sister chol Medications: [...] day. To affected area. 385 g 11 Sildenafil Citrate 100 MG Oral Tablet take 1 tablet by mouth 1 TO 4 HOURS BEFORE INTERCOURSE NO MORE THAN 1 DOSE IN 24 HOURS 10 Tablet 5 Abrysvo 120 MCG/0.5ML Intramuscular Solution Reconstituted (RSV Pre-Fusion F A&B Vac Rcmb) INJECT INTRAMUSCULARY DIRECTED 1 Each 0 Atorvastatin Calcium 40 MG Oral Tablet (Lipitor) Take 1 Tablet by mouth in the morning. 90 Tablet 3 Dicyclomine HCl 10 MG Oral Capsule (Bentyl) take 1 capsule by mouth four times a day (BEFORE FOOD and at bedtime) for abdominal pain 120 Capsule 0 Donepezil [...] the following review. Physical Exam: Constitutional: BP 126/78 | Pulse 65 | Temp 35.8 C (96.5 F) (Tympanic) | Resp 18 | Wt 88.6 kg (195 lb 4.8 oz) | SpO2 95% | BMI 30.59 kg/m | BSA 2.05 m , appearance nourished and healthy Ears, Nose, Mouth and Throat: mucous membranes moist, no injection and skin normal, eyes normal Cardiovascular: normal S-1 and S-2 and regular rate and rhythm Respiratory: clear to auscultation (CTA) and no rales, ronchi or wheeze Musculoskeletal: no peripheral edema Skin: normal and intact Eyes: extraocular muscles intact (EOMI) NEUROLOGIC EXAMINATION: Mental status: Alert and minimally interactive Cranial Nerves Normal findings for Cranial Nerves II - XII, accept left facial asymmetry Coordination: on [id number] and no abnormal or extraneous movements difficult with follow directions Gait/Stance: Posture abnormal: forward head and rounded shoulders. Gait using cane slightly shuffling gait stands without assistance, open door after questioning if this is the correct door and turn to the right after reenforcement Motor: Negative for pronator drift of out stretched arms with eyes closed. Strength: generalized weakness, deconditioned, and uses arms of chair to stand up LABORATORY: Recent labs reviewed Review of prior Studies: Reviewed imaging from 12/11/23 [facility] admission for covid and rhabdo Impression: Lakeisha De Leon is a 73 year old gentleman with a history of dementia. His neurologic examination today reveals no new focal deficit2. The history and examination are suggestive of stage ofDementia: moderate dementia (severe memory impairment and difficulty communicating). Testing and Referrals ordered: none ICD-10-CM 1. Dementia without behavioral disturbance ([facility]) F03.90 2. AD (Alzheimer's disease) ([facility]) G30.9 F02.80 3. Right facial numbness R20.0 Return in 6 months or sooner if needed Continue Aricept 10 mg (1 tab) with largest meal- if hallucination become a problem would stop Continue namenda 10 mg (1 tab) twice daily Fall precautions and secure home from walking away at night Needs help has ambulatory care coordinator fatigue- but insurance wont pay and financially unable to pay out ofpocket If needs any documentation will provide No longer driving PCP for medical management Medical Decision Making (determined by lowest of [...] visit: 30 minutes. Kim Iglesias PA-C Neurology [facility] [place] [address] [place] [address] 01/11/2024 10:08 AM documented in this encounter Nursing Notes * Maureen Camejo LPN - 01/11/2024 10:13 AM EDT Chief Complaint Patient presents with Return Neuro documented in this encounter Plan of Treatment Upcoming Encounters Date Type Department Care Team (Late st Contact Info) Description 03/30/2024 8:20 AM EDT Office Visit [facility] [address] [place] [address] Julio César Best, [address] [place] [address] 07/19/2024 1:20 PM EDT Office Visit Neurology [facility] [address] [facility] [place] [address] Kim Iglesias PA-C [address] [facility] [place] [address] 10/26/2024 3:40 PM EST Office Visit [facility] [address] [place] [address] Julio César Best DO [address] [place] [address] Health Maintenance Due Date Last Done Comments [...] disturbance AD (Alzheimer's disease) (HCC) Alzheimer's disease Right facial numbness Disturbance of skin sensation documented in this encounter Care Teams Global Supply Chain Vice President Relationship Specialty Start Date End Date Julio César Best DO [address] [place] [address] PCP - General Family Medicine 02/23/20 documented as of this encounter"
--- OUTSIDE RECORDS SUMMARY | 2024-02-01 03:59 | External Medical Summary | Summary of Care ---
Author Name Unknown Organization [facility] Address [address] [place] [address] Phone [phone] Care Team Providers Care Rap Artist Name Role Phone Julio César Best DO Primary Care Provider Reason for Visit * Reason Onset Date Comments Order Request 12/16/2023 Resend rx for th e beside [id number] additional request for a shower chair Encounter Details Date Type Department Care Team (Late st Contact Info) Description 12/16/2023 Telephone Family Practice [facility] [address] [place] [address] Julio César Best DO [address] [place] [address] Order Request (Resend rx for the beside [...] encounter Miscellaneous Notes * Telephone Encounter - Elizabeth Dawosn LPN - 12/23/2023 10:08 AM EST Received incoming fax from a Lizzie Joyce from [facility] stating they need order for shower chair signed by Dr. Best and refaxed to them. Form signed per Dr. Best and returned fax to Kelsey. * Telephone Encounter - Khadijah Helm LPN - 12/22/2023 1:54 PM EST aware that [facility] will reach out to set up delivery. * Telephone Encounter - Khadijah Helm LPN - 12/22/2023 1:50 PM EST Faxed orders for both bedside commode, and shower chair to [facility] attn lizzie. Also faxed alson OV notes and insurance card info. * Addendum Note - Khadijah Helm LPN - 12/22/2023 1:47 PM ESTAddended by: KHADIJAH HLEM on: 12/22/2023 01:47 PM Modules accepted: Orders * Telephone Encounter - Sophia Martinez OSA - 12/22/2023 1:33 PM EST Patient's called. [facility] still does not have the order for the bedside commode. In addition, the patient's home therapists recommend he get a shower chair with a back on it to make showering easier. Patient's is asking for this to go to [facility] as soon as possible. Please call the patient's regarding this. Thank you. * Telephone Encounter - Kath Dick RN - 12/20/2023 8:59 AM EST The DME order is still coming up with me being the provider for some reason. Spoke to Dr Best. He will order this during the [facility] follow up appt today * Telephone Encounter [...] 10:26 AM EST Lizzie calling in from [facility]. Script can not be Electronically signed by director script. Script is needing signed or electronically by the provider with NPI # Asking for it to be faxed to [phone] - Attn: Lizzie * Telephone Encounter - Kath Dick RN - 12/17/2023 8:51 AM EST Order faxed to [facility] * Telephone Encounter - Suellen Barron OSA - 12/16/2023 4:52 PM EST Pts called the RX for the Commode needs to be sent to [facility] Tele: [phone] * Telephone Encounter - Kath Dick RN [...] AM EDT Office Visit Neurology [place] [address] [place] [address] [place] [address] Kim Iglesias PA-C [address] [facility] [place] [address] 03/30/2024 8:20 AM EDT Office Visit [facility] [address] [place] [address] Julio César Best, DO [address] [place] [address] 10/26/2024 3:40 PM EST Office Visit [facility] [address] [place] [address] Julio César Best, DO [address] [place] [address] Health Maintenance Due Date Last Done Comments [...] disturbance documented in this encounter Care Teams Rap Artist Relationship Specialty Start Date End Date Julio César Best DO [address] [place] [address] PCP - General Family Medicine 02/23/20 documented as of this encounter
--- OUTSIDE RECORDS SUMMARY | 2024-02-01 03:59 | External Medical Summary | Summary of Care ---
Author Name Unknown Organization [facility] Address [address] [place] [address] Phone [phone] Care Team Providers Care Electrical Appliance Preparer Name Role Phone Julio César Best Primary Care Provider Reason for Visit * Reason Comments Return Neuro * Evaluate & Treat - Unlimited Visits (Within 10 days (routine)) - Closed Specialty Diagnoses / Procedures Referred By Chilango t Referred To Contact Neurology Diagnoses Dementia without behavioral disturbance (HCC) Kim Iglesias PA-C [address] [place] [address] Referral ID Status Reason Start Date Expiration Date V isits Requested Visits Authorized [id number] Closed Specialty Services Required 03/01/[phone] Encounter Details Date Type Department Care Team (Late st Contact Info) Description 01/11/2024 10:00 AM EDT Office Visit [facility] [address] [place] [address] Kim Iglesias PA-C [address] [place] [address] Dementia without behavioral disturbance (HCC)*; AD (Alzheimer's [...] He is no longer working at the [employer] doing [employer] work. His is having issues with helping him with ADL because she has a bad back and he needs full assistance at this point. He did have an admission to [facility] after a fall and then was diagnosed [...] Relation Age of Onset Heart Disorder Father [place] age 66 Endocrine Disorder Sister chol Medications: [...] XII, accept left facial asymmetry Coordination: on [id number] and no abnormal or extraneous movements difficult [...] of prior Studies: Reviewed imaging from 12/11/23 [facility] admission for covid and rhabdo Impression: Lakeisha De Leon is a 73 year old gentleman with a history of dementia. His neurologic examination today reveals no new focal deficit2. The history and examination are suggestive of stage ofDementia: moderate dementia (severe memory impairment and difficulty communicating). Testing and Referrals ordered: none ICD-10-CM 1. Dementia without behavioral disturbance ([facility]) F03.90 2. AD (Alzheimer's disease) ([facility]) G30.9 F02.80 3. Right facial numbness R20.0 Return in 6 months or sooner if needed Continue Aricept 10 mg (1 tab) with largest meal- if hallucination become a problem would stop Continue namenda 10 mg (1 tab) twice daily Fall precautions and secure home from walking away at night Needs help has healthcare economics consultant fatigue- but insurance wont pay and financially [...] visit: 30 minutes. Kim Iglesias PA-C Neurology [facility] [place] [address] [place] [address] 01/11/2024 10:08 AM documented in this encounter Nursing Notes * Maureen Camejo LPN - 01/11/2024 10:13 AM EDT Chief Complaint Patient presents with Return Neuro documented in this encounter Plan of Treatment Upcoming Encounters Date Type Department Care Team (Late st Contact Info) Description 03/30/2024 8:20 AM EDT Office Visit [facility] [address] [place] [address] Julio César Best, [address] [place] [address] 07/19/2024 1:20 PM EDT Office Visit Neurology [facility] [address] [facility] [place] [address] Kim Iglesias PA-C [address] [place] [address] 10/26/2024 3:40 PM EST Office Visit [facility] [address] [place] [address] Julio César Best DO [address] [place] [address] Health Maintenance Due Date Last Done Comments [...] sensation documented in this encounter Care Teams Electrical Appliance Preparer Relationship Specialty Start Date End Date Julio César Best DO [address] [place] [address] PCP - General Family Medicine 02/23/20 documented as of this encounter"
--- OUTSIDE RECORDS SUMMARY | 2024-02-01 03:59 | External Medical Summary | Summary of Care ---
Author Name Unknown Organization [facility] Address [address] [facility] [address] Phone [phone] Care Team Providers Care Geographic Information Scientist Name Role Phone Best Julio César Sherdigna Primary Care Provider Reason for Visit * Reason Comments Acute Encounter Details Date Type Department Care Team (Late st Contact Info) Description 12/31/2023 3:20 PM EDT Office Visit [facility] [address] [facility] [place] [address] Jose Alfredo Peterson DO [address] [facility] [place] [address] Traumatic injury of rib* Allergies Active Allergy Reactions Criticality Noted Date Comments Simvastatin 06/18/1998 Elevated CPK documented as of this encounter (statuses as of 12/31/2023) Medications Medication Sig Dispensed Refills Start Date [...] as of this encounter (statuses as of 12/31/2023) Active Problems Problem Noted Date Diagnosed Date [...] as of this encounter (statuses as of 12/31/2023) Resolved Problems Problem Noted Date Diagnosed Date Resolved Date Kidney disease, chronic, sta ge III (GFR 30-59 ml/min) 12/11/2013 10/15/2022 Overview: Per CKD protocol #1 Chest pain 09/25/2003 12/29/2011 Corns and callosities 09/16/19992011 Mixed dyslipidemia 08/21/1997 Overview: Per Lipid Taxonomy. documented as of this encounter (statuses as of 12/31/2023) Immunizations Name Administration Dates Next Due COVID-19 [...] Smoking Tobacco: Former Smokeless Tobacco: Current Chew Tobacco Cessation:Ready to [...] Sign Reading Time Taken Comments Blood Pressure 118/70 12/31/2023 3:23 PM EDT Pulse 69 12/31/2023 3:23 PM EDT Temperature 36.8 C (98.2 F) 12/31/2023 3:23 PM ED T Respiratory Rate 16 12/31/2023 3:23 PM EDT Oxygen Saturation 95% 12/31/2023 3:23 PM EDT Inhaled Oxygen Concentration - - Weight 88.4 kg (194 lb 12.8 oz) 12/31/2023 3:23 PM EDT Height - - Body Mass Index 30.51 10/21/2023 9:03 AM EST documented in this encounter Progress Notes * Jose Alfredo Peterson, DO - 12/31/2023 3:31 PM EDT Subjective: Lakeisha De Leon is a 73 year old male. Chief Complaint Patient presents with Acute HPI: Pain in his L arm pit. HE has had a few falls. Nothing recent or terrible. He points one time to his armpit and another to his arm. No bruising or swelling. No specific typ of pain. No nunbness or tingling. Hurts worse with turn or twist. HAs not taken anything for it yet. No sOB. PMHx, meds, and allergies reviewed Patient Active Problem List Diagnosis Code Major [...] allergies indicates: Allergen Reactions Simvastatin Elevated CPK OBJECTIVE: BP 118/70 (BP Site: Left Arm, BP Position: Sitting, BP Cuff Size: Regular) | Pulse 69 | Temp 36.8 C (98.2 F) (Tympanic) | Resp 16 | Wt 88.4 kg (194 lb 12.8 oz) | SpO2 95% | BMI 30.51 kg/m | BSA2.04 m Estimated body mass index is 30.51 kg/m as calculated from the following: Height as of 10/21/23: 1.702 m (5' 7"). Weight as of this encounter: 88.4 kg (194 lb 12.8 oz). BP Readings from Last 3 Encounters: 12/31/23 118/70 12/20/23 102/58 10/21/23 119/77 Wt Readings from Last 3 Encounters: 12/31/23 88.4 kg (194 lb 12.8 oz) 12/20/23 89.8 kg (198 lb) 10/21/23 83.9 kg (185 lb) ROS: Negative except for above PHYSICAL EXAM: General: alert, healthy, and no distress Head: Normocephalic, No masses, lesions, tenderness or abnormalities Heart: regular rate & rhythm, no murmur, and no gallops Lungs: chest symmetric with normal AP diameter, no chest deformities noted, no chest wall tenderness, lungs clear to auscultation Pain to palpation in his left axilla along his lateral chest wall ASSESSMENT/Plan Traumatic injury of rib (Primary) - XR RIBS UNILATERAL W/PA CHEST MINIMUM 3 VIEWS I spent over 25 minutes of time face to face with more than half of it being in counseling and coordination of care I read this x-ray with patient and his right before the radiology read but agree with the read. He has some old fractures down lower in his rib cage. They don't match up with where his pain is. DANIELA discussed. The above was discussed and understanding was expressed. Jose Alfredo Peterson DO documented in this encounter Nursing Notes * Pillo Gamino MED ASSIST - 12/31/2023 3:22 PM EDT Pain in the left side of the chest and arm. documented in this encounter Plan of Treatment Upcoming Encounters Date Type Department Care Team (Late st Contact Info) Description 01/11/2024 10:00 AM EDT Office Visit Neurology [facility] [address] [facility] [place] [address] Kim Iglesias PA-C [address] [facility] [place] [address] 03/30/2024 8:20 AM EDT Office Visit [facility] [address] [place] [address] Julio César Best DO [address] [place] [address] 10/26/2024 3:40 PM EST Office Visit [facility] [address] [place] [address] Julio César Best DO [address] [place] [address] Health Maintenance Due Date Last Done Comments [...] Procedure Name Priority Date/Time Associated Diagnosis Comments XR RIBS UNILATERAL W/PA CHEST MINIMUM 3 VIEWS STAT 12/31/2023 4:00 PM EDT Traumatic injury of rib documented in this encounter Results * XR RIBS UNILATERAL W/PA CHEST MINIMUM 3 VIEWS (12/31/2023 4:00 PM EDT) Anatomical Region Laterality Modality Chest Computed Radiogr aphy 12/31/2023 4:13 PM EDT Impressions 12/31/2023 4:11 PM EDT IMPRESSION 1. Age-indeterminate nondisplaced fractures of the left anterior 8th through 10th ribs. Correlation for point tenderness is recommended. 2. No acute cardiopulmonary disease. Narrative 12/31/2023 4:11 PM EDT EXAM XR RIBS UNILATERAL W/PA CHEST MINIMUM 3 VIEWS-12/31/2023 4:00 pm HISTORY fall and pain in left ribs, under axilla COMPARISON None TECHNIQUE A PA view of the chest and multiple oblique views of the left ribs were obtained FINDINGS LINES/DEVICES: None LUNGS/PLEURA: Clear lungs. No pleural effusion or pneumothorax. CARDIOVASCULAR/MEDIASTINUM: Within normal limits. BONES: Age indeterminate nondisplaced fractures of the left anterior 8th through 10th ribs. Chronic fracture of the right posterior 12th rib. No definite acute displaced fractures are identified. OTHER: Unremarkable upper abdomen. Procedure Note Amor Marcano MD - 12/31/2023 EXAM XR RIBS UNILATERAL W/PA CHEST MINIMUM 3 VIEWS-12/31/2023 4:00 pm HISTORY fall and pain in left ribs, under axilla COMPARISON None TECHNIQUE A PA view of the chest and multiple oblique views of the left ribs wereobtained FINDINGS LINES/DEVICES: None LUNGS/PLEURA: Clear lungs. No pleural effusion or pneumothorax. CARDIOVASCULAR/MEDIASTINUM: Within normal limits. BONES: Age indeterminate nondisplaced fractures of the left anterior 8ththrough 10th ribs. Chronic fracture of the right posterior 12th rib. Nodefinite acute displaced fractures are identified. OTHER: Unremarkable upper abdomen. IMPRESSION IMPRESSION 1. Age-indeterminate nondisplaced fractures of the left anterior 8ththrough 10th ribs. Correlation for point tenderness is recommended. 2. No acute cardiopulmonary disease. Jose Alfredo Peterson DO RADIOLOGY ([facility]) documented in this encounter Visit Diagnoses Diagnosis Traumatic injury of rib- Primary documented in this encounter Care Teams Geographic Information Scientist Relationship Specialty Start Date End Date Julio César Best DO [address] [place] [address] PCP - General Family Medicine 02/23/20 documented as of this encounter
--- OUTSIDE RECORDS SUMMARY | 2024-02-01 03:59 | External Medical Summary ---
Author Name UNSPECIFIED Address Unknown Organization [facility] History of Encounters Reason for Assessment: Start of care - f urther visits planned Inpatient discharge facility: Past 14 Da ys: Discharged From Short Stay Acute Hospital Most Recent Inpatient Discharge Date: Functional Assessment Patient Living Situation: Patient lives with other person(s) in the home: Around the clock Bowel Incontinence Frequency: Very rarel y or never has bowel incontinence Cognitive Functioning: Requires assistan ce/direction in specific situations (e.g., all tasks involving shifting of attention) or consistently requires low stimulus environmnt due to distractibility. When Confused (Reported or Observed): Co nstantly When Anxious (Reported or Observed): Radha ly, but not constantly Cognitive and Behavioral and [...] Several times a week Current Ability: Bathing: able to partic ipate in bathing self in shower or tub, but requires presence of another person throughout the bath for assistance or supervision. Current Ability: Ambulation: Able to wal k only with the supervision or assistance of another person at all times. Current: Management Of Oral Medications: Unable to take medication unless administered by another person Problems Primary Home Care Diagnosis ICD Code: U0 7.1^^^ Home Care Diagnosis 1: ICD Code: J20.8, Acute bronchitis due to other specified organisms Home Care Diagnosis 1: Severity Ratin Home Care Diagnosis 2: ICD Code: R53.1, Weakness Home Care Diagnosis 2: Severity Ratin Home Care Diagnosis 3: ICD Code: T79.6XX D, Traumatic ischemia of muscle, subsequent encounter Home Care Diagnosis 3: Severity Ratin Home Care Diagnosis 4: ICD Code: G30.9, Alzheimer's disease, unspecified Home Care Diagnosis 4: Severity Ratin Home Care Diagnosis 5: ICD Code: F02.83^ ^ Home Care Diagnosis 5: Severity Ratin
--- OUTSIDE RECORDS SUMMARY | 2024-02-01 04:00 | External Medical Summary | Summary of Care ---
Author Name Unknown Organization [facility] Address [address] [place] [address] Phone [phone] Care Team Providers Care Airport Baggage Screener Name Role Phone Julio César Best DO Primary Care Provider Reason for Visit * Reason Onset Date Comments Order Request 12/16/2023 Resend rx for th e beside [id number] additional request for a shower chair Encounter Details Date Type Department Care Team (Late st Contact Info) Description 12/16/2023 Telephone Family Practice [facility] [address] [place] [address] Julio César Best DO [address] [place] [address] Order Request (Resend rx for the beside [...] encounter Miscellaneous Notes * Addendum Note - Shonda Helm LPN - 12/22/2023 1:47 PM ESTAddended by: SHONDA HELM on: 12/22/2023 01:47 PM Modules accepted: Orders * Telephone Encounter - Sophia Martinez OSA - 12/22/2023 1:33 PM EST Patient's called. [facility] still does not have the order for the bedside commode. In addition, the patient's home therapists recommend he get a shower chair with a back on it to make showering easier. Patient's is asking for this to go to [facility] as soon as possible. Please call the patient's regarding this. Thank you. * Telephone Encounter - Kath Dick RN - 12/20/2023 8:59 AM EST The DME order is still coming up with me being the provider for some reason. Spoke to Dr Best. He will order this during the [facility] follow up appt today * Telephone [...] Gonzalez OSA - 12/17/2023 10:26 AM EST Joy calling in from [facility]. Script can not be Electronically signed by manager culinary. Script is needing signed or electronically by the provider with NPI # Asking for it to be faxed to [phone] Attn: Joy * Telephone Encounter - Kath Dick RN - 12/17/2023 8:51 AM EST Order faxed to [facility] * Telephone Encounter - Suellen Barron OSA - 12/16/2023 4:52 PM EST Pts called the RX for the Commode needs to be sent to [facility] Tele: [phone] * Telephone Encounter - Kath Dick RN [...] Visit Neurology [facility] [address] [place] [address] Kim Iglesias PA-C [address] [place] [address] 03/30/2024 8:20 AM EDT Office Visit [facility] [address] [place] [address] Julio César Best DO [address] [place] [address] 10/26/2024 3:40 PM EST Office Visit [facility] [address] [place] [address] Julio César Best DO [address] [place] [address] Health Maintenance Due Date Last Done Comments [...] disturbance documented in this encounter Care Teams Airport Baggage Screener Relationship Specialty Start Date End Date Julio César Best DO [address] [place] [address] PCP - General Family Medicine 02/23/20 documented as of this encounter
--- OUTSIDE RECORDS SUMMARY | 2024-02-01 04:00 | External Medical Summary | Summary of Care ---
Author Name Unknown Organization [facility] Address [address] [facility] [address] Phone [phone] Care Team Providers Care Welding Machine Operator Electro Gas Name Role Phone Julio César Best DO Primary Care Provider Reason for Visit * Reason Onset Date Comments Order Request 12/16/2023 Resend rx for th e beside commode Encounter Details Date Type Department Care Team (Late st Contact Info) Description 12/16/2023 Telephone Family Practice [facility] [address] [place] [address] Julio César Best DO [address] [place] [address] Order Request (Resend rx for the beside co... Allergies Active Allergy Reactions Criticality Noted Date Comments Simvastatin 06/18/1998 Elevated CPK documented as of this encounter (statuses as of 12/20/2023) Medications Medication Sig Dispensed Refills Start Date [...] 24 HOURS 10 Tablet 5 05/13/2023 Active traZODone HCl 150 MG Oral Tablet [...] mouth daily as needed. 0 12/14/2023 Active Doxycycline Hyclate 100 MG Oral Capsule Take 1 Capsule by mouth in the morning and 1 Capsule before bedtime. 0 12/14/2023 documented as of this encounter (statuses as of 12/20/2023) Active Problems Problem Noted Date Diagnosed Date [...] as of this encounter (statuses as of 12/20/2023) Resolved Problems Problem Noted Date Diagnosed Date Resolved Date Kidney disease, chronic, sta ge III (GFR 30-59 ml/min) 12/11/2013 10/15/2022 Overview: Per CKD protocol #1 Chest pain 09/25/2003 12/29/2011 Corns and callosities 09/16/19992011 Mixed dyslipidemia 08/21/1997 9 Overview: Per Lipid Taxonomy. documented as of this encounter (statuses as of 12/20/2023) Immunizations Name Administration Dates Next Due COVID-19 [...] encounter Miscellaneous Notes * Telephone Encounter - Kath Dick RN - 12/20/2023 8:59 AM EST The DME order is still coming up with me being the provider for some reason. Spoke to Dr Best. He will order this during the [facility] follow up appt today * Telephone [...] 10:26 AM EST Joy calling in from [facility]. Script can not be Electronically signed by ground support equipment mechanic. Script is needing signed or electronically by the provider with NPI # Asking for it to be faxed to [phone] Attn: Joy * Telephone Encounter - Kath Dick RN - 12/17/2023 8:51 AM EST Order faxed to [facility] * Telephone Encounter - Suellen Barron OSA - 12/16/2023 4:52 PM EST Pts called the RX for the Commode needs to be sent to [facility] Tele: [phone] * Telephone Encounter - Kath Dick RN [...] Care Team (Late st Contact Info) Description 12/20/2023 2:20 PM EST Office Visit Family Practice [facility] [address] [address] Julio César Best DO [address] [place] [address] 01/11/2024 10:00 AM EDT Office Visit Neurology [facility] [place] [address] [place] [address] Kim Iglesias PA-C [address] [place] [address] 03/30/2024 8:20 AM EDT Office Visit Family [facility] [address] [place] [address] Julio César Best, [address] [place] [address] Health Maintenance Due Date Last Done Comments [...] disturbance documented in this encounter Care Teams Welding Machine Operator Electro Gas Relationship Specialty Start Date End Date Julio César Best DO [address] [place] [address] PCP - General Family Medicine 02/23/20 documented as of this encounter
--- OUTSIDE RECORDS SUMMARY | 2024-02-01 04:00 | External Medical Summary ---
Author Name Unknown Address Unknown Organization K01:[facility]ATORY [facility] - [address] [place] [address] Laboratory Report Ordering Provider Test Date Status BA HOUSEO 12/20/2023 14:53:30 Final Observation Date Value Abnormality Reference (Units ) Status Triglyceride 12/20/2023 14:53:30 180 Above high normal <=174 (mg/dL) Final Triglyceride Reference Range s (mg/dL):
<150 Acceptable
150-174 Borderline high
175-499 High
>=500 Very high Cholesterol 12/20/2023 14:53:30 226 Above high normal <200 (mg/dL) Final Total Cholesterol Reference Ranges (mg/dL):
<200 Desirable
200-239 Borderline high
>=240 High HDL 12/20/2023 14:53:30 48 >39 (mg/dL ) Final HDL Cholesterol Reference Ra nges (mg/dL):
>=60 High (Desirable)
<50 Low (Undesirable) For Females
<40 Low (Undesirable) For Males NON-HDL CHOLESTEROL 12/20/2023 14:53:30 178 Above high normal <=159 (mg/dL) Final Non-HDL Cholesterol Referenc e Range (mg/dL):
<100 Target level for high risk ASCVD patient
<130 Optimal for general population
130-159 Near optimal for general population
160-189 Borderline High
190-219 High
>=220 Very High LDL, (calculated) 12/20/2023 14:53:30 142 Above high n ormal <=129 (mg/dL) Final LDL Cholesterol Reference Ra nges (mg/dL):
<70 Target level for high risk ASCVD patient
<100 Optimal for general population
100-129 Near optimal for general population
130-159 Borderline high
160-189 High
>=190 Very high Performing Location LABORATORY [facility] - [address] [facility] [address]
--- OUTSIDE RECORDS SUMMARY | 2024-02-01 04:00 | External Medical Summary ---
Author Name Unknown Address Unknown Organization K0G:[facility] - [address] [place] [address] Laboratory Report Ordering Provider Test Date Status PHILLIP LUND 12/20/2023 14:53:30 Final Observation Date Value Abnormality Reference (Units ) Status BUN 12/20/2023 14:53:30 20 6-20 (mg/dL) Final Creatinine 12/20/2023 14:53:30 1.3 Above high normal 0.6-1.2 (mg/dL) Final Glomerular filtration rate/1.73 sq M.predicted [Volume Rate/Area] in Serum, Plasma or Blood by Creatinine-based formula (CKD-EPI) 12/20/2023 14:53:30 58 Below low normal >=60 (mL/min) Final eGFR is calculated based on the CKD-EPI 2020 equation SODIUM 12/20/2023 14:53:30 139 135-146 (m mol/L) Final Potassium 12/20/2023 14:53:30 4.6 3.5-5.1 (m mol/L) Final Cl 12/20/2023 14:53:30 104 98-107 (mm ol/L) Final CO2 12/20/2023 14:53:30 22 22-32 (mmo l/L) Final Anion gap 12/20/2023 14:53:30 13 7-15 (mmol /L) Final Glucose 12/20/2023 14:53:30 94 70-120 (mg /dL) Final Albumin 12/20/2023 14:53:30 4.0 3.8-5.0 (g /dL) Final AST (Aspartate aminotransferase) 12/20/2023 14:53:30 50 10-50 (U/L) Final Alk Phos 12/20/2023 14:53:30 77 35-130 (U/ L) Final Bilirubin, Total 12/20/2023 14:53:30 0.3 <=1 .2 (mg/dL) Final Calcium 12/20/2023 14:53:30 9.8 8.4-10.2 ( mg/dL) Final Protein 12/20/2023 14:53:30 6.1 6.0-8.3 (g /dL) Final ALT (Alanine aminotransferase) 12/20/2023 14:53:30 49 10-50 (U/L) Final Performing Location LABORATORY [place] [facility] - [address] [facility] [address]
--- OUTSIDE RECORDS SUMMARY | 2024-02-01 04:00 | External Medical Summary | Summary of Care ---
Author Name Unknown Organization [facility] Address [address] [place] [address] Phone [phone] Care Team Providers Care Supervisor Production Name Role Phone Julio César Best DO Primary Care Provider Reason for Visit * Reason Onset Date Comments Order Request 12/16/2023 Resend rx for th e beside [id number] additional request for a shower chair Encounter Details Date Type Department Care Team (Late st Contact Info) Description 12/16/2023 Telephone Family Practice [facility] [address] [place] [address] Julio César Best DO [address] [place] [address] Order Request (Resend rx for the beside [...] encounter Miscellaneous Notes * Telephone Encounter - Sophia Martinez OSA - 12/22/2023 1:33 PM EST Patient's called. [facility] still does not have the order for the bedside commode. In addition, the patient's home therapists recommend he get a shower chair with a back on it to make showering easier. Patient's is asking for this to go to [facility] as soon as possible. Please call the patient's regarding this. Thank you. * Telephone Encounter - Kath Dick RN - 12/20/2023 8:59 AM EST The DME order is still coming up with me being the provider for some reason. Spoke to Dr Best. He will order this during the [facility] follow up appt today * [...] 10:26 AM EST Joy calling in from [facility]. Script can not be Electronically signed by email production consultant. Script is needing signed or electronically by the provider with NPI # Asking for it to be faxed to [phone] Attn: Joy * Telephone Encounter - Kath Dick RN - 12/17/2023 8:51 AM EST Order faxed to [facility] * Telephone Encounter - Suellen Barron OSA - 12/16/2023 4:52 PM EST Pts called the RX for the Commode needs to be sent to [facility] Tele: [phone] * Telephone Encounter - Kath Dick RN [...] 01/11/2024 10:00 AM EDT Office Visit [facility] [address] [facility] [place] [address] Kim Iglesias PA-C [address] [facility] [place] [address] 03/30/2024 8:20 AM EDT Office Visit [facility] [address] [place] [address] Julio César Best, [address] [place] [address] 10/26/2024 3:40 PM EST Office Visit [facility] [address] [place] [address] Julio César Best, [address] [place] [address] Health Maintenance Due Date Last Done Comments [...] disturbance documented in this encounter Care Teams Supervisor Production Relationship Specialty Start Date End Date Julio César Best DO [address] [place] [address] PCP - General Family Medicine 02/23/20 documented as of this encounter
--- OUTSIDE RECORDS SUMMARY | 2024-02-01 04:00 | External Medical Summary | Summary of Care ---
Author Name Unknown Organization [facility] Address [address] [place] [address] Phone [phone] Care Team Providers Care Managed Care Coordinator Name Role Phone Julio César Best Primary Care Provider Reason for Visit * Reason Comments Outpatient Testing Encounter Details Date Type Department Care Team (Late st Contact Info) Description 12/20/2023 3:00 PM EST Laboratory Laboratory, [facility] [address] [facility] [place] [phone] [facility] [address] [place] [address] Dyslipidemia, goal LDL below 70; Hospital discharge follow-up; Non-traumatic rhabdomyolysis Allergies Active Allergy Reactions Criticality Noted Date [...] 12/20/2023 Donepezil HCl 10 MG Oral Tablet (Aricept)Indications [...] mouth daily as needed. 0 12/14/2023 Active documented as of this encounter (statuses [...] Office Visit [facility] [address] [place] [address] Kim Iglesias PA-C [address] [place] [address] 03/30/2024 8:20 AM EDT Office Visit [facility] [address] [place] [address] Julio César Best, DO [address] [place] [address] 10/26/2024 3:40 PM EST Office Visit [facility] [address] [place] [address] Julio César Best, DO [address] [place] [address] Pending Results Name Type Priority Associated Diagnoses Date /Time LIPID PANEL WITH DIRECT LDL IF TG IS HIGH Lab Routine Dyslipidemia, goal LDL below 70 12/20/2023 2:53 PM EST CK Lab Routine Hospital discharge follow-up Non-traumatic rhabdomyolysis 12/20/2023 2:53 PM EST COMPREHENSIVE METABOLIC PANEL Lab Routine Hospital discharge follow-up Non-traumatic rhabdomyolysis 12/20/2023 2:53 PM EST BILIRUBIN, DIRECT Lab Routine Dyslipidemia, goal LDL below 70 12/20/2023 2:53 PM EST Health Maintenance Due Date Last Done [...] LDL below 70 Other and unspecified hyperlipidemia Hospital discharge follow-up Other follow-up examination Non-traumatic rhabdomyolysis documented in this encounter Care Teams Managed Care Coordinator Relationship Specialty Start Date End Date Julio César Best DO [address] [place] [address] PCP - General Family Medicine 02/23/20 documented as of this encounter
--- OUTSIDE RECORDS SUMMARY | 2024-02-01 04:00 | External Medical Summary ---
Author Name Unknown Address Unknown Organization K0G:[facility] - [address] [place] [address] Laboratory Report Ordering Provider Test Date Status JAMAL HOUSE 12/20/2023 14:53:30 Final Observation Date Value Abnormality Reference (Units ) Status Bilirubin, Direct 12/20/2023 14:53:30 <0.2 0. 0-0.3 (mg/dL) Final Performing Location [facility] - [address] [place] [address]
--- OUTSIDE RECORDS SUMMARY | 2024-02-01 04:00 | External Medical Summary ---
Author Name Unknown Address Unknown Organization K01:LABORATORY [facility] - [address] [place] [address] Laboratory Report Ordering Provider Test Date Status PHILLIP LUND 12/20/2023 14:53:30 Final Observation Date Value Abnormality Reference (Units ) Status SVITLANA 12/20/2023 14:53:30 265 39-308 (U/ L) Final Performing Location LABORATORY [facility] - [address] [place] [address]
--- OUTSIDE RECORDS SUMMARY | 2024-02-01 04:00 | External Medical Summary | Summary of Care ---
Author Name Unknown Organization [facility] Address [address] [facility] [place] [address] Phone [phone] Care Team Providers Care Supplier Manager Name Role Phone Julio César Best DO Primary Care Provider Reason for Visit * Reason Onset Date Comments Hospital Follow-Up Pt here for H ospital Follow up, admitted to [facility] on 12/11/23 for +Covid, viral bronchitis, traumatic rhabdomyolysis and fall prior to hosp. D/C on 12/14/2023. Hospital Follow-Up 12/20/2023 Encounter Details Date Type Department Care Team (Latest Contact Info) Description 12/20/2023 2:20 PM EST Office Visit Family [facility] [address] [facility] [place] [address] Julio César Best DO 132 [facility] [place] [address] Hospital discharge follow-up*; Non-traumatic rhabdomyolysis Allergies Active Allergy Reactions Criticality [...] 10/15/2022 Active Sildenafil Citrate 100 MG Oral TabletIndications:I [...] mouth daily as needed. 0 12/14/2023 Active Meloxicam 7.5 MG Oral TabletIndications:A rthritis of both knees,Encounter for long-term (current) use of medications Take 1 Tablet by mouth in the morning. for pain.. 90 Tablet 3 09/15/2023 12/20/19 24 Discontinu ed(Medicat ion List Clean Up) [...] Sign Reading Time Taken Comments Blood Pressure 102/58 12/20/2023 2:15 PM EST Pulse 88 12/20/2023 2:15 PM EST Temperature 36.3 C (97.4 F) 12/20/2023 2:15 PM ES T Respiratory Rate 16 12/20/2023 2:15 PM EST Oxygen Saturation 95% 12/20/2023 2:15 PM EST Inhaled Oxygen Concentration - - Weight 89.8 kg (198 lb) 12/20/2023 2:15 PM EST Height - - Body Mass Index 31.01 10/21/2023 9:03 AM EST documented in this encounter Progress Notes * Julio César Best, - 12/20/2023 2:22 PM EST SUBJECTIVE: Lakeisha De Leon is a 73 year old male. Chief Complaint Patient presents with Hospital Follow-Up Pt here for Hospital Follow up, admitted to [facility] on 12/11/23 for +Covid, viral bronchitis, traumatic rhabdomyolysis and fall prior to hosp. D/C on 12/14/2023. Hospital Follow-Up Recent Admission: Patient was recently admitted to [facility] on 12/11/23 and discharged on 12/14/23. Discharge report received and reviewed. HPI: patient had COVID/bronchitis and was found down for 60-90min and presented to the hospital with acute Rhabdo and COVID/bronchitis. Patient Active Problem List Diagnosis Code Major [...] DOSE IN 24 HOURS 10 Tablet 5 traZODone HCl 150 MG Oral Tablet (Desyrel) take 1 tablet by mouth at bedtime 90 Tablet 1 Atorvastatin Calcium 40 MG Oral Tablet (Lipitor) [...] MORNING AND EVENING MEALS 60 Tablet 5 Abrysvo 120 MCG/0.5ML Intramuscular Solution Reconstituted (RSV Pre-Fusion F A&B Vac Rcmb) INJECT INTRAMUSCULARY DIRECTED 1 Each 0 Dicyclomine HCl 10 MG Oral Capsule (Bentyl) take 1 capsule by mouth four times a day (BEFORE FOOD and at bedtime) for abdominal pain (Patient not taking: Reported on 12/20/2023) 120 Capsule 0 Loratadine 10 MG Oral Tablet (Claritin) Take 1 Tablet by mouth daily as needed. No current facility-administered medications for this visit. Current and discharge medications have been reconciled. Review of patient's allergies indicates: Allergen Reactions Simvastatin Elevated CPK OBJECTIVE: BP 102/58 | Pulse 88 | Temp 36.3 C (97.4 F) | Resp 16 | Wt 89.8 kg (198 lb) | SpO2 95% | BMI 31.01 kg/m | BSA 2.06 m Review Of Systems: Skin: negative Eyes: negative Ears/Nose/Throat: negative Respiratory: negative Cardiovascular: negative Gastrointestinal: negative Genitourinary: negative Musculoskeletal: pt denies significant joint pain or stiffness Neurologic: negative Psychiatric: negative Hematologic/Lymphatic/Immunologic: negative Endocrine: negative PHYSICAL EXAM: BP 102/58 | Pulse 88 | Temp 36.3 C (97.4 F) | Resp 16 | Wt 89.8 kg (198 lb) | SpO2 95% | BMI 31.01 kg/m | BSA 2.06 m General: alert, healthy, and no distress Heart: regular rate & rhythm, no murmur, and no gallops Lungs: chest symmetric with normal AP diameter, no chest deformities noted, no chest wall tenderness, lungs clear to auscultation Skin: skin color, texture, turgor are normal, no rashes or significant lesions Musculoskeletal: Joint Stiffness ASSESSMENT: Hospital discharge follow-up - DISCH MED RECON CUR MED LIS - CK; Future; Expected date: 12/20/2023 - COMPREHENSIVE METABOLIC PANEL; Future; Expected date: 12/20/2023 Non-traumatic rhabdomyolysis - CK; Future; Expected date: 12/20/2023 - COMPREHENSIVE METABOLIC PANEL; Future; Expected date: 12/20/2023 Follow-up: Return in about 6 months (around 06/21/2024). | Check-out note: Keep scheduling out in advance PLAN: F/u as scheduled And get labs today to ensure CK return to normal. I spent a total of 40-54 minutes (exact time 52 mins) minutes on the date of service in preparation, delivery, and documentation of the care provided to Lakeisha De Leon excluding any time spent in performance of separately billed services. Julio César Best DO documented in this encounter Plan of Treatment Upcoming Encounters Date Type Department Care Team (Late st Contact Info) Description 01/11/2024 10:00 AM EDT Office Visit Neurology [facility] [address] [place] [address] Kim Iglesias PA-C [address] [facility] [place] [address] 03/30/2024 8:20 AM EDT Office Visit Family [facility] [address] [facility] [place] [address] Julio César Best DO [address] [place] [address] 10/26/2024 3:40 PM EST Office Visit Family [facility] [address] [place] [address] Julio César Best DO [address] [place] [address] Pending Results Name Type Priority Associated Diagnoses Date /Time CK Lab Routine Hospital discharge follow-up Non-traumatic rhabdomyolysis 12/20/2023 2:53 PM EST Scheduled Orders Name Type Priority Associated Diagnoses Orde r Schedule CK Lab Routine Hospital discharge follow-up Non-traumatic rhabdomyolysis Expected: 12/20/2023 (Approximate), Expires: 12/19/2024 Health Maintenance Due Date Last Done Comments [...] Not on filedocumented as of this encounter Results * (ABNORMAL) COMPREHENSIVE METABOLIC PANEL (12/20/2023 2:53 PM EST) BUN 20 6 - 20 mg/dL 12/20/2023 4:00 PM EST [facility] Creatinine 1.3(H) 0.6 - 1.2 mg/dL 12/20/2023 4:00 PM EST [facility] Estimated Glomerular Filtration Rate 58(L) >=60 mL/min 12/20/2023 4:00 PM EST [facility] Comment:eGFR is calculated b ased on the CKD-EPI 2020 equation Sodium 139 135 - 146 mmol/L 12/20/2023 4:00 PM EST [facility] Potassium 4.6 3.5 - 5.1 mmol/L 12/20/2023 4:00 PM EST [facility] Chloride 104 98 - 107 mmol/L 12/20/2023 4:00 PM EST [facility] CO2 22 22 - 32 mmol/L 12/20/2023 4:00 PM EST [facility] Anion Gap 13 7 - 15 mmol/L 12/20/2023 4:00 PM EST [facility] Glucose 94 70 - 120 mg/dL 12/20/2023 4:00 PM EST [facility] Albumin 4.0 3.8 - 5.0 g/dL 12/20/2023 4:00 PM EST [facility] AST 50 10 - 50 U/L 12/20/2023 4:00 PM EST [facility] Alkaline Phosphatase 77 35 - 130 U/L 12/20/2023 4:00 PM EST [facility] Bilirubin, Total 0.3 <=1.2 mg/dL 12/20/2023 4:00 PM EST [facility] Calcium 9.8 8.4 - 10.2 mg/dL 12/20/2023 4:00 PM EST [facility] Protein 6.1 6.0 - 8.3 g/dL 12/20/2023 4:00 PM EST [facility] ALT 49 10 - 50 U/L 12/20/2023 4:00 PM EST [facility] Blood Venous blood specimen / Unknown Venipuncture / Unknown 12/20/2023 2:53 PM EST 12/20/2023 2:53 PM EST Julio César Best DO LAB BLOOD ORDER [facility] [address] [place] [address] documented in this encounter Visit Diagnoses Diagnosis Hospital discharge follow-up- Primary Other follow-up examination Non-traumatic rhabdomyolysis documented in this encounter Care Teams Supplier Manager Relationship Specialty Start Date End Date Julio César Best DO [address] [place] [address] PCP - General Family Medicine 02/23/20 documented as of this encounter"
--- OUTSIDE RECORDS SUMMARY | 2024-02-01 04:01 | External Medical Summary | Summary of Care ---
Author Name Unknown Organization [facility] Address [address] [facility] [address] Phone [phone] Care Team Providers Care Side Trimmer Name Role Phone Ashely Best Primary Care Provider Reason for Visit * Reason Comments eRx-Medication Refill Encounter Details Date Type Department Care Team (Late st Contact Info) Description 12/15/2023 Refill Family Practice [facility] [address] [facility] [place] [address] Jason Ni DO [address] [place] [address] Major neurocognitive disorder (HCC) Allergies Active Allergy Reactions Criticality Noted Date Comments Simvastatin 06/18/1998 Elevated CPK documented as of this encounter (statuses as of 12/16/2023) Medications Medication Sig Dispensed Refills Start Date [...] abdominal pain 120 Capsule 0 3 Active Meloxicam 7.5 MG Oral TabletIndications:A rthritis of both knees,Encounter for long-term (current) use of medications Take 1 Tablet by mouth in the morning. for pain.. 90 Tablet 3 3 Active Donepezil HCl [...] EVENING MEALS 60 Tablet 5 4 Active Doxycycline Hyclate 100 MG Oral Capsule Take 1 Capsule by mouth in the morning and 1 Capsule before bedtime. 0 4 12/18/19 24 Active Loratadine 10 MG Oral Tablet (Claritin) Take 1 Tablet by mouth daily as needed. 0 4 Active Memantine HCl 10 MG Oral Tablet (Namenda)Indication s:Major neurocognitive disorder (HCC) Take 1 Tablet by mouth 2 times a day with morning and evening meals. 60 Tablet 5 3 12/16/19 24 Discontinued documented as of this encounter (statuses as of 12/16/2023) Active Problems Problem Noted Date Diagnosed Date [...] as of this encounter (statuses as of 12/16/2023) Resolved Problems Problem Noted Date Diagnosed Date Resolved Date Kidney disease, chronic, sta ge III (GFR 30-59 ml/min) 12/11/2013 10/15/2022 Overview: Per CKD protocol #1 Chest pain 09/25/2003 12/29/2011 Corns and callosities 09/16/19992011 Mixed dyslipidemia 08/21/1997 9 Overview: Per Lipid Taxonomy. documented as of this encounter (statuses as of 12/16/2023) Immunizations Name Administration Dates Next Due COVID-19 [...] Telephone Encounter - Ashely Best DO - 12/16/2023 9:06 AM EST Signed Prescriptions: Disp Refills Memantine HCl 10 MG Oral Tablet (Namenda) 60 Tab*5 Sig: take 1 tablet by mouth twice a day WITH MORNING AND EVENING MEALS Authorizing Provider: ASHELY BEST * Telephone Encounter - Lakhwinder Guido [facility] - 12/15/2023 5:48 PM EST Pending Prescriptions: Disp Refills Memantine HCl 10 MG Oral Tablet [Pharmacy *60 Tab*5 Sig: take 1 tablet by mouth twice a day WITH MORNING AND EVENING MEALS * Telephone Encounter - Lakhwinder Guido [facility] - 12/15/2023 5:48 PM EST Refill pharmacists currently not authorized to approve refills for this class of medication per refill protocol. Please approve if appropriate. Pending Prescriptions: Disp Refills Memantine HCl 10 MG Oral Tablet [Pharmacy *60 Tab*5 Sig: take 1 tablet by mouth twice a day WITH MORNING AND EVENING MEALS 05/26/2023 (in office), 03/26/2020 (telemedicine) 12/20/2023 If no future appointments scheduled, and last appointment is greater than a year ago, please schedule patient for a follow-up appointment Last date the medication was ordered: 05/26/2023 Pharmacy: [id number] Is this request for a controlled substance? no Patient Phone Numbers Labs: Lab Results Component [...] AM HGBA1C 5.7 04/23/2015 09:12 AM Thank You, Lakhwinder Guido, Pharm-D Clinical Pharmacist Telepharmacy 12/15/2023, 5:48 PM documented in this encounter Plan of Treatment Upcoming Encounters Date Type Department Care Team (Late st Contact Info) Description 12/20/2023 2:20 PM EST Office Visit Family [facility] [address] [place] [address] Ashely Best DO [address] [place] [address] 01/11/2024 10:00 AM EDT Office Visit Neurology [facility] [place] [address] [place] [address] Kim Iglesias PA-C [address] [place] [address] 03/30/2024 8:20 AM EDT Office Visit [facility] [address] [place] [address] Ashely Best, [address] [place] [address] Health Maintenance Due Date Last Done Comments [...] as of this encounter Visit Diagnoses Diagnosis Major neurocognitive disorder (HCC) documented in this encounter Care Teams Side Trimmer Relationship Specialty Start Date End Date Ashely Best DO [address] [place] [address] PCP - General Family Medicine 02/23/20 documented as of this encounter
--- OUTSIDE RECORDS SUMMARY | 2024-02-01 04:01 | External Medical Summary | Summary of Care ---
Author Name Unknown Organization [facility] Address [address] [place] [address] Phone [phone] Care Team Providers Care Punch Operator Name Role Phone Julio César Best Primary Care Provider Reason for Visit * Reason Onset Date Comments Hospital Follow-Up 12/15/2023 [facility] 12/14 Encounter Details Date Type Department Care Team (Late st Contact Info) Description 12/15/2023 Telephone Ancillary [facility] [address] [place] [address] Kath Dick RN Hospital Follow-Up ([facility] 12/14) Allergies Active Allergy Reactions Criticality Noted Date [...] Act max Ammonium Lactate 12 % External CreamIndications:I ntrinsic atopic dermatitis Apply topically to affected area 2 times a day. To affected area. 385 g 11 2 Active Additional Information Patient not taking.Informant: Spouse, Reported on 05/26/2023 Sildenafil Citrate 100 MG Oral TabletIndications: Impotence of organic origin take 1 tablet by mouth 1 TO 4 HOURS BEFORE INTERCOURSE NO MORE THAN 1 DOSE IN 24 HOURS 10 Tablet 5 3 Active traZODone HCl 150 MG Oral Tablet (Desyrel)Indicatio ns:Insomnia take 1 tablet by mouth at bedtime 90 Tablet 1 3 Active Atorvastatin Calcium 40 MG Oral Tablet (Lipitor)Indicatio ns:Dyslipidemia, goal LDL below 70 Take 1 Tablet by mouth in the morning. 90 Tablet 3 3 Active Dicyclomine HCl 10 MG Oral Capsule (Bentyl)Indication s:Irritable bowel syndrome without diarrhea take 1 capsule by mouth four times a day (BEFORE FOOD and at bedtime) for abdominal pain 120 Capsule 0 3 Active Meloxicam 7.5 MG Oral TabletIndications: Arthritis of both knees,Encounter for long-term (current) use of medications Take 1 Tablet by mouth in the morning. for pain.. 90 Tablet 3 3 Active Donepezil HCl 10 MG Oral Tablet (Aricept)Indicatio ns:Dementia without behavioral disturbance (HCC) take 1 tablet by mouth IN THE MORNING with THE LARGEST MEAL OF THE DAY 90 Tablet 1 4 Active Metamucil Free & Natural 43 % Oral Powder (Psyllium) Take by mouth. 0 Act max Doxycycline Hyclate 100 MG Oral Capsule Take 1 Capsule by mouth in the morning and 1 Capsule before bedtime. 0 4 024 Active Loratadine 10 MG Oral Tablet (Claritin) Take 1 Tablet by mouth daily as needed. 0 4 Active Memantine HCl 10 MG Oral Tablet (Namenda)Indicatio ns:Major neurocognitive disorder (HCC) Take 1 Tablet by mouth 2 times a day with morning and evening meals. 60 Tablet 5 3 024 Discontinued Azithromycin 250 MG Oral Tablet (Zithromax Z-Artur) Take two tablets by mouth on first day, then 1 tablet daily until gone 6 Tablet 0 3 024 Discontinued(Nv dication List Clean Up) documented as of this [...] encounter Miscellaneous Notes * Telephone Encounter - Yari Rucker OSA - 12/16/2023 11:05 AM EST Reason for patient's call: returned call Caller was transferred to Kath * Telephone Encounter - Kath Dick RN - 12/16/2023 10:56 AM EST Transitions of Care Note Reason for Referral:Recent Admission Phone visit for follow up: JLUIS Admitted to: [facility], Date: 12/11 Discharged to: home, Date: 12/14 Diagnosis driving hospitalization: COVID 19 Viral Bronchitis Traumatic Rhabdomyolysis Another message left on voicemail including date/time of hospital follow up appt. * Telephone Encounter - Kath Dick RN - 12/15/2023 11:55 AM EST Transitions of Care Note Reason for Referral:Recent Admission Phone visit for follow up: JLUIS Admitted to: [facility], Date: 12/11 Discharged to: home, Date: 12/14 Diagnosis driving hospitalization: COVID 19 Viral Bronchitis Traumatic Rhabdomyolysis Message left for pt and . If they reach the call center they can be transferred to [place] at [phone]. Thank you. documented in this encounter Plan of Treatment Upcoming Encounters Date Type Department Care Team (Late st Contact Info) Description 12/20/2023 2:20 PM EST Office Visit [address] [place] [address] Julio César Best, DO [address] [place] [address] 01/11/2024 10:00 AM EDT Office Visit Neurology [facility] [place] [address] Kim Iglesias PA-C [address] [place] [address] 03/30/2024 8:20 AM EDT Office Visit Family Practice [facility] [address] [place] [address] Julio César Best, [address] [place] [address] Health Maintenance Due Date Last Done Comments [...] filedocumented as of this encounter Care Teams Punch Operator Relationship Specialty Start Date End Date Julio César Best DO [address] [place] [address] PCP - General Family Medicine 02/23/20 documented as of this encounter
--- OUTSIDE RECORDS SUMMARY | 2024-02-01 04:01 | External Medical Summary | Summary of Care ---
Author Name Unknown Organization [facility] Address [address] [place] [address] Phone [phone] Care Team Providers Care Paper Reel Operator Name Role Phone Julio César Best Primary Care Provider Reason for Visit * Reason Onset Date Comments Hospital Follow-Up 12/15/2023 [facility] 12/14 Encounter Details Date Type Department Care Team (Late st Contact Info) Description 12/15/2023 Telephone Ancillary [facility] [address] [place] [address] Kath Dick RN Hospital Follow-Up ([facility] 12/14) Allergies Active Allergy Reactions Criticality Noted [...] until gone 6 Tablet 0 3 024 Discontinued(Mo dication List Clean Up) documented as of [...] Encounter - Kath Dick RN - 12/16/2023 11:12 AM EST Transitions of Care Note Reason for Referral:Recent Admission Phone visit for follow up: JLUIS Admitted to: [facility], Date: 12/11 Discharged to: home, Date: 12/14 Diagnosis driving hospitalization: COVID 19 Viral Bronchitis Traumatic Rhabdomyolysis Source/Contact: Spouse SUBJECTIVE Consent: Verbal consent for review of hospital discharge: Yes REVIEW OF SYSTEMS Patient/Other Reports: Current patient/caregiver problems or concerns: none at this time CV: Denies problems Pulmonary: Denies problems Chills/Sweats/Fever:Denies chills/sweats Denies fever Appetite:Denies problems such as nausea, vomiting, burning, decreased appetite Current diet: as before Bowel: denies problems Bladder: denies problems Wound (If applicable): N/A Pain:Denies Sleep:Denies problems FUNCTIONAL STATUS: ADL'S: Needs Assistance With:Bathing, Eating, and Dressing IADL'S: Needs Assistance With:Grocery Shopping, Cooking food, Routine Housework, Using telephone, Taking care of pets, Taking medications, Attending to safety, and Managing money Cognitive and Mental Health: alert and oriented x 1 objective, short-term memory loss, and difficulty with communication, understanding instructions, and processing information MEDICATION RECONCILIATION Medications: Discharge med list reviewed with patient or caregiver New medication(s) filled since hospitalization- Doxycycline and loratidine Changed medication(s) since hospitalization hold atorvastatin until seeing PCP Reports all medications taken as prescribed. Denies side effects OBJECTIVE ASSESSMENT Medication Risk Assessment: No risks identified Did patient fail outpatient treatment? No Discharge instructions available for review? Yes PLAN Symptom Monitoring Interventions:Member/caregiver education - signs and symptoms to contact PrimaryCare (DO NOT DELETE-Three whitt symptoms patient is to report to PCP) 1. Fall 2. Fever 3. Worsening confusion Aviation All Source IntelligenceSafety Investigator/Cause Analyst of Care interventions/Action Plan: Medication reconciliation and 5 - 7 day follow-up with PCP in place - Date: 12/19 Educated on role of JLUIS completed with patient/caregiver. Educated patient/caregiver on patient right to have input on JLUIS plan of care. Verification of Home Health/DME if indicated: YES [facility] will be coming today for first visit Identified Care Gaps: Yes Care Gaps closed this call: Appointment made or confirmed, Services in place, and Transition of Care follow-up communication Re-evaluation of Plan of Care and progress towards goals achievement: Patient education this visit: Verbal, as above Plan to follow-up as previously scheduled, instructed to call Primary Care Provider with change in symptoms or as needed before next follow-up, discharge needs met, verbalizes understanding and agrees with plan. Kath Dick RN * Telephone Encounter - Yari Rucker OSA - 12/16/2023 11:05 AM EST Reason for patient's call: returned call Caller was transferred to Kath * Telephone Encounter - Kath Dick RN - 12/16/2023 10:56 AM EST Transitions of Care Note Reason for Referral:Recent Admission Phone visit for follow up: JLUIS Admitted to: [facility], Date: 12/11 Discharged to: home, Date: 12/14 Diagnosis driving hospitalization: COVID 19 Viral Bronchitis Traumatic Rhabdomyolysis Another message left on voicemail including date/time of hospital follow up appt. * Telephone Encounter - Kath Dick RN - 12/15/2023 11:55 AM EST Transitions of Care Note Reason for Referral:Recent Admission Phone visit for follow up: JLUIS Admitted to: [facility], Date: 12/11 Discharged to: home, Date: 12/14 Diagnosis driving hospitalization: COVID 19 Viral Bronchitis Traumatic Rhabdomyolysis Message left for pt and . If they reach the call center they can be transferred to [place] at [phone]. Thank you. documented in this encounter Plan of Treatment Upcoming Encounters Date Type Department Care Team (Late st Contact Info) Description 12/20/2023 2:20 PM EST Office Visit [facility] [address] [place] [address] Julio César Best, [address] [place] [address] 01/11/2024 10:00 AM EDT Office Visit [facility] [address] [facility] [address] Kim Iglesias PA-C [address] [facility] [place] [address] 03/30/2024 8:20 AM EDT Office Visit [facility] [address] [place] [address] Julio César Best, [address] [place] [address] Health Maintenance Due Date Last Done Comments [...] filedocumented as of this encounter Care Teams Paper Reel Operator Relationship Specialty Start Date End Date Julio César Best DO [address] [place] [address] PCP - General Family Medicine 02/23/20 documented as of this encounter
--- OUTSIDE RECORDS SUMMARY | 2024-02-01 04:01 | External Medical Summary | Summary of Care ---
Author Name Unknown Organization [facility] Address [address] [place] [address] Phone [phone] Care Team Providers Care [employer] Machinist Name Role Phone Julio César Best Primary Care Provider Reason for Visit * Reason Onset Date Comments Hospital Follow-Up 12/15/2023 [facility] 12/14 Encounter Details Date Type Department Care Team (Late st Contact Info) Description 12/15/2023 Telephone Ancillary [facility] [address] [place] [id number] Kath Dick RN Hospital Follow-Up ([facility] 12/14) Allergies Active Allergy Reactions Criticality Noted [...] until gone 6 Tablet 0 3 024 Discontinued(Sd dication List Clean Up) documented as of [...] visit for follow up: JLUIS Admitted to: [facility], Date: 12/11 Discharged to: home, Date: 12/14 Diagnosis driving hospitalization: COVID 19 Viral Bronchitis Traumatic Rhabdomyolysis Another message left on voicemail including date/time of hospital follow up appt. * Telephone Encounter - Kath Dick RN - 12/15/2023 11:55 AM EST Transitions of Care Note Reason for Referral:Recent Admission Phone visit for follow up: JLUIS Admitted to: [facility], Date: 12/11 Discharged to: home, Date: 12/14 Diagnosis driving hospitalization: COVID 19 Viral Bronchitis Traumatic Rhabdomyolysis Message left for pt and . If they reach the call center they can be transferred to [place] at [phone]. Thank you. documented in this encounter Plan of Treatment Upcoming Encounters Date Type Department Care Team (Late st Contact Info) Description 12/20/2023 2:20 PM EST Office Visit [address] [place] [address] Julio César Best, DO [address] [place] [address] 01/11/2024 10:00 AM EDT Office Visit Neurology [facility] [address] [facility] [place] [address] Kim Iglesias PA-C [address] [place] [address] 03/30/2024 8:20 AM EDT Office Visit Family Practice [facility] [address] [place] [address] Julio César Best, [address] [place] [address] Health Maintenance Due Date Last Done Comments [...] filedocumented as of this encounter Care Teams [employer] Machinist Relationship Specialty Start Date End Date Julio César Best DO [address] [place] [address] PCP - General Family Medicine 02/23/20 documented as of this encounter
[2024-02-01 07:03] LABS: Basophils # (auto) 0.04 K/uL (0.00-0.20); Basophils % (auto) 0.6 %; Eosinophils # (auto) 0.21 K/uL (0.00-0.50); Eosinophils % (auto) 2.9 %; Hematocrit (blood only) 40.5 % (42.0-52.0); Hemoglobin 13.4 g/dl (14.0-18.0); Immature Granulocytes # (auto) 0.02 K/uL (0.01-0.20); Immature Granulocytes % (auto) 0.3 %; Lymphocytes # (auto) 2.11 K/uL (1.20-3.40); Lymphocytes % (auto) 29.5 %; Mean Corpuscular Hemoglobin 30.6 pg (25.0-34.0); Mean Corpuscular Hgb Conc 33.1 g/dL (32.0-36.0); Mean Corpuscular Volume 92.5 fL (80.0-100.0); Monocytes # (auto) 0.61 K/uL (0.11-0.59); Monocytes % (auto) 8.5 %; Neutrophils # (auto) 4.17 K/uL (1.40-6.50); Neutrophils % (auto) 58.2 %; Platelet Count 171 K/uL (130-400); RDW Coefficient of Variation 12.5 % (11.5-14.5); RDW Standard Deviation 42.6 fL (36.4-46.3); Red Blood Count 4.38 M/uL (4.70-6.10); White Blood Count 7.16 K/ul (4.8-10.8)
[2024-02-01 07:25] LABS: BUN Creatinine Ratio 11.8 (10-20); Calcium 9.4 mg/dl (8.6-10.3); Creatinine Clr Calc Pharmacy 57.2 ml/min; Est GFR (African American) 68.8 ml/min; Est GFR (Non-African American) 59.4 ml/min; Potassium 3.8 mmol/L (3.5-5.1)
[2024-02-01 07:31] LABS: Troponin I High Sensitivity 11.9 pg/ml (0-20)
[2024-02-01] MEDS: CHOLECALCIFEROL 25 MCG (1000 UNITS) TAB PO SCH (10:01)
[2024-02-01] MEDS: ATORVASTATIN 40 MG TAB PO SCH (10:01)
[2024-02-01] MEDS: MEMANTINE HCL 10 MG TAB PO SCH (10:01)
[2024-02-01] MEDS: DONEPEZIL HCL 10 MG TAB PO SCH (10:01)
[2024-02-01] MEDS: MULTIVITAMIN TAB PO SCH (10:02)
--- NOTE | 2024-02-01 10:06 | Ultrasound Report ---
BILATERAL LOWER EXTREMITY VENOUS DOPPLER HISTORY: Pulmonary embolus. Assess for DVT. COMPARISON STUDY: None. FINDINGS: There is normal compressibility, flow, and augmentation within the right lower extremity de ep venous system. The left common femoral, superficial femoral, popliteal, anterior tibial, posterior tibial veins are patent. There is occlusive thrombus within the left peroneal veins. IMPRESSION: 1. No DVT within the right lower cavity. 2. Occlusive thrombus within the left peroneal veins consistent with a DVT. ACT 112: Negative or not required by law. Electronically signed by: Saul Leger M.D. 02/01/2024 10:04 AM
--- NOTE | 2024-02-01 11:03 | Hospitalist Progress Note ---
Date of Service February 01, 2024 Assessment & Plan (1) Pulmonary embolism: Plan: 73-year-old male with past medical history significant for GERD, pain in both feet, osteoarthritis, dementia without behavioral disturbance, depression, high- grade intraepithelial neoplasia prostate biopsy / lives at home with his ambulate with a cane was brought in because of weakness and imaging studies shows PE. Patient was admitted to [facility] in November 2023 with fall, traumatic rhabdomyolysis and COVID infection and weakness and he did okay and discharged home with home health. Pulmonary embolism CT PE noted mild burden, subsegmental, nonocclusive right lower lobe pulmonary embolism. No right heart strain Saturating well on room air Lower extremity Doppler did not show any DVT in the right lower cavity. Noted occlusive thrombus within the left peroneal veins Echocardiogram noted EF of 55 to 60%, mild concentric LVH, moderate aortic valve sclerosis without significant AV stenosis, mild to moderate TR, right ventricle is normal in size and function. Continue IV heparin. Plan to transition to NOAC on discharge Weakness/ambulatory dysfunction Get PT OT evaluation Dementia Patient is pleasant Continue donezepil and memantine Will monitor for delirium DVT prophylaxis On IV heparin Disposition Med/telemetry Full code I spent a total of 45 minutes coordinating, documenting and providing care for this patient excluding time spent in performance of separately billed services Admission and Anticipated Discharge Date Admission Date: January 31, 2024 Subjective Patient seen and examined. Patient is alert and oriented to person and place only. Has poor insight Patient reports dyspnea on exertion. Denies other complaints on review of system Physical Exam Constitutional: + well hydrated; no acute distress Eyes: PERRL, conjunctivae normal, anicteric sclerae ENMT: external ear and nose normal, oropharynx normal Respiratory: normal respiratory effort, lungs clear to auscultation Cardiovascular: Rate/Rhythm: regular rate and regular rhythm Gastrointestinal (Abdomen): normal bowel sounds, soft, nontender, no hepatosplenomegaly Musculoskeletal: no cyanosis or clubbing, extremities motor strength 5/5 Neurologic: PERRL, EOMI, accommodation nl, no face palsy, no dysarthria Results & Data Results & Data Vital Signs (Past 12 Hours) Vital Signs Temp Pulse Pulse Resp BP Pulse Ox O2 Del Method 02/01/24 07:51 35.9 C L 61 18 130/89 93 Room Air 02/01/24 07:33 58 L 02/01/24 03:42 36.6 C 63 18 150/91 H 96 Room Air 01/31/24 23:54 59 L 01/31/24 23:38 Room Air 01/31/24 23:38 36.4 C 57 L 18 151/83 H 97 Room Air Laboratory Results Abnormal lab results 01/31/24 02/01/24 Range/Units 16:08 06:47 RBC 4.46 L 4.38 L (4.70-6.10) M/uL Hgb 13.7 L 13.4 L (14.0-18.0) g/dl Hct 40.7 L 40.5 L (42.0-52.0) % [place] # (Auto) 0.61 H (0.11-0.59) K/uL Chloride 108 H (98-107) mmol/L
[2024-02-01] MEDS: OLANZapine 10 MG/2.1 ML SDV IM STA (21:27)
[2024-02-02 07:56] LABS: Hematocrit (blood only) 42.5 % (42.0-52.0); Hemoglobin 14.1 g/dl (14.0-18.0); Mean Corpuscular Hemoglobin 30.4 pg (25.0-34.0); Mean Corpuscular Hgb Conc 33.2 g/dL (32.0-36.0); Mean Corpuscular Volume 91.6 fL (80.0-100.0); Mean Platelet Volume 10.6 fL (9.4-12.4); Platelet Count 187 K/uL (130-400); RDW Coefficient of Variation 12.4 % (11.5-14.5); RDW Standard Deviation 41.2 fL (36.4-46.3); Red Blood Count 4.64 M/uL (4.70-6.10); White Blood Count 7.54 K/ul (4.8-10.8)
[2024-02-02 08:08] LABS: BUN Creatinine Ratio 8.9 (10-20); Calcium 9.6 mg/dl (8.6-10.3); Creatinine Clr Calc Pharmacy 60.1 ml/min; Est GFR (African American) 74.1 ml/min; Est GFR (Non-African American) 63.9 ml/min; Potassium 3.8 mmol/L (3.5-5.1)
[2024-02-02 08:09] LABS: ANTI-Xa, UFH(UnfractionatedHep 0.66 IU/ml (0.3-0.7)
[2024-02-02] MEDS: HEPARIN STOP ORDER ONE (12:41)
[2024-02-02] MEDS: APIXABAN 5 MG TABLET PO SCH (12:41)
--- NOTE | 2024-02-02 13:32 | Hospitalist Progress Note ---
Date of Service February 02, 2024 Assessment & Plan (1) Pulmonary embolism: Plan: 73-year-old male with past medical history significant for GERD, pain in both feet, osteoarthritis, dementia without behavioral disturbance, depression, high- grade intraepithelial neoplasia prostate biopsy / lives at home with his ambulate with a cane was brought in because of weakness and imaging studies shows PE. Patient was admitted to [facility] in November 2023 with fall, traumatic rhabdomyolysis and COVID infection and weakness and he did okay and discharged home with home health. Acute Pulmonary embolism--POA Left LE DVT--POA --CTA:Mild burden, subsegmental, nonocclusive right lower lobe pulmonary embolism. No right heart strain. Lungs are generally clear, though breathing motion artifact limits --Venous Doppler:No DVT within the right lower cavity. Occlusive thrombus within the left peroneal veins consistent with a DVT. --Echocardiogram noted EF of 55 to 60%, mild concentric LVH, moderate aortic valve sclerosis without significant AV stenosis, mild to moderate TR, right ventricle is normal in size and function. Saturating well on room air Continue IV heparin>>Transition to Eliquis Plan to discharge home today Weakness/ambulatory dysfunction PT OT evaluation: May benefit from short-term rehab Patient not interested in rehab placement Prefer to be discharged home High-grade intraepithelial neoplasia prostate Follow-up as outpatient The patient requires positioning of the body in ways not feasible with an ordinary bed in order to alleviate pain as a result will need need frequent changes in body position or the need for and immediate change in body position. Dementia No acute issue Continue donepezil and memantine monitor for delirium DVT Px: Eliquis CODE STATUS Full code Disposition Home with home health Patient not interested in rehab Admission and Anticipated Discharge Date Admission Date: January 31, 2024 Subjective Patient is seen and examined at bedside States feeling well today Discussed with patient's at bedside Saturating well on room air Denies any chest pain, dyspnea, dizziness, nausea, vomiting, abdominal pain No bleeding issues while on IV heparin Had PT evaluation earlier today No other complaints Review of Systems Review of Systems: All systems reviewed & are unremarkable except as noted in Subjective Physical Exam Physical Exam: Physical Exam: Vitals signs as noted above General Appearance:Moderately built and nourished, no apparent distress Head: normocephalic, Atraumatic Eyes: normal inspection, EOMI Neck: supple, Trachea midline Respiratory/Chest: Normal breath sounds, CTA, No accessory muscle use Cardiovascular: S1, S2, No murmur Abdomen/GI:Soft, Non tender, Bowel sounds present Extremities/Musculoskeletal:normal inspection, no edema Neurologic/Psych:AAOX2, grossly no focal neurological deficits, + Dementia Skin: normal color, warm Results & Data Results & Data Vital Signs (Past 12 Hours) Vital Signs Temp Pulse Pulse Pulse Resp BP Pulse Ox 02/02/24 08:30 02/02/24 07:57 36.4 C L 61 64 16 144/75 H 93 02/02/24 07:01 57 L O2 Del Method 02/02/24 08:30 Room Air 02/02/24 07:57 Room Air 02/02/24 07:01
--- NOTE | 2024-02-02 14:25 | Discharge Summary ---
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 As per patient currently walking few steps has to sit down due to weakness and also complaining of pain in the legs. And also has some shortness of breath. Has some cough. Denies any fevers. No chest pains. No belly pain. Appetite is okay. Denies any headache. Patient is alert and awake and oriented to name only. Recognizes his . No nausea/ vomiting. No diarrhea as per . Micturating okay. Patient was admitted to [facility] in November 2023 with fall, traumatic rhabdomyolysis and COVID infection and weakness and he did okay and discharged home with home health Past medical's. As mentioned above Past surgical history. Colonoscopy. EGD. Knee arthroscopy. Cataracts. Repair of ruptured rotator cuff. Social history. . No smoking. Alcohol 2-3 beers daily as per [employer]. No drug use. Family history. Father CT at age 66. Sister had high cholesterol. Admission Exam Per Admitting Provider General- Not in distress Head- atraumatic Eyes- EOMI ENT- oropharynx clear Neck- supple, no JVD. Lungs- clear to auscultation no wheezing or crackles. Heart- regular rhythm; no murmur, no gallop. Abdomen- normal bowel sounds, soft, nontender, no distension. Extremities- no pretibial edema, no erythema seen. Neuro- alert, oriented x 1 EOMI, no facial palsy; no dysarthria;obeys simple commands, moves extremities. Skin- warm & dry Principal Diagnosis Acute Pulmonary embolism Left leg deep vein thrombosis Ambulatory dysfunction Discharge Data Allergies Allergy/AdvReac Type Severity Reaction Status Date / Time simvastatin AdvReac Intermediate elevated Verified 01/31/24 17:39 CPK per records Consultations 01/31/24 20:50 ED Decision to Admit Stat Procedures Performed Laboratory Results WBC 7.54 K/ul (4.8-10.8) 02/02/24 07:02 RBC 4.64 M/uL (4.70-6.10) L 02/02/24 07:02 Hgb 14.1 g/dl (14.0-18.0) 02/02/24 07:02 Hct 42.5 % (42.0-52.0) 02/02/24 07:02 MCV 91.6 fL (80.0-100.0) 02/02/24 07:02 MCH 30.4 pg (25.0-34.0) 02/02/24 07:02 MCHC 33.2 g/dL (32.0-36.0) 02/02/24 07:02 RDW Std Deviation 41.2 fL (36.4-46.3) 02/02/24 07:02 RDW Coeff of Osmel 12.4 % (11.5-14.5) 02/02/24 07:02 Plt Count 187 K/uL (130-400) 02/02/24 07:02 MPV 10.6 fL (9.4-12.4) 02/02/24 07:02 Immature Gran % (Auto) 0.3 % 02/01/24 06:47 Neut % (Auto) 58.2 % 02/01/24 06:47 Lymph % (Auto) 29.5 % 02/01/24 06:47 Schleicher % (Auto) 8.5 % 02/01/24 06:47 Eos % (Auto) 2.9 % 02/01/24 06:47 Baso % (Auto) 0.6 % 02/01/24 06:47 Neut # (Auto) 4.17 K/uL (1.40-6.50) 02/01/24 06:47 Lymph # (Auto) 2.11 K/uL (1.20-3.40) 02/01/24 06:47 Schleicher # (Auto) 0.61 K/uL (0.11-0.59) H 02/01/24 06:47 Eos # (Auto) 0.21 K/uL (0.00-0.50) 02/01/24 06:47 Baso # (Auto) 0.04 K/uL (0.00-0.20) 02/01/24 06:47 Immature Gran # (Auto) 0.02 K/uL (0.01-0.20) 02/01/24 06:47 PT 11.4 Seconds (9.0-12.0) 04/15/24 20:40 INR 1.0 (0.9-1.1) 01/31/24 20:40 APTT 28 Seconds (21-31) 01/31/24 20:40 PTT Ratio 1.0 01/31/24 20:40 Heparin Anti-Xa, Unfract 0.66 IU/ml (0.3-0.7) 02/02/24 07:02 Sodium 142 mmol/L (136-145) 02/02/24 07:02 Potassium 3.8 mmol/L (3.5-5.1) 02/02/24 07:02 Chloride 109 mmol/L (98-107) H 02/02/24 07:02 Carbon Dioxide 27 mmol/L (21-32) 02/02/24 07:02 Anion Gap 6 (3-11) 02/02/24 07:02 BUN 10 mg/dl (6-23) 02/02/24 07:02 Creatinine 1.12 mg/dl (0.6-1.4) 02/02/24 07:02 Est Cr Clr Drug Dosing 60.1 ml/min 02/02/24 07:02 Est GFR ( Amer) 74.1 ml/min 02/02/24 07:02 Est GFR (Non-Af Amer) 63.9 ml/min 02/02/24 07:02 BUN/Creatinine Ratio 8.9 (10-20) L 02/02/24 07:02 Glucose 95 mg/dl (70-99(Fasting)) 02/02/24 07:02 Calcium 9.6 mg/dl (8.6-10.3) 02/02/24 07:02 Magnesium 2.0 mg/dl (1.7-2.4) 02/01/24 06:47 Total Bilirubin 0.4 mg/dl (0.2-1.0) 01/31/24 16:08 AST 29 U/L (13-39) 01/31/24 16:08 ALT 25 U/L (7-52) 01/31/24 16:08 Alkaline Phosphatase 68 U/L (34-104) 01/31/24 16:08 Troponin I High Sens 11.9 pg/ml (0-20) 02/01/24 06:47 B-Natriuretic Peptide 45 pg/ml (0-100) 01/31/24 16:08 Total Protein 6.7 gm/dl (6.0-8.3) 01/31/24 16:08 Albumin 4.0 gm/dl (3.4-5.0) 01/31/24 16:08 Globulin 2.7 gm/dl (2.5-4.0) 01/31/24 16:08 Albumin/Globulin Ratio 1.5 (0.9-2) 01/31/24 16:08 TSH 0.833 uIu/ml (0.300-4.500) 01/31/24 16:08 Urine Color Yellow 01/31/24 16:19 Urine Appearance Clear (Clear) 01/31/24 16:19 Urine pH 5.0 (4.5-7.5) 01/31/24 16:19 Ur Specific Lyman 1.021 (1.000-1.030) 01/31/24 16:19 Urine Protein Negative (Negative) 01/31/24 16:19 Urine Glucose (UA) Negative (Negative) 01/31/24 16:19 Urine Ketones Negative (Negative) 01/31/24 16:19 Urine Blood Negative (Negative) 01/31/24 16:19 Urine Nitrite Negative (Negative) 01/31/24 16:19 Urine Bilirubin Negative (Negative) 01/31/24 16:19 Urine Urobilinogen Negative (Negative) 01/31/24 16:19 Ur Leukocyte Esterase Negative (Negative) 01/31/24 16:19 Adenovirus (PCR) Not Detected (NotDetected) 01/31/24 16:05 B. pertussis DNA (PCR) Not Detected (NotDetected) 01/31/24 16:05 B.parapertussis DNA PCR Not Detected (NotDetected) 01/31/24 16:05 C. pneumoniae DNA (PCR) Not Detected (NotDetected) 01/31/24 16:05 Coronavirus OC43 (PCR) Not Detected (NotDetected) 01/31/24 16:05 Coronavirus HKU1 (PCR) Not Detected (NotDetected) 01/31/24 16:05 Coronavirus 229E (PCR) Not Detected (NotDetected) 01/31/24 16:05 SARS-CoV-2 (PCR) Not Detected (NotDetected) 01/31/24 16:05 Coronavirus NL63 (PCR) Not Detected (NotDetected) 01/31/24 16:05 Human Metapneumovir PCR Not Detected (NotDetected) 01/31/24 16:05 Influenza Type A (PCR) Not Detected (NotDetected) 01/31/24 16:05 Influenza Type B (PCR) Not Detected (NotDetected) 01/31/24 16:05 M. pneumoniae (PCR) Not Detected (NotDetected) 01/31/24 16:05 Parainfluenza 1 (PCR) Not Detected (NotDetected) 01/31/24 16:05 Parainfluenza 2 (PCR) Not Detected (NotDetected) 01/31/24 16:05 Parainfluenza 3 (PCR) Not Detected (NotDetected) 01/31/24 16:05 Parainfluenza 4 (PCR) Not Detected (NotDetected) 01/31/24 16:05 RSV (PCR) Not Detected (NotDetected) 01/31/24 16:05 Entero/Rhino (PCR) Not Detected (NotDetected) 01/31/24 16:05 Impressions Chest X-Ray 01/31/24 15:33 SINGLE VIEW CHEST CLINICAL HISTORY: Generalized weakness. FINDINGS: An AP, portable, upright chest radiograph is compared to study dated 12/11/2023. The heart is enlarged. There is pulmonary vascular congestion. Atelectasis is seen at the lung bases. No airspace consolidation or large pleural effusion is identified. No pneumothorax is seen. The skeletal structures are osteopenic. The bony thorax is grossly intact. Calcific tendinopathy is noted in the right s[place]. IMPRESSION: Cardiomegaly with pulmonary vascular congestion. ACT 112: Negative or not required by law. Electronically signed by: Nikolay Tejeda M.D. 01/31/2024 5:[address] 01/31/24 15:34 CT OF THE HEAD WITHOUT CONTRAST CLINICAL HISTORY: weakness, falls COMPARISON STUDY: MRI of the brain May 30, 2022. Head CT December 11, 2023. CT DOSE: 625.8 mGy.cm TECHNIQUE: Helical axial images of the head were obtained without IV contrast. Automated exposure control was utilized for the study. A dose lowering technique was utilized adhering to the principles of ALARA. FINDINGS: No acute intracranial hemorrhage, midline shift or mass effect is present. The ventricular system is stable. White matter hypodensities are unchanged and favor small vessel disease. The basal cisterns are patent. No extra-axial collections are present. There are no findings to suggest acute dural sinus thrombosis or acute territorial infarct. No significant calvarial abnormalities are present. Visualized portions of the sinuses and mastoid air cells are clear. IMPRESSION: 1. No acute intracranial findings. No change in appearance of the brain. 2. No calvarial fractures. ACT 112: Negative or not required by law. Electronically signed by: Chip Howell M.D. 01/31/2024 4:49 PM Chest CTA 01/31/24 19:26 CR Exam(s): CTA CHEST IV Amt: 118ml of optiray 320 Discussed with Drew Tristan PA-C on 01/30 20:08 (-04:00)EXAM: CT Angiography Chest With Intravenous Contrast CLINICAL HISTORY: Reason for exam: PE. TECHNIQUE: Axial computed tomographic angiography images of the chest with intravenous contrast. CTDI is 41.82 mGy and DLP is 967.01 mGy-cm. Automated exposure control was utilized for the study. A dose lowering technique was utilized adhering to the principles of ALARA. MIP reconstructed images were created and reviewed. 118 ML Optiray 320 given IV. Motion artifact particularly at the thoracic inlet limits evaluation. COMPARISON: None. FINDINGS: Pulmonary arteries: Subsegmental, nonocclusive right lower lobe pulmonary embolism, mild burden. No other/occlusive pulmonary embolism. Aorta: No dissection or aneurysm. Lungs: Generally clear, Limited by breathing motion artifact. No consolidation. Pleural space: No significant effusion. No pneumothorax. Heart: Moderate cardiomegaly. No significant pericardial effusion. No evidence of elevated right heart pressures. Bones/joints: No acute fracture. Soft tissues: Small hiatal hernia, and a partially included 5.3 cm right upper pole renal cyst. Lymph nodes: No enlarged lymph nodes. IMPRESSION: 1. Mild burden, subsegmental, nonocclusive right lower lobe pulmonary embolism. 2. No right heart strain. 3. Lungs are generally clear, though breathing motion artifact limits detail. 4. Incidental hiatal hernia and right upper pole renal cyst. Communications: 01/31/24 20:17 Verify Receipt VR turned into CD - discused results with Dr. Shaw on 01/30 20:17 (-04:00) Electronically signed by: Hoa Rock M.D. 01/31/24 20:08 PM Venous Doppler Study 02/01/24 23:56 BILATERAL LOWER EXTREMITY VENOUS DOPPLER HISTORY: Pulmonary embolus. Assess for DVT. COMPARISON STUDY: None. FINDINGS: There is normal compressibility, flow, and augmentation within the right lower extremity deep venous system. The left common femoral, superficial femoral, popliteal, anterior tibial, posterior tibial veins are patent. There is occlusive thrombus within the left peroneal veins. IMPRESSION: 1. No DVT within the right lower cavity. 2. Occlusive thrombus within the left peroneal veins consistent with a DVT. ACT 112: Negative or not required by law. Electronically signed by: Saul Leger M.D. 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 Patient was admitted to [facility] in November 2023 with fall, traumatic rhabdomyolysis and COVID infection and weakness and he did okay and discharged home with home health. Acute Pulmonary embolism--POA Left LE DVT--POA --CTA:Mild burden, subsegmental, nonocclusive right lower lobe pulmonary embolism. No right heart strain. Lungs are generally clear, though breathing motion artifact limits --Venous Doppler:No DVT within the right lower cavity. Occlusive thrombus within the left peroneal veins consistent with a DVT. --Echocardiogram noted EF of 55 to 60%, mild concentric LVH, moderate aortic valve sclerosis without significant AV stenosis, mild to moderate TR, right ventricle is normal in size and function. Saturating well on room air Continue IV heparin>>Transition to Eliquis Plan to discharge home today Weakness/ambulatory dysfunction PT OT evaluation: May benefit from short-term rehab Patient not interested in rehab placement Prefer to be discharged home High-grade intraepithelial neoplasia prostate Follow-up as outpatient The patient requires positioning of the body in ways not feasible with an ordinary bed in order to alleviate pain as a result will need need frequent changes in body position or the need for and immediate change in body position. Dementia No acute issue Continue donepezil and memantine monitor for delirium Right Renal cyst Incidental finding on CT Follow-up as outpatient DVT Px: Eliquis CODE STATUS Full code Disposition Home with home health Patient not interested in rehab Total Time Total Time Spent Total Time Spent (In Minutes): 59 minutes Discharge Plan Discharge Items Patient Disposition: Home - Home Health Services Reason For Visit: WEAKNESS, PE Discharge Diagnosis: Acute Pulmonary embolism Left leg deep vein thrombosis Ambulatory dysfunction Activity: Per Instructions section Exercise/Sports: Wait until after follow-up appointment Non-emergency contact: Primary Care Provider Call non-emergency contact if: you have any medication questions, your symptoms worsen, your pain is concerning for you and you have a fever Follow-up/Referrals: Julio César Best DO [Primary Care Provider] - (Date & Time 02/09/2024 9:00 AM Provider Julio César Best DO Department Family Practice [facility] ) Diet: Heart Healthy Addtl Attending Provider Instructions: Follow-up with your primary care physician Dr. Julio César Best on 02/09/2024 9:00 AM -- Continue apixaban (Eliquis) 10 mg twice a day for 1 week and then take 5 mg twice a day as advised. Duration of anticoagulation with apixaban to be determined by your primary care physician Seek immediate medical attention if your symptoms reoccur or worsen Please take all medications as instructed on discharge list below. Please call if you have any questions or problems. You can reach a [facility] hospitalist on duty at [facility] 24 hours a day by calling [phone] Pending Studies at Discharge: No Stand-Alone Forms: My [facility] DNA Direct, Smoking Cessation Medications and DC Order Prescriptions: New Eliquis 5 mg Tablet 5 mg PO UD Qty: 74 1RF Rx Instructions: Start taking Apixaban 10 mg twice daily for 7 days followed by 5 mg twice daily Continued memantine 10 mg tablet 10 mg PO BID donepezil 10 mg tablet 10 mg PO QAM trazodone 150 mg tablet 150 mg PO HS multivitamin Tablet 1 tab PO QAM cholecalciferol (vitamin D3) [Vitamin D3] 25 mcg (1,000 unit) Tablet 2,000 mcg PO QAM atorvastatin 40 mg tablet 40 mg PO QAM Hold Instructions: Until further instructions from your primary care physician Discharge Orders: Discharge Order (Routine); Ordered 02/02/24 Ordered By: Yousif Castillo Admission Data Admit Date/Time: 01/31/24 22:24 Attending Provider: Yousif Castillo Admit Provider: Tim Leo Primary Care Provider: Julio César Best Other Providers: Tim Leo
== END 2024-02-02 16:59 | disposition home health service (06) | DRG 299 ==
LOC: ED 15:11 → 2N 22:24 → SUATTDRO 22:24 → 2N 23:19

== ENCOUNTER 2024-03-19 16:04 | Inpatient (IN) ==
--- OUTSIDE RECORDS SUMMARY | 2024-03-19 16:09 | External Medical Summary | Summary of Care ---
Author Name Unknown Organization [facility] Address [address] [place] [address] Phone [phone] Care Team Providers Care Sled Maker Name Role Phone Julio César Best Primary Care Provider Reason for Visit * Reason Onset Date Comments Pre Cert/Prior Auth 02/15/2024 Encounter Details Date Type Department Care Team (Late st Contact Info) Description 02/15/2024 Telephone Family Practice [facility] [address] [place] [address] Elizabeth Dawson LPN Pre Cert/Prior Auth Allergies Active Allergy Reactions Criticality Noted Date Comments Simvastatin 06/18/1998 Elevated CPK documented as of this encounter (statuses as of 02/15/2024) Medications Medication Sig Dispensed Refills Start Date [...] at bedtime 90 Tablet 1 12/23/2023 Active Apixaban 5 MG Oral Tablet (Eliquis)Indications :Acute deep vein thrombosis (DVT) of right lower extremity, unspecified vein (HCC),History of pulmonary embolism Take 1 Tablet by mouth in the morning and 1 Tablet before bedtime. 180 Tablet 0 02/09/2024 Active documented as of this encounter (statuses as of 02/15/2024) Active Problems Problem Noted Date Diagnosed Date [...] as of this encounter (statuses as of 02/15/2024) Resolved Problems Problem Noted Date Diagnosed Date Resolved Date Kidney disease, chronic, sta ge III (GFR 30-59 ml/min) 12/11/2013 10/15/2022 Overview: Per CKD protocol #1 Chest pain 09/25/2003 12/29/2011 Corns and callosities 09/16/19992011 Mixed dyslipidemia 08/21/1997 9 Overview: Per Lipid Taxonomy. documented as of this encounter (statuses as of 02/15/2024) Immunizations Name Administration Dates Next Due COVID-19 [...] Miscellaneous Notes * Telephone Encounter - Elizabeth Dawson LPN - 02/15/2024 3:58 PM EDT See 02/07/24 TE. Contacted [facility] as we had received notice from [employer] that requested service of PrivateDuty, Home Health Aide, providing Care in the Home was denied. Per [facility], pt services was reopened on 02/09/24 and is receiving Nursing Care, PT and OT and services are done through Pt's [employer]. I did reach out to [facility] at [phone] re: this letter as they state CPT code of Private Duty Nursing was incorrect (S9122) and would need to be a medicare approved code, but did not assist withcode. Noted that pt is having increase of falls. Contacted [employer] and Left message at and [facility] [id number]. Pt ID: [id number] Phone call reference :[id number] documented in this encounter Plan of Treatment Upcoming Encounters Date Type Department Care Team (Late st Contact Info) Description 02/16/2024 10:40 AM EDT Office Visit [facility] [address] [place] [address] Julio César Best DO [address] [place] [address] 03/30/2024 8:20 AM EDT Office Visit [facility] [address] [place] [address] Julio César Best, [address] [place] [address] 07/19/2024 1:20 PM EDT Office Visit [facility] [place] [address] [place] [address] Kim Iglesias PA-C [address] [place] [address] 10/26/2024 3:40 PM EST Office Visit [facility] [address] [place] [address] Julio César Best DO [address] [place] [address] Health Maintenance Due Date Last Done Comments [...] Completed 07/30/2023, 06/19/2022, 07/15/2021, Additional history exists Colonoscopy Discontinued 10/21/2023, 01/2024, 06/24/2018, Additional history exists Colorectal Cancer Screening Discontinued RETIRED - COLONOSCOPY-EVERY 5 YRS AGES 18-100 Discontinued 10/21/2023, 10/21/2023, 06/24/2018, Additional history exists Cologuard Discontinued GARDASIL-HPV IMMUNIZATION SERIES Aged Out [...] filedocumented as of this encounter Care Teams Sled Maker Relationship Specialty Start Date End Date Julio César Best DO [address] [place] [address] PCP - General Family Medicine 02/23/20 documented as of this encounter
--- OUTSIDE RECORDS SUMMARY | 2024-03-19 16:09 | External Medical Summary | Summary of Care ---
Author Name Unknown Organization [facility] Address [address] [place] [address] Phone [phone] Care Team Providers Care Financial Services Associate Name Role Phone Julio César Best Primary Care Provider Reason for Visit * Reason Onset Date Comments Pre Cert/Prior Auth 02/15/2024 Encounter Details Date Type Department Care Team (Late st Contact Info) Description 02/15/[address] [facility] [address] [place] [address] Elizabeth Dawson LPN Pre Cert/Prior Auth Allergies Active Allergy Reactions Criticality Noted Date Comments Simvastatin 06/18/1998 Elevated CPK documented as of this encounter (statuses as of 02/18/2024) Medications Medication Sig Dispensed Refills Start Date [...] as of this encounter (statuses as of 02/18/2024) Active Problems Problem Noted Date Diagnosed Date [...] as of this encounter (statuses as of 02/18/2024) Resolved Problems Problem Noted Date Diagnosed Date Resolved Date Kidney disease, chronic, sta ge III (GFR 30-59 ml/min) 12/11/2013 10/15/2022 Overview: Per CKD protocol #1 Chest pain 09/25/2003 12/29/2011 Corns and callosities 09/16/19992011 Mixed dyslipidemia 08/21/1997 9 Overview: Per Lipid Taxonomy. documented as of this encounter (statuses as of 02/18/2024) Immunizations Name Administration Dates Next Due COVID-19 mRNA, LNP-s, No Pre serve, 2-Dose Series (Moderna) 12/13/2020,11/15/2020 COVID-19, MRNA-LNP, 23-24, P F, 30 MCG/0.3 mL, 12 YRS AND ABOVE, IM (PFIZER-Comirnat) 07/30/2023 PPD 10/15/1998 Pneumococcal Conjugate Vacc, 13 [...] encounter Miscellaneous Notes * Telephone Encounter - Colleen Avila LPN - 02/18/2024 11:56 AM EDT Received a call from pt's insurance ([employer]) stating home health is not covered. They stated pt doesn't fit the criteria. They are sending the information onto medicare ([employer]) for review. * Telephone Encounter - Elizabeth Dawson LPN - 02/15/2024 3:58 PM EDT See 02/07/24 TE. Contacted [facility] as we had received notice from [employer] that requested service of PrivateDuty, Home Health Aide, providing Care in the Home was denied. Per [facility], pt services was reopened on 02/09/24 and is receiving Nursing Care, PT and OT and services are done through Pt's [employer]. I did reach out to [employer] at [phone] re: this letter as they state CPT code of Private Duty Nursing was incorrect (S9122) and would need to be a medicare approved code, but did not assist withcode. Noted that pt is having increase of falls. Contacted [employer] and Left message at and member information given [facility]969[facility]. Pt ID: [id number] Phone call reference :[id number] documented in this encounter Plan of Treatment Upcoming Encounters Date Type Department Care Team (Late st Contact Info) Description 03/30/2024 8:20 AM EDT Office Visit Family Practice [facility] [address] [place] [address] Julio César Best DO [address] [place] [address] 07/19/2024 1:20 PM EDT Office Visit Neurology [facility] [place] [address] [place] [address] Kim Iglesias PA-C [address] [place] [address] 10/26/2024 3:40 PM EST Office Visit Family [facility] [address] [place] [address] Julio César Best DO [address] [place] [address] Health Maintenance Due Date Last Done Comments [...] filedocumented as of this encounter Care Teams Financial Services Associate Relationship Specialty Start Date End Date Julio César Best DO [address] [place] [address] PCP - General Family Medicine 02/23/20 documented as of this encounter
--- OUTSIDE RECORDS SUMMARY | 2024-03-19 16:09 | External Medical Summary ---
Author Name UNSPECIFIED Address Unknown Organization [facility] History of Encounters Reason for Assessment: Start of care - f urther visits planned Inpatient discharge facility: Past 14 Da ys: Discharged From Short Stay Acute Hospital Most Recent Inpatient Discharge Date: Functional Assessment Patient Living Situation: Patient lives with other person(s) in the home: Around the clock When Dyspneic: With moderate exerti on (e.g., while dressing, using commode or bedpan, walking distances less than 20 feet) Bowel Incontinence Frequency: Very rarel y or never has bowel incontinence Cognitive Functioning: Requires assistan ce/direction in specific situations (e.g., all tasks involving shifting of attention) or consistently requires low stimulus environmnt due to distractibility. When Confused (Reported or Observed): Co nstantly Cognitive and Behavioral and Psychiatric Symptoms: Impaired decision-making: failure to perform usual ADLs or IADLs, inability to appropriately stop activities, jeopardizes safety through actions Cognitive and Behavioral and Psychiatric Symptoms: Memory deficit: failure to recognize familiar persons/places, inability to recall events of past 24 hours, significant memory loss so that supervision is required Frequency of Behavior Problems: At least daily Current Ability: Bathing: Unable to use the shower or tub, but able to bathe self independently with or without the use of devices at the sink, in chair, or on commode. Current Ability: Ambulation: Able to wal k only with the supervision or assistance of another person at all times. Current: Management Of Oral Medications: Unable to take medication unless administered by another person Problems Primary Home Care Diagnosis ICD Code: I8 2.4Z1, Ac emblsm and thombos unsp deep veins of r dist low extrm Home Care Diagnosis 1: ICD Code: I26.99, Other pulmonary embolism without acute cor pulmonale Home Care Diagnosis 1: Severity Ratin Home Care Diagnosis 2: ICD Code: R26.9, Unspecified abnormalities of gait and mobility Home Care Diagnosis 2: Severity Ratin Home Care Diagnosis 3: ICD Code: M19.90, Unspecified osteoarthritis, unspecified site Home Care Diagnosis 3: Severity Ratin Home Care Diagnosis 4: ICD Code: R53.1, Weakness Home Care Diagnosis 4: Severity Ratin Home Care Diagnosis 5: ICD Code: G30.9, Alzheimer's disease, unspecified Home Care Diagnosis 5: Severity Ratin
--- OUTSIDE RECORDS SUMMARY | 2024-03-19 16:09 | External Medical Summary | Summary of Care ---
Author Name Unknown Organization [facility] Address [address] [facility] [address] Phone [phone] Care Team Providers Care Supervisor Grips Name Role Phone Julio César Best DO Primary Care Provider Reason for Visit * Reason Comments Emergency Department Follow-Up [facility] 02/12-- Fall Did abd/pelvis/spine/chest/head CT Encounter Details Date Type Department Care Team (Late st Contact Info) Description 02/16/2024 10:40 AM EDT Office Visit Family [facility] [address] [place] [id number] Julio César Best DO [address] [place] [address] Dementia without behavioral disturbance (HCC)*; Personal history of fall Allergies Active Allergy Reactions Criticality Noted Date Comments Simvastatin 06/18/1998 Elevated CPK documented as of this encounter (statuses as of 02/16/2024) Medications Medication Sig Dispensed Refills Start Date [...] as of this encounter (statuses as of 02/16/2024) Active Problems Problem Noted Date Diagnosed Date [...] as of this encounter (statuses as of 02/16/2024) Resolved Problems Problem Noted Date Diagnosed Date Resolved Date Kidney disease, chronic, sta ge III (GFR 30-59 ml/min) 12/11/2013 10/15/2022 Overview: Per CKD protocol #1 Chest pain 09/25/2003 12/29/2011 Corns and callosities 09/16/19992011 Mixed dyslipidemia 08/21/1997 9 Overview: Per Lipid Taxonomy. documented as of this encounter (statuses as of 02/16/2024) Immunizations Name Administration Dates Next Due COVID-19 [...] Sign Reading Time Taken Comments Blood Pressure 122/82 02/16/2024 10:43 AM EDT Pulse 67 02/16/2024 10:43 AM EDT Temperature 36.5 C (97.7 F) 02/16/2024 1 0:43 AM EDT Respiratory Rate - - Oxygen Saturation 94% 02/16/2024 10: 43 AM EDT Inhaled Oxygen Concentration - - Weight 90.1 kg (198 lb 11.2 oz) 024 10:43 AM EDT Height - - Body Mass Index 31.12 10/21/2023 9:03 AM EST documented in this encounter Progress Notes * Julio César Best, - 02/16/2024 10:48 AM EDT Images from the original note were not included. Assessment and Plan Dementia without behavioral disturbance (HCC) Ongoing gait disturbance with recent fall on stairs Discussed fall prevention and advised use of wheeled walker With seat that they have at home, also advise continuing PT As this has been helpful with strength maintenance Personal history of fall Continue PT/OT And use home wheeled walker with seat History of Present Illness Lakeisha De Leon is a 73 year old male that presents for Emergency Department Follow-Up ([facility] 02/13/2024-- Fall /Did abd/pelvis/spine/chest/head CT) Patient had another fall Backwards onto back and head Had CT eval in ER including head/back/hips No fractures, no internal bleeds Loses balance at times And has been getting worse overall As his dementia has worsened Physical Exam Vitals: 02/16/24 1043 Temp: 36.5 C (97.7 F) Pulse: 67 SpO2: 94% BP: 122/82 Physical Exam Constitutional: Appearance: Normal appearance. HENT: Head: Normocephalic and atraumatic. Eyes: Extraocular Movements: Extraocular movements intact. Pupils: Pupils are equal, round, and reactive to light. Cardiovascular: Rate and Rhythm: Normal rate and regular rhythm. Pulmonary: Effort: Pulmonary effort is normal. Breath sounds: Normal breath sounds. Neurological: Mental Status: He is alert. Mental status is at baseline. Coordination: Coordination abnormal. Gait: Gait abnormal. Psychiatric: Mood and Affect: Mood normal. Behavior: Behavior normal. Wrap-Up Time: Total time today was 41 minutes excluding any time spent in the performance of separately billed services. documented in this encounter Nursing Notes * Gwen Olivia LPN - 02/16/2024 10:41 AM EDT The patient has been properly identified by confirmation of name and date of . Chief Complaint Patient presents with Emergency Department Follow-Up [facility] 02/13/2024-- Fall Did abd/pelvis/spine/chest/head CT Pt was walking up stairs outside and fell backwards on concrete. Fell on L hip, back and hit head. Has big bruise on L side, some h/a localized in R sabianist. Pt is ambulating with cane. Dose feel unsteady at times espically bc hip is sore. Pt shuffles feet when he walks. documented in this encounter Plan of Treatment Upcoming Encounters Date Type Department Care Team (Late st Contact Info) Description 03/30/2024 8:20 AM EDT Office Visit [facility] [address] [place] [address] Julio César Best DO [address] [place] [address] 07/19/2024 1:20 PM EDT Office Visit Neu[facility] [address] [facility] [facility] [address] [place] [address] Kim Iglesias PA-C [address] [facility] [address] [place] [address] 10/26/2024 3:40 PM EST Office Visit [facility] [address] [place] [address] Julio César Best DO [address] [place] [address] Health Maintenance Due Date Last Done Comments [...] (HCC)- Primary Dementia, unspecified, without behavioral disturbance Personal history of fall documented in this encounter Care Teams Supervisor Grips Relationship Specialty Start Date End Date Julio César Best DO [address] [place] [address] PCP - General Family Medicine 02/23/20 documented as of this encounter
--- NOTE | 2024-03-19 16:44 | Emergency Department Note ---
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 Patient has had some increasing weakness increasing swelling of the lower legs for the last several days. Also states the last week or so if not longer is been having some intermittent shooting sharp pain behind the right ear and into the head. No numbness or tingling reported. No new confusion. Some generalized weakness. No breathing issues a little rhinorrhea is reported. No chest pain reported. No abdominal pain or nausea or vomiting reported. Bilateral swelling of the legs with maybe a little bit of redness according to . No fever reported. Patient without a significant cardiac history by report. PAST MEDICAL HISTORY: As noted above MEDICATIONS: Reviewed home medications includes Eliquis SOCIAL HISTORY: Lives at home with PHYSICAL EXAM: GENERAL: alert and oriented in no acute distress on stretcher Head: normocephalic and atraumatic EYES: No injection, discharge or icterus. EOMI. NECK: Trachea midline. Supple. ENT: Mucous membranes pink and moist. No mastoid tenderness particular in the right appreciated or overlying rash. LUNGS: Airway patent. No retractions. Breath sounds clear with good air entry bilaterally. HEART: Regular rate and rhythm. No chest wall tenderness ABDOMEN: Soft and non-tender, without guarding or rebound. SKIN: Acyanotic, warm, dry EXTREMITIES: 1-2+ edema of the lower extremities bilaterally. Trace erythema on the left foot but no wounds noted bilaterally. A bit of dry skin on the heels bilaterally. Swelling does extend towards the thighs bilaterally. NEUROLOGICAL: No focal deficits moving all extremities. No aphasia. No facial droop or slurred speech. Intact gross sensation in extremities. Some difficulty with ambulation and getting his legs on the bed. EK bpm normal sinus rhythm first-degree block. No PVC or PAC. No acute ST segment elevation or depression with a QTc of 465. CONTINUOUS CARDIAC MONITORING: was ordered and showed a heart rate of 60s to 70s bpm in normal sinus rhythm first-degree heart block Patient's laboratory studies and imaging reviewed. Differential includes Infection, dehydration, metabolic abnormality, hypo/hyperglycemia, electrolyte disturbance, anemia, hypoxia, cardiac sources, intracerebral event/neurologic, as well as other pathologies. IMPRESSION/MEDICAL DECISION MAKING: No rash or swelling of the mastoid process or overlying the scalp noted. Doubt zoster. Doubt mastoiditis. Intermittent nature and shooting nature seems consistent likely with neuropathic pain and possibly occipital neuralgia. Generalized weakness with the leg swelling could be related to many things. Will obtain ultrasound discussion of the way to exclude DVT although he is on anticoagulation. Question fluid overload more but is not hypoxic. No cardiac history reported. Blood work will be obtained. Benign abdomen. No chest pain or shortness of breath reported. Does have a little bit nasal congestion respiratory viral panel be completed. Respiratory viral panel negative. Doubt acute CVA but given that he had some weakness and has had a lot of frequent falls will obtain head CT in conjunction with the pain he is imminently been having. I doubt this represents a dissection or aneurysm or vascular abnormality. No other neurological deficits or new with his underlying chronic dementia. EKG here without acute findings of arrhythmia. No significant leukocytosis or anemia on blood work here today. Chest x-ray per without evidence of fluid overload. CT per radiology of the head without acute findings. Chemistries here without significant electrolyte abnormalities signs of renal dysfunction. Troponin normal. Albumin normal. BNP not elevated. Do question if there may be some dependent component to the edema. Ultrasound per radiology of the lower legs without evidence of DVTs. Discussed findings with patient and at bedside. Given his weakness and ambulatory issues discussed with them if staying for some monitor diuresis would be helpful to help lower as far as particular anticoagulation. In shared decision-making patient and wish to stay with concerns if we do diurese him some that he is at increased risk of falling given the need for the bathroom at home. Discussed with them extensively and will try condom catheter to see if he is able to tolerate this for some diuresis here and given a dose of Lasix. Hospitalist team contacted. Will defer any medication for possible exception of neurology at this time given his other acute issues and history of dementia. Not having head pain pain right now. DIAGNOSIS: Leg swelling, right occipital neuralgia, weakness and ambulatory dysfunction, dementia DISPOSITION: Hospitalist will evaluate Patient was agreeable with this plan. Past Med/Surg History Problem List intermediate (current) use of anticoagulants (Acute) Occipital neuralgia of right side (Acute) Ambulatory dysfunction (Acute) Leg swelling (Acute) Ambulatory dysfunction FERRER (dyspnea on exertion) (Acute) Pulmonary embolism (Acute) Pulmonary embolism Generalized weakness (Acute) Scalp abrasion (Acute) Superficial burn of scalp (Acute) Fall from standing (Acute) COVID-19 (Acute) Dementia (Acute) Rhabdomyolysis (Acute) Right knee DJD Left knee DJD (Acute 12/05/14) Medical History History of gout Osteoarthritis GERD (gastroesophageal reflux disease) diet controlled Depression Alzheimers disease Surgical History History of left knee replacement History of right knee joint replacement History of shoulder surgery Rt History of colonoscopy Hx of colonoscopy Family History Other No family history of adverse response to anesthesia Social History Smoking Status: Former smoker Second Hand Exposure: No; Do You Dip or Chew Tobacco: Yes (1 can every 3 days); Hx Alcohol Use: Yes Alcohol type: beer Hx Substance Use: No Preferred Language: Chinese Communication Ability: Impaired Caddie Supervisor Required: No Beliefs That Will Affect Care: None Current Living Situation: Spouse Feels Safe at Home: Yes Assistive Devices: Cane Allergies Allergies Allergy/AdvReac Type Severity Reaction Status Date / Time simvastatin AdvReac Intermediate elevated Verified 01/31/24 17:39 CPK per records Home Meds Home Medications Medication Instructions Recorded Confirmed cholecalciferol (vitamin D3) 25 2,000 mcg PO QAM 07/24/21 03/19/24 mcg (1,000 unit) tablet (Vitamin D3) donepezil 10 mg tablet 10 mg PO QAM 07/24/21 03/19/24 multivitamin 1 tab PO QAM 07/24/21 03/19/24 trazodone 150 mg tablet 150 mg PO HS 07/24/21 03/19/24 memantine 10 mg tablet 10 mg PO BID 06/26/23 03/19/24 atorvastatin 40 mg tablet 40 mg PO QAM 12/11/23 03/19/24 apixaban 5 mg tablet (Eliquis) 5 mg PO BID 03/19/24 03/19/24 Results & Data (ED) Vital Signs Vital Signs - 24 hr 03/19/24 16:08 03/19/24 16:19 03/19/24 16:42 Pulse Rate 76 64 Pulse Rate [Apical] 68 Pulse Rate from SpO2 Sensor Pulse Rhythm [Apical] Regular Pulse Strength [Apical] Normal Respiratory Rate 18 20 20 Respiratory Effort / Characteristics Non-Labored Spontaneous Non-Labored Spontaneous Respiratory Depth Normal Normal Respiratory Pattern Regular Regular Blood Pressure 127/85 Blood Pressure [Right Arm] 135/72 Blood Pressure Mean 99 Blood Pressure Mean [Right Arm] 93 Pulse Oximetry 95 95 98 Oxygen Delivery Method Room Air Room Air Room Air Sepsis Recent Fever Within 48 Hours No Sepsis New/Unexplained Change in Mental Status N/A Sepsis Action Taken by Nursing No Action Required 03/19/24 18:32 03/19/24 18:33 03/19/24 18:34 Pulse Rate 63 62 Pulse Rate [Apical] Pulse Rate from SpO2 Sensor 63 Pulse Rhythm [Apical] Pulse Strength [Apical] Respiratory Rate 20 Respiratory Effort / Characteristics Respiratory Depth Respiratory Pattern Blood Pressure 137/78 Blood Pressure [Right Arm] Blood Pressure Mean 99 Blood Pressure Mean [Right Arm] Pulse Oximetry 95 Oxygen Delivery Method Sepsis Recent Fever Within 48 Hours Sepsis New/Unexplained Change in Mental Status Sepsis Action Taken by Nursing 03/19/24 18:35 Pulse Rate Pulse Rate [Apical] 62 Pulse Rate from SpO2 Sensor Pulse Rhythm [Apical] Pulse Strength [Apical] Normal Respiratory Rate 19 Respiratory Effort / Characteristics Non-Labored Spontaneous Respiratory Depth Normal Respiratory Pattern Regular Blood Pressure Blood Pressure [Right Arm] Blood Pressure Mean Blood Pressure Mean [Right Arm] Pulse Oximetry 97 Oxygen Delivery Method Room Air Sepsis Recent Fever Within 48 Hours Sepsis New/Unexplained Change in Mental Status Sepsis Action Taken by Nursing Laboratory Data 03/19/24 16:40 03/19/24 16:40 Lab Results 03/19/24 Range/Units 16:40 WBC 6.17 (4.8-10.8) K/ul RBC 4.48 L (4.70-6.10) M/uL Hgb 13.7 L (14.0-18.0) g/dl Hct 40.9 L (42.0-52.0) % MCV 91.3 (80.0-100.0) fL MCH 30.6 (25.0-34.0) pg MCHC 33.5 (32.0-36.0) g/dL RDW Std Deviation 42.3 (36.4-46.3) fL RDW Coeff of Osmel 12.8 (11.5-14.5) % Plt Count 165 (130-400) K/uL MPV 10.0 (9.4-12.4) fL Immature Gran % (Auto) 0.2 % Neut % (Auto) 60.5 % Lymph % (Auto) 29.2 % [place] % (Auto) 7.8 % Eos % (Auto) 1.8 % Baso % (Auto) 0.5 % Neut # (Auto) 3.74 (1.40-6.50) K/uL Lymph # (Auto) 1.80 (1.20-3.40) K/uL [place] # (Auto) 0.48 (0.11-0.59) K/uL Eos # (Auto) 0.11 (0.00-0.50) K/uL Baso # (Auto) 0.03 (0.00-0.20) K/uL Immature Gran # (Auto) 0.01 (0.01-0.20) K/uL PT 11.3 (9.0-12.0) Seconds INR 1.0 (0.9-1.1) Sodium 140 (136-145) mmol/L Potassium 4.0 (3.5-5.1) mmol/L Chloride 108 H (98-107) mmol/L Carbon Dioxide 26 (21-32) mmol/L Anion Gap 6 (3-11) BUN 19 (6-23) mg/dl Creatinine 1.25 (0.6-1.4) mg/dl Est Cr Clr Drug Dosing 56.1 ml/min Est GFR ( Amer) 64.9 ml/min Est GFR (Non-Af Amer) 56.0 ml/min BUN/Creatinine Ratio 15.2 (10-20) Glucose 133 H (70-99(Fasting)) mg/dl Calcium 9.1 (8.6-10.3) mg/dl Magnesium 1.9 (1.7-2.4) mg/dl Total Bilirubin 0.4 (0.2-1.0) mg/dl AST 32 (13-39) U/L ALT 27 (7-52) U/L Alkaline Phosphatase 56 (34-104) U/L Troponin I High Sens 10.4 (0-20) pg/ml B-Natriuretic Peptide 66 (0-100) pg/ml Total Protein 6.4 (6.0-8.3) gm/dl Albumin 3.9 (3.4-5.0) gm/dl Globulin 2.5 (2.5-4.0) gm/dl Albumin/Globulin Ratio 1.6 (0.9-2) TSH 0.546 (0.300-4.500) uIu/ml Adenovirus (PCR) Not Detected (NotDetected) B. pertussis DNA (PCR) Not Detected (NotDetected) B.parapertussis DNA PCR Not Detected (NotDetected) C. pneumoniae DNA (PCR) Not Detected (NotDetected) Coronavirus OC43 (PCR) Not Detected (NotDetected) Coronavirus HKU1 (PCR) Not Detected (NotDetected) Coronavirus 229E (PCR) Not Detected (NotDetected) SARS-CoV-2 (PCR) Not Detected (NotDetected) Coronavirus NL63 (PCR) Not Detected (NotDetected) Human Metapneumovir PCR Not Detected (NotDetected) Influenza Type A (PCR) Not Detected (NotDetected) Influenza Type B (PCR) Not Detected (NotDetected) M. pneumoniae (PCR) Not Detected (NotDetected) Parainfluenza 1 (PCR) Not Detected (NotDetected) Parainfluenza 2 (PCR) Not Detected (NotDetected) Parainfluenza 3 (PCR) Not Detected (NotDetected) Parainfluenza 4 (PCR) Not Detected (NotDetected) RSV (PCR) Not Detected (NotDetected) Entero/Rhino (PCR) Not Detected (NotDetected) Administered Medications Discontinued Medications Furosemide (Furosemide 40 Mg/4 Ml Vial) 40 mg IV ONE ONE Stop: 03/19/24 18:28 Last Admin: 03/19/24 18:40 Dose: 40 mg Documented By: [facility] Imaging Data Radiologist's Impression: Venous Doppler Study 03/19/24 16:23 US venous doppler LE BI CLINICAL HISTORY: swelling TECHNIQUE: Bilateral lower extremity real-time compression venous ultrasound with Color Doppler imaging. Utilizing real-time ultrasonic imaging multiple real time high-resolution ultrasonic images with compression and noncompression maneuvers of the deep venous system in addition to color doppler imaging were performed from the common femoral vein through the proximal calf veins. COMPARISON: None available at the time of this dictation. FINDINGS/IMPRESSION: Currently there is normal compressibility of the deep venous system from the common femoral vein through the proximal calf veins. No superficial venous thrombosis is identified. ACT 112: Negative or not required by law. Electronically signed by: Ben Aguirre M.D. 03/19/2024 6:24 PM Chest X-Ray 03/19/24 16:24 XR chest 1V portable CLINICAL HISTORY: weakness, swelling TECHNIQUE: Single frontal radiograph of the chest was obtained. Comparison: Comparison is made to chest radiograph 01/31/2024 FINDINGS: No lines and tubes are seen. Cardiomegaly is noted. The lungs are clear. No evidence of pleural effusion or pneumothorax. IMPRESSION: No acute chest disease. Cardiomegaly is noted. ACT 112: Negative or not required by law. Electronically signed by: Ben Aguirre M.D. 03/19/2024 4:[address] 03/19/24 16:24 CT head/brain wo con CLINICAL HISTORY: weak, eliquis intermittant R head pain Technique: Contiguous axial CT images of the head were acquired from the base of the skull to the vertex without intravenous contrast administration. Images were viewed in brain, subdural and bone windows. Automated dose lowering techniques and/or adjustment according to patient size were utilized for this exam. Comparison: Comparison is made to CT head 02/05/2024 Findings: Areas of decreased attenuation are present in the periventricular and subcortical white matter bilaterally consistent with small vessel ischemic disease. Generalized cerebral atrophy with commensurate enlargement of the ventricles, sulci, and cisterns is also present. There is no acute intracranial hemorrhage or evidence of acute territorial infarction. No shift of the midline structures, mass effect, or extra-axial abnormalities are shown. Atherosclerotic calcifications are present in the intracranial segments of the internal carotid arteries. Cavum septum pellucidum is seen. Imaged portions of the paranasal sinuses and mastoid air cells are clear. The orbits appear normal. There are no acute fractures of the calvaria or scalp swelling. Impression: No acute intracranial hemorrhage, no evidence of acute territorial infarction or other acute intracranial disease process. ACT 112: Negative or not required by law. Electronically signed by: Ben Aguirre M.D. 03/19/2024 5:02 PM Discharge Plan Visit Data Chief Complaint: Neck Injury/Pain Stated Complaint: LT SIDE PAINS NEELIMA UP NECK, LEG SWELLING AND PAIN ED Provider: Brennan Jones Discharge Problem: Leg swelling, Dementia, Ambulatory dysfunction, Occipital neuralgia of right side, intermediate (current) use of anticoagulants Patient Disposition: Being Evaluated by Hospitalist Forms Stand Alone Forms: My [facility] Prescriptions Prescriptions: No Action memantine 10 mg tablet 10 mg PO BID donepezil 10 mg tablet 10 mg PO QAM trazodone 150 mg tablet 150 mg PO HS multivitamin Tablet 1 tab PO QAM cholecalciferol (vitamin D3) [Vitamin D3] 25 mcg (1,000 unit) Tablet 2,000 mcg PO QAM Eliquis 5 mg tablet 5 mg PO BID Rx Instructions: Start taking Apixaban 10 mg twice daily for 7 days followed by 5 mg twice daily atorvastatin 40 mg tablet 40 mg PO QAM Hold Instructions: Until further instructions from your primary care physician Referrals Referrals: Julio César Best DO [Primary Care Provider] -
[2024-03-19 16:51] LABS: Basophils # (auto) 0.03 K/uL (0.00-0.20); Basophils % (auto) 0.5 %; Eosinophils # (auto) 0.11 K/uL (0.00-0.50); Eosinophils % (auto) 1.8 %; Hematocrit (blood only) 40.9 % (42.0-52.0); Hemoglobin 13.7 g/dl (14.0-18.0); Immature Granulocytes # (auto) 0.01 K/uL (0.01-0.20); Immature Granulocytes % (auto) 0.2 %; Lymphocytes % (auto) 29.2 %; Mean Corpuscular Hemoglobin 30.6 pg (25.0-34.0); Mean Corpuscular Hgb Conc 33.5 g/dL (32.0-36.0); Mean Corpuscular Volume 91.3 fL (80.0-100.0); Monocytes # (auto) 0.48 K/uL (0.11-0.59); Monocytes % (auto) 7.8 %; Neutrophils # (auto) 3.74 K/uL (1.40-6.50); Neutrophils % (auto) 60.5 %; Platelet Count 165 K/uL (130-400); RDW Coefficient of Variation 12.8 % (11.5-14.5); RDW Standard Deviation 42.3 fL (36.4-46.3); Red Blood Count 4.48 M/uL (4.70-6.10); White Blood Count 6.17 K/ul (4.8-10.8)
--- NOTE | 2024-03-19 16:59 | XRay Report ---
XR chest 1V portable CLINICAL HISTORY: weakness, swelling TECHNIQUE: Single frontal radiograph of the chest was obtained. Comparison: Comparison is made to chest radiograph 01/31/2024 FINDINGS: No lines and tubes are seen. Cardiomegaly is noted. The lungs are clear. No evidence of pleural effus ion or pneumothorax. IMPRESSION: No acute chest disease. Cardiomegaly is noted. ACT 112: Negative or not required by law. Electronically signed by: Ben Aguirre M.D. 03/19/2024 4:57 PM
--- NOTE | 2024-03-19 17:06 | CT Scan Report ---
CT head/brain wo con CLINICAL HISTORY: weak, eliquis intermittant R head pain Technique: Contiguous axial CT images of the head were acquired from the base of the skull to the jorden shyam without intravenous contrast administration. Images were viewed in brain, subdural and bone [facility] ws. Automated dose lowering techniques and/or adjustment according to patient size were utilized for this exam. Comparison: Comparison is made to CT head 02/05/2024 Findings: Areas of decreased attenuation are present in the periventricular and subcortical white matter bilate rally consistent with small vessel ischemic disease. Generalized cerebral atrophy with commensurate e nlargement of the ventricles, sulci, and cisterns is also present. There is no acute intracranial hem orrhage or evidence of acute territorial infarction. No shift of the midline structures, mass effect, or extra-axial abnormalities are shown. Atherosclerotic calcifications are present in the intracran ial segments of the internal carotid arteries. Cavum septum pellucidum is seen. Imaged portions of the paranasal sinuses and mastoid air cells are clear. The orbits appear normal. There are no acute fractures of the calvaria or scalp swelling. Impression: No acute intracranial hemorrhage, no evidence of acute territorial infarction or other acute intracra nial disease process. ACT 112: Negative or not required by law. Electronically signed by: Ben Aguirre M.D. 03/19/2024 5:02 PM
[2024-03-19 17:09] LABS: BUN Creatinine Ratio 15.2 (10-20); Bilirubin,Total 0.4 mg/dl (0.2-1.0); Calcium 9.1 mg/dl (8.6-10.3); Creatinine Clr Calc Pharmacy 56.1 ml/min; Est GFR (African American) 64.9 ml/min; Magnesium 1.9 mg/dl (1.7-2.4)
[2024-03-19 17:10] LABS: Albumin Globulin Ratio 1.6 (0.9-2); Albumin Level 3.9 gm/dl (3.4-5.0); Globulin 2.5 gm/dl (2.5-4.0); Total Protein 6.4 gm/dl (6.0-8.3)
[2024-03-19 17:17] LABS: Troponin I High Sensitivity 10.4 pg/ml (0-20)
[2024-03-19 17:21] LABS: Prothrombin Time 11.3 Seconds (9.0-12.0)
[2024-03-19 17:26] LABS: Thyroid Stimulating Hormone 0.546 uIu/ml (0.300-4.500)
[2024-03-19 17:44] LABS: Adenovirus PCR Not Detected (NotDetected); Bordetella parapertussis PCR Not Detected (NotDetected); Bordetella pertussis PCR Not Detected (NotDetected); Chlamydia pneumoniae PCR Not Detected (NotDetected); Coronavirus 229E PCR Not Detected (NotDetected); Coronavirus CoV-2 (COVID19)PCR Not Detected (NotDetected); Coronavirus HKU1 PCR Not Detected (NotDetected); Coronavirus NL63 PCR Not Detected (NotDetected); Coronavirus OC43PCR Not Detected (NotDetected); Human Metapneumovirus PCR Not Detected (NotDetected); Influenza A PCR Not Detected (NotDetected); Influenza B PCR Not Detected (NotDetected); Mycoplasma pneumoniae PCR Not Detected (NotDetected); Parainfluenza Virus 1 PCR Not Detected (NotDetected); Parainfluenza Virus 2 PCR Not Detected (NotDetected); Parainfluenza Virus 3 PCR Not Detected (NotDetected); Parainfluenza Virus 4 PCR Not Detected (NotDetected); Respiratory Syncytial VirusPCR Not Detected (NotDetected); Rhinovirus/Enterovirus PCR Not Detected (NotDetected)
--- NOTE | 2024-03-19 18:25 | Ultrasound Report ---
US venous doppler LE BI CLINICAL HISTORY: swelling TECHNIQUE: Bilateral lower extremity real-time compression venous ultrasound with Color Doppler imagi ng. Utilizing real-time ultrasonic imaging multiple real time high-resolution ultrasonic images with compression and noncompression maneuvers of the deep venous system in addition to color doppler imagi ng were performed from the common femoral vein through the proximal calf veins. COMPARISON: None available at the time of this dictation. FINDINGS/IMPRESSION: Currently there is normal compressibility of the deep venous system from the common femoral vein thro ugh the proximal calf veins. No superficial venous thrombosis is identified. ACT 112: Negative or not required by law. Electronically signed by: Ben Aguirre M.D. 03/19/2024 6:24 PM
[2024-03-19] MEDS: FUROSEMIDE 40 MG/4 ML VIAL IV ONE (18:40)
--- NOTE | 2024-03-19 18:40 | History & Physical Report ---
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 Lower Extremity Swelling admit to med surg tele he received 40mg IV lasix in ED will give additional Lasix 20mg IV for 2 more days along with potassium supplement likely dependent edema which could be contributing to ambulatory dysfunction VDS: negative for DVT BNP normal, trop normal, CXR clear Most recent echo reviewed, no documentation of diastotlic dysfunction will update echo R occipital neuralgia pt reports a sharp shooting pain at base of neck, coming up back of head to R ear that comes and goes appears to be a type of neuralgia CT head negative will monitor Weakness/ambulatory dysfunction PT OT evaluation: May benefit from short-term rehab interested in speaking with case management due need for increased assistance at home Recent Pulmonary embolism/ LLE DVT --Echocardiogram noted EF of 55 to 60%, mild concentric LVH, moderate aortic valve sclerosis without significant AV stenosis, mild to moderate TR, right ventricle is normal in size and function. on eliquis Dementia No acute issue Continue donepezil and memantine monitor for delirium DVT Px: Eliquis CODE STATUS Full code Dispo: med tele PCP: Dr. Best Pt was seen and examined in collaboration with Dr. Kumar, please see addendum A total of 55 minutes was spent coordinating, documenting, and providing care for this patient excluding time spent in the performance of separately billed services. This included personally viewing all current laboratories and imaging studies, medication reconciliation, outpatient chart review, and discussion with specialists. History of Present Illness Chief Complaint: Difficulty walking and lower extremity swelling x 2 days. Primary Care Provider: Julio César Best, This is a 73-year-old male who has a significant past medical history of dementia without behavioral disturbance, depression, GERD, history of DVT/PE and hyperlipidemia who presents to ED secondary to difficulty walking and lower extremity swelling for the last 2 days. is at bedside who also helps elicit history. Patient is a poor historian in setting of underlying dementia. Of significance he was hospitalized in January secondary to a PE. He was placed on IV heparin and transition to oral Eliquis. He was also hospitalized in November secondary to a fall, rhabdo and COVID. Patient has been having home health PT and group home come to the house. His home health PT ended approximately 1 week ago and he only has 1 more group home visit. states over the last week he is becoming progressively more weak. At baseline he is not very physically or mentally active, but he does like to walk. He will typically take walks with his cane throughout the day. Up until most recently even 7 steps is difficult for him. He denies any shortness breath with exertion just overall general weakness. was afraid he was going to fall today. also notes over the last 2 to 3 days he has had increased swelling to his lower extremities. Due to his recent blood clot she was concerned this might be related to a clot. The third reason he came to the ED is due to him complaining of right-sided neck pain that starts at the base of his skull and come up his head to his right ear. This has been coming and going and is described as a sharp shooting pain when it comes on. He denies any recent illness since last hospitalization. He denies any fever, chills, chest pain, shortness of breath, nausea, vomiting, abdominal pain, changes bowel or urinary habits. He otherwise has a good appetite. feels he has gained weight over the last several months due to inactivity. In ED patient remained hemodynamically stable. Lab work revealed an anemia with a hemoglobin of 13.7 and 40.9, CMP unremarkable, BNP normal, urinalysis negative, TSH normal, BioFire negative. His head CT was negative. His chest x-ray revealed no acute disease. His bilateral venous Doppler was negative for DVT. Unfortunately states that her children all live away from area. She states that she is having difficulty caring for patient and does need assistance. She states that she needs to have her knee replaced. Pt needs significant help at home with ADLS. Allergies Allergy/AdvReac Type Severity Reaction Status Date / Time simvastatin AdvReac Intermediate elevated Verified 01/31/24 17:39 CPK per records Home Medications Medication Instructions Recorded Confirmed Type cholecalciferol (vitamin D3) 25 2,000 mcg PO QAM 07/24/21 03/19/24 History mcg (1,000 unit) tablet (Vitamin D3) donepezil 10 mg tablet 10 mg PO QAM 07/24/21 03/19/24 History multivitamin 1 tab PO QAM 07/24/21 03/19/24 History trazodone 150 mg tablet 150 mg PO HS 07/24/21 03/19/24 History memantine 10 mg tablet 10 mg PO BID 06/26/23 03/19/24 History atorvastatin 40 mg tablet 40 mg PO QAM 12/11/23 03/19/24 History apixaban 5 mg tablet (Eliquis) 5 mg PO BID 03/19/24 03/19/24 History Past Med/Surg History Problem 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 (Acute) Occipital neuralgia of right side (Acute) Ambulatory dysfunction (Acute) Leg swelling (Acute) Ambulatory dysfunction FERRER (dyspnea on exertion) (Acute) Pulmonary embolism (Acute) Pulmonary embolism Generalized weakness (Acute) Scalp abrasion (Acute) Superficial burn of scalp (Acute) Fall from standing (Acute) COVID-19 (Acute) Dementia (Acute) Rhabdomyolysis (Acute) Right knee DJD Left knee DJD (Acute 12/05/14) Medical History History of gout Osteoarthritis GERD (gastroesophageal reflux disease) diet controlled Depression Alzheimers disease Surgical History History of left knee replacement History of right knee joint replacement History of shoulder surgery Rt History of colonoscopy Hx of colonoscopy Family History Other No family history of adverse response to anesthesia Social History Smoking Status: Former smoker Second Hand Exposure: No; Do You Dip or Chew Tobacco: Yes (1 can every 3 days); Hx Alcohol Use: Yes Alcohol type: beer Hx Substance Use: No Preferred Language: Citizen Of [place] Communication Ability: Impaired Medical Manager Required: No Beliefs That Will Affect Care: None Current Living Situation: Spouse Feels Safe at Home: Yes Assistive Devices: Cane Review of Systems Review of Systems: All systems reviewed & are unremarkable except as noted in HPI & below Physical Exam Physical Exam: Constitutional: WD/WN, vitals as above, NAD, sitting up in bed, pleasant, conversing easily Head: Normocephalic, Atraumatic Eyes: Pupils equal, conjunctivae normal, anicteric sclerae ENMT: external ear and nose normal, oropharynx normal Neck: trachea midline, no thyromegaly normal visual inspection Respiratory: normal respiratory effort, lungs clear to auscultation, no wheeze, rales, rhonchi. Normal insp/exp effort, no accessory muscle use Cardiovascular: RRR, +1 edema Vessels: no JVD or carotid bruit Chest: normal inspection of chest Abdomen: normal bowel sounds, soft, nontender, no hepatosplenomegaly Musculoskeletal: no cyanosis or clubbing, extremities motor strength 5/5 Skin: no rashes, warm and dry normal turgor Neurologic: no face palsy, no dysarthria CN's II-XI intact bilaterally and mov es all extremities Psychiatric: A+Ox3 basics only, euthymic affect Lymphatic: no cervical or axillary lymphadenopathy : deferred Results & Data Results & Data Vital Signs (Past 12 Hours) Vital Signs Pulse Pulse Resp BP BP Pulse Ox O2 Del Method 03/19/24 18:35 62 19 97 Room Air 03/19/24 18:34 62 03/19/24 18:33 63 20 95 03/19/24 18:32 137/78 03/19/24 16:42 64 20 98 Room Air 03/19/24 16:19 68 20 135/72 95 Room Air 03/19/24 16:08 76 18 127/85 95 Room Air Diagnostic Findings Venous Doppler Study 03/19/24 16:23 US venous doppler LE BI CLINICAL HISTORY: swelling TECHNIQUE: Bilateral lower extremity real-time compression venous ultrasound with Color Doppler imaging. Utilizing real-time ultrasonic imaging multiple real time high-resolution ultrasonic images with compression and noncompression maneuvers of the deep venous system in addition to color doppler imaging were performed from the common femoral vein through the proximal calf veins. COMPARISON: None available at the time of this dictation. FINDINGS/IMPRESSION: Currently there is normal compressibility of the deep venous system from the common femoral vein through the proximal calf veins. No superficial venous thrombosis is identified. ACT 112: Negative or not required by law. Electronically signed by: Ben Aguirre M.D. 03/19/2024 6:24 PM Chest X-Ray 03/19/24 16:24 XR chest 1V portable CLINICAL HISTORY: weakness, swelling TECHNIQUE: Single frontal radiograph of the chest was obtained. Comparison: Comparison is made to chest radiograph 01/31/2024 FINDINGS: No lines and tubes are seen. Cardiomegaly is noted. The lungs are clear. No evidence of pleural effusion or pneumothorax. IMPRESSION: No acute chest disease. Cardiomegaly is noted. ACT 112: Negative or not required by law. Electronically signed by: Ben Aguirre M.D. 03/19/2024 4:[address] 03/19/24 16:24 CT head/brain wo con CLINICAL HISTORY: weak, eliquis intermittant R head pain Technique: Contiguous axial CT images of the head were acquired from the base of the skull to the vertex without intravenous contrast administration. Images were viewed in brain, subdural and bone windows. Automated dose lowering techniques and/or adjustment according to patient size were utilized for this exam. Comparison: Comparison is made to CT head 02/05/2024 Findings: Areas of decreased attenuation are present in the periventricular and subcortical white matter bilaterally consistent with small vessel ischemic disease. Generalized cerebral atrophy with commensurate enlargement of the ventricles, sulci, and cisterns is also present. There is no acute intracranial hemorrhage or evidence of acute territorial infarction. No shift of the midline structures, mass effect, or extra-axial abnormalities are shown. Atherosclerotic calcifications are present in the intracranial segments of the internal carotid arteries. Cavum septum pellucidum is seen. Imaged portions of the paranasal sinuses and mastoid air cells are clear. The orbits appear normal. There are no acute fractures of the calvaria or scalp swelling. Impression: No acute intracranial hemorrhage, no evidence of acute territorial infarction or other acute intracranial disease process. ACT 112: Negative or not required by law. Electronically signed by: Ben Aguirre M.D. 03/19/2024 5:02 PM COVID-19 Results Results COVID-19 Adm Lab Results: RBC 4.48 M/uL (4.70-6.10) L 03/19/24 WBC 6.17 K/ul (4.8-10.8) 03/19/24 Hgb 13.7 g/dl (14.0-18.0) L 03/19/24 Hct 40.9 % (42.0-52.0) L 03/19/24 Plt Count 165 K/uL (130-400) 03/19/24 Neutrophils (%) (Auto) 60.5 % 03/19/24 Lymphocytes (%) (Auto) 29.2 % 03/19/24 Monocytes # (Auto) 0.48 K/uL (0.11-0.59) 03/19/24 Eosinophils # (Auto) 0.11 K/uL (0.00-0.50) 03/19/24 Immature Granulocyte % (Auto) 0.2 % 03/19/24 Neutrophils # (Auto) 3.74 K/uL (1.40-6.50) 03/19/24 Lymphocytes # (Auto) 1.80 K/uL (1.20-3.40) 03/19/24 Monocytes # (Auto) 0.48 K/uL (0.11-0.59) 03/19/24 Eosinophils # (Auto) 0.11 K/uL (0.00-0.50) 03/19/24 Basophils # (Auto) 0.03 K/uL (0.00-0.20) 03/19/24 Immature Granulocyte # (Auto) 0.01 K/uL (0.01-0.20) 4 Na 140 mmol/L (136-145) 03/19/24 K 4.0 mmol/L (3.5-5.1) 03/19/24 Cl 108 mmol/L (98-107) H 03/19/24 CO2 26 mmol/L (21-32) 03/19/24 Anion Gap 6 (3-11) 03/19/24 BUN 19 mg/dl (6-23) 03/19/24 Creatinine 1.25 mg/dl (0.6-1.4) 03/19/24 BUN/Creatinine Ratio 15.2 (10-20) 03/19/24 Glucose Level 133 mg/dl (70-99(Fasting)) H 03/19/24 Ca 9.1 mg/dl (8.6-10.3) 03/19/24 Total Bilirubin 0.4 mg/dl (0.2-1.0) 03/19/24 AST/SGOT 32 U/L (13-39) 03/19/24 ALT/SGPT 27 U/L (7-52) 03/19/24 Alkaline Phosphatase 56 U/L (34-104) 03/19/24 Total Protein 6.4 gm/dl (6.0-8.3) 03/19/24 Albumin 3.9 gm/dl (3.4-5.0) 03/19/24 Globulin 2.5 gm/dl (2.5-4.0) 03/19/24 Albumin/Globulin Ratio 1.6 (0.9-2) 03/19/24 INR 1.0 (0.9-1.1) 03/19/24 Adenovirus (PCR) Not Detected (NotDetected) 03/19/24 B. parapertussis DNA (PCR) Not Detected (NotDetected) 12/11 B. pertussis DNA (PCR) Not Detected (NotDetected) 03/19/24 C. pneumoniae DNA (PCR) Not Detected (NotDetected) 4 Coronavirus Type OC43 (PCR) Not Detected (NotDetected) 12/11 Coronavirus Type HKU1 (PCR) Not Detected (NotDetected) 12/11 Coronavirus Type 229E (PCR) Not Detected (NotDetected) 12/11 COVID-19 PCR Not Detected (NotDetected) 03/19/24 Coronavirus Type NL63 (PCR) Not Detected (NotDetected) 12/11 Human Metapneumovirus (PCR) Not Detected (NotDetected) 12/11 Influenza Virus Type A (PCR) Not Detected (NotDetected) Influenza Virus Type B (PCR) Not Detected (NotDetected) M. pneumoniae (PCR) Not Detected (NotDetected) 03/19/24 Parainfluenza Type 1 (PCR) Not Detected (NotDetected) 12/11 Parainfluenza Type 2 (PCR) Not Detected (NotDetected) 12/11 Parainfluenza Type 3 (PCR) Not Detected (NotDetected) 12/11 Parainfluenza Type 4 (PCR) Not Detected (NotDetected) 12/11 RSV (PCR) Not Detected (NotDetected) 03/19/24 Enterovirus/Rhinovirus (PCR) Not Detected (NotDetected) Chest X-Ray 03/19/24 Code Status & VTE Plan Code Status FULL CODE VTE Prophylaxis Plan VTE Prophylaxis will be ordered: No Reason for no VTE drug order: Treatment not indicated Supervising Physician Co-Signing Physician Notes Attending Addendum: care coordinated with LINETTE Paige please refer to her notes for full details, I agree with her notes patient seen and examined, records reviewed by myself as well on exam, patient seen resting in bed, comfortable no chest pain, dyspnea, palpitations, dizziness no other symptoms VS noted and reviewed oriented , not in distress, speaks in sentences with no effort nor accessory muscle use Neck: poor ROM due to pain normal rate, regular rhythm, no murmurs clear breath sounds bilaterally non distended, soft, nontender Grade 1 lower leg edema, no erythema, warmth no neuro deficits ASSESSMENT AND PLAN> BILATERAL LEG EDEMA BNP normal Doppler US legs: no DVT update echo Lasix 40mg IV given at the ED CERVICALGIA history of falls at home per check CT neck other diagnoses and plan of care as per LINETTE Paige's notes Donald Kumar MD
[2024-03-19 18:47] LABS: Appearance Urine Clear (Clear); Bilirubin Urine Negative (Negative); Blood Urine Negative (Negative); Color Urine Yellow; Glucose Urine UA Negative (Negative); Ketones Urine Negative (Negative); Leukocyte Esterase Urine Negative (Negative); Nitrite Urine Negative (Negative); Protein Urine Negative (Negative); Specific Gravity Urine 1.019 (1.000-1.030); Urobilinogen Urine Negative (Negative); pH Urine 6.5 (4.5-7.5)
[2024-03-19] MEDS ORDERED: ALUMINUM/MAGNESIUM SUSP 30 ML UDC PO PRN (21:28)
[2024-03-19] MEDS ORDERED: ONDANSETRON INJ 2 MG/ML 2 ML VIAL IV PRN (21:28)
[2024-03-19] MEDS ORDERED: MAGNESIUM HYDROXIDE SUSP 30 ML UDC PO PRN (21:28)
[2024-03-19] MEDS ORDERED: ACETAMINOPHEN 325 MG TAB PO PRN (21:28)
--- NOTE | 2024-03-19 21:32 | CT Scan Report ---
CT cervical spine wo con CLINICAL HISTORY: neck pain TECHNIQUE: Multidetector row helical CT of the cervical spine was performed without administration of intravenous contrast. Coronal and sagittal reformations were obtained. Automated dose lowering techn iques and/or adjustment according to patient size were utilized for this exam. Comparison: Comparison is made to CT cervical spine 02/13/2024 FINDINGS: No acute fractures or subluxations are identified. Degenerative changes are seen in the visualized sp ine. The alignment is normal. Soft tissues are unremarkable. IMPRESSION: Degenerative changes without evidence of acute bony injury. ACT 112: Negative or not required by law. Electronically signed by: Ben Aguirre M.D. 03/19/2024 9:30 PM
[2024-03-19] MEDS: MEMANTINE HCL 10 MG TAB PO SCH (22:59)
[2024-03-19] MEDS: traZODone HCL 50 MG TAB PO SCH (22:59)
[2024-03-19] MEDS: APIXABAN 5 MG TABLET PO SCH (22:59)
[2024-03-20 05:22] LABS: Basophils # (auto) 0.03 K/uL (0.00-0.20); Basophils % (auto) 0.4 %; Eosinophils # (auto) 0.13 K/uL (0.00-0.50); Eosinophils % (auto) 1.6 %; Hematocrit (blood only) 42.8 % (42.0-52.0); Hemoglobin 14.4 g/dl (14.0-18.0); Immature Granulocytes # (auto) 0.02 K/uL (0.01-0.20); Immature Granulocytes % (auto) 0.2 %; Lymphocytes # (auto) 1.98 K/uL (1.20-3.40); Lymphocytes % (auto) 24.4 %; Mean Corpuscular Hemoglobin 30.4 pg (25.0-34.0); Mean Corpuscular Hgb Conc 33.6 g/dL (32.0-36.0); Mean Corpuscular Volume 90.3 fL (80.0-100.0); Mean Platelet Volume 10.2 fL (9.4-12.4); Monocytes # (auto) 0.67 K/uL (0.11-0.59); Monocytes % (auto) 8.3 %; Neutrophils # (auto) 5.29 K/uL (1.40-6.50); Neutrophils % (auto) 65.1 %; Platelet Count 178 K/uL (130-400); RDW Coefficient of Variation 12.7 % (11.5-14.5); RDW Standard Deviation 41.9 fL (36.4-46.3); Red Blood Count 4.74 M/uL (4.70-6.10); White Blood Count 8.12 K/ul (4.8-10.8)
[2024-03-20 05:30] LABS: Albumin Globulin Ratio 1.5 (0.9-2); BUN Creatinine Ratio 14.5 (10-20); Bilirubin,Total 0.6 mg/dl (0.2-1.0); Calcium 9.6 mg/dl (8.6-10.3); Creatinine Clr Calc Pharmacy 56.5 ml/min; Est GFR (African American) 65.5 ml/min; Est GFR (Non-African American) 56.5 ml/min; Globulin 2.6 gm/dl (2.5-4.0); Magnesium 1.8 mg/dl (1.7-2.4); Potassium 3.4 mmol/L (3.5-5.1); Total Protein 6.6 gm/dl (6.0-8.3)
[2024-03-20 08:05] LABS: Estimated Average Glucose 117 mg/dl; Hemoglobin A1C 5.7 % (4.5-5.6)
[2024-03-20] MEDS: MULTIVITAMIN TAB PO SCH (08:54)
[2024-03-20] MEDS: POTASSIUM CHLORIDE CRTAB 20 MEQ TABCR PO STA (08:54)
[2024-03-20] MEDS: ATORVASTATIN 40 MG TAB PO SCH (08:55)
[2024-03-20] MEDS: DONEPEZIL HCL 10 MG TAB PO SCH (08:55)
[2024-03-20] MEDS: CHOLECALCIFEROL 25 MCG (1000 UNITS) TAB PO SCH (08:55)
[2024-03-20] MEDS: POTASSIUM CHLORIDE CRTAB 20 MEQ TABCR PO SCH (08:56)
[2024-03-20] MEDS: FUROSEMIDE INJ 20 MG/2 ML VIAL IV SCH (08:56)
[2024-03-20] MEDS ORDERED: CHOLECALCIFEROL 25 MCG (1000 UNITS) TAB PO SCH (09:00)
--- NOTE | 2024-03-20 13:48 | Hospitalist Progress Note ---
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 Lower Extremity Swelling admit to med surg tele he received 40mg IV lasix in ED will give additional Lasix 20mg IV for 2 more days along with potassium supplement likely dependent edema which could be contributing to ambulatory dysfunction VDS: negative for DVT BNP normal, trop normal, CXR clear Most recent echo reviewed, no documentation of diastolic dysfunction echo: pending this is improving R occipital neuralgia pt reports a sharp shooting pain at base of neck, coming up back of head to R ear that comes and goes appears to be a type of neuralgia CT head negative/CT neck negative pt w/o complaint today Weakness/ambulatory dysfunction PT OT evaluation: May benefit from short-term rehab interested in speaking with case management due need for increased assistance at home Per CM note not agreeable to rehab, will wait PT/OT Subacute Pulmonary embolism/ LLE DVT --Echocardiogram noted EF of 55 to 60%, mild concentric LVH, moderate aortic valve sclerosis without significant AV stenosis, mild to moderate TR, right ventricle is normal in size and function. on eliquis Hypokalemia replete Dementia No acute issue Continue donepezil and memantine monitor for delirium Pre diabetes A1C 5.7 adequate given age DVT Px: Eliquis CODE STATUS Full code Dispo: med tele, down grade to med surg; expect pt to be medically ready to d/c in next 1-2 days pending PT/OT evals PCP: Dr. Best Pt was seen and examined in collaboration with Dr. Reilly, please see addendum A total of 45 minutes was spent coordinating, documenting, and providing care for this patient excluding time spent in the performance of separately billed services. This included personally viewing all current laboratories and imaging studies, medication reconciliation, outpatient chart review, and discussion with specialists. Admission and Anticipated Discharge Date Admission Date: March 19, 2024 Subjective Pt was seen and examined in room C4 as a bed hold. He just had a large BM and couldn't make it to the bathroom. HE denies pain, f/c/s, chest pain sob. ROS unreliable due to dementia. Review of Systems Review of Systems: All systems reviewed & are unremarkable except as noted in HPI & below Physical Exam Physical Exam: Gen: WD/WN, NAD, A&O x2 basics only, pleasant HEENT: Normocephalic, atraumatic, conjunctivae moist, sclerae anicteric, mucous membranes moist. Lung: Clear to Auscultation bilaterally, no wheezes/rales/rhonchi Heart: Regular rate, regular rhythm, no murmurs, rubs, or gallops Abdomen: Soft, NT, ND +BS x 4 Extremities: No edema Skin: Warm, no rash, negative turgor. Results & Data Results & Data Vital Signs (Past 12 Hours) Vital Signs Temp Pulse Pulse Resp BP Pulse Ox O2 Del Method 03/20/24 12:18 36.8 C 67 22 124/77 93 Room Air 03/20/24 08:43 36.7 C 78 18 125/78 94 Room Air 03/20/24 07:00 101 H 03/20/24 06:00 66 17 120/73 97 Room Air 03/20/24 02:55 72 Laboratory Results Short CBC 03/19/24 03/20/24 Range/Units 16:40 04:32 WBC 6.17 8.12 (4.8-10.8) K/ul Hgb 13.7 L 14.4 (14.0-18.0) g/dl Hct 40.9 L 42.8 (42.0-52.0) % Plt Count 165 178 (130-400) K/uL [facility] 03/19/24 03/20/24 16:40 04:32 Sodium 140 141 Potassium 4.0 3.4 L Chloride 108 H 107 Carbon Dioxide 26 28 BUN 19 18 Creatinine 1.25 1.24 Glucose 133 H 92 Calcium 9.1 9.6 Liver Function 03/19/24 03/20/24 Range/Units 16:40 04:32 Total Bilirubin 0.4 0.6 (0.2-1.0) mg/dl AST 32 33 (13-39) U/L ALT 27 28 (7-52) U/L Alkaline Phosphatase 56 61 (34-104) U/L Albumin 3.9 4.0 (3.4-5.0) gm/dl Urine 03/19/24 Range/Units 18:34 Urine Color Yellow Urine Appearance Clear (Clear) Urine pH 6.5 (4.5-7.5) Ur Specific [place] 1.019 (1.000-1.030) Urine Protein Negative (Negative) Urine Glucose (UA) Negative (Negative) Medications Administered Current Inpatient Medications Acetaminophen (Acetaminophen 325 Mg Tab) 650 mg PO Q4H PRN PRN Reason: Pain or Fever Stop: 04/18/24 21:27 Al Hydrox/Mg Hydrox/Simethicone (Aluminum/Magnesium Susp 30 Ml Udc) 15 ml PO Q4H PRN PRN Reason: Dyspepsia Stop: 04/18/24 21:27 Apixaban (Apixaban 5 Mg Tablet) [address] [facility] Stop: 04/18/24 21:27 Last Admin: 03/20/24 08:54 Dose: 5 mg Atorvastatin Calcium (Atorvastatin 40 Mg Tab) [address] [facility] Stop: 04/19/24 08:59 Last Admin: 03/20/24 08:55 Dose: 40 mg Donepezil HCl (Donepezil Hcl 10 Mg Tab) [address] [facility] Stop: 04/19/24 08:59 Last Admin: 03/20/24 08:55 Dose: 10 mg Furosemide (Furosemide Inj 20 Mg/2 Ml Vial) [address] [facility] Stop: 03/21/24 09:01 Last Admin: 03/20/24 08:56 Dose: 20 mg Magnesium Hydroxide (Magnesium Hydroxide Susp 30 Ml Udc) 30 ml PO Q12H PRN PRN Reason: Constipation Stop: 04/18/24 21:27 Memantine (Memantine Hcl 10 Mg Tab) [address] [facility] Stop: 04/18/24 21:27 Last Admin: 03/20/24 08:53 Dose: 10 mg Multivitamins (Multivitamin Tab) [address] [facility] Stop: 04/19/24 08:59 Last Admin: 03/20/24 08:54 Dose: 1 tab Ondansetron HCl (Ondansetron Inj 2 Mg/Ml 2 Ml Vial) 4 mg IV Q6H PRN PRN Reason: Nausea Stop: 04/18/24 21:27 Potassium Chloride (Potassium Chloride Crtab 20 Meq Tabcr) 20 meq PO QAM [facility] Stop: 03/21/24 09:01 Last Admin: 03/20/24 08:56 Dose: 20 meq Trazodone HCl (Trazodone Hcl 50 Mg Tab) 150 mg PO HS [facility] Stop: 04/18/24 21:27 Last Admin: 03/19/24 22:59 Dose: 150 mg Vitamin D (Cholecalciferol 25 Mcg (1000 Units) Tab) 50 mcg PO QAM [facility] Stop: 04/19/24 08:59 Last Admin: 03/20/24 08:55 Dose: 50 mcg
[2024-03-21 08:08] LABS: BUN Creatinine Ratio 14.6 (10-20); Calcium 9.4 mg/dl (8.6-10.3); Creatinine Clr Calc Pharmacy 48.5 ml/min; Est GFR (African American) 66.1 ml/min; Est GFR (Non-African American) 57.1 ml/min; Potassium 3.9 mmol/L (3.5-5.1)
--- NOTE | 2024-03-21 11:11 | Discharge Summary ---
Discharge Summary Date of Service March 21, 2024 Principal Dx & Hospital Course #1 = Principal Diagnosis (1) Ambulatory dysfunction: (2) Leg swelling: (3) Dementia: (4) Occipital neuralgia of right side: (5) senior care (current) use of anticoagulants: Plan This is a 73-year-old male who has a significant past medical history of dementia without behavioral disturbance, depression, GERD, history of DVT/PE and hyperlipidemia who presents to ED secondary to difficulty walking and lower extremity swelling for the last 2 days. Lower Extremity Swelling admit to med surg tele he received 40mg IV lasix in ED will give additional Lasix 20mg IV for 2 more days along with potassium supplement likely dependent edema which could be contributing to ambulatory dysfunction Dependent edema has resolved VDS: negative for DVT BNP normal, trop normal, CXR clear Most recent echo reviewed, no documentation of diastolic dysfunction echo: EF 55-60%, mild lvh resolved, will d/c lasix, potassium normalized R occipital neuralgia pt reports a sharp shooting pain at base of neck, coming up back of head to R ear that comes and goes appears to be a type of neuralgia CT head negative/CT neck negative pt w/o complaint today Weakness/ambulatory dysfunction PT OT evaluation: ok to return home, will write script for walker Per CM note not agreeable to rehab, D/C home today Subacute Pulmonary embolism/ LLE DVT --Echocardiogram noted EF of 55 to 60%, mild concentric LVH, moderate aortic valve sclerosis without significant AV stenosis, mild to moderate TR, right ventricle is normal in size and function. on eliquis Hypokalemia replete Dementia No acute issue Continue donepezil and memantine monitor for delirium Pre diabetes A1C 5.7 adequate given age DVT Px: Eliquis CODE STATUS Full code Dispo: Discharge home with today PCP: Dr. Best Pt was seen and examined in collaboration with Dr. Reilly, please see addendum A total of 45 minutes was spent coordinating, documenting, and providing care for this patient excluding time spent in the performance of separately billed services. This included personally viewing all current laboratories and imaging studies, medication reconciliation, outpatient chart review, and discussion with specialists. Notes For Next Care Provider Pt presented with dependent edema that responded to IV lasix. Due to dependent edema he had increased difficulty walking. This resolved once edema resolved. Medication Changes From Visit None Admission HPI Per Admitting Provider This is a 73-year-old male who has a significant past medical history of dementia without behavioral disturbance, depression, GERD, history of DVT/PE and hyperlipidemia who presents to ED secondary to difficulty walking and lower extremity swelling for the last 2 days. is at bedside who also helps elicit history. Patient is a poor historian in setting of underlying dementia. Of significance he was hospitalized in January secondary to a PE. He was placed on IV heparin and transition to oral Eliquis. He was also hospitalized in [facility] secondary to a fall, rhabdo and COVID. Patient has been having home health PT and snf come to the house. His home health PT ended approximately 1 week ago and he only has 1 more snf visit. states over the last week he is becoming progressively more weak. At baseline he is not very physically or mentally active, but he does like to walk. He will typically take walks with his cane throughout the day. Up until most recently even 7 steps is difficult for him. He denies any shortness breath with exertion just overall general weakness. was afraid he was going to fall today. also notes over the last 2 to 3 days he has had increased swelling to his lower extremities. Due to his recent blood clot she was concerned this might be related to a clot. The third reason he came to the ED is due to him complaining of right-sided neck pain that starts at the base of his skull and come up his head to his right ear. This has been coming and going and is described as a sharp shooting pain when it comes on. He denies any recent illness since last hospitalization. He denies any fever, chills, chest pain, shortness of breath, nausea, vomiting, abdominal pain, changes bowel or urinary habits. He otherwise has a good appetite. feels he has gained weight over the last several months due to inactivity. In ED patient remained hemodynamically stable. Lab work revealed an anemia with a hemoglobin of 13.7 and 40.9, CMP unremarkable, BNP normal, urinalysis negative, TSH normal, BioFire negative. His head CT was negative. His chest x-ray revealed no acute disease. His bilateral venous Doppler was negative for DVT. Unfortunately states that her children all live away from area. She states that she is having difficulty caring for patient and does need assistance. She states that she needs to have her knee replaced. Pt needs significant help at home with ADLS. Admission Exam Per Admitting Provider Constitutional: WD/WN, vitals as above, NAD, sitting up in bed, pleasant, conversing easily Head: Normocephalic, Atraumatic Eyes: Pupils equal, conjunctivae normal, anicteric sclerae ENMT: external ear and nose normal, oropharynx normal Neck: trachea midline, no thyromegaly normal visual inspection Respiratory: normal respiratory effort, lungs clear to auscultation, no wheeze, rales, rhonchi. Normal insp/exp effort, no accessory muscle use Cardiovascular: RRR, +1 edema Vessels: no JVD or carotid bruit Chest: normal inspection of chest Abdomen: normal bowel sounds, soft, nontender, no hepatosplenomegaly Musculoskeletal: no cyanosis or clubbing, extremities motor strength 5/5 Skin: no rashes, warm and dry normal turgor Neurologic: no face palsy, no dysarthria CN's II-XI intact bilaterally and moves all extremities Psychiatric: A+Ox3 basics only, euthymic affect Lymphatic: no cervical or axillary lymphadenopathy : deferred Discharge Exam Gen: WD/WN, NAD, A&O x2 basics only, pleasant HEENT: Normocephalic, atraumatic, conjunctivae moist, sclerae anicteric, mucous membranes moist. Lung: Clear to Auscultation bilaterally, no wheezes/rales/rhonchi Heart: Regular rate, regular rhythm, no murmurs, rubs, or gallops Abdomen: Soft, NT, ND +BS x 4 Extremities: No edema Skin: Warm, no rash, negative turgor. Updated Medication List Medication Instructions Recorded Confirmed Type cholecalciferol (vitamin D3) 25 2,000 mcg PO QAM 07/24/21 03/19/24 History mcg (1,000 unit) tablet (Vitamin D3) donepezil 10 mg tablet 10 mg PO QAM 07/24/21 03/19/24 History multivitamin 1 tab PO QAM 07/24/21 03/19/24 History trazodone 150 mg tablet 150 mg PO HS 07/24/21 03/19/24 History memantine 10 mg tablet 10 mg PO BID 06/26/23 03/19/24 History atorvastatin 40 mg tablet 40 mg PO QAM 12/11/23 03/19/24 History apixaban 5 mg tablet (Eliquis) 5 mg PO BID 03/19/24 03/19/24 History Hospital Stay Data Consultations 03/19/24 18:32 ED Decision to Admit Stat Diagnostic Imagining Performed Venous Doppler Study 03/19/24 16:23 US venous doppler LE BI CLINICAL HISTORY: swelling TECHNIQUE: Bilateral lower extremity real-time compression venous ultrasound with Color Doppler imaging. Utilizing real-time ultrasonic imaging multiple real time high-resolution ultrasonic images with compression and noncompression maneuvers of the deep venous system in addition to color doppler imaging were performed from the common femoral vein through the proximal calf veins. COMPARISON: None available at the time of this dictation. FINDINGS/IMPRESSION: Currently there is normal compressibility of the deep venous system from the common femoral vein through the proximal calf veins. No superficial venous thrombosis is identified. ACT 112: Negative or not required by law. Electronically signed by: Ben Aguirre M.D. 03/19/2024 6:24 PM Chest X-Ray 03/19/24 16:24 XR chest 1V portable CLINICAL HISTORY: weakness, swelling TECHNIQUE: Single frontal radiograph of the chest was obtained. Comparison: Comparison is made to chest radiograph 01/31/2024 FINDINGS: No lines and tubes are seen. Cardiomegaly is noted. The lungs are clear. No evidence of pleural effusion or pneumothorax. IMPRESSION: No acute chest disease. Cardiomegaly is noted. ACT 112: Negative or not required by law. Electronically signed by: Ben Aguirre M.D. 03/19/2024 4:[address] 03/19/24 16:24 CT head/brain wo con CLINICAL HISTORY: weak, eliquis intermittant R head pain Technique: Contiguous axial CT images of the head were acquired from the base of the skull to the vertex without intravenous contrast administration. Images were viewed in brain, subdural and bone windows. Automated dose lowering techniques and/or adjustment according to patient size were utilized for this exam. Comparison: Comparison is made to CT head 02/05/2024 Findings: Areas of decreased attenuation are present in the periventricular and subcortical white matter bilaterally consistent with small vessel ischemic disease. Generalized cerebral atrophy with commensurate enlargement of the ventricles, sulci, and cisterns is also present. There is no acute intracranial hemorrhage or evidence of acute territorial infarction. No shift of the midline structures, mass effect, or extra-axial abnormalities are shown. Atheroscle rotic calcifications are present in the intracranial segments of the internal carotid arteries. Cavum septum pellucidum is seen. Imaged portions of the paranasal sinuses and mastoid air cells are clear. The orbits appear normal. There are no acute fractures of the calvaria or scalp swelling. Impression: No acute intracranial hemorrhage, no evidence of acute territorial infarction or other acute intracranial disease process. ACT 112: Negative or not required by law. Electronically signed by: Ben Aguirre M.D. 03/19/2024 5:[address] 03/19/24 20:07 CT cervical spine wo con CLINICAL HISTORY: neck pain TECHNIQUE: Multidetector row helical CT of the cervical spine was performed without administration of intravenous contrast. Coronal and sagittal reformations were obtained. Automated dose lowering techniques and/or adjustment according to patient size were utilized for this exam. Comparison: Comparison is made to CT cervical spine 02/13/2024 FINDINGS: No acute fractures or subluxations are identified. Degenerative changes are seen in the visualized spine. The alignment is normal. Soft tissues are unremarkable. IMPRESSION: Degenerative changes without evidence of acute bony injury. ACT 112: Negative or not required by law. Electronically signed by: Ben Aguirre M.D. 03/19/2024 9:30 PM Pending Results Patient Have Any Pending Studies at Discharge: No Discharge Instructions Given to Patient (Per Discharging Provider) MEDICATION CHANGES: NONE, continue all prescribed medications SUMMARY OF TEST RESULTS: You were admitted to hospital due to difficulty walking and lower leg swelling. Ultrasound was negative for blood clot. You received IV lasix and your swelling resolved. Your potassium was low and this was replaced PENDING TEST RESULTS: None RECOMMENDATIONS FOR FOLLOW-UP: Please follow up with your Primary Care Provider as scheduled. I recommend you discuss with your Primary Care Provider about as needed lasix (water pill) to have at home incase patient develops swelling. Recommend to elevated lower extremities when in seated or reclining position. Encourage walking. Take all medications as prescribed. OTHER INSTRUCTIONS: Seek medical attention if you have: * temperature above 101 * chest pain or trouble breathing * abdominal pain, nausea, vomiting * diarrhea, dark stools or bloody stools * any unanswered questions or concerns Call 911 if symptoms are severe. Please take good care of yourself. It has been a pleasure taking care of you. Please take care of yourself. If you have any questions regarding your recent hospitalization please contact [facility] and request Sandy Lainez @ [phone]. Kaitlynn Paige PA-C Total Time Total Time Spent Total Time Spent (In Minutes): 35 minutes Supervising Physician Co-Signing Physician Notes Patient was seen and examined at bedside, patient was on room air, comfortable, oriented to self only. Patient's at bedside, no new medical complaints. Patient reports feeling better, no pain. ROS was not able in detail. Patient was here for placement but patient's indicated that she would like to take him back to home. He is being discharged today. I have seen and examined the patient and have discussed the case with the provider above. I agree with the assessment and plan as stated.
--- NOTE | 2024-03-22 05:27 | Electrocardiogram Report ---
Test Reason : Blood Pressure : / mmHG Vent. Rate : 079 BPM Atrial Rate : 079 BPM P-R Int : 232 ms QRS Dur : 102 ms QT Int : 406 ms P-R-T Axes : 061 035 027 degrees QTc Int : 465 ms Sinus rhythm with 1st degree A-V block Otherwise normal ECG When compared with ECG of 13-FEB-2024 14:22, No significant change was found Confirmed by Dante Bass ([id number]) on 03/22/2024 5:27:03 AM Referred By: REFERRED SELF Confirmed By:Dante Bass
== END 2024-03-21 12:03 | disposition home health service (06) | DRG 551 ==
LOC: ED 16:04 → SUATTDRO 18:35 → EDINP 18:35 → 2W 03-20 14:16 → 3N 03-20 19:23